=== PATIENT | male | born 1940 | race Caucasian/White ===

== ENCOUNTER 2016-08-27 11:32 | Inpatient (IN) | payer OTHER, MEDICARE ==
[2016-08-27 11:44] VITALS: BMI 27.3
[2016-08-27] MEDS ORDERED: FUROSEMIDE 40 MG/4 ML INJECTABLE VIAL ONE (11:45)
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
[2016-08-27 12:15] LABS: URINE APPEARANCE CLEAR; URINE BILIRUBIN NEGATIVE (NEGATIVE); URINE BLOOD NEGATIVE (NEGATIVE); URINE COLOR YELLOW; URINE GLUCOSE (UA) 3+ (NEGATIVE); URINE KETONE NEGATIVE (NEGATIVE); URINE LEUK ESTERASE NEGATIVE (NEGATIVE); URINE NITRITE NEGATIVE (NEGATIVE); URINE UROBILINOGEN NEGATIVE E.U./dl (0.2-1.0)
[2016-08-27 12:18] LABS: ARTERIAL BLD GAS O2 SATURATION 92.7 % (90-98.9); ARTERIAL BLOOD GAS BASE EXCESS 5.8 meq/l (-2-2); ARTERIAL BLOOD GAS HCO3 36.4 meq/L (22-26); ARTERIAL BLOOD GAS PO2 80.5 mmHg (70-100)
[2016-08-27 12:19] LABS: ALLENS TEST POSITIVE; ART PUNCT SITE LEFT RADIAL; LPM/O2% 30%; PT. ON O2? y
[2016-08-27 12:20] LABS: URINE PROTEIN 1+ (NEGATIVE)
[2016-08-27 12:20] LABS: TYPE OF O2 BIPAP
[2016-08-27 12:21] LABS: MECH. VENT. Y
[2016-08-27 12:25] LABS: BASOPHIL 0.2 % (0-2.0); MCH 33.7 pg (25.7-33.7); MCHC 33.4 g/dl (32.0-35.9); MEAN CELL VOLUME 100.6 fl (80-96); MEAN PLT VOLUME 8.6 fl (7.5-11.1); NEUTROPHILS 89.9 % (42.8-82.8); PLATELET COUNT 314 K/MM3 (134-434); RDW 13.5 % (11.9-15.9); WHITE BLOOD COUNT 11.6 K/mm3 (4.0-10.0)
[2016-08-27 12:25] LABS: URINE MUCUS RARE; URINE RBC 1 /hpf (0-3); URINE WBC 4 /hpf (3-5)
[2016-08-27 12:34] LABS: ALBUMIN 3.7 g/dl (3.4-5.0); ANION GAP 3 (8-16); CALCIUM 8.8 mg/dL (8.5-10.1); CO2 37 mmol/L (21-32); CREATININE 0.8 mg/dL (0.7-1.3); GLUCOSE,RANDOM 226 mg/dL (74-106); SGPT/ALT 43 U/L (12-78)
[2016-08-27] MEDS ORDERED: ETOMIDATE 40 MG/20 ML VIAL IVPUSH ONE (12:36)
[2016-08-27] MEDS ORDERED: ROCURONIUM BROMIDE 50 MG/5 ML VIAL IVPUSH ONE (12:36)
[2016-08-27 12:38] LABS: ALK PHOS 87 U/L (45-117); BILIRUBIN,TOTAL 0.5 mg/dL (0.2-1.0); TOT PROT 7.5 g/dl (6.4-8.2); TROPONIN I 0.06 ng/ml (0.00-0.05)
[2016-08-27 12:40] LABS: SGOT/AST 78 U/L (15-37)
[2016-08-27] MEDS ORDERED: RAPID SEQUENCE INTUBATION KIT NR ONE (12:42)
[2016-08-27] MEDS ORDERED: PROPOFOL 100 ML ONE (12:47)
[2016-08-27] MEDS ORDERED: BENZOIN/ALOE VERA/STORAX/TOLU 58 ML BOTTLE ONE (12:56)
[2016-08-27] MEDS ORDERED: AZITHROMYCIN IVPB 500 MG in DEXTROSE 5%-WATER - 250 ML IVPB ONE (13:05)
[2016-08-27] MEDS ORDERED: CEFTRIAXONE 1 GM in DEXTROSE 5%-WATER - 50 ML IVPB ONE (13:05)
[2016-08-27] MEDS ORDERED: SODIUM CHLORIDE 1,000 ML IV STA (13:11)
--- NOTE | 2016-08-27 13:12 | CONSULT ---
Consult Consult Specialty:: PULM/CCM Referred by:: ER Reason for Consultation:: Acute respiratory failure - History of Present Illness Chief Complaint: AMS History of Present Illness: 76 M, (?) CHF, ALS, diabetes, and GERD. Admitted via the ER due to SOB and AMS. Given 80 mg lasix and SL NTG by EMS. ABG revealed acute hypercapneic respiratory failure. He was endotracheally intubated without complications in the ER. No travel history. No history of any sick contacts. CXR: bilateral focal interstitial infiltrates/blunted left CP angle. - History Source History Provided By: Medical Record Limitations to Obtaining History: Clinical Condition - Alcohol/Substance Use Hx Alcohol Use: No - Smoking History Smoking history: Smoker current status UNK Have you smoked in the past 12 months: No Aproximately how many cigarettes per day: 0 If you are a former smoker, when did you quit?: 25YRS AGO Home Medications - Allergies Allergies/Adverse Reactions: Allergies Allergy/AdvReac Type Severity Reaction Status Date / Time No Known Allergies Allergy Verified 08/27/16 11:44 - Home Medications Home Medications: Ambulatory Orders Lisinopril [Prinivil -] 40 mg PO DAILY 02/04/13 Metformin HCl [Riomet] 500 mg PO BID 02/04/13 Ranitidine [Zantac -] 300 mg PO HS 02/04/13 Review of Systems Unable to obtain ROS, reason: not able to provide Physical Exam Vital Sings: Vital Signs Temperature Pulse Rate 112 H 08/27/16 11:32 Respiratory Rate 34 H 08/27/16 11:32 Blood Pressure 135/70 08/27/16 11:32 O2 Sat by Pulse Oximetry (%) 94 L 08/27/16 12:31 Constitutional: Yes: Moderate Distress, Obese Eyes: Yes: Conjunctiva Clear, EOM Intact HENT: Yes: Atraumatic, Normocephalic Neck: Yes: Supple, Trachea Midline Cardiovascular: Yes: S1, S2. No: JVD, Gallop, Rub Respiratory: Yes: Intubated, Mechanically Ventilated, Rhonchi. No: Rales, Stridor, Wheezes ...Inspection: Yes: WNL, Surgical Scar, Trachea Midline. No: Flail Chest ...Clubbing: No Gastrointestinal: Yes: Normal Bowel Sounds, Soft, Abdomen, Obese Renal/: Yes: WNL Breast(s): Yes: WNL Musculoskeletal: Yes: WNL Extremities: Yes: Cool Edema: Yes Peripheral Pulses WNL: Yes Integumentary: Yes: Venous Stasis Changes Neurological: Yes: Lethargy Labs: CBC, BMP 08/27/16 11:55 08/27/16 11:55 ABG Results ABG pH 7.20 (7.35-7.45) L* 08/27/16 12:15 ABG pCO2 at Pt Temp 96.0 mmHg (35-45) H* 08/27/16 12:15 ABG pO2 at Pt Temp 80.5 mmHg (70-100) 08/27/16 12:15 ABG HCO3 36.4 meq/L (22-26) H 08/27/16 12:15 ABG O2 Sat (Measured) 92.7 % (90-98.9) 08/27/16 12:15 ABG O2 Content 14.7 % vol (15-22) L 08/27/16 12:15 ABG Base Excess 5.8 meq/l (-2-2) H 08/27/16 12:15 Imaging - Results Chest X-ray: Report Reviewed, Image Reviewed (Bilateral focal infiltrates) Problem List - Problems (1) Head injury Code(s): S09.90XA - UNSPECIFIED INJURY OF HEAD, INITIAL ENCOUNTER Qualifiers: Encounter type: initial encounter Qualified Code(s): S09.90XA - Unspecified injury of head, initial encounter (2) Laceration Code(s): T14.8 - OTHER INJURY OF UNSPECIFIED BODY REGION (3) Acute respiratory failure Code(s): J96.00 - ACUTE RESPIRATORY FAILURE, UNSP W HYPOXIA OR HYPERCAPNIA (4) Pneumonia Code(s): J18.9 - PNEUMONIA, UNSPECIFIED ORGANISM (5) Acute respiratory failure with hypercapnia Code(s): J96.02 - ACUTE RESPIRATORY FAILURE WITH HYPERCAPNIA (6) ALS (amyotrophic lateral sclerosis) Code(s): G12.21 - AMYOTROPHIC LATERAL SCLEROSIS (7) Sepsis Code(s): A41.9 - SEPSIS, UNSPECIFIED ORGANISM Assessment/Plan PLAN: IVF ABX Check urine Check sputum Lactic acid Do not suspect over CHF ARF Electrolyte imbalance Strict I&O ICU monitoring Dr Donald CCTime 35"
[2016-08-27] MEDS: PROPOFOL 100 ML IVPB SCH (13:28)
[2016-08-27] MEDS ORDERED: DEXTROSE 5%-NORMAL SALINE 1,000 ML IV SCH (13:30)
[2016-08-27] MEDS ORDERED: methylPREDNISolone NA SUCC 125 MG/2 ML VIAL ONE (13:33)
[2016-08-27] MEDS ORDERED: AZITHROMYCIN IVPB 250 ML IVPB ONE (13:33)
[2016-08-27] MEDS ORDERED: CEFTRIAXONE 50 ML ONE (13:34)
[2016-08-27] MEDS: methylPREDNISolone NA SUCC 40 MG/1 ML VIAL IVPB SCH (14:05)
[2016-08-27] MEDS: ARFORMOTEROL TARTRATE 15 MCG/2 ML VIAL NEB SCH ×2 (14:28→22:40)
[2016-08-27 14:45] LABS: INR 1.01 (0.82-1.09)
--- NOTE | 2016-08-27 14:55 | HP ---
Admitting History and Physical - Primary Care Physician [facility]CP[facility] - Admission Chief Complaint: trouble breathing History of Present Illness: All history taken from , patient is intubated and sedated 76 year old male with a PMHx ALS, DM2, HTN who presents with progressively worsening shortness of breath and as per EMS hypoxic at 75% RA on arrival. As per , patient ambulates independently at baseline and for the last 3 days he has been unable to walk. She states he also has had progressive bilateral lower and upper extremity swelling for the past 3-4 weeks. Yesterday she noticed he was short of breath and "didn't look well," so she decided to bring him to hospital today. She denies any recent fever/chills, nausea, vomiting, abdominal pain, chest pain, palpitations, recent sick contacts or travel. About 3 weeks ago he was started on a new medication for ALS, unknown name, and has been giving it to him subcutaneously. He also had a right chest port placed about a month ago, she does not know why. No known history of heart failure, CAD. Lasix 80 mg IVP and SL nitro given per EMS Has never been intubated before. Usually follows at the [facility], but felt more comfortable with bringing him to [facility] for further evaluation. No further history can be obtained at this time, patient was intubated in ED. History Source: Significant Other Limitations to Obtaining History: Poor Historian - Past Medical History [employer]: Yes: Other (ALS) Cardiovascular: Yes: HTN Endocrine: Yes: Diabetes Mellitus - Past Surgical History Additional Past Surgical History: Umbilical hernia repair - Smoking History Smoking history: Smoker current status UNK Have you smoked in the past 12 months: No Aproximately how many cigarettes per day: 0 If you are a former smoker, when did you quit?: 25YRS AGO - Alcohol/Substance Use Hx Alcohol Use: No Home Medications - Allergies Allergies/Adverse Reactions: Allergies Allergy/AdvReac Type Severity Reaction Status Date / Time No Known Allergies Allergy Verified 08/27/16 11:44 - Home Medications Home Medications: Ambulatory Orders Lisinopril [Prinivil -] 40 mg PO DAILY 02/04/13 Metformin HCl [Riomet] 500 mg PO BID 02/04/13 Ranitidine [Zantac -] 300 mg PO HS 02/04/13 Omeprazole 20 mg PO DAILY 08/27/16 Family Disease History - Family Disease History Family History: Unable to Obtain Review of Systems Unable to obtain ROS, reason: intubated and sedated Physical Examination Vital Signs: Vital Signs Temperature 97.9 F 08/27/16 14:32 Pulse Rate 84 08/27/16 14:32 Respiratory Rate 16 08/27/16 14:32 Blood Pressure 149/124 08/27/16 14:32 O2 Sat by Pulse Oximetry (%) 100 08/27/16 14:32 Findings/Remarks: intubated, sedated HENT: Yes: WNL, Atraumatic, Normocephalic Neck: Yes: WNL, Supple, Trachea Midline Cardiovascular: Yes: WNL, Tachycardia, Murmur Respiratory: Yes: Intubated, Mechanically Ventilated Gastrointestinal: Yes: Soft, Abdomen, Obese (midline vertical scar) Extremities: Yes: Cool Edema: Yes Edema: LUE: 2+, RUE: 2+, LLE: 3+, RLE: 3+ Peripheral Pulses WNL: Yes Neurological: Yes: Other (sedated and intubated) Labs: Laboratory Tests 08/27/16 08/27/16 08/27/16 11:50 11:55 11:55 WBC 11.6 H RBC 3.63 L Hgb 12.2 Hct 36.6 MCV 100.6 H MCHC 33.4 RDW 13.5 Plt Count 314 D MPV 8.6 D Neutrophils % 89.9 H D Lymphocytes % 3.0 L D Monocytes % 6.9 Eosinophils % 0.0 D Basophils % 0.2 INR Cancelled D-Dimer Cancelled Puncture Site ABG pH ABG pCO2 at Pt Temp ABG pO2 at Pt Temp ABG HCO3 ABG O2 Sat (Measured) ABG O2 Content ABG Base Excess Farhat Test O2 Delivery Device Oxygen Flow Rate Mechanical Rate Sodium Potassium Chloride Carbon Dioxide Anion Gap BUN Creatinine Creat Clearance w eGFR POC Glucometer Random Glucose Lactic Acid Calcium Magnesium Total Bilirubin AST ALT Alkaline Phosphatase Creatine Kinase Creatine Kinase Index CK-MB (CK-2) CK-MB (CK-2) Rel Index Troponin I B-Natriuretic Peptide Total Protein Albumin Urine Color Yellow Urine Appearance Clear Urine pH 5.0 D Ur Specific [place] 1.012 Urine Protein 1+ H Urine Glucose (UA) 3+ H Urine Ketones Negative Urine Blood Negative Urine Nitrite Negative Urine Bilirubin Negative Urine Urobilinogen Negative Ur Leukocyte Esterase Negative Urine RBC 1 Urine WBC 4 Urine Mucus Rare 08/27/16 08/27/16 08/27/16 11:55 11:55 12:15 WBC RBC Hgb Hct MCV MCHC RDW Plt Count MPV Neutrophils % Lymphocytes % Monocytes % Eosinophils % Basophils % INR D-Dimer Puncture Site Left radial ABG pH 7.20 L* ABG pCO2 at Pt Temp 96.0 H* ABG pO2 at Pt Temp 80.5 ABG HCO3 36.4 H ABG O2 Sat (Measured) 92.7 ABG O2 Content 14.7 L ABG Base Excess 5.8 H Farhat Test Positive O2 Delivery Device Bipap Oxygen Flow Rate 30% Mechanical Rate Y Sodium 125 L D Potassium 5.5 H D Chloride 85 L D Carbon Dioxide 37 H D Anion Gap 3 L BUN 15 Creatinine 0.8 Creat Clearance w eGFR > 60 POC Glucometer Random Glucose 226 H D Lactic Acid Calcium 8.8 Magnesium 2.0 Total Bilirubin 0.5 AST 78 H D ALT 43 Alkaline Phosphatase 87 Creatine Kinase 339 H Creatine Kinase Index 4.7 CK-MB (CK-2) 15.97 H CK-MB (CK-2) Rel Index Cancelled Troponin I 0.06 H B-Natriuretic Peptide 697.91 H Total Protein 7.5 Albumin 3.7 Urine Color Urine Appearance Urine pH Ur Specific [place] Urine Protein Urine Glucose (UA) Urine Ketones Urine Blood Urine Nitrite Urine Bilirubin Urine Urobilinogen Ur Leukocyte Esterase Urine RBC Urine WBC Urine Mucus 08/27/16 08/27/16 08/27/16 13:43 14:20 14:42 WBC RBC Hgb Hct MCV MCHC RDW Plt Count MPV Neutrophils % Lymphocytes % Monocytes % Eosinophils % Basophils % INR 1.01 D-Dimer Puncture Site ABG pH ABG pCO2 at Pt Temp ABG pO2 at Pt Temp ABG HCO3 ABG O2 Sat (Measured) ABG O2 Content ABG Base Excess Farhat Test O2 Delivery Device Oxygen Flow Rate Mechanical Rate Sodium Potassium Chloride Carbon Dioxide Anion Gap BUN Creatinine Creat Clearance w eGFR POC Glucometer 225.20610 Random Glucose Lactic Acid 1.104 Calcium Magnesium Total Bilirubin AST ALT Alkaline Phosphatase Creatine Kinase Creatine Kinase Index CK-MB (CK-2) CK-MB (CK-2) Rel Index Troponin I B-Natriuretic Peptide Total Protein Albumin Urine Color Urine Appearance Urine pH Ur Specific [place] Urine Protein Urine Glucose (UA) Urine Ketones Urine Blood Urine Nitrite Urine Bilirubin Urine Urobilinogen Ur Leukocyte Esterase Urine RBC Urine WBC Urine Mucus Imaging - Results Chest X-ray: Report Reviewed, Image Reviewed EKG: Pending Problem List - Problems (1) Acute respiratory failure with hypercapnia Code(s): J96.02 - ACUTE RESPIRATORY FAILURE WITH HYPERCAPNIA (2) ALS (amyotrophic lateral sclerosis) Code(s): G12.21 - AMYOTROPHIC LATERAL SCLEROSIS Assessment/Plan 76 year old male with a PMHx of ALS who presents with weakness, inability to walk and progressively worsening shortness of breath. 1) Acute hypercapneic respiratory failure-patient intubated in ED, admit to ICU -DDx includes, ALS progression vs. pneumonia vs. CHF (unclear if has known history of CHF) -unclear which medication started for ALS, will try to contact PCP, to bring in prescription -repeat ABG -panculture, lactic acid -initiate IV abx to cover CAP-rocephin/azithromycin -vent settings per ICU -repeat labs in AM -2dechocardiogram -i/os and daily weights 2) HTN -controlled -hold home meds for now 3) DM2 -hold metformin -bs checks 3) DVT ppx -heparin subq
[2016-08-27 15:43] LABS: D-DIMER < 200 ng/ml (<200-235)
[2016-08-27 16:01] LABS: ARTERIAL BLD GAS O2 SATURATION 97.7 % (90-98.9); ARTERIAL BLOOD GAS HCO3 33.2 meq/L (22-26)
[2016-08-27 16:06] LABS: ART PUNCT SITE RIGHT BRACHIAL; ARTERIAL BLOOD GAS pH 7.55 (7.35-7.45); LPM/O2% 35%; MECH. VENT. YES; PT. ON O2? YES; TYPE OF O2 VENTILATOR; VENT RATE 16; VT/PRESS 550
[2016-08-27] MEDS: SODIUM CHLORIDE 1,000 ML IV SCH (20:00)
[2016-08-27] MEDS ORDERED: MUPIROCIN 2% TOPICAL OINTMENT FOR DECOLONIZATION NS SCH (22:00)
[2016-08-27] MEDS ORDERED: CHLORHEXIDINE GLUCONATE 4% CLEANSER FOR DECOLONIZATION TP SCH (22:00)
[2016-08-27 22:18] LABS: CALCIUM 9.2 mg/dL (8.5-10.1); CREATININE 0.8 mg/dL (0.7-1.3)
[2016-08-27 22:23] LABS: TROPONIN I 0.08 ng/ml (0.00-0.05)
[2016-08-27] MEDS: CHLORHEXIDINE GLUCONATE 4% CLEANSER FOR DECOLONIZATION TP SCH (22:38)
[2016-08-27] MEDS: FENTANYL INJECTION 500 MCG in DEXTROSE 5%-WATER - 90 ML IJ SCH (22:41)
[2016-08-27] MEDS: HEPARIN NA (PORCINE) 5,000 UNITS/ML 1ML VIAL SQ SCH (22:42)
[2016-08-27] MEDS ORDERED: SODIUM PHOSPHATE - 15 MM in DEXTROSE 5%-WATER - 250 ML IVPB ONE (23:30)
[2016-08-28 06:04] LABS: BASOPHIL 0.2 % (0-2.0); MEAN CELL VOLUME 96.9 fl (80-96); MEAN PLT VOLUME 8.3 fl (7.5-11.1); NEUTROPHILS 75.9 % (42.8-82.8); PLATELET COUNT 217 K/MM3 (134-434); RDW 13.8 % (11.9-15.9); WHITE BLOOD COUNT 9.3 K/mm3 (4.0-10.0)
[2016-08-28 06:31] LABS: ALBUMIN 2.9 g/dl (3.4-5.0); ANION GAP 6 (8-16); CALCIUM 8.9 mg/dL (8.5-10.1); CO2 36 mmol/L (21-32); CREATININE 0.9 mg/dL (0.7-1.3); GLUCOSE,RANDOM 115 mg/dL (74-106); MAGNESIUM 1.8 mg/dL (1.8-2.4); PHOSPHOROUS 3.8 mg/dL (2.5-4.9); SGOT/AST 45 U/L (15-37); SGPT/ALT 31 U/L (12-78)
[2016-08-28 06:32] LABS: ALK PHOS 60 U/L (45-117); BILIRUBIN,TOTAL 0.7 mg/dL (0.2-1.0); TOT PROT 5.5 g/dl (6.4-8.2)
[2016-08-28] MEDS: INSULIN SLIDING SCALE (NOVOLOG) 1 VIAL SQ SCH ×3 (07:00→17:20)
[2016-08-28 07:24] LABS: ALLENS TEST POSITIVE; ART PUNCT SITE RIGHT RADIAL; ARTERIAL BLD GAS O2 SATURATION 99.3 % (90-98.9); ARTERIAL BLOOD GAS HCO3 36.3 meq/L (22-26); LPM/O2% 30; PT. ON O2? YES
[2016-08-28 07:25] LABS: ARTERIAL BLOOD GAS pH 7.58 (7.35-7.45); MECH. VENT. YES; TYPE OF O2 VENT; VENT RATE 14; VT/PRESS 475
[2016-08-28] MEDS ORDERED: CEFTRIAXONE 50 ML IVPB SCH (10:00)
[2016-08-28] MEDS ORDERED: PANTOPRAZOLE SODIUM 40 MG in SODIUM CHLORIDE 100 ML IVPB SCH (10:00)
[2016-08-28] MEDS ORDERED: AZITHROMYCIN IVPB 250 ML IVPB SCH (10:00)
[2016-08-28] MEDS ORDERED: PT OWN MED DRAWER 7, Y5N ONE (10:11)
[2016-08-28] MEDS: HEPARIN NA (PORCINE) 5,000 UNITS/ML 1ML VIAL SQ SCH ×2 (10:16→21:21)
[2016-08-28] MEDS: PANTOPRAZOLE SODIUM 40 MG/100 ML PRE-DOCKED IVPB SCH ×2 (10:16→21:21)
[2016-08-28] MEDS: MUPIROCIN 2% TOPICAL OINTMENT FOR DECOLONIZATION NS SCH ×2 (10:16→21:21)
[2016-08-28] MEDS: methylPREDNISolone NA SUCC 40 MG/1 ML VIAL IVPB SCH (10:16)
[2016-08-28] MEDS: SODIUM CHLORIDE 1,000 ML IV SCH (10:24)
[2016-08-28] MEDS: ARFORMOTEROL TARTRATE 15 MCG/2 ML VIAL NEB SCH ×2 (10:35→21:44)
--- NOTE | 2016-08-28 12:10 | PN ---
Teaching Attending Note Name of Resident: Melvin Ortiz ATTENDING PHYSICIAN STATEMENT I saw and evaluated the patient. I reviewed the resident's note and discussed the case with the resident. I agree with the resident's findings and plan as documented. SUBJECTIVE: Patient seen and examined in the ICU. Awake on AC mode of vent. No pressors. NIF about 17. Physical Exam Intake & Output 08/25/16 08/26/16 08/27/16 08/28/16 23:59 23:59 23:59 23:59 Intake Total 400 1480 Output Total 1350 1300 Balance -950 180 Weight 180 lb 0.013 oz Last Vital Signs Temp Pulse Resp BP Pulse Ox 99.1 F 103 H 26 H 82/50 100 08/28/16 08:00 08/28/16 10:00 08/28/16 10:55 08/28/16 10:00 08/28/16 11:12 Active Medications Arformoterol Tartrate (Brovana (Restricted To Pulmonology/Resp) -) 1 amp NEB BID KENDRICK Last Admin: 08/27/16 22:40 Dose: 1 amp Chlorhexidine Gluconate (Hibiclens For Decolonization -) 1 applic TP HS KENDRICK Last Admin: 08/27/16 22:38 Dose: 1 applic Heparin Sodium (Porcine) (Heparin -) 5,000 unit SQ BID KENDRICK Last Admin: 08/28/16 10:16 Dose: 5,000 unit Propofol (Diprivan -) 100 mls @ 4.899 mls/hr IVPB TITR KENDRICK; 10 MCG/KG/MIN PRN Reason: Protocol Last Titration: 08/28/16 10: Dose: 0 mcg/kg/min Azithromycin (Zithromax 500mg Ivpb (Pre-Docked)) 250 mls @ 250 mls/hr IVPB DAILY KENDRICK Last Admin: 08/28/16 10:17 Dose: 250 mls/hr Ceftriaxone Sodium (Rocephin 1gm Ivpb (Pre-Docked)) 50 mls @ 100 mls/hr IVPB DAILY KENDRICK Last Admin: 08/28/16 10:16 Dose: 100 mls/hr Fentanyl 500 mcg/ Dextrose 100 mls @ 5 mls/hr IJ TITR KENDRICK PRN Reason: 25 MCG/HR Last Titration: 08/28/16 10:26 Dose: 0 mcg/hr Sodium Chloride (Normal Saline -) 1,000 mls @ 100 mls/hr IV ASDIR [facility] Last Admin: 08/28/16 10:24 Dose: 100 mls/hr Insulin Aspart (Novolog Vial Sliding Scale -) 1 vial SQ TIDAC [facility] PRN Reason: Protocol Last Admin: 08/28/16 10:25 Dose: Not Given Methylprednisolone Sodium Succinate (Solu-Medrol -) 40 mg IVPB DAILY [facility] Last Admin: 08/28/16 10:16 Dose: 40 mg Mupirocin (Bactroban Ointment (For Decolonization) -) 1 applic NS BID [facility] Stop: 09/02/16 09:59 Last Admin: 08/28/16 10:16 Dose: 1 applic Pantoprazole Sodium (Protonix 40mg Ivpb (Pre-Docked)) 40 mg IVPB BID [facility] Last Admin: 08/28/16 10:16 Dose: 40 mg Constitutional: Yes: Intubated, awake and alert Eyes: Yes: Conjunctiva Clear, EOM Intact HENT: Yes: Atraumatic, Normocephalic Neck: Yes: Supple, Trachea Midline Cardiovascular: Yes: S1, S2. No: JVD, Gallop, Rub Respiratory: Yes: Intubated, Mechanically Ventilated, Rhonchi. No: Rales, Stridor, Wheezes ...Inspection: Yes: WNL, Surgical Scar, Trachea Midline. No: Flail Chest ...Clubbing: No Gastrointestinal: Yes: Normal Bowel Sounds, Soft, Abdomen, Obese Renal/: Yes: WNL Breast(s): Yes: WNL Musculoskeletal: Yes: WNL Extremities: Yes: Cool Edema: Yes Peripheral Pulses WNL: Yes Integumentary: Yes: Venous Stasis Changes Neurological: Yes: Non-focal Labs: Laboratory Results - last 24 hr 08/27/16 08/27/16 08/27/16 09:40 09:40 09:40 WBC RBC Hgb Hct MCV MCHC RDW Plt Count MPV Neutrophils % Lymphocytes % Monocytes % Eosinophils % Basophils % INR D-Dimer Puncture Site ABG pH ABG pCO2 at Pt Temp ABG pO2 at Pt Temp ABG HCO3 ABG O2 Sat (Measured) ABG O2 Content ABG Base Excess Farhat Test O2 Delivery Device Oxygen Flow Rate Vent Mode Vent Rate Mechanical Rate PEEP Pressure Support Vent Sodium 130 L D Potassium 4.0 Chloride 88 L D Carbon Dioxide 36 H D Anion Gap 6 L BUN 17 Creatinine 0.8 Creat Clearance w eGFR POC Glucometer Random Glucose 128 H D Lactic Acid 1.055 Calcium 9.2 Phosphorus Magnesium Total Bilirubin AST ALT Alkaline Phosphatase Creatine Kinase 337 H Creatine Kinase Index CK-MB (CK-2) CK-MB (CK-2) Rel Index Troponin I 0.08 H B-Natriuretic Peptide Total Protein Albumin Urine Color Urine Appearance Urine pH Ur Specific [place] Urine Protein Urine Glucose (UA) Urine Ketones Urine Blood Urine Nitrite Urine Bilirubin Urine Urobilinogen Ur Leukocyte Esterase Urine RBC Urine WBC Urine Mucus Blood Type Antibody Screen 08/27/16 08/27/16 08/27/16 09:40 11:50 11:55 WBC 11.6 H RBC 3.63 L Hgb 12.2 Hct 36.6 MCV 100.6 H MCHC 33.4 RDW 13.5 Plt Count 314 D MPV 8.6 D Neutrophils % 89.9 H D Lymphocytes % 3.0 L D Monocytes % 6.9 Eosinophils % 0.0 D Basophils % 0.2 INR D-Dimer Puncture Site ABG pH ABG pCO2 at Pt Temp ABG pO2 at Pt Temp ABG HCO3 ABG O2 Sat (Measured) ABG O2 Content ABG Base Excess Farhat Test O2 Delivery Device Oxygen Flow Rate Vent Mode Vent Rate Mechanical Rate PEEP Pressure Support Vent Sodium Potassium Chloride Carbon Dioxide Anion Gap BUN Creatinine Creat Clearance w eGFR POC Glucometer Random Glucose Lactic Acid Calcium Phosphorus Magnesium Total Bilirubin AST ALT Alkaline Phosphatase Creatine Kinase Creatine Kinase Index CK-MB (CK-2) CK-MB (CK-2) Rel Index Cancelled Troponin I B-Natriuretic Peptide Total Protein Albumin Urine Color Yellow Urine Appearance Clear Urine pH 5.0 D Ur Specific [place] 1.012 Urine Protein 1+ H Urine Glucose (UA) 3+ H Urine Ketones Negative Urine Blood Negative Urine Nitrite Negative Urine Bilirubin Negative Urine Urobilinogen Negative Ur Leukocyte Esterase Negative Urine RBC 1 Urine WBC 4 Urine Mucus Rare Blood Type Antibody Screen 08/27/16 08/27/16 08/27/16 11:55 11:55 11:55 WBC RBC Hgb Hct MCV MCHC RDW Plt Count MPV Neutrophils % Lymphocytes % Monocytes % Eosinophils % Basophils % INR Cancelled D-Dimer Cancelled Puncture Site ABG pH ABG pCO2 at Pt Temp ABG pO2 at Pt Temp ABG HCO3 ABG O2 Sat (Measured) ABG O2 Content ABG Base Excess Farhat Test O2 Delivery Device Oxygen Flow Rate Vent Mode Vent Rate Mechanical Rate PEEP Pressure Support Vent Sodium 125 L Potassium 5.5 H D Chloride 85 L Carbon Dioxide 37 H Anion Gap 3 L BUN 15 Creatinine 0.8 Creat Clearance w eGFR > 60 POC Glucometer Random Glucose 226 H D Lactic Acid Calcium 8.8 Phosphorus Magnesium 2.0 Total Bilirubin 0.5 AST 78 H D ALT 43 Alkaline Phosphatase 87 Creatine Kinase 339 H Creatine Kinase Index 4.7 CK-MB (CK-2) 15.97 H CK-MB (CK-2) Rel Index Cancelled Troponin I 0.06 H B-Natriuretic Peptide 697.91 H Total Protein 7.5 Albumin 3.7 Urine Color Urine Appearance Urine pH Ur Specific [place] Urine Protein Urine Glucose (UA) Urine Ketones Urine Blood Urine Nitrite Urine Bilirubin Urine Urobilinogen Ur Leukocyte Esterase Urine RBC Urine WBC Urine Mucus Blood Type Antibody Screen 08/27/16 08/27/16 08/27/16 12:15 13:43 13:43 WBC RBC Hgb Hct MCV MCHC RDW Plt Count MPV Neutrophils % Lymphocytes % Monocytes % Eosinophils % Basophils % INR D-Dimer Puncture Site Left radial ABG pH 7.20 L* ABG pCO2 at Pt Temp 96.0 H* ABG pO2 at Pt Temp 80.5 ABG HCO3 36.4 H ABG O2 Sat (Measured) 92.7 ABG O2 Content 14.7 L ABG Base Excess 5.8 H Farhat Test Positive O2 Delivery Device Bipap Oxygen Flow Rate 30% Vent Mode Vent Rate Mechanical Rate Y PEEP Pressure Support Vent Sodium Potassium Chloride Carbon Dioxide Anion Gap BUN Creatinine Creat Clearance w eGFR POC Glucometer Random Glucose Lactic Acid 1.104 Calcium Phosphorus Magnesium Total Bilirubin AST ALT Alkaline Phosphatase Creatine Kinase Creatine Kinase Index CK-MB (CK-2) CK-MB (CK-2) Rel Index Troponin I B-Natriuretic Peptide Total Protein Albumin Urine Color Urine Appearance Urine pH Ur Specific [place] Urine Protein Urine Glucose (UA) Urine Ketones Urine Blood Urine Nitrite Urine Bilirubin Urine Urobilinogen Ur Leukocyte Esterase Urine RBC Urine WBC Urine Mucus Blood Type O NEGATIVE Antibody Screen Negative 08/27/16 08/27/16 08/27/16 14:20 14:25 14:42 WBC RBC Hgb Hct MCV MCHC RDW Plt Count MPV Neutrophils % Lymphocytes % Monocytes % Eosinophils % Basophils % INR 1.01 D-Dimer < 200 Puncture Site ABG pH ABG pCO2 at Pt Temp ABG pO2 at Pt Temp ABG HCO3 ABG O2 Sat (Measured) ABG O2 Content ABG Base Excess [place] Test O2 Delivery Device Oxygen Flow Rate Vent Mode Vent Rate Mechanical Rate PEEP Pressure Support Vent Sodium Potassium Chloride Carbon Dioxide Anion Gap BUN Creatinine Creat Clearance w eGFR POC Glucometer 225.27786 Random Glucose Lactic Acid Calcium Phosphorus Magnesium Total Bilirubin AST ALT Alkaline Phosphatase Creatine Kinase Creatine Kinase Index CK-MB (CK-2) CK-MB (CK-2) Rel Index Troponin I B-Natriuretic Peptide Total Protein Albumin Urine Color Urine Appearance Urine pH Ur Specific [place] Urine Protein Urine Glucose (UA) Urine Ketones Urine Blood Urine Nitrite Urine Bilirubin Urine Urobilinogen Ur Leukocyte Esterase Urine RBC Urine WBC Urine Mucus Blood Type O NEGATIVE Antibody Screen 08/27/16 08/27/16 08/27/16 15:58 16:42 21:58 WBC RBC Hgb Hct MCV MCHC RDW Plt Count MPV Neutrophils % Lymphocytes % Monocytes % Eosinophils % Basophils % INR D-Dimer Puncture Site Right brachial ABG pH 7.55 H D ABG pCO2 at Pt Temp 38.0 D ABG pO2 at Pt Temp 141.0 H D ABG HCO3 33.2 H ABG O2 Sat (Measured) 97.7 ABG O2 Content 15.3 ABG Base Excess 10.0 H Farhat Test Y O2 Delivery Device Ventilator Oxygen Flow Rate 35% Vent Mode A/c Vent Rate 16 Mechanical Rate Yes PEEP 5.0 Pressure Support Vent 550 Sodium Potassium Chloride Carbon Dioxide Anion Gap BUN Creatinine Creat Clearance w eGFR POC Glucometer Random Glucose Lactic Acid 2.548 H* Calcium Phosphorus 2.2 L Magnesium Total Bilirubin AST ALT Alkaline Phosphatase Creatine Kinase Creatine Kinase Index CK-MB (CK-2) CK-MB (CK-2) Rel Index Troponin I B-Natriuretic Peptide Total Protein Albumin Urine Color Urine Appearance Urine pH Ur Specific [place] Urine Protein Urine Glucose (UA) Urine Ketones Urine Blood Urine Nitrite Urine Bilirubin Urine Urobilinogen Ur Leukocyte Esterase Urine RBC Urine WBC Urine Mucus Blood Type Antibody Screen 08/28/16 08/28/16 08/28/16 05:00 05:00 05:17 WBC 9.3 RBC 3.13 L Hgb 10.0 L D Hct 30.3 L D MCV 96.9 H MCHC 33.0 RDW 13.8 Plt Count 217 D MPV 8.3 Neutrophils % 75.9 Lymphocytes % 8.5 D Monocytes % 15.4 H D Eosinophils % 0.0 Basophils % 0.2 INR D-Dimer Puncture Site ABG pH ABG pCO2 at Pt Temp ABG pO2 at Pt Temp ABG HCO3 ABG O2 Sat (Measured) ABG O2 Content ABG Base Excess [place] Test O2 Delivery Device Oxygen Flow Rate Vent Mode Vent Rate Mechanical Rate PEEP Pressure Support Vent Sodium 132 L Potassium 3.6 D Chloride 90 L Carbon Dioxide 36 H Anion Gap 6 L BUN 19 H D Creatinine 0.9 Creat Clearance w eGFR > 60 POC Glucometer 162.07434 Random Glucose 115 H D Lactic Acid Calcium 8.9 Phosphorus 3.8 D Magnesium 1.8 Total Bilirubin 0.7 D AST 45 H D ALT 31 D Alkaline Phosphatase 60 D Creatine Kinase Creatine Kinase Index CK-MB (CK-2) CK-MB (CK-2) Rel Index Troponin I B-Natriuretic Peptide Total Protein 5.5 L D Albumin 2.9 L D Urine Color Urine Appearance Urine pH Ur Specific [place] Urine Protein Urine Glucose (UA) Urine Ketones Urine Blood Urine Nitrite Urine Bilirubin Urine Urobilinogen Ur Leukocyte Esterase Urine RBC Urine WBC Urine Mucus Blood Type Antibody Screen 08/28/16 08/28/16 08/28/16 07:15 08:00 10:24 WBC RBC Hgb Hct MCV MCHC RDW Plt Count MPV Neutrophils % Lymphocytes % Monocytes % Eosinophils % Basophils % INR D-Dimer Puncture Site Right radial ABG pH 7.58 H ABG pCO2 at Pt Temp 38.4 ABG pO2 at Pt Temp 149.0 H ABG HCO3 36.3 H ABG O2 Sat (Measured) 99.3 H ABG O2 Content 14.1 L ABG Base Excess 13.0 H Farhat Test Positive O2 Delivery Device Vent Oxygen Flow Rate 30 Vent Mode A/c Vent Rate 14 Mechanical Rate Yes PEEP 5.0 Pressure Support Vent 475 Sodium Potassium Chloride Carbon Dioxide Anion Gap BUN Creatinine Creat Clearance w eGFR POC Glucometer 103.01190 Random Glucose Lactic Acid 0.892 Calcium Phosphorus Magnesium Total Bilirubin AST ALT Alkaline Phosphatase Creatine Kinase Creatine Kinase Index CK-MB (CK-2) CK-MB (CK-2) Rel Index Troponin I B-Natriuretic Peptide Total Protein Albumin Urine Color Urine Appearance Urine pH Ur Specific [place] Urine Protein Urine Glucose (UA) Urine Ketones Urine Blood Urine Nitrite Urine Bilirubin Urine Urobilinogen Ur Leukocyte Esterase Urine RBC Urine WBC Urine Mucus Blood Type Antibody Screen Imaging - Results Chest X-ray: Some mild improvement in bilateral infiltrates Problem List - Problems (1) Head injury Code(s): S09.90XA - UNSPECIFIED INJURY OF HEAD, INITIAL ENCOUNTER Qualifiers: Encounter type: initial encounter Qualified Code(s): S09.90XA - Unspecified injury of head, initial encounter (2) Laceration Code(s): T14.8 - OTHER INJURY OF UNSPECIFIED BODY REGION (3) Acute respiratory failure Code(s): J96.00 - ACUTE RESPIRATORY FAILURE, UNSP W HYPOXIA OR HYPERCAPNIA (4) Pneumonia Code(s): J18.9 - PNEUMONIA, UNSPECIFIED ORGANISM (5) Acute respiratory failure with hypercapnia Code(s): J96.02 - ACUTE RESPIRATORY FAILURE WITH HYPERCAPNIA (6) ALS (amyotrophic lateral sclerosis) Code(s): G12.21 - AMYOTROPHIC LATERAL SCLEROSIS (7) Sepsis Code(s): A41.9 - SEPSIS, UNSPECIFIED ORGANISM Assessment/Plan ABX Follow cultures Wean to extubate May need transient NIPPV Aspiration precautions BD TX Dr Donald CCTime 35" Problem List - Problems (1) Head injury Code(s): S09.90XA - UNSPECIFIED INJURY OF HEAD, INITIAL ENCOUNTER Qualifiers: Encounter type: initial encounter Qualified Code(s): S09.90XA - Unspecified injury of head, initial encounter (2) Laceration Code(s): T14.8 - OTHER INJURY OF UNSPECIFIED BODY REGION (3) Acute respiratory failure Code(s): J96.00 - ACUTE RESPIRATORY FAILURE, UNSP W HYPOXIA OR HYPERCAPNIA Qualifiers: Respiratory failure complication: hypercapnia Qualified Code(s): J96.02 - Acute respiratory failure with hypercapnia (4) Pneumonia Code(s): J18.9 - PNEUMONIA, UNSPECIFIED ORGANISM (5) Acute respiratory failure with hypercapnia Code(s): J96.02 - ACUTE RESPIRATORY FAILURE WITH HYPERCAPNIA (6) ALS (amyotrophic lateral sclerosis) Code(s): G12.21 - AMYOTROPHIC LATERAL SCLEROSIS (7) Sepsis Code(s): A41.9 - SEPSIS, UNSPECIFIED ORGANISM
--- NOTE | 2016-08-28 13:41 | PN ---
Progress Note (short form) - Note Progress Note: ID Consult dictated S/P respiratory failure Pneumonia UTI Hx neuromuscular disorder Pending sepsis work up, empiric zosyn/ stat dose vancomycin
--- NOTE | 2016-08-28 13:58 | PN ---
Physical Exam: SUBJECTIVE: Patient seen and examined at bedside. Patient is mechanically ventilated. NO sedation or pressors. Denies CP, ADLER, N/V. OBJECTIVE: Vital Signs Period Temp Pulse Resp BP Sys/Wang Pulse Ox Last 24 Hr 97.8 F-100.9 F 73-129 14-26 53-149/41-124 94-100 GENERAL: Intubated, awake and alert HEAD: Normal with no signs of trauma. EYES: PERRL, extraocular movements intact, sclera anicteric, conjunctiva clear. No ptosis. ENT: Ears normal, nares patent, NECK: Trachea midline, full range of motion, supple. LUNGS: Intubated and mechanically ventilated. Scattered Rhonchi. HEART: Regular rate and rhythm, S1, S2 without murmur, rub or gallop. ABDOMEN: Soft, nontender, nondistended, normoactive bowel sounds, no guarding, no rebound, no hepatosplenomegaly, no masses. EXTREMITIES: 1+ pulses, no edema. NEUROLOGICAL: lethargic and non-verbal PSYCH: Normal mood, normal affect. SKIN: cool, dry, normal turgor. Venous stasis changes. Laboratory Results - last 24 hr 08/27/16 08/27/16 08/27/16 14:20 14:25 14:42 WBC RBC Hgb Hct MCV MCHC RDW Plt Count MPV Neutrophils % Lymphocytes % Monocytes % Eosinophils % Basophils % INR 1.01 D-Dimer < 200 Puncture Site ABG pH ABG pCO2 at Pt Temp ABG pO2 at Pt Temp ABG HCO3 ABG O2 Sat (Measured) ABG O2 Content ABG Base Excess [place] Test O2 Delivery Device Oxygen Flow Rate Vent Mode Vent Rate Mechanical Rate PEEP Pressure Support Vent Sodium Potassium Chloride Carbon Dioxide Anion Gap BUN Creatinine Creat Clearance w eGFR POC Glucometer [phone] Random Glucose Lactic Acid Calcium Phosphorus Magnesium Total Bilirubin AST ALT Alkaline Phosphatase Total Protein Albumin Blood Type O NEGATIVE 08/27/16 08/27/16 08/27/16 15:58 16:42 21:58 WBC RBC Hgb Hct MCV MCHC RDW Plt Count MPV Neutrophils % Lymphocytes % Monocytes % Eosinophils % Basophils % INR D-Dimer Puncture Site Right brachial ABG pH 7.55 H D ABG pCO2 at Pt Temp 38.0 D ABG pO2 at Pt Temp 141.0 H D ABG HCO3 33.2 H ABG O2 Sat (Measured) 97.7 ABG O2 Content 15.3 ABG Base Excess 10.0 H Farhat Test Y O2 Delivery Device Ventilator Oxygen Flow Rate 35% Vent Mode A/c Vent Rate 16 Mechanical Rate Yes PEEP 5.0 Pressure Support Vent 550 Sodium Potassium Chloride Carbon Dioxide Anion Gap BUN Creatinine Creat Clearance w eGFR POC Glucometer Random Glucose Lactic Acid 2.548 H* Calcium Phosphorus 2.2 L Magnesium Total Bilirubin AST ALT Alkaline Phosphatase Total Protein Albumin Blood Type 08/28/16 08/28/16 08/28/16 05:00 05:00 05:17 WBC 9.3 RBC 3.13 L Hgb 10.0 L D Hct 30.3 L D MCV 96.9 H MCHC 33.0 RDW 13.8 Plt Count 217 D MPV 8.3 Neutrophils % 75.9 Lymphocytes % 8.5 D Monocytes % 15.4 H D Eosinophils % 0.0 Basophils % 0.2 INR D-Dimer Puncture Site ABG pH ABG pCO2 at Pt Temp ABG pO2 at Pt Temp ABG HCO3 ABG O2 Sat (Measured) ABG O2 Content ABG Base Excess [place] Test O2 Delivery Device Oxygen Flow Rate Vent Mode Vent Rate Mechanical Rate PEEP Pressure Support Vent Sodium 132 L Potassium 3.6 D Chloride 90 L Carbon Dioxide 36 H Anion Gap 6 L BUN 19 H D Creatinine 0.9 Creat Clearance w eGFR > 60 POC Glucometer 162.83917 Random Glucose 115 H D Lactic Acid Calcium 8.9 Phosphorus 3.8 D Magnesium 1.8 Total Bilirubin 0.7 D AST 45 H D ALT 31 D Alkaline Phosphatase 60 D Total Protein 5.5 L D Albumin 2.9 L D Blood Type 08/28/16 08/28/16 08/28/16 07:15 08:00 10:24 WBC RBC Hgb Hct MCV MCHC RDW Plt Count MPV Neutrophils % Lymphocytes % Monocytes % Eosinophils % Basophils % INR D-Dimer Puncture Site Right radial ABG pH 7.58 H ABG pCO2 at Pt Temp 38.4 ABG pO2 at Pt Temp 149.0 H ABG HCO3 36.3 H ABG O2 Sat (Measured) 99.3 H ABG O2 Content 14.1 L ABG Base Excess 13.0 H Far[place] Test Positive O2 Delivery Device Vent Oxygen Flow Rate 30 Vent Mode A/c Vent Rate 14 Mechanical Rate Yes PEEP 5.0 Pressure Support Vent 475 Sodium Potassium Chloride Carbon Dioxide Anion Gap BUN Creatinine Creat Clearance w eGFR POC Glucometer 103.99271 Random Glucose Lactic Acid 0.892 Calcium Phosphorus Magnesium Total Bilirubin AST ALT Alkaline Phosphatase Total Protein Albumin Blood Type Active Medications Generic Name Dose Route Start Last Admin Trade Name Freq PRN Reason Stop Dose Admin Arformoterol Tartrate 1 amp 08/27/16 13:45 08/28/16 10:35 Brovana (Restricted To Pulmonology/Resp) - NEB 1 amp BID KENDRICK Administration Chlorhexidine Gluconate 1 applic 08/27/16 22:00 08/27/16 22:38 Hibiclens For Decolonization - TP 1 applic HS KENDRICK Administration Heparin Sodium (Porcine) 5,000 unit 08/27/16 22:00 08/28/16 10:16 Heparin - SQ 5,000 unit BID KENDRICK Administration Propofol 100 mls @ 4.899 mls/hr 08/27/16 12:45 08/28/16 10:26 Diprivan - IVPB 0 mcg/kg/min TITR KENDRICK Titration Protocol 10 MCG/KG/MIN Azithromycin 250 mls @ 250 mls/hr 08/28/16 10:00 08/28/16 10:17 Zithromax 500mg Ivpb (Pre-Docked) IVPB 250 mls/hr DAILY KENDRICK Administration Ceftriaxone Sodium 50 mls @ 100 mls/hr 08/28/16 10:00 08/28/16 10:16 Rocephin 1gm Ivpb (Pre-Docked) IVPB 100 mls/hr DAILY KENDRICK Administration Fentanyl 500 mcg/ Dextrose 100 mls @ 5 mls/hr 08/27/16 20:45 08/28/16 10:26 IJ 0 mcg/hr TITR KENDRICK Titration 25 MCG/HR Sodium Chloride 1,000 mls @ 100 mls/hr 08/27/16 20:00 08/28/16 10:24 Normal Saline - IV 100 mls/hr ASDIR KENDRICK Administration Insulin Aspart 1 vial 08/28/16 07:00 08/28/16 10:25 Novolog Vial Sliding Scale - SQ Not Given TIDAC KENDRICK Protocol Methylprednisolone Sodium Succinate 40 mg 08/27/16 13:30 08/28/16 10:16 Solu-Medrol - IVPB 40 mg DAILY KENDRICK Administration Mupirocin 1 applic 08/28/16 10:00 12/27/16 10:16 Bactroban Ointment (For Decolonization) - NS 09/02/16 09:59 1 applic BID KENDRICK Administration Pantoprazole Sodium 40 mg 08/28/16 10:00 08/28/16 10:16 Protonix 40mg Ivpb (Pre-Docked) IVPB 40 mg BID KENDRICK Administration IMAGING: * CXR- Bilat. Infiltrates improving; Since the prior study of 08/27/2016 at 1304 hours, the right port and endotracheal tube and NG tube is been inserted. The tip is below the GE junction in the stomach. The patient is rotated to the left. There is a large heart, sclerotic knob but no sign of an acute process. Microbiology * 08/27/16 11:50 Urine - Urine Clean Catch Urine Culture - Preliminary Group D Strep Or Entero Coccus ASSESSMENT/PLAN: 76 yo M w/ SPMHx of ALS, DM, CHF admitted for sepsis secondary to CAP. Neuro: * Will consult Neurology for ALS * On cyanocolbalamin at home Pulmonary: * Wean to extubate, NIPPV PRN * Aspiration precautions. * Follow sputum cultures. * Continue with Azithromycin and Rocephin (day 2) * CXR shows improvement from admission CV: * Hemodynamically stable. ID: * Continue abx for suspected PNA * Urine Culture grew E.Coli * ID consult appreciated- stat dose of Vanco ordered F/E/N: * IVF- NS @75ml/hr * Electrolytes are WNL * NPO for now until extubation, advance as tolerated. Visit type - Emergency Visit Emergency Visit: Yes ED Registration Date: 08/27/16 Care time: The patient presented to the Emergency Department on the above date and was hospitalized for further evaluation of their emergent condition. - New Patient This patient is new to me today: Yes Date on this admission: 08/28/16 - Critical Care Critical Care patient: Yes Total Critical Care Time (in minutes): 32 Critical Care Statement: The care of this patient involved high complexity decision making to prevent further life threatening deterioration of the patient 's condition and/or to evalute & treat vital organ system(s) failure or risk of failure.
[2016-08-28] MEDS ORDERED: VANCOMYCIN 1 GRAM (PRE-DOCKED) 250 ML IVPB ONE (14:00)
[2016-08-28] MEDS: PROPOFOL 100 ML IVPB SCH (14:44)
[2016-08-28] MEDS: PIPERACILLIN/TAZOB 3.375 GM 50 ML IVPB SCH ×2 (15:12→18:57)
--- NOTE | 2016-08-28 15:15 | CONS ---
DATE OF CONSULTATION: DATE OF DICTATION: 08/28/2016 The patient is a 76-year-old male who was evaluated for pneumonia and urinary tract infection. He has a history of neuromuscular disorder, possibly ALS. His reports that over the past 2 to 3 days, he has had increasing generalized weakness and edema associated with the inability to ambulate. He had also become increasingly short of breath with cough. She called EMS with worsening dyspnea. He was found to have an O2 saturation of 75%. The patient was admitted to the hospital where he developed hypercapnic respiratory failure. He required intubation. In the intensive care unit, he was successfully extubated. The patient continues to have cough productive of whitish sputum. He denies any pleuritic-type chest pain or hemoptysis. Has not noticed any recent febrile illness. He has had fever in the hospital. The patient denies any ill contacts. No recent travel or pet exposure. He is up-to-date with respect to influenza and pneumococcal vaccines. Positive history of tobacco use. No documented history of alcohol abuse. PAST MEDICAL HISTORY: Positive for neuromuscular disease, congestive heart failure, diabetes mellitus, gastroesophageal reflux, peptic ulcer. ALLERGIES: No known allergies. MEDICATIONS: Solu-Medrol, Zithromax, ceftriaxone, heparin, propofol, fentanyl. SOCIAL HISTORY: Resides at home with his . Positive history of tobacco use. PAST SURGICAL HISTORY: Status post port insertion for IVIg treatments for his neuromuscular disorder. SYSTEMS REVIEW: Neurologic: As per HPI. Cardiac: Negative for chest pain or palpitations. Respiratory: As per HPI. Gastrointestinal: Negative vomiting or diarrhea. Genitourinary: Negative for urinary tract infection. LABORATORY DATA: White count 9.3, hematocrit 30.3, platelet count 217. BUN 6, creatinine 0.9. Urinalysis: White cells 4. Urine culture growing enterococcus. PHYSICAL EXAMINATION: General: On physical examination, he is awake, on BiPAP. He is slightly short of breath at rest. Vital signs: Temperature 100.9; blood pressure 82/50; pulse 129 and regular; respirations 20 per minute. Eyes: Sclerae are anicteric. Mouth: BiPAP mask in place. Heart: Heart sounds S1, S2. A 2 over 6 pansystolic murmur. Lungs: Diminished breath sounds bilaterally. Abdomen: Soft and no tenderness elicited. No mass, rebound or rigidity. Extremities: Positive for edema of the upper and lower extremities bilaterally. There is venous stasis dermatitis and slight erythema of the lower extremities bilaterally. IMPRESSION: 1. Status post hypercapnic respiratory failure. 2. Possible pneumonia. 3. Urinary tract infection. 4. History of neuromuscular disorder. I await sepsis workup. Empiric antibiotic coverage with Zosyn plus a stat dose of vancomycin for coverage of community-acquired pathogens as well as suspected enterococcus in the urine. Continuous respiratory support. Case discussed with the patient's present at the time of the examination. Thank you for the kind referral. DOREEN HERNANDEZ M.D. [id number]
--- NOTE | 2016-08-28 15:20 | CONSULT ---
Consult Consult Specialty:: NEUROLOGY Reason for Consultation:: weakness - History Source History Provided By: Patient, Family Member, Medical Record - Past Medical History SURGICAL SPECIALIST: Yes: Other (ALS) Cardio/Vascular: Yes: HTN Endocrine: Yes: Diabetes Mellitus - Alcohol/Substance Use Hx Alcohol Use: No - Smoking History Smoking history: Smoker current status UNK Have you smoked in the past 12 months: No Aproximately how many cigarettes per day: 0 If you are a former smoker, when did you quit?: 25YRS AGO - Social History Usual Living Arrangement: With Spouse Home Medications - Allergies Allergies/Adverse Reactions: Allergies Allergy/AdvReac Type Severity Reaction Status Date / Time No Known Allergies Allergy Verified 08/27/16 11:44 - Home Medications Home Medications: Ambulatory Orders Lisinopril [Prinivil -] 40 mg PO DAILY 02/04/13 Metformin HCl [Riomet] 500 mg PO BID 02/04/13 Ranitidine [Zantac -] 300 mg PO HS 02/04/13 Omeprazole 20 mg PO DAILY 08/27/16 Physical Exam-Neuro Vital Signs: Vital Signs Temperature 99.1 F 08/28/16 08:00 Pulse Rate 129 H 08/28/16 12:26 Respiratory Rate 26 H 08/28/16 10:55 Blood Pressure 82/50 08/28/16 10:00 O2 Sat by Pulse Oximetry (%) 97 08/28/16 14:42 Constitutional: Yes: Moderate Distress Neck: Yes: Trachea Midline, Decreased ROM Cardiovascular: Yes: Regular Rate and Rhythm, S1, S2 Respiratory: Yes: CTA Bilaterally, Accessory Muscle Use, On BiPap Gastrointestinal: Yes: Normal Bowel Sounds, Soft Musculoskeletal: Yes: Muscle Weakness Edema: Yes Edema: LUE: 2+, RUE: 2+, LLE: 2+, RLE: 2+ Psychiatric: Yes: Alert, Oriented Labs: CBC, BMP 08/28/16 05:00 08/28/16 05:00 INR, PTT INR 1.01 (0.82-1.09) 08/27/16 14:20 - Neuro Exam Level Of Consciousness: Yes: Oriented to Person, Oriented to Place, Oriented to Time Eyes: Yes: PERRLA Speech: Slurred Coordination: Normal: Finger to Nose Motor Strength: 2/5: Right Arm, 3/5: Left Leg, Right Leg, 4/5: Left Arm Gait: Deferred Problem List - Problems (1) ALS (amyotrophic lateral sclerosis) Code(s): G12.21 - AMYOTROPHIC LATERAL SCLEROSIS (2) Acute respiratory failure with hypercapnia Code(s): J96.02 - ACUTE RESPIRATORY FAILURE WITH HYPERCAPNIA Assessment/Plan 76 year old male with a PMHx ALS, DM2, HTN was admitted for acute respiratory failure and worsening of his weakness. He had progressive worsening shortness of breath for the last three days. As per , patient ambulates independently at baseline and for the last 3 days he has been unable to walk. She states he also has had progressive bilateral lower and upper extremity swelling for the past 3-4 weeks. Yesterday she noticed he was short of breath and "didn't look well," so she decided to bring him to hospital . She denies any recent fever/chills, nausea, vomiting, abdominal pain, chest pain, palpitations, recent sick contacts or travel. About 3 weeks ago he was started on a new medication for ALS, unknown name, and has been giving it to him subcutaneously. He also had a right chest port placed about a month ago, she does not know why. Impression: acute respiratory failure and cardiac insufficiency. ALS Plan: - patient is extubated today, treat the respiratory failure and cardiac insufficiency per medical team - if he is not on Riluzole for his ALS he needs to be started on . - DVT prophylaxis. lovenox sq. - PT/OT/ST - social media senior associate consult- ALS patient. - support system. - ALS support group [facility]. Thank you for this consult. Will follow. Critical Care Time spent in ICU 40 min.
[2016-08-28] MEDS: FENTANYL INJECTION 500 MCG in DEXTROSE 5%-WATER - 90 ML IJ SCH (21:21)
[2016-08-28] MEDS: CHLORHEXIDINE GLUCONATE 4% CLEANSER FOR DECOLONIZATION TP SCH (21:21)
--- NOTE | 2016-08-28 23:47 | PN ---
Progress Note, Physician Chief Complaint: respiratory distress History of Present Illness: patient extubated successfully this morning and placed on bipap. patient states he feels much better, breathing comfortably. - Current Medication List Current Medications: Active Medications Arformoterol Tartrate (Brovana (Restricted To Pulmonology/Resp) -) 1 amp NEB BID [facility] Last Admin: 08/28/16 21:44 Dose: 1 amp Chlorhexidine Gluconate (Hibiclens For Decolonization -) 1 applic TP HS [facility] Last Admin: 08/28/16 21:21 Dose: 1 applic Heparin Sodium (Porcine) (Heparin -) 5,000 unit SQ BID [facility] Last Admin: 08/28/16 21:21 Dose: 5,000 unit Propofol (Diprivan -) 100 mls @ 4.899 mls/hr IVPB TITR [facility]; 10 MCG/KG/MIN PRN Reason: Protocol Last Admin: 08/28/16 14:44 Dose: Not Given Fentanyl 500 mcg/ Dextrose 100 mls @ 5 mls/hr IJ TITR [facility] PRN Reason: 25 MCG/HR Last Admin: 08/28/16 21:21 Dose: Not Given Sodium Chloride (Normal Saline -) 1,000 mls @ 100 mls/hr IV ASDIR [facility] Last Admin: 08/28/16 10:24 Dose: 100 mls/hr Piperacillin Sod/Tazobactam Sod (Zosyn 3.375gm Ivpb (Pre-Docked)) 50 mls @ 100 mls/hr IVPB Q8H-IV [facility] Last Admin: 08/28/16 18:57 Dose: 100 mls/hr Insulin Aspart (Novolog Vial Sliding Scale -) 1 vial SQ TIDAC [facility] PRN Reason: Protocol Last Admin: 08/28/16 17:20 Dose: 2 units Methylprednisolone Sodium Succinate (Solu-Medrol -) 40 mg IVPB DAILY [facility] Last Admin: 08/28/16 10:16 Dose: 40 mg Mupirocin (Bactroban Ointment (For Decolonization) -) 1 applic NS BID [facility] Stop: 09/02/16 09:59 Last Admin: 08/28/16 21:21 Dose: 1 applic Pantoprazole Sodium (Protonix 40mg Ivpb (Pre-Docked)) 40 mg IVPB BID [facility] Last Admin: 08/28/16 21:21 Dose: 40 mg - Objective Vital Signs: Vital Signs Temperature 98.7 F 08/28/16 20:00 Pulse Rate 85 08/28/16 22:00 Respiratory Rate 20 08/28/16 22:00 Blood Pressure 96/59 08/28/16 22:00 O2 Sat by Pulse Oximetry (%) 100 08/28/16 22:00 Constitutional: Yes: Well Nourished, No Distress Cardiovascular: Yes: WNL, Regular Rate and Rhythm Respiratory: Yes: Rhonchi, Other (comfortable on bipap, dec bs at bases) Gastrointestinal: Yes: WNL, Normal Bowel Sounds, Soft Extremities: Yes: Other (bilateral le edema impoved) Labs: CBC, BMP 08/28/16 05:00 08/28/16 05:00 INR, PTT INR 1.01 (0.82-1.09) 08/27/16 14:20 Problem List - Problems (1) Acute respiratory failure with hypercapnia Assessment/Plan: -successfully extubated on bipap currently -monitor NIF/VC -continue with iv abx, placed on zosyn empirically and given one dose vanco -follow up cultures -c/w iv steroids -electrolytes corrected, c/w NS -GI/DVT ppx -ISS steroid dysglycemia Code(s): J96.02 - ACUTE RESPIRATORY FAILURE WITH HYPERCAPNIA (2) ALS (amyotrophic lateral sclerosis) Assessment/Plan: -neurology consult appreciated Code(s): G12.21 - AMYOTROPHIC LATERAL SCLEROSIS (3) UTI (urinary tract infection) Assessment/Plan: follow urine cx sens received one dose vanco, on zosyn id eval Code(s): N39.0 - URINARY TRACT INFECTION, SITE NOT SPECIFIED (4) Sepsis Code(s): A41.9 - SEPSIS, UNSPECIFIED ORGANISM
[2016-08-29] MEDS: PIPERACILLIN/TAZOB 3.375 GM 50 ML IVPB SCH ×3 (02:15→17:35)
[2016-08-29 05:02] LABS: ARTERIAL BLD GAS O2 SATURATION 92.3 % (90-98.9); ARTERIAL BLOOD GAS BASE EXCESS 8.2 meq/l (-2-2)
[2016-08-29 05:03] LABS: ALLENS TEST POSITIVE; ART PUNCT SITE RIGHT RADIAL; LPM/O2% 75%; PT. ON O2? YES; TYPE OF O2 BIPAP
[2016-08-29 05:04] LABS: ARTERIAL BLOOD GAS HCO3 35.6 meq/L (22-26); ARTERIAL BLOOD GAS pH 7.34 (7.35-7.45); VENT RATE 18; VT/PRESS 17/7
[2016-08-29] MEDS: INSULIN SLIDING SCALE (NOVOLOG) 1 VIAL SQ SCH ×3 (06:26→17:22)
[2016-08-29 07:11] LABS: BASOPHIL 0.6 % (0-2.0); MCH 31.1 pg (25.7-33.7); MEAN CELL VOLUME 100.3 fl (80-96); MEAN PLT VOLUME 8.3 fl (7.5-11.1); NEUTROPHILS 79.7 % (42.8-82.8); RDW 13.9 % (11.9-15.9); WHITE BLOOD COUNT 16.3 K/mm3 (4.0-10.0)
[2016-08-29 07:34] LABS: ANION GAP 6 (8-16); CALCIUM 8.8 mg/dL (8.5-10.1); CO2 38 mmol/L (21-32); CREATININE 0.7 mg/dL (0.7-1.3); GLUCOSE,RANDOM 95 mg/dL (74-106); MAGNESIUM 1.9 mg/dL (1.8-2.4); SGPT/ALT 36 U/L (12-78)
[2016-08-29 07:36] LABS: ALK PHOS 66 U/L (45-117); BILIRUBIN,TOTAL 0.8 mg/dL (0.2-1.0); PHOSPHOROUS 4.8 mg/dL (2.5-4.9); SGOT/AST 40 U/L (15-37); TOT PROT 5.8 g/dl (6.4-8.2)
[2016-08-29 08:16] LABS: PLATELET COUNT 272 K/MM3 (134-434)
--- NOTE | 2016-08-29 10:26 | PN ---
Progress Note, Physician History of Present Illness: Awake but lethargic Not acutely dyspneic on bipap Afebrile with elevated WBC on steroids Blood c/s no growth Urine c/s enterococcus - Current Medication List Current Medications: Active Medications Arformoterol Tartrate (Brovana (Restricted To Pulmonology/Resp) -) 1 amp NEB BID [facility] Last Admin: 08/28/16 21:44 Dose: 1 amp Chlorhexidine Gluconate (Hibiclens For Decolonization -) 1 applic TP HS [facility] Last Admin: 08/28/16 21:21 Dose: 1 applic Heparin Sodium (Porcine) (Heparin -) 5,000 unit SQ BID [facility] Last Admin: 08/28/16 21:21 Dose: 5,000 unit Propofol (Diprivan -) 100 mls @ 4.899 mls/hr IVPB TITR [facility]; 10 MCG/KG/MIN PRN Reason: Protocol Last Admin: 08/28/16 14:44 Dose: Not Given Fentanyl 500 mcg/ Dextrose 100 mls @ 5 mls/hr IJ TITR [facility] PRN Reason: 25 MCG/HR Last Admin: 08/28/16 21:21 Dose: Not Given Sodium Chloride (Normal Saline -) 1,000 mls @ 100 mls/hr IV ASDIR [facility] Last Admin: 08/29/16 00:00 Dose: 100 mls/hr Piperacillin Sod/Tazobactam Sod (Zosyn 3.375gm Ivpb (Pre-Docked)) 50 mls @ 100 mls/hr IVPB Q8H-IV [facility] Last Admin: 08/29/16 02:15 Dose: 100 mls/hr Insulin Aspart (Novolog Vial Sliding Scale -) 1 vial SQ TIDAC [facility] PRN Reason: Protocol Last Admin: 08/29/16 06:26 Dose: Not Given Methylprednisolone Sodium Succinate (Solu-Medrol -) 40 mg IVPB DAILY [facility] Last Admin: 08/28/16 10:16 Dose: 40 mg Mupirocin (Bactroban Ointment (For Decolonization) -) 1 applic NS BID [facility] Stop: 09/02/16 09:59 Last Admin: 08/28/16 21:21 Dose: 1 applic Pantoprazole Sodium (Protonix 40mg Ivpb (Pre-Docked)) 40 mg IVPB BID [facility] Last Admin: 08/28/16 21:21 Dose: 40 mg - Objective Vital Signs: Vital Signs Temperature 98.5 F 08/29/16 06:00 Pulse Rate 93 H 08/29/16 10:13 Respiratory Rate 20 08/29/16 08:00 Blood Pressure 125/56 08/29/16 08:00 O2 Sat by Pulse Oximetry (%) 99 08/29/16 10:13 Constitutional: Yes: No Distress Eyes: Yes: Conjunctiva Clear Cardiovascular: Yes: Regular Rate and Rhythm, S1, S2 Respiratory: Yes: Diminished Gastrointestinal: Yes: Normal Bowel Sounds, Soft. No: Tenderness Genitourinary: Yes: Powell Present Edema: Yes Labs: CBC, BMP 08/29/16 05:27 08/29/16 05:27 INR, PTT INR 1.01 (0.82-1.09) 08/27/16 14:20 Assessment/Plan S/P respiratory failure Probable pneumonia Enterococcal UTI Hx neuromuscular disorder Await final c/s Continue empiric zosyn Respiratory support
[2016-08-29] MEDS: ARFORMOTEROL TARTRATE 15 MCG/2 ML VIAL NEB SCH ×2 (10:30→22:00)
[2016-08-29] MEDS ORDERED: FUROSEMIDE 40 MG/4 ML INJECTABLE VIAL IVPB ONE (10:37)
--- NOTE | 2016-08-29 11:24 | PN ---
Physical Exam: SUBJECTIVE: Patient seen and examined at bedside. No overnight events. No new complaints. Patient currently on Bipap. Breathing is somewhat labored. States he feels better than yesterday. OBJECTIVE: Vital Signs Period Temp Pulse Resp BP Sys/Wang Pulse Ox Last 24 Hr 98.3 F-99.2 F 77-129 13-31 90-178/46-95 94-100 GENERAL: The patient is awake, alert, on Bipap. Mild distress. HEAD: Normal with no signs of trauma. EYES: PERRL, extraocular movements intact, sclera anicteric, conjunctiva clear. No ptosis. ENT: Ears normal, nares patent NECK: Trachea midline, full range of motion, supple.NOJVD LUNGS: On BiPap, scattered rhonci bilat. HEART: Regular rate and rhythm, S1, S2 without murmur, rub or gallop. ABDOMEN: Soft, nontender, nondistended, normoactive bowel sounds, no guarding, no rebound, no hepatosplenomegaly, no masses. EXTREMITIES: 1+ pulses, no edema. NEUROLOGICAL: lethargic and non-verbal PSYCH: Normal mood, normal affect. SKIN: cool, dry, normal turgor. Venous stasis changes. Laboratory Results - last 24 hr 08/28/16 08/29/16 08/29/16 17:17 05:00 05:27 WBC RBC Hgb Hct MCV MCHC RDW Plt Count MPV Neutrophils % Lymphocytes % Monocytes % Eosinophils % Basophils % Platelet Comment Puncture Site Right radial ABG pH 7.34 L D ABG pCO2 at Pt Temp 68.2 H* D ABG pO2 at Pt Temp 74.0 D ABG HCO3 35.6 H ABG O2 Sat (Measured) 92.3 ABG O2 Content 14.2 L ABG Base Excess 8.2 H Farhat Test Positive O2 Delivery Device Bipap Oxygen Flow Rate 75% Vent Mode S/t Vent Rate 18 PEEP 0.0 Pressure Support Vent 17/7 Sodium 141 Potassium 3.6 Chloride 97 L Carbon Dioxide 38 H Anion Gap 6 L BUN 16 Creatinine 0.7 D Creat Clearance w eGFR > 60 POC Glucometer [phone] Random Glucose 95 Calcium 8.8 Phosphorus 4.8 D Magnesium 1.9 Total Bilirubin 0.8 AST 40 H ALT 36 Alkaline Phosphatase 66 Total Protein 5.8 L Albumin 3.0 L 08/29/16 05:27 WBC 16.3 H D RBC 3.25 L Hgb 10.1 L Hct 32.6 L MCV 100.3 H MCHC 31.0 L RDW 13.9 Plt Count 272 D MPV 8.3 Neutrophils % 79.7 Lymphocytes % 7.1 L Monocytes % 12.6 H Eosinophils % 0.0 Basophils % 0.6 Platelet Comment No clumping noted Puncture Site ABG pH ABG pCO2 at Pt Temp ABG pO2 at Pt Temp ABG HCO3 ABG O2 Sat (Measured) ABG O2 Content ABG Base Excess Farhat Test O2 Delivery Device Oxygen Flow Rate Vent Mode Vent Rate PEEP Pressure Support Vent Sodium Potassium Chloride Carbon Dioxide Anion Gap BUN Creatinine Creat Clearance w eGFR POC Glucometer Random Glucose Calcium Phosphorus Magnesium Total Bilirubin AST ALT Alkaline Phosphatase Total Protein Albumin Active Medications Generic Name Dose Route Start Last Admin Trade Name Freq PRN Reason Stop Dose Admin Arformoterol Tartrate 1 amp 08/27/16 13:45 08/28/16 21:44 Brovana (Restricted To Pulmonology/Resp) - NEB 1 amp BID [facility] Administration Chlorhexidine Gluconate 1 applic 08/27/16 22:00 08/28/16 21:21 Hibiclens For Decolonization - TP 1 applic HS [facility] Administration Furosemide 20 mg 08/29/16 10:37 Lasix Injection - IVPB 08/29/16 10:38 ONCE ONE Heparin Sodium (Porcine) 5,000 unit 08/27/16 22:00 08/28/16 21:21 Heparin - SQ 5,000 unit BID [facility] Administration Sodium Chloride 1,000 mls @ 100 mls/hr 08/27/16 20:00 08/29/16 00:00 Normal Saline - IV 100 mls/hr ASDIR [facility] Administration Piperacillin Sod/Tazobactam Sod 50 mls @ 100 mls/hr 08/28/16 14:00 08/29/16 02: 15 Zosyn 3.375gm Ivpb (Pre-Docked) IVPB 100 mls/hr Q8H-IV [facility] Administration Insulin Aspart 1 vial 08/28/16 07:00 08/29/16 06:26 Novolog Vial Sliding Scale - SQ Not Given TIDAC [facility] Protocol Methylprednisolone Sodium Succinate 40 mg 08/27/16 13:30 08/28/16 10:16 Solu-Medrol - IVPB 40 mg DAILY [facility] Administration Mupirocin 1 applic 08/28/16 10:00 08/28/16 21:21 Bactroban Ointment (For Decolonization) - NS 09/02/16 09:59 1 applic BID [facility] Administration Pantoprazole Sodium 40 mg 08/28/16 10:00 08/28/16 21:21 Protonix 40mg Ivpb (Pre-Docked) IVPB 40 mg BID [facility] Administration ASSESSMENT/PLAN: 76 yo M w/ SPMHx of ALS, DM, CHF admitted for sepsis secondary to CAP. Neuro: * Seen by Neurology recommend to be seen as outpatient for ALS * Spoke with and daughter both said he was on Rilutek but stopped due to [facility] not paying for it. * On cyanocolbalamin at home Pulmonary: * Attempted to place on 50% Venti mask but was not comfortable or satting well. * Continue BiPap for now. * Aspiration precautions. * Follow sputum cultures. * Continue with Azithromycin and Rocephin (day 3) * CXR shows improvement from admission CV: * Hemodynamically stable. ID: * Continue abx for suspected PNA * Urine Culture grew E.Coli * ID consult appreciated- stat dose of Vanco ordered F/E/N: * IVF- held and stat dose of 20 IV lasix given * Electrolytes are WNL * NPO for now until off biPap, advance as tolerated. Visit type - Emergency Visit Emergency Visit: Yes ED Registration Date: 08/27/16 Care time: The patient presented to the Emergency Department on the above date and was hospitalized for further evaluation of their emergent condition. - New Patient This patient is new to me today: No - Critical Care Critical Care patient: Yes Total Critical Care Time (in minutes): 32 Critical Care Statement: The care of this patient involved high complexity decision making to prevent further life threatening deterioration of the patient 's condition and/or to evalute & treat vital organ system(s) failure or risk of failure.
[2016-08-29] MEDS: methylPREDNISolone NA SUCC 40 MG/1 ML VIAL IVPB SCH (11:33)
[2016-08-29] MEDS: PANTOPRAZOLE SODIUM 40 MG/100 ML PRE-DOCKED IVPB SCH ×2 (11:33→21:04)
[2016-08-29] MEDS: HEPARIN NA (PORCINE) 5,000 UNITS/ML 1ML VIAL SQ SCH ×2 (11:34→21:04)
[2016-08-29] MEDS: MUPIROCIN 2% TOPICAL OINTMENT FOR DECOLONIZATION NS SCH ×2 (11:34→21:05)
--- NOTE | 2016-08-29 12:34 | PN ---
Teaching Attending Note Name of Resident: Melvin Ortiz ATTENDING PHYSICIAN STATEMENT I saw and evaluated the patient. I reviewed the resident's note and discussed the case with the resident. I agree with the resident's findings and plan as documented. SUBJECTIVE: Pt seen and examined in the ICU. Extubated yesterday without incident but requiring BiPAP support. Tried ventimask but pt reported worsening respiratory effort so placed back on BiPAP with relief. OBJECTIVE: Last Vital Signs Temp Pulse Resp BP Pulse Ox 98.1 F 92 H 24 120/63 100 08/29/16 12:00 08/29/16 12:00 08/29/16 12:00 08/29/16 12:00 08/29/16 12:05 Intake & Output 08/26/16 08/27/16 08/28/16 08/29/16 23:59 23:59 23:59 23:59 Intake Total 400 3066 1150 Output Total 1350 3200 700 Balance -950 -134 450 Weight 180 lb 0.013 oz 183 lb 10.321 oz 182 lb 8 oz Gen: tachypneic on BiPAP Heart: RRR Lung: distant breath sounds, scattered rhonchi Abd: soft, nontender Ext: no edema CBC, BMP 08/29/16 05:27 08/29/16 05:27 CXR: increasing congestion, effusion Active Medications Arformoterol Tartrate (Brovana (Restricted To Pulmonology/Resp) -) 1 amp NEB BID [facility] Last Admin: 08/29/16 10:30 Dose: 1 amp Chlorhexidine Gluconate (Hibiclens For Decolonization -) 1 applic TP HS [facility] Last Admin: 08/28/16 21:21 Dose: 1 applic Heparin Sodium (Porcine) (Heparin -) 5,000 unit SQ BID [facility] Last Admin: 08/29/16 11:34 Dose: 5,000 unit Sodium Chloride (Normal Saline -) 1,000 mls @ 100 mls/hr IV ASDIR [facility] Last Admin: 08/29/16 00:00 Dose: 100 mls/hr Piperacillin Sod/Tazobactam Sod (Zosyn 3.375gm Ivpb (Pre-Docked)) 50 mls @ 100 mls/hr IVPB Q8H-IV [facility] Last Admin: 08/29/16 11:33 Dose: 100 mls/hr Insulin Aspart (Novolog Vial Sliding Scale -) 1 vial SQ TIDAC [facility] PRN Reason: Protocol Last Admin: 08/29/16 06:26 Dose: Not Given Methylprednisolone Sodium Succinate (Solu-Medrol -) 40 mg IVPB DAILY [facility] Last Admin: 08/29/16 11:33 Dose: 40 mg Mupirocin (Bactroban Ointment (For Decolonization) -) 1 applic NS BID [facility] Stop: 09/02/16 09:59 Last Admin: 08/29/16 11:34 Dose: 1 applic Pantoprazole Sodium (Protonix 40mg Ivpb (Pre-Docked)) 40 mg IVPB BID [facility] Last Admin: 08/29/16 11:33 Dose: 40 mg ASSESSMENT AND PLAN: 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 Presumed Pneumonia UTI Sepsis ALS HTN DM - continue on BiPAP - continue antibiotics - f/u cultures - d/c IVF - dose of lasix today - O2 to keep SpO2 >90% - NPO while dependent on BiPAP - on empiric medrol - inhaled bronchodilators - aspiration precautions - DVT/GI prophylaxis
--- NOTE | 2016-08-29 16:54 | EKG ---
Test Reason : Blood Pressure : / mmHG Vent. Rate : 106 BPM Atrial Rate : 106 BPM P-R Int : 186 ms QRS Dur : 110 ms QT Int : 368 ms P-R-T Axes : 068 -29 072 degrees QTc Int : 488 ms [address]US [address]YCARDIA JUNCTIONAL ST DEPRESSION, PROBABLY NORMAL BORDERLINE ECG NO PREVIOUS ECGS AVAILABLE Confirmed by MARK VALLE, LOW ([id number]) on 08/29/2016 4:54:00 PM Referred By: Overread By: LOW FLORES MD
[2016-08-29] MEDS: SODIUM CHLORIDE 1,000 ML IV SCH ×3 (17:00→20:00)
--- NOTE | 2016-08-29 18:31 | PN ---
Progress Note, Physician History of Present Illness: No new complaints - Current Medication List Current Medications: Active Medications Arformoterol Tartrate (Brovana (Restricted To Pulmonology/Resp) -) 1 amp NEB BID [facility] Last Admin: 08/29/16 10:30 Dose: 1 amp Chlorhexidine Gluconate (Hibiclens For Decolonization -) 1 applic TP HS [facility] Last Admin: 08/28/16 21:21 Dose: 1 applic Heparin Sodium (Porcine) (Heparin -) 5,000 unit SQ BID [facility] Last Admin: 08/29/16 11:34 Dose: 5,000 unit Sodium Chloride (Normal Saline -) 1,000 mls @ 100 mls/hr IV ASDIR [facility] Last Admin: 08/29/16 17:00 Dose: 100 mls/hr Piperacillin Sod/Tazobactam Sod (Zosyn 3.375gm Ivpb (Pre-Docked)) 50 mls @ 100 mls/hr IVPB Q8H-IV [facility] Last Admin: 08/29/16 17:35 Dose: 100 mls/hr Insulin Aspart (Novolog Vial Sliding Scale -) 1 vial SQ TIDAC [facility] PRN Reason: Protocol Last Admin: 08/29/16 17:22 Dose: Not Given Methylprednisolone Sodium Succinate (Solu-Medrol -) 40 mg IVPB DAILY [facility] Last Admin: 08/29/16 11:33 Dose: 40 mg Mupirocin (Bactroban Ointment (For Decolonization) -) 1 applic NS BID [facility] Stop: 09/02/16 09:59 Last Admin: 08/29/16 11:34 Dose: 1 applic Pantoprazole Sodium (Protonix 40mg Ivpb (Pre-Docked)) 40 mg IVPB BID [facility] Last Admin: 08/29/16 11:33 Dose: 40 mg - Objective Vital Signs: Vital Signs Temperature 98.9 F 08/29/16 18:00 Pulse Rate 98 H 08/29/16 18:00 Respiratory Rate 23 08/29/16 18:00 Blood Pressure 133/74 08/29/16 18:00 O2 Sat by Pulse Oximetry (%) 100 08/29/16 17:20 Constitutional: Yes: No Distress Neck: Yes: Supple Cardiovascular: Yes: WNL, Regular Rate and Rhythm Respiratory: Yes: Rhonchi Gastrointestinal: Yes: WNL, Normal Bowel Sounds, Soft, Abdomen, Obese Labs: CBC, BMP 08/29/16 05:27 08/29/16 05:27 INR, PTT INR 1.01 (0.82-1.09) 08/27/16 14:20 Problem List - Problems (1) ALS (amyotrophic lateral sclerosis) Code(s): G12.21 - AMYOTROPHIC LATERAL SCLEROSIS (2) Acute respiratory failure Code(s): J96.00 - ACUTE RESPIRATORY FAILURE, UNSP W HYPOXIA OR HYPERCAPNIA Qualifiers: Respiratory failure complication: hypercapnia Qualified Code(s): J96.02 - Acute respiratory failure with hypercapnia (3) Sepsis Code(s): A41.9 - SEPSIS, UNSPECIFIED ORGANISM (4) Transaminitis Code(s): R74.0 - NONSPEC ELEV OF LEVELS OF TRANSAMNS & LACTIC ACID DEHYDRGNSE
[2016-08-29] MEDS: CHLORHEXIDINE GLUCONATE 4% CLEANSER FOR DECOLONIZATION TP SCH (21:05)
[2016-08-30] MEDS: PIPERACILLIN/TAZOB 3.375 GM 50 ML IVPB SCH ×3 (01:11→18:16)
[2016-08-30] MEDS: INSULIN SLIDING SCALE (NOVOLOG) 1 VIAL SQ SCH ×3 (06:18→16:33)
[2016-08-30 06:30] LABS: BASOPHIL 0.1 % (0-2.0); EOSINOPHIL 0.5 % (0-4.5); MCH 32.9 pg (25.7-33.7); MCHC 32.6 g/dl (32.0-35.9); MEAN PLT VOLUME 7.8 fl (7.5-11.1); NEUTROPHILS 80.6 % (42.8-82.8); PLATELET COUNT 272 K/MM3 (134-434); RDW 13.5 % (11.9-15.9); WHITE BLOOD COUNT 8.4 K/mm3 (4.0-10.0)
[2016-08-30 06:50] LABS: CALCIUM 8.8 mg/dL (8.5-10.1); CREATININE 0.7 mg/dL (0.7-1.3); MAGNESIUM 2.1 mg/dL (1.8-2.4); PHOSPHOROUS 4.1 mg/dL (2.5-4.9)
[2016-08-30 07:18] LABS: ALLENS TEST POSITIVE; ART PUNCT SITE LEFT RADIAL; ARTERIAL BLD GAS O2 SATURATION 98.8 % (90-98.9); ARTERIAL BLOOD GAS BASE EXCESS 8.6 meq/l (-2-2); ARTERIAL BLOOD GAS HCO3 36.7 meq/L (22-26); PT. ON O2? YES
[2016-08-30 07:19] LABS: LPM/O2% 50%; MECH. VENT. BIPAP; TYPE OF O2 BIPAP; VENT RATE 18; VT/PRESS IPAP 16/EPAP 7
[2016-08-30] MEDS: PANTOPRAZOLE SODIUM 40 MG/100 ML PRE-DOCKED IVPB SCH ×2 (09:47→21:16)
[2016-08-30] MEDS: methylPREDNISolone NA SUCC 40 MG/1 ML VIAL IVPB SCH (09:47)
[2016-08-30] MEDS: ARFORMOTEROL TARTRATE 15 MCG/2 ML VIAL NEB SCH ×2 (09:47→22:22)
[2016-08-30] MEDS: HEPARIN NA (PORCINE) 5,000 UNITS/ML 1ML VIAL SQ SCH ×2 (09:48→21:17)
[2016-08-30] MEDS: MUPIROCIN 2% TOPICAL OINTMENT FOR DECOLONIZATION NS SCH ×2 (09:48→21:17)
--- NOTE | 2016-08-30 12:20 | PN ---
Teaching Attending Note Name of Resident: Melvin Ortiz ATTENDING PHYSICIAN STATEMENT I saw and evaluated the patient. I reviewed the resident's note and discussed the case with the resident. I agree with the resident's findings and plan as documented. SUBJECTIVE: Patient seen and examined in the ICU. Remains extubated, but NIPPV dependent. Awake and alert. Intake & Output 08/27/16 08/28/16 08/29/16 08/30/16 23:59 23:59 23:59 23:59 Intake Total 400 3066 2400 1150 Output Total 1350 3200 3650 550 Balance -950 -134 -1250 600 Weight 180 lb 0.013 oz 183 lb 10.321 oz 182 lb 8 oz 179 lb 9.6 oz Last Vital Signs Temp Pulse Resp BP Pulse Ox 98.6 F 92 H 18 124/55 98 08/30/16 12:00 08/30/16 12:00 08/30/16 12:00 08/30/16 12:00 08/30/16 12:08 Active Medications Arformoterol Tartrate (Brovana (Restricted To Pulmonology/Resp) -) 1 amp NEB BID [facility] Last Admin: 08/30/16 09:47 Dose: 1 amp Chlorhexidine Gluconate (Hibiclens For Decolonization -) 1 applic TP HS [facility] Last Admin: 08/29/16 21:05 Dose: 1 applic Heparin Sodium (Porcine) (Heparin -) 5,000 unit SQ BID [facility] Last Admin: 08/30/16 09:48 Dose: 5,000 unit Sodium Chloride (Normal Saline -) 1,000 mls @ 100 mls/hr IV ASDIR [facility] Last Admin: 08/29/16 20:00 Dose: 100 mls/hr Piperacillin Sod/Tazobactam Sod (Zosyn 3.375gm Ivpb (Pre-Docked)) 50 mls @ 100 mls/hr IVPB Q8H-IV [facility] Last Admin: 08/30/16 09:48 Dose: 100 mls/hr Insulin Aspart (Novolog Vial Sliding Scale -) 1 vial SQ TIDAC [facility] PRN Reason: Protocol Last Admin: 08/30/16 06:18 Dose: Not Given Methylprednisolone Sodium Succinate (Solu-Medrol -) 40 mg IVPB DAILY [facility] Last Admin: 08/30/16 09:47 Dose: 40 mg Mupirocin (Bactroban Ointment (For Decolonization) -) 1 applic NS BID [facility] Stop: 09/02/16 09:59 Last Admin: 08/30/16 09:48 Dose: 1 applic Pantoprazole Sodium (Protonix 40mg Ivpb (Pre-Docked)) 40 mg IVPB BID [facility] Last Admin: 08/30/16 09:47 Dose: 40 mg Gen: Awake and mildly tachypneic on BiPAP Heart: RRR Lung: distant breath sounds, scattered rhonchi Abd: soft, nontender Ext: no edema Laboratory Results - last 24 hr 08/29/16 08/29/16 08/30/16 06:05 17:18 05:20 WBC RBC Hgb Hct MCV MCHC RDW Plt Count MPV Neutrophils % Lymphocytes % Monocytes % Eosinophils % Basophils % Puncture Site ABG pH ABG pCO2 at Pt Temp ABG pO2 at Pt Temp ABG HCO3 ABG O2 Sat (Measured) ABG O2 Content ABG Base Excess Farhat Test O2 Delivery Device Oxygen Flow Rate Vent Mode Vent Rate Mechanical Rate PEEP Pressure Support Vent Sodium 142 Potassium 3.9 Chloride 98 Carbon Dioxide 38 H Anion Gap 6 L BUN 19 H Creatinine 0.7 POC Glucometer 120.60503 133.51579 Random Glucose 85 Calcium 8.8 Phosphorus 4.1 Magnesium 2.1 08/30/16 08/30/16 08/30/16 05:20 05:53 07:10 WBC 8.4 D RBC 3.41 L Hgb 11.3 L D Hct 34.5 L MCV 101.0 H MCHC 32.6 RDW 13.5 Plt Count 272 MPV 7.8 Neutrophils % 80.6 Lymphocytes % 7.4 L Monocytes % 11.4 H Eosinophils % 0.5 D Basophils % 0.1 Puncture Site Left radial ABG pH 7.30 L ABG pCO2 at Pt Temp 76.8 H* ABG pO2 at Pt Temp 160.0 H* D ABG HCO3 36.7 H ABG O2 Sat (Measured) 98.8 ABG O2 Content 14.4 L ABG Base Excess 8.6 H Farhat Test Positive O2 Delivery Device Bipap Oxygen Flow Rate 50% Vent Mode S/t Vent Rate 18 Mechanical Rate Bipap PEEP 0.0 Pressure Support Vent Ipap 16/epap 7 Sodium Potassium Chloride Carbon Dioxide Anion Gap BUN Creatinine POC Glucometer 100.27790 Random Glucose Calcium Phosphorus Magnesium ASSESSMENT AND PLAN: 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 Presumed Pneumonia UTI Sepsis ALS HTN DM - continue on BiPAP -> will likely need a Trach -> Will D/W /patient - ABX - daily assessment for lasix - O2 to keep SpO2 >90% - NPO while dependent on BiPAP - Medrol - inhaled bronchodilators - aspiration precautions - DVT/GI prophylaxis Dr Donald CCTime 35" Problem List - Problems (1) Head injury Code(s): S09.90XA - UNSPECIFIED INJURY OF HEAD, INITIAL ENCOUNTER Qualifiers: Encounter type: initial encounter Qualified Code(s): S09.90XA - Unspecified injury of head, initial encounter (2) Laceration Code(s): T14.8 - OTHER INJURY OF UNSPECIFIED BODY REGION (3) Acute respiratory failure Code(s): J96.00 - ACUTE RESPIRATORY FAILURE, UNSP W HYPOXIA OR HYPERCAPNIA Qualifiers: Respiratory failure complication: hypercapnia Qualified Code(s): J96.02 - Acute respiratory failure with hypercapnia (4) Pneumonia Code(s): J18.9 - PNEUMONIA, UNSPECIFIED ORGANISM (5) Acute respiratory failure with hypercapnia Code(s): J96.02 - ACUTE RESPIRATORY FAILURE WITH HYPERCAPNIA (6) ALS (amyotrophic lateral sclerosis) Code(s): G12.21 - AMYOTROPHIC LATERAL SCLEROSIS (7) Sepsis Code(s): A41.9 - SEPSIS, UNSPECIFIED ORGANISM
--- NOTE | 2016-08-30 13:05 | PN ---
Progress Note, Physician History of Present Illness: Awake, alert Slightly tachypneic on bipap Afebrile WBC improved BC no growth Urine c/s Enterococcus - Current Medication List Current Medications: Active Medications Arformoterol Tartrate (Brovana (Restricted To Pulmonology/Resp) -) 1 amp NEB BID [facility] Last Admin: 08/30/16 09:47 Dose: 1 amp Chlorhexidine Gluconate (Hibiclens For Decolonization -) 1 applic TP HS [facility] Last Admin: 08/29/16 21:05 Dose: 1 applic Heparin Sodium (Porcine) (Heparin -) 5,000 unit SQ BID [facility] Last Admin: 08/30/16 09:48 Dose: 5,000 unit Sodium Chloride (Normal Saline -) 1,000 mls @ 100 mls/hr IV ASDIR [facility] Last Admin: 08/29/16 20:00 Dose: 100 mls/hr Piperacillin Sod/Tazobactam Sod (Zosyn 3.375gm Ivpb (Pre-Docked)) 50 mls @ 100 mls/hr IVPB Q8H-IV [facility] Last Admin: 08/30/16 09:48 Dose: 100 mls/hr Insulin Aspart (Novolog Vial Sliding Scale -) 1 vial SQ TIDAC [facility] PRN Reason: Protocol Last Admin: 08/30/16 11:30 Dose: Not Given Methylprednisolone Sodium Succinate (Solu-Medrol -) 40 mg IVPB DAILY [facility] Last Admin: 08/30/16 09:47 Dose: 40 mg Mupirocin (Bactroban Ointment (For Decolonization) -) 1 applic NS BID [facility] Stop: 09/02/16 09:59 Last Admin: 08/30/16 09:48 Dose: 1 applic Pantoprazole Sodium (Protonix 40mg Ivpb (Pre-Docked)) 40 mg IVPB BID [facility] Last Admin: 08/30/16 09:47 Dose: 40 mg - Objective Vital Signs: Vital Signs Temperature 98.6 F 08/30/16 12:00 Pulse Rate 92 H 08/30/16 12:00 Respiratory Rate 18 08/30/16 12:00 Blood Pressure 124/55 08/30/16 12:00 O2 Sat by Pulse Oximetry (%) 98 08/30/16 12:08 Constitutional: Yes: No Distress Eyes: Yes: Conjunctiva Clear Cardiovascular: Yes: Regular Rate and Rhythm, S1, S2 Respiratory: Yes: CTA Bilaterally Gastrointestinal: Yes: Normal Bowel Sounds, Soft. No: Tenderness Edema: Yes Labs: CBC, BMP 08/30/16 05:20 08/30/16 05:20 INR, PTT INR 1.01 (0.82-1.09) 08/27/16 14:20 Assessment/Plan S/P respiratory failure Probable pneumonia Enterococcal UTI Hx neuromuscular disorder Continue empiric zosyn Respiratory support
--- NOTE | 2016-08-30 13:43 | PN ---
Physical Exam: SUBJECTIVE: Patient seen and examined at bedside. No overnight events. No new complaints. Breathing remains about the same. We discussed the possible need to trach. to be placed as BiPaP is not a chronic solution. OBJECTIVE: Vital Signs Period Temp Pulse Resp BP Sys/Wang Pulse Ox Last 24 Hr 98.1 F-99.6 F 85-114 18-30 107-140/48-79 95-100 GENERAL: The patient is awake, alert, and fully oriented, in no acute distress. HEAD: Normal with no signs of trauma. EYES: PERRL, extraocular movements intact, sclera anicteric, conjunctiva clear. No ptosis. ENT: Ears normal, nares patent, oropharynx clear without exudates, moist mucous membranes. NECK: Trachea midline, full range of motion, supple. LUNGS: Breath sounds equal, clear to auscultation bilaterally, no wheezes, no crackles, no accessory muscle use. HEART: Regular rate and rhythm, S1, S2 without murmur, rub or gallop. ABDOMEN: Soft, nontender, nondistended, normoactive bowel sounds, no guarding, no rebound, no hepatosplenomegaly, no masses. EXTREMITIES: 2+ pulses, warm, well-perfused, no edema. NEUROLOGICAL: Cranial nerves II through XII grossly intact. Normal speech, gait not observed. PSYCH: Normal mood, normal affect. SKIN: Warm, dry, normal turgor, no rashes or lesions noted Laboratory Results - last 24 hr 08/29/16 08/29/16 08/30/16 06:05 17:18 05:20 WBC RBC Hgb Hct MCV MCHC RDW Plt Count MPV Neutrophils % Lymphocytes % Monocytes % Eosinophils % Basophils % Puncture Site ABG pH ABG pCO2 at Pt Temp ABG pO2 at Pt Temp ABG HCO3 ABG O2 Sat (Measured) ABG O2 Content ABG Base Excess Farhat Test O2 Delivery Device Oxygen Flow Rate Vent Mode Vent Rate Mechanical Rate PEEP Pressure Support Vent Sodium 142 Potassium 3.9 Chloride 98 Carbon Dioxide 38 H Anion Gap 6 L BUN 19 H Creatinine 0.7 POC Glucometer 120.84028 133.76503 Random Glucose 85 Calcium 8.8 Phosphorus 4.1 Magnesium 2.1 08/30/16 08/30/16 08/30/16 05:20 05:53 07:10 WBC 8.4 D RBC 3.41 L Hgb 11.3 L D Hct 34.5 L MCV 101.0 H MCHC 32.6 RDW 13.5 Plt Count 272 MPV 7.8 Neutrophils % 80.6 Lymphocytes % 7.4 L Monocytes % 11.4 H Eosinophils % 0.5 D Basophils % 0.1 Puncture Site Left radial ABG pH 7.30 L ABG pCO2 at Pt Temp 76.8 H* ABG pO2 at Pt Temp 160.0 H* D ABG HCO3 36.7 H ABG O2 Sat (Measured) 98.8 ABG O2 Content 14.4 L ABG Base Excess 8.6 H Farhat Test Positive O2 Delivery Device Bipap Oxygen Flow Rate 50% Vent Mode S/t Vent Rate 18 Mechanical Rate Bipap PEEP 0.0 Pressure Support Vent Ipap 16/epap 7 Sodium Potassium Chloride Carbon Dioxide Anion Gap BUN Creatinine POC Glucometer 100.22025 Random Glucose Calcium Phosphorus Magnesium 08/30/16 12:32 WBC RBC Hgb Hct MCV MCHC RDW Plt Count MPV Neutrophils % Lymphocytes % Monocytes % Eosinophils % Basophils % Puncture Site ABG pH ABG pCO2 at Pt Temp ABG pO2 at Pt Temp ABG HCO3 ABG O2 Sat (Measured) ABG O2 Content ABG Base Excess Farhat Test O2 Delivery Device Oxygen Flow Rate Vent Mode Vent Rate Mechanical Rate PEEP Pressure Support Vent Sodium Potassium Chloride Carbon Dioxide Anion Gap BUN Creatinine POC Glucometer 139.15404 Random Glucose Calcium Phosphorus Magnesium Active Medications Generic Name Dose Route Start Last Admin Trade Name Freq PRN Reason Stop Dose Admin Arformoterol Tartrate 1 amp 08/27/16 13:45 08/30/16 09:47 Brovana (Restricted To Pulmonology/Resp) - NEB 1 amp BID [facility] Administration Chlorhexidine Gluconate 1 applic 08/27/16 22:00 08/29/16 21:05 Hibiclens For Decolonization - TP 1 applic HS [facility] Administration Heparin Sodium (Porcine) 5,000 unit 08/27/16 22:00 08/30/16 09:48 Heparin - SQ 5,000 unit BID [facility] Administration Sodium Chloride 1,000 mls @ 100 mls/hr 08/27/16 20:00 08/29/16 20:00 Normal Saline - IV 100 mls/hr ASDIR [facility] Administration Piperacillin Sod/Tazobactam Sod 50 mls @ 100 mls/hr 08/28/16 14:00 08/30/16 09: 48 Zosyn 3.375gm Ivpb (Pre-Docked) IVPB 100 mls/hr Q8H-IV [facility] Administration Insulin Aspart 1 vial 08/28/16 07:00 08/30/16 11:30 Novolog Vial Sliding Scale - SQ Not Given TIDAC [facility] Protocol Methylprednisolone Sodium Succinate 40 mg 08/27/16 13:30 08/30/16 09:47 Solu-Medrol - IVPB 40 mg DAILY [facility] Administration Mupirocin 1 applic 08/28/16 10:00 08/30/16 09:48 Bactroban Ointment (For Decolonization) - NS 09/02/16 09:59 1 applic BID [facility] Administration Pantoprazole Sodium 40 mg 08/28/16 10:00 08/30/16 09:47 Protonix 40mg Ivpb (Pre-Docked) IVPB 40 mg BID [facility] Administration ASSESSMENT/PLAN: 76 yo M w/ SPMHx of ALS, DM, CHF admitted for sepsis secondary to CAP. Neuro: * Seen by Neurology recommend to be seen as outpatient for ALS * Spoke with and daughter both said he was on Rilutek but stopped due to [facility] not [facility]. * I called Dr. Swift [facility] but as of yet have not received call back. * On cyanocolbalamin at home Pulmonary: * Attempted to place on 50% Venti mask but was not comfortable or satting well. * Continue BiPap for now. * Aspiration precautions. * Follow sputum cultures. * Continue with Azithromycin and Rocephin (day 4) * CXR shows improvement from admission CV: * Hemodynamically stable. ID: * Continue abx for suspected PNA * Urine Culture grew E.Coli * Continue Abx for now. F/E/N: * IVF- held at this time. * Electrolytes are WNL * NPO for now until off BiPap, advance as tolerated. Visit type - Emergency Visit Emergency Visit: Yes ED Registration Date: 08/27/16 Care time: The patient presented to the Emergency Department on the above date and was hospitalized for further evaluation of their emergent condition. - New Patient This patient is new to me today: No - Critical Care Critical Care patient: Yes Total Critical Care Time (in minutes): 32 Critical Care Statement: The care of this patient involved high complexity decision making to prevent further life threatening deterioration of the patient 's condition and/or to evalute & treat vital organ system(s) failure or risk of failure.
[2016-08-30] MEDS ORDERED: [UNRECOGNIZED DRUG - OTHER] IV ONE ×2 (15:45→16:15)
[2016-08-30] MEDS ORDERED: SODIUM CHLORIDE IV ONE ×2 (15:45→16:15)
[2016-08-30] MEDS ORDERED: MULTIVIT IV ONE ×2 (15:45→16:15)
[2016-08-30] MEDS ORDERED: THIAMINE HCL IV ONE ×2 (15:45→16:15)
[2016-08-30] MEDS ORDERED: ROCURONIUM BROMIDE 50 MG/5 ML VIAL IV ONE (16:42)
--- NOTE | 2016-08-30 19:18 | PN ---
Progress Note, Physician Chief Complaint: respiratory failure, weakness - Current Medication List Current Medications: Active Medications Arformoterol Tartrate (Brovana (Restricted To Pulmonology/Resp) -) 1 amp NEB BID [facility] Last Admin: 08/30/16 09:47 Dose: 1 amp Chlorhexidine Gluconate (Hibiclens For Decolonization -) 1 applic TP HS [facility] Last Admin: 08/29/16 21:05 Dose: 1 applic Heparin Sodium (Porcine) (Heparin -) 5,000 unit SQ BID [facility] Last Admin: 08/30/16 09:48 Dose: 5,000 unit Piperacillin Sod/Tazobactam Sod (Zosyn 3.375gm Ivpb (Pre-Docked)) 50 mls @ 100 mls/hr IVPB Q8H-IV [facility] Last Admin: 08/30/16 18:16 Dose: 100 mls/hr Multivitamins/Minerals 10 ml/Thiamine HCl 100 mg/ Folic Acid 1 mg/ Sodium Chloride 1,011.2 mls @ 100 mls/hr IV ONCE ONE Stop: 08/31/16 02:21 Last Admin: 08/30/16 17:13 Dose: 100 mls/hr Insulin Aspart (Novolog Vial Sliding Scale -) 1 vial SQ TIDAC [facility] PRN Reason: Protocol Last Admin: 08/30/16 16:33 Dose: Not Given Methylprednisolone Sodium Succinate (Solu-Medrol -) 40 mg IVPB DAILY [facility] Last Admin: 08/30/16 09:47 Dose: 40 mg Mupirocin (Bactroban Ointment (For Decolonization) -) 1 applic NS BID [facility] Stop: 09/02/16 09:59 Last Admin: 08/30/16 09:48 Dose: 1 applic Pantoprazole Sodium (Protonix 40mg Ivpb (Pre-Docked)) 40 mg IVPB BID [facility] Last Admin: 08/30/16 09:47 Dose: 40 mg Rocuronium [place] (Zemuron -) 100 mg IV ONCE ONE Stop: 08/31/16 08:01 - Objective Vital Signs: Vital Signs Temperature 99.2 F 08/30/16 18:00 Pulse Rate 91 H 08/30/16 18:00 Respiratory Rate 18 08/30/16 18:00 Blood Pressure 111/58 08/30/16 18:00 O2 Sat by Pulse Oximetry (%) 100 08/30/16 18:48 Constitutional: Yes: Moderate Distress Eyes: Yes: Conjunctiva Clear, EOM Intact HENT: Yes: Atraumatic Neck: Yes: Supple, Trachea Midline, Decreased ROM Cardiovascular: Yes: Regular Rate and Rhythm, S1, S2 Respiratory: Yes: CTA Bilaterally, Accessory Muscle Use, Hyperresonant, On BiPap Gastrointestinal: Yes: Normal Bowel Sounds, Soft Genitourinary: Yes: WNL Breast(s): Yes: WNL Musculoskeletal: Yes: Muscle Weakness (generalized weakness. 2/5 RUE, 2/5 LUE. 2 /5 RLE. 2/5 lle) Edema: Yes Edema: LUE: 2+, RUE: 2+, LLE: 2+, RLE: 2+ Peripheral Pulses: Left Radial: 1+, Right Radial: 1+ Labs: CBC, BMP 08/30/16 05:20 08/30/16 05:20 INR, PTT INR 1.01 (0.82-1.09) 08/27/16 14:20 - ....Imaging X-ray: Report Reviewed, Image Reviewed Problem List - Problems (1) ALS (amyotrophic lateral sclerosis) Code(s): G12.21 - AMYOTROPHIC LATERAL SCLEROSIS (2) Acute respiratory failure with hypercapnia Code(s): J96.02 - ACUTE RESPIRATORY FAILURE WITH HYPERCAPNIA Assessment/Plan 76 year old male with a PMHx ALS, DM2, HTN was admitted for acute respiratory failure and worsening of his weakness. He had progressive worsening shortness of breath for the last three days. As per , patient ambulates independently at baseline and for the last 3 days he has been unable to walk. She states he also has had progressive bilateral lower and upper extremity swelling for the past 3-4 weeks. Yesterday she noticed he was short of breath and "didn't look well," so she decided to bring him to hospital . She denies any recent fever/chills, nausea, vomiting, abdominal pain, chest pain, palpitations, recent sick contacts or travel. About 3 weeks ago he was started on a new medication for ALS, unknown name, and has been giving it to him subcutaneously. He also had a right chest port placed about a month ago, she does not know why. Impression: acute respiratory failure and cardiac insufficiency. ALS Plan: - treat the respiratory failure and cardiac insufficiency per medical team - continues Riluzole - DVT prophylaxis. lovenox sq. - PT/OT/ST - social media community manager consult- ALS patient. - support system. - ALS support group Thank you for this consult. Will follow. Critical Care Time spent in ICU 30 min.
--- NOTE | 2016-08-30 20:17 | PN ---
Progress Note, Physician History of Present Illness: Pt extubated and tolerating BIPAP - Current Medication List Current Medications: Active Medications Arformoterol Tartrate (Brovana (Restricted To Pulmonology/Resp) -) 1 amp NEB BID [facility] Last Admin: 08/30/16 09:47 Dose: 1 amp Chlorhexidine Gluconate (Hibiclens For Decolonization -) 1 applic TP HS [facility] Last Admin: 08/29/16 21:05 Dose: 1 applic Heparin Sodium (Porcine) (Heparin -) 5,000 unit SQ BID [facility] Last Admin: 08/30/16 09:48 Dose: 5,000 unit Piperacillin Sod/Tazobactam Sod (Zosyn 3.375gm Ivpb (Pre-Docked)) 50 mls @ 100 mls/hr IVPB Q8H-IV [facility] Last Admin: 08/30/16 18:16 Dose: 100 mls/hr Multivitamins/Minerals 10 ml/Thiamine HCl 100 mg/ Folic Acid 1 mg/ Sodium Chloride 1,011.2 mls @ 100 mls/hr IV ONCE ONE Stop: 08/31/16 02:21 Last Admin: 08/30/16 17:13 Dose: 100 mls/hr Insulin Aspart (Novolog Vial Sliding Scale -) 1 vial SQ TIDAC [facility] PRN Reason: Protocol Last Admin: 08/30/16 16:33 Dose: Not Given Methylprednisolone Sodium Succinate (Solu-Medrol -) 40 mg IVPB DAILY [facility] Last Admin: 08/30/16 09:47 Dose: 40 mg Mupirocin (Bactroban Ointment (For Decolonization) -) 1 applic NS BID [facility] Stop: 09/02/16 09:59 Last Admin: 08/30/16 09:48 Dose: 1 applic Pantoprazole Sodium (Protonix 40mg Ivpb (Pre-Docked)) 40 mg IVPB BID [facility] Last Admin: 08/30/16 09:47 Dose: 40 mg Rocuronium [place] (Zemuron -) 100 mg IV ONCE ONE Stop: 08/31/16 08:01 - Objective Vital Signs: Vital Signs Temperature 99.2 F 08/30/16 18:00 Pulse Rate 91 H 08/30/16 18:00 Respiratory Rate 18 08/30/16 18:00 Blood Pressure 111/58 08/30/16 18:00 O2 Sat by Pulse Oximetry (%) 100 08/30/16 18:48 Cardiovascular: Yes: WNL, Regular Rate and Rhythm Respiratory: Yes: WNL, Regular, CTA Bilaterally Gastrointestinal: Yes: WNL, Normal Bowel Sounds, Soft Labs: CBC, BMP 08/30/16 05:20 08/30/16 05:20 INR, PTT INR 1.01 (0.82-1.09) 08/27/16 14:20 Problem List - Problems (1) Acute respiratory failure Assessment/Plan: Cont BIPAP Repeat CXR still shows lt infiltrate Cont IV solumedrol Cont IV zosyn and given dose of IV vanco Code(s): J96.00 - ACUTE RESPIRATORY FAILURE, UNSP W HYPOXIA OR HYPERCAPNIA Qualifiers: Respiratory failure complication: hypercapnia Qualified Code(s): J96.02 - Acute respiratory failure with hypercapnia (2) ALS (amyotrophic lateral sclerosis) Assessment/Plan: As per neuro May need trach May need STR placement Code(s): G12.21 - AMYOTROPHIC LATERAL SCLEROSIS (3) UTI (urinary tract infection) Assessment/Plan: Grp D strept vs enterococcus Pt given dose of IV vanco Code(s): N39.0 - URINARY TRACT INFECTION, SITE NOT SPECIFIED Assessment/Plan 1. Diabetes Pt on sliding scal w/ humalog Elevation of glucose also due to steroids 2. HTN BP stable
[2016-08-30] MEDS: CHLORHEXIDINE GLUCONATE 4% CLEANSER FOR DECOLONIZATION TP SCH (21:16)
[2016-08-31] MEDS: PIPERACILLIN/TAZOB 3.375 GM 50 ML IVPB SCH ×3 (01:05→17:18)
[2016-08-31] MEDS ORDERED: ACETAMINOPHEN 1000 MG/100 ML VIAL (NON FORMULARY) IVPB PRN (02:24)
[2016-08-31 05:48] LABS: MCH 32.4 pg (25.7-33.7); MCHC 32.3 g/dl (32.0-35.9); MEAN CELL VOLUME 100.3 fl (80-96); NEUTROPHILS 82.6 % (42.8-82.8); PLATELET COUNT 250 K/MM3 (134-434); RDW 13.6 % (11.9-15.9); WHITE BLOOD COUNT 8.8 K/mm3 (4.0-10.0)
[2016-08-31] MEDS: INSULIN SLIDING SCALE (NOVOLOG) 1 VIAL SQ SCH ×3 (06:08→17:00)
[2016-08-31 06:18] LABS: ALBUMIN 2.7 g/dl (3.4-5.0); ALK PHOS 59 U/L (45-117); ANION GAP 4 (8-16); BILIRUBIN,TOTAL 1.1 mg/dL (0.2-1.0); CO2 38 mmol/L (21-32); CREATININE 0.6 mg/dL (0.7-1.3); GLUCOSE,RANDOM 88 mg/dL (74-106); SGOT/AST 37 U/L (15-37); SGPT/ALT 50 U/L (12-78); TOT PROT 5.5 g/dl (6.4-8.2)
[2016-08-31] MEDS ORDERED: ROCURONIUM BROMIDE 50 MG/5 ML VIAL IV ONE (08:00)
[2016-08-31] MEDS ORDERED: LIDOCAINE HCL 1%, 10 MG/ML (20ML VIAL) ONE (08:52)
[2016-08-31] MEDS ORDERED: LIDOCAINE HCL 2% (20ML MULTI-DOSE VIAL) NR ONE (08:52)
[2016-08-31] MEDS ORDERED: PROPOFOL 20 ML ONE (08:59)
[2016-08-31] MEDS ORDERED: MIDAZOLAM HCL 2 MG/2 ML SINGLE DOSE VIAL ONE (08:59)
[2016-08-31] MEDS: PANTOPRAZOLE SODIUM 40 MG/100 ML PRE-DOCKED IVPB SCH ×2 (09:04→21:41)
[2016-08-31] MEDS: methylPREDNISolone NA SUCC 40 MG/1 ML VIAL IVPB SCH (09:04)
[2016-08-31] MEDS ORDERED: PROPOFOL 100 ML ONE (09:26)
[2016-08-31] MEDS ORDERED: LIDOCAINE HCL 1%, 10 MG/ML (20ML VIAL) IJ ONE (09:40)
[2016-08-31] MEDS: HEPARIN NA (PORCINE) 5,000 UNITS/ML 1ML VIAL SQ SCH ×2 (10:00→21:40)
[2016-08-31] MEDS: MUPIROCIN 2% TOPICAL OINTMENT FOR DECOLONIZATION NS SCH ×2 (10:00→21:40)
--- NOTE | 2016-08-31 10:20 | PN ---
Progress Note, Physician History of Present Illness: S/P tracheostomy Awake, but lethargic Low grade temp noted WBC normal - Current Medication List Current Medications: Active Medications Acetaminophen (Ofirmev Injection -) 1,000 mg IVPB Q6H PRN PRN Reason: FEVER OR PAIN Stop: 08/31/16 20:25 Arformoterol Tartrate (Brovana (Restricted To Pulmonology/Resp) -) 1 amp NEB BID [facility] Last Admin: 08/30/16 22:22 Dose: 1 amp Chlorhexidine Gluconate (Hibiclens For Decolonization -) 1 applic TP HS [facility] Last Admin: 08/30/16 21:16 Dose: 1 applic Heparin Sodium (Porcine) (Heparin -) 5,000 unit SQ BID [facility] Last Admin: 08/30/16 21:17 Dose: 5,000 unit Piperacillin Sod/Tazobactam Sod (Zosyn 3.375gm Ivpb (Pre-Docked)) 50 mls @ 100 mls/hr IVPB Q8H-IV [facility] Last Admin: 08/31/16 09:04 Dose: 100 mls/hr Insulin Aspart (Novolog Vial Sliding Scale -) 1 vial SQ TIDAC [facility] PRN Reason: Protocol Last Admin: 08/31/16 06:08 Dose: Not Given Methylprednisolone Sodium Succinate (Solu-Medrol -) 40 mg IVPB DAILY [facility] Last Admin: 08/31/16 09:04 Dose: 40 mg Mupirocin (Bactroban Ointment (For Decolonization) -) 1 applic NS BID [facility] Stop: 09/02/16 09:59 Last Admin: 08/30/16 21:17 Dose: 1 applic Pantoprazole Sodium (Protonix 40mg Ivpb (Pre-Docked)) 40 mg IVPB BID [facility] Last Admin: 08/31/16 09:04 Dose: 40 mg - Objective Vital Signs: Vital Signs Temperature 99.6 F 08/31/16 08:00 Pulse Rate 94 H 08/31/16 08:00 Respiratory Rate 25 H 08/31/16 08:00 Blood Pressure 130/80 08/31/16 08:00 O2 Sat by Pulse Oximetry (%) 100 08/31/16 06:20 Constitutional: Yes: No Distress HENT: Yes: Other (+ tracheostomy) Cardiovascular: Yes: Regular Rate and Rhythm, S1, S2 Respiratory: Yes: Diminished Gastrointestinal: Yes: Normal Bowel Sounds, Soft. No: Tenderness Edema: Yes Labs: CBC, BMP 08/31/16 05:30 08/31/16 05:30 INR, PTT INR 1.01 (0.82-1.09) 08/27/16 14:20 Assessment/Plan S/P respiratory failure Probable pneumonia Enterococcal UTI Hx neuromuscular disorder Continue empiric zosyn Respiratory support
--- NOTE | 2016-08-31 11:20 | PN ---
Teaching Attending Note Name of Resident: Melvin Ortiz ATTENDING PHYSICIAN STATEMENT I saw and evaluated the patient. I reviewed the resident's note and discussed the case with the resident. I agree with the resident's findings and plan as documented. SUBJECTIVE: Patient seen and examined in the ICU. Remains extubated, but NIPPV dependent. For Trach. Awake and alert. Intake & Output 08/28/16 08/29/16 08/30/16 08/31/16 23:59 23:59 23:59 23:59 Intake Total 3066 2400 2600 1350 Output Total 3200 3650 1050 250 Balance -134 -1250 1550 1100 Weight 183 lb 10.321 oz 182 lb 8 oz 179 lb 9.6 oz 182 lb 8 oz Last Vital Signs Temp Pulse Resp BP Pulse Ox 99.9 F H 76 24 142/79 100 08/31/16 10:52 08/31/16 10:52 08/31/16 10:52 08/31/16 10:52 08/31/16 06:20 Active Medications Acetaminophen (Ofirmev Injection -) 1,000 mg IVPB Q6H PRN PRN Reason: FEVER OR PAIN Stop: 08/31/16 20:25 Arformoterol Tartrate (Brovana (Restricted To Pulmonology/Resp) -) 1 amp NEB BID [facility] Last Admin: 08/30/16 22:22 Dose: 1 amp Chlorhexidine Gluconate (Hibiclens For Decolonization -) 1 applic TP HS KENDRICK Last Admin: 08/30/16 21:16 Dose: 1 applic Heparin Sodium (Porcine) (Heparin -) 5,000 unit SQ BID K[facility] Last Admin: 08/30/16 21:17 Dose: 5,000 unit Piperacillin Sod/Tazobactam Sod (Zosyn 3.375gm Ivpb (Pre-Docked)) 50 mls @ 100 mls/hr IVPB Q8H-IV [facility] Last Admin: 08/31/16 09:04 Dose: 100 mls/hr Insulin Aspart (Novolog Vial Sliding Scale -) 1 vial SQ TIDAC [facility] PRN Reason: Protocol Last Admin: 08/31/16 06:08 Dose: Not Given Methylprednisolone Sodium Succinate (Solu-Medrol -) 40 mg IVPB DAILY K[facility] Last Admin: 08/31/16 09:04 Dose: 40 mg Mupirocin (Bactroban Ointment (For Decolonization) -) 1 applic NS BID [facility] Stop: 09/02/16 09:59 Last Admin: 08/30/16 21:17 Dose: 1 applic Pantoprazole Sodium (Protonix 40mg Ivpb (Pre-Docked)) 40 mg IVPB BID [facility] Last Admin: 08/31/16 09:04 Dose: 40 mg Gen: Awake and mildly tachypneic on BiPAP Heart: RRR Lung: distant breath sounds, scattered rhonchi Abd: soft, nontender Ext: no edema Laboratory Results - last 24 hr 08/30/16 08/30/16 08/31/16 12:32 16:28 05:30 WBC 8.8 RBC 3.05 L Hgb 9.9 L D Hct 30.6 L MCV 100.3 H MCHC 32.3 RDW 13.6 Plt Count 250 MPV 8.0 Neutrophils % 82.6 Lymphocytes % 6.5 L Monocytes % 10.9 H Eosinophils % 0.0 D Basophils % 0.0 Sodium Potassium Chloride Carbon Dioxide Anion Gap BUN Creatinine Creat Clearance w eGFR POC Glucometer 139.84311 138.16799 Random Glucose Calcium Total Bilirubin AST ALT Alkaline Phosphatase Total Protein Albumin 08/31/16 05:30 WBC RBC Hgb Hct MCV MCHC RDW Plt Count MPV Neutrophils % Lymphocytes % Monocytes % Eosinophils % Basophils % Sodium 146 H Potassium 3.9 Chloride 104 Carbon Dioxide 38 H Anion Gap 4 L BUN 22 H Creatinine 0.6 L Creat Clearance w eGFR > 60 POC Glucometer Random Glucose 88 Calcium 9.0 Total Bilirubin 1.1 H D AST 37 ALT 50 D Alkaline Phosphatase 59 Total Protein 5.5 L Albumin 2.7 L Problem List - Problems (1) Head injury Code(s): S09.90XA - UNSPECIFIED INJURY OF HEAD, INITIAL ENCOUNTER Qualifiers: Encounter type: initial encounter Qualified Code(s): S09.90XA - Unspecified injury of head, initial encounter (2) Laceration Code(s): T14.8 - OTHER INJURY OF UNSPECIFIED BODY REGION (3) Acute respiratory failure Code(s): J96.00 - ACUTE RESPIRATORY FAILURE, UNSP W HYPOXIA OR HYPERCAPNIA Qualifiers: Respiratory failure complication: hypercapnia Qualified Code(s): J96.02 - Acute respiratory failure with hypercapnia (4) Pneumonia Code(s): J18.9 - PNEUMONIA, UNSPECIFIED ORGANISM (5) Acute respiratory failure with hypercapnia Code(s): J96.02 - ACUTE RESPIRATORY FAILURE WITH HYPERCAPNIA (6) ALS (amyotrophic lateral sclerosis) Code(s): G12.21 - AMYOTROPHIC LATERAL SCLEROSIS (7) Sepsis Code(s): A41.9 - SEPSIS, UNSPECIFIED ORGANISM ASSESSMENT AND PLAN: 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 Presumed Pneumonia UTI Sepsis ALS HTN DM - For Trach - ABX - daily assessment for lasix - O2 to keep SpO2 >90% - Medrol - inhaled bronchodilators - aspiration precautions - DVT/GI prophylaxis Dr Donald CCTime 35" Problem List - Problems (1) Head injury Code(s): S09.90XA - UNSPECIFIED INJURY OF HEAD, INITIAL ENCOUNTER Qualifiers: Encounter type: initial encounter Qualified Code(s): S09.90XA - Unspecified injury of head, initial encounter (2) Laceration Code(s): T14.8 - OTHER INJURY OF UNSPECIFIED BODY REGION (3) Acute respiratory failure Code(s): J96.00 - ACUTE RESPIRATORY FAILURE, UNSP W HYPOXIA OR HYPERCAPNIA Qualifiers: Respiratory failure complication: hypercapnia Qualified Code(s): J96.02 - Acute respiratory failure with hypercapnia (4) Pneumonia Code(s): J18.9 - PNEUMONIA, UNSPECIFIED ORGANISM (5) Acute respiratory failure with hypercapnia Code(s): J96.02 - ACUTE RESPIRATORY FAILURE WITH HYPERCAPNIA (6) ALS (amyotrophic lateral sclerosis) Code(s): G12.21 - AMYOTROPHIC LATERAL SCLEROSIS (7) Sepsis Code(s): A41.9 - SEPSIS, UNSPECIFIED ORGANISM
--- NOTE | 2016-08-31 11:31 | PROC ---
Procedure Note Procedure: Procedure Under informed consent a bilateral FOB was performed at the bedside. The patient was first endotracheally intubated with the Glidescope with a size 8.0 ETT. Subsequently the bronchoscope was inserted via the ETT. The caleb was visualized and appeared sharp. The left mainstem bronchus was entered and the airways were inspected. Copious secretions were noted and suctioned. The bronchscope was withdrawn to the caleb and the right mainstem was entered and the airways were inspected. Again noted were copious secretions which were suctioned. The Bronchoscope was then withdrawn into the distal ETT and remained in position to guide the placement of a Percutaneous Trach by CTS. The bronchoscope was withdrawn from the patient and was inserted via the Trach to confirm excellent placement without evidence of active bleeding. Dr Donald
--- NOTE | 2016-08-31 11:39 | OP ---
- Note: Patient Name: Kevon Steve MR#: [id number] Procedure Date: 08/31/2016 Preoperative Diagnosis: Respiratory failure. Postoperative Diagnosis: same. Procedure: 1. Percutaneous tracheostomy with #8 Shiley; 2. Bronchoscopy (performed by Dr. Donald). Indication: Respiratory failure; Surgeon(s): Brad Ramos MD Cosurgeon: manjinder Machine Ii Cutter Surgeon: Dano Donald MD. Anesthesia: General endotracheal; Findings: Abundant secretions. Specimens Sent: 1. na; Complications: none Drains / Tubes / Catheters: na Hardware / Implants: na Blood / Fluid Losses: minimal Post-Operative Condition: Stable. Indications: This patient is a 76 year-old male with ALS and respiratory failure referred for tracheostomy. An informed consent was obtained by Dr. Donald and the ICU team. All questions were addressed and his family agreed. Details of Procedure: The procedure was done at the bedside. We began with bronchoscopy to clear the airway for the procedure. This was done by Dr. Donald. After this, the neck was prepared and draped in standard fashion. We then made a transverse incision below the cricoid cartilage. We withdrew the endotracheal airway until we were close to the vocal cords. We inserted the needle from the percutaneous bronchoscopy kit under direct bronchoscopic vision identifying approximately the 2nd to 3rd ring. We then passed a wire under vision. We then dilated up and inserted the tracheostomy. We put the cuff up and connected the ventilator. We placed the bronchoscope through the tracheostomy and then above. There was no significant bleeding and placement was good.
[2016-08-31] MEDS: ARFORMOTEROL TARTRATE 15 MCG/2 ML VIAL NEB SCH ×2 (11:43→21:32)
[2016-08-31] MEDS ORDERED: morphine CARPU-JECT 2 MG/1 ML DISP.SYRIN IVPUSH ONE (11:46)
--- NOTE | 2016-08-31 11:56 | PN ---
Physical Exam: SUBJECTIVE: Patient seen and examined at bedside. No overnight events. No new complaints. Patient s/p tracheostomy today. Tolerated procedure well. Currently comfortable on vent. Denies CP, ADLER, SOB, palpitations, N/V. OBJECTIVE: Vital Signs Period Temp Pulse Resp BP Sys/Wang Pulse Ox Last 24 Hr 98.6 F-100 F 76-94 13-25 109-142/55-80 98-100 GENERAL: The patient is awake, alert, HEAD: Normal with no signs of trauma. EYES: PERRL, extraocular movements intact, sclera anicteric, conjunctiva clear. No ptosis. ENT: Ears normal, nares patent NECK: Tracheostomy in place. Trachea midline, full range of motion, supple.NO JVD LUNGS: On Vent., scattered rhonci bilat. HEART: Regular rate and rhythm, S1, S2 without murmur, rub or gallop. ABDOMEN: Soft, nontender, nondistended, normoactive bowel sounds, no guarding, no rebound, no hepatosplenomegaly, no masses. EXTREMITIES: 1+ pulses, no edema. NEUROLOGICAL: awake and alert PSYCH: Normal mood, normal affect. SKIN: cool, dry, normal turgor. Venous stasis changes. Laboratory Results - last 24 hr 08/30/16 08/30/16 08/31/16 12:32 16:28 05:30 WBC 8.8 RBC 3.05 L Hgb 9.9 L D Hct 30.6 L MCV 100.3 H MCHC 32.3 RDW 13.6 Plt Count 250 MPV 8.0 Neutrophils % 82.6 Lymphocytes % 6.5 L Monocytes % 10.9 H Eosinophils % 0.0 D Basophils % 0.0 Sodium Potassium Chloride Carbon Dioxide Anion Gap BUN Creatinine Creat Clearance w eGFR POC Glucometer 139.05218 138.94706 Random Glucose Calcium Total Bilirubin AST ALT Alkaline Phosphatase Total Protein Albumin 08/31/16 05:30 WBC RBC Hgb Hct MCV MCHC RDW Plt Count MPV Neutrophils % Lymphocytes % Monocytes % Eosinophils % Basophils % Sodium 146 H Potassium 3.9 Chloride 104 Carbon Dioxide 38 H Anion Gap 4 L BUN 22 H Creatinine 0.6 L Creat Clearance w eGFR > 60 POC Glucometer Random Glucose 88 Calcium 9.0 Total Bilirubin 1.1 H D AST 37 ALT 50 D Alkaline Phosphatase 59 Total Protein 5.5 L Albumin 2.7 L Active Medications Generic Name Dose Route Start Last Admin Trade Name Freq PRN Reason Stop Dose Admin Acetaminophen 1,000 mg 08/31/16 02:24 Ofirmev Injection - IVPB 08/31/16 20:25 Q6H PRN FEVER OR PAIN Arformoterol Tartrate 1 amp 08/27/16 13:45 08/31/16 11:43 Brovana (Restricted To Pulmonology/Resp) - NEB 1 amp BID KENDRICK Administration Chlorhexidine Gluconate 1 applic 08/27/16 22:00 08/30/16 21:16 Hibiclens For Decolonization - TP 1 applic HS KENDRICK Administration Heparin Sodium (Porcine) 5,000 unit 08/27/16 22:00 08/30/16 21:17 Heparin - SQ 5,000 unit BID KENDRICK Administration Piperacillin Sod/Tazobactam Sod 50 mls @ 100 mls/hr 08/28/16 14:00 08/31/16 09: 04 Zosyn 3.375gm Ivpb (Pre-Docked) IVPB 100 mls/hr Q8H-IV KENDRICK Administration Insulin Aspart 1 vial 08/28/16 07:00 08/31/16 06:08 Novolog Vial Sliding Scale - SQ Not Given TIDAC [facility] Protocol Methylprednisolone Sodium Succinate 40 mg 08/27/16 13:30 08/31/16 09:04 Solu-Medrol - IVPB 40 mg DAILY KENDRICK Administration Mupirocin 1 applic 08/28/16 10:00 08/30/16 21:17 Bactroban Ointment (For Decolonization) - NS 09/02/16 09:59 1 applic BID KENDRICK Administration Pantoprazole Sodium 40 mg 08/28/16 10:00 08/31/16 09:04 Protonix 40mg Ivpb (Pre-Docked) IVPB 40 mg BID KENDRICK Administration ASSESSMENT/PLAN: 76 yo M w/ SPMHx of ALS, DM, CHF admitted for sepsis secondary to CAP. Neuro: * Seen by Neurology recommend to be seen as outpatient for ALS * Spoke with and daughter both said he was on Rilutek but stopped due to [facility] not paying for it. * On cyanocolbalamin at home Pulmonary: * Tracheostomy placed today * On vent. O2 sat WNL * Aspiration precautions. * Follow sputum cultures. * Continue with Azithromycin and Rocephin (day 3) * CXR shows improvement from admission CV: * Hemodynamically stable. ID: * Continue abx for suspected PNA * Urine Culture grew E.Coli * ID consult appreciated- stat dose of Vanco ordered F/E/N: * IVF- on hold for fluid retention. * Electrolytes are WNL * NPO will get speech and swallow to evaluate Visit type - Emergency Visit Emergency Visit: Yes ED Registration Date: 08/27/16 Care time: The patient presented to the Emergency Department on the above date and was hospitalized for further evaluation of their emergent condition. - New Patient This patient is new to me today: No - Critical Care Critical Care patient: Yes Total Critical Care Time (in minutes): 32 Critical Care Statement: The care of this patient involved high complexity decision making to prevent further life threatening deterioration of the patient 's condition and/or to evalute & treat vital organ system(s) failure or risk of failure.
[2016-08-31] MEDS: CHLORHEXIDINE GLUCONATE 4% CLEANSER FOR DECOLONIZATION TP SCH (21:41)
--- NOTE | 2016-08-31 21:48 | PN ---
Progress Note, Physician History of Present Illness: No new complaints - Current Medication List Current Medications: Active Medications Arformoterol Tartrate (Brovana (Restricted To Pulmonology/Resp) -) 1 amp NEB BID [facility] Last Admin: 08/31/16 21:32 Dose: 1 amp Chlorhexidine Gluconate (Hibiclens For Decolonization -) 1 applic TP HS [facility] Last Admin: 08/31/16 21:41 Dose: 1 applic Heparin Sodium (Porcine) (Heparin -) 5,000 unit SQ BID [facility] Last Admin: 08/31/16 21:40 Dose: 5,000 unit Piperacillin Sod/Tazobactam Sod (Zosyn 3.375gm Ivpb (Pre-Docked)) 50 mls @ 100 mls/hr IVPB Q8H-IV [facility] Last Admin: 08/31/16 17:18 Dose: 100 mls/hr Insulin Aspart (Novolog Vial Sliding Scale -) 1 vial SQ TIDAC [facility] PRN Reason: Protocol Last Admin: 08/31/16 17:00 Dose: 1 units Methylprednisolone Sodium Succinate (Solu-Medrol -) 40 mg IVPB DAILY [facility] Last Admin: 08/31/16 09:04 Dose: 40 mg Mupirocin (Bactroban Ointment (For Decolonization) -) 1 applic NS BID [facility] Stop: 09/02/16 09:59 Last Admin: 08/31/16 21:40 Dose: 1 applic Pantoprazole Sodium (Protonix 40mg Ivpb (Pre-Docked)) 40 mg IVPB BID [facility] Last Admin: 08/31/16 21:41 Dose: 40 mg - Objective Vital Signs: Vital Signs Temperature 100.0 F H 08/31/16 18:00 Pulse Rate 67 08/31/16 18:00 Respiratory Rate 16 08/31/16 21:30 Blood Pressure 134/59 08/31/16 18:00 O2 Sat by Pulse Oximetry (%) 100 08/31/16 08:00 Cardiovascular: Yes: WNL, Regular Rate and Rhythm Respiratory: Yes: Rhonchi Gastrointestinal: Yes: WNL, Normal Bowel Sounds, Soft Labs: CBC, BMP 08/31/16 05:30 08/31/16 05:30 INR, PTT INR 1.01 (0.82-1.09) 08/27/16 14:20 Problem List - Problems (1) Acute respiratory failure Code(s): J96.00 - ACUTE RESPIRATORY FAILURE, UNSP W HYPOXIA OR HYPERCAPNIA Qualifiers: Respiratory failure complication: hypercapnia Qualified Code(s): J96.02 - Acute respiratory failure with hypercapnia (2) ALS (amyotrophic lateral sclerosis) Code(s): G12.21 - AMYOTROPHIC LATERAL SCLEROSIS (3) UTI (urinary tract infection) Code(s): N39.0 - URINARY TRACT INFECTION, SITE NOT SPECIFIED
[2016-09-01] MEDS ORDERED: PIPERACILLIN/TAZOB 3.375 GM 50 ML IVPB ONE (00:57)
[2016-09-01] MEDS: PIPERACILLIN/TAZOB 3.375 GM 50 ML IVPB SCH ×3 (02:00→17:13)
[2016-09-01 05:55] LABS: BASOPHIL 0.2 % (0-2.0); EOSINOPHIL 0.1 % (0-4.5); MCH 32.8 pg (25.7-33.7); MEAN CELL VOLUME 99.6 fl (80-96); MEAN PLT VOLUME 7.9 fl (7.5-11.1); NEUTROPHILS 80.6 % (42.8-82.8); PLATELET COUNT 217 K/MM3 (134-434); RDW 13.4 % (11.9-15.9); WHITE BLOOD COUNT 8.2 K/mm3 (4.0-10.0)
[2016-09-01 06:19] LABS: CALCIUM 8.7 mg/dL (8.5-10.1); CREATININE 0.6 mg/dL (0.7-1.3)
--- NOTE | 2016-09-01 07:24 | PN ---
Progress Note, Physician Chief Complaint: ID Trached yesterday Alert NAD Zosyn day 4 - Current Medication List Current Medications: Active Medications Arformoterol Tartrate (Brovana (Restricted To Pulmonology/Resp) -) 1 amp NEB BID [facility] Last Admin: 08/31/16 21:32 Dose: 1 amp Chlorhexidine Gluconate (Hibiclens For Decolonization -) 1 applic TP HS [facility] Last Admin: 08/31/16 21:41 Dose: 1 applic Heparin Sodium (Porcine) (Heparin -) 5,000 unit SQ BID [facility] Last Admin: 08/31/16 21:40 Dose: 5,000 unit Piperacillin Sod/Tazobactam Sod (Zosyn 3.375gm Ivpb (Pre-Docked)) 50 mls @ 100 mls/hr IVPB Q8H-IV [facility] Last Admin: 08/31/16 17:18 Dose: 100 mls/hr Insulin Aspart (Novolog Vial Sliding Scale -) 1 vial SQ TIDAC [facility] PRN Reason: Protocol Last Admin: 08/31/16 17:00 Dose: 1 units Methylprednisolone Sodium Succinate (Solu-Medrol -) 40 mg IVPB DAILY [facility] Last Admin: 08/31/16 09:04 Dose: 40 mg Mupirocin (Bactroban Ointment (For Decolonization) -) 1 applic NS BID [facility] Stop: 09/02/16 09:59 Last Admin: 08/31/16 21:40 Dose: 1 applic Pantoprazole Sodium (Protonix 40mg Ivpb (Pre-Docked)) 40 mg IVPB BID [facility] Last Admin: 08/31/16 21:41 Dose: 40 mg - Objective Vital Signs: Vital Signs Temperature 99.7 F H 09/01/16 04:00 Pulse Rate 71 09/01/16 04:00 Respiratory Rate 17 09/01/16 06:00 Blood Pressure 146/73 09/01/16 04:00 O2 Sat by Pulse Oximetry (%) 100 08/31/16 08:00 Neck: Yes: Other (Tracehostomy) Cardiovascular: Yes: S1, S2 Respiratory: Yes: WNL, Regular, CTA Bilaterally, Diminished. No: Rhonchi Gastrointestinal: Yes: WNL, Soft. No: Tenderness Edema: No Labs: CBC, BMP 09/01/16 05:15 09/01/16 05:15 INR, PTT INR 1.01 (0.82-1.09) 08/27/16 14:20 Assessment/Plan Microbiology 08/27/16 13:30 Blood - Peripheral Venous Blood Culture - Preliminary NO GROWTH OBTAINED AFTER 96 HOURS, INCUBATION TO CONTINUE FOR 1 DAYS. 08/27/16 13:30 Blood - Peripheral Venous Blood Culture - Preliminary NO GROWTH OBTAINED AFTER 96 HOURS, INCUBATION TO CONTINUE FOR 1 DAYS. 08/27/16 11:50 Urine - Urine Clean Catch Urine Culture - Preliminary Group D Strep Or Entero Coccus Laboratory Tests 08/30/16 09/01/16 09/01/16 07:10 05:15 05:15 WBC 8.2 Hgb 10.2 L Hct 31.0 L Plt Count 217 ABG pH 7.30 L ABG pCO2 at Pt Temp 76.8 H* ABG pO2 at Pt Temp 160.0 H* D BUN 22 H Creatinine 0.6 L Assessment Respiratory failure Pneumonia/ Fever ALS Post tracheostomy Plan Continue Zosyn as ordered Order sputum c/s Jay Jay VALLE
[2016-09-01] MEDS: INSULIN SLIDING SCALE (NOVOLOG) 1 VIAL SQ SCH ×3 (07:52→17:22)
--- NOTE | 2016-09-01 08:36 | PN ---
Progress Note (short form) - Note Progress Note: Patient seen and examined in the ICU. Trached yesterday. Awake and alert. AC Mode of vent, 40% FiO2. No pressors Intake & Output 08/29/16 08/30/16 08/31/16 09/01/16 23:59 23:59 23:59 23:59 Intake Total 2400 2600 1800 100 Output Total 3650 1050 450 250 Balance -1250 1550 1350 -150 Weight 182 lb 8 oz 179 lb 9.6 oz 182 lb 8 oz 176 lb Last Vital Signs Temp Pulse Resp BP Pulse Ox 99.5 F 72 12 133/67 98 09/01/16 08:00 09/01/16 08:00 09/01/16 08:00 09/01/16 08:00 09/01/16 07:38 Active Medications Arformoterol Tartrate (Brovana (Restricted To Pulmonology/Resp) -) 1 amp NEB BID [facility] Last Admin: 08/31/16 21:32 Dose: 1 amp Chlorhexidine Gluconate (Hibiclens For Decolonization -) 1 applic TP HS [facility] Last Admin: 08/31/16 21:41 Dose: 1 applic Heparin Sodium (Porcine) (Heparin -) 5,000 unit SQ BID [facility] Last Admin: 08/31/16 21:40 Dose: 5,000 unit Piperacillin Sod/Tazobactam Sod (Zosyn 3.375gm Ivpb (Pre-Docked)) 50 mls @ 100 mls/hr IVPB Q8H-IV [facility] Last Admin: 09/01/16 02:00 Dose: 100 mls/hr Insulin Aspart (Novolog Vial Sliding Scale -) 1 vial SQ TIDAC [facility] PRN Reason: Protocol Last Admin: 09/01/16 07:52 Dose: Not Given Methylprednisolone Sodium Succinate (Solu-Medrol -) 40 mg IVPB DAILY [facility] Last Admin: 08/31/16 09:04 Dose: 40 mg Mupirocin (Bactroban Ointment (For Decolonization) -) 1 applic NS BID [facility] Stop: 09/02/16 09:59 Last Admin: 08/31/16 21:40 Dose: 1 applic Pantoprazole Sodium (Protonix 40mg Ivpb (Pre-Docked)) 40 mg IVPB BID [facility] Last Admin: 08/31/16 21:41 Dose: 40 mg Gen: Awake and alert, Trached Heart: RRR Lung: scattered rhonchi Abd: soft, nontender Ext: no edema Laboratory Results - last 24 hr 08/31/16 08/31/16 08/31/16 05:23 12:40 16:52 WBC RBC Hgb Hct MCV MCHC RDW Plt Count MPV Neutrophils % Lymphocytes % Monocytes % Eosinophils % Basophils % Sodium Potassium Chloride Carbon Dioxide Anion Gap BUN Creatinine POC Glucometer 107.92622 151.38432 151.67463 Random Glucose Calcium 09/01/16 09/01/16 05:15 05:15 WBC 8.2 RBC 3.11 L Hgb 10.2 L Hct 31.0 L MCV 99.6 H MCHC 33.0 RDW 13.4 Plt Count 217 MPV 7.9 Neutrophils % 80.6 Lymphocytes % 8.7 D Monocytes % 10.4 H Eosinophils % 0.1 D Basophils % 0.2 D Sodium 147 H Potassium 3.3 L Chloride 104 Carbon Dioxide 33 H Anion Gap 10 BUN 22 H Creatinine 0.6 L POC Glucometer Random Glucose 94 Calcium 8.7 Problem List - Problems (1) Head injury Code(s): S09.90XA - UNSPECIFIED INJURY OF HEAD, INITIAL ENCOUNTER Qualifiers: Encounter type: initial encounter Qualified Code(s): S09.90XA - Unspecified injury of head, initial encounter (2) Laceration Code(s): T14.8 - OTHER INJURY OF UNSPECIFIED BODY REGION (3) Acute respiratory failure Code(s): J96.00 - ACUTE RESPIRATORY FAILURE, UNSP W HYPOXIA OR HYPERCAPNIA Qualifiers: Respiratory failure complication: hypercapnia Qualified Code(s): J96.02 - Acute respiratory failure with hypercapnia (4) Pneumonia Code(s): J18.9 - PNEUMONIA, UNSPECIFIED ORGANISM (5) Acute respiratory failure with hypercapnia Code(s): J96.02 - ACUTE RESPIRATORY FAILURE WITH HYPERCAPNIA (6) ALS (amyotrophic lateral sclerosis) Code(s): G12.21 - AMYOTROPHIC LATERAL SCLEROSIS (7) Sepsis Code(s): A41.9 - SEPSIS, UNSPECIFIED ORGANISM ASSESSMENT AND PLAN: 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 Presumed Pneumonia UTI Sepsis ALS HTN DM - NGT insertion - ABX per ID - daily assessment for lasix - O2 to keep SpO2 >90% - D/C Medrol - inhaled bronchodilators - aspiration precautions - DVT/GI prophylaxis - Will need PEG Dr Donald CCTime 35" Problem List - Problems (1) Head injury Code(s): S09.90XA - UNSPECIFIED INJURY OF HEAD, INITIAL ENCOUNTER Qualifiers: Encounter type: initial encounter Qualified Code(s): S09.90XA - Unspecified injury of head, initial encounter (2) Laceration Code(s): T14.8 - OTHER INJURY OF UNSPECIFIED BODY REGION (3) Acute respiratory failure Code(s): J96.00 - ACUTE RESPIRATORY FAILURE, UNSP W HYPOXIA OR HYPERCAPNIA Qualifiers: Respiratory failure complication: hypercapnia Qualified Code(s): J96.02 - Acute respiratory failure with hypercapnia (4) Pneumonia Code(s): J18.9 - PNEUMONIA, UNSPECIFIED ORGANISM (5) Acute respiratory failure with hypercapnia Code(s): J96.02 - ACUTE RESPIRATORY FAILURE WITH HYPERCAPNIA (6) ALS (amyotrophic lateral sclerosis) Code(s): G12.21 - AMYOTROPHIC LATERAL SCLEROSIS (7) Sepsis Code(s): A41.9 - SEPSIS, UNSPECIFIED ORGANISM
[2016-09-01] MEDS: methylPREDNISolone NA SUCC 40 MG/1 ML VIAL IVPB SCH (09:29)
[2016-09-01] MEDS: HEPARIN NA (PORCINE) 5,000 UNITS/ML 1ML VIAL SQ SCH ×2 (09:29→21:01)
[2016-09-01] MEDS: MUPIROCIN 2% TOPICAL OINTMENT FOR DECOLONIZATION NS SCH ×2 (09:30→22:43)
[2016-09-01] MEDS ORDERED: POTASSIUM CHLORIDE 40 MEQ/30 ML UNIT DOSE CUP PO ONE (09:30)
[2016-09-01] MEDS: PANTOPRAZOLE SODIUM 40 MG/100 ML PRE-DOCKED IVPB SCH ×2 (10:19→21:01)
[2016-09-01] MEDS: ARFORMOTEROL TARTRATE 15 MCG/2 ML VIAL NEB SCH ×2 (11:00→22:11)
[2016-09-01] MEDS ORDERED: ACETAMINOPHEN 325 MG TABLET (FP) ONE (12:44)
[2016-09-01] MEDS: ACETAMINOPHEN 650 MG/20.3 ML ORAL SOLUTION (CUPS) PO PRN ×2 (13:00→18:30)
--- NOTE | 2016-09-01 13:57 | EKG ---
Test Reason : Blood Pressure : / mmHG Vent. Rate : 070 BPM Atrial Rate : 090 BPM P-R Int : 126 ms QRS Dur : 116 ms QT Int : 386 ms P-R-T Axes : 042 -25 078 degrees QTc Int : 416 ms SINUS RHYTHM WITH MARKED SINUS ARRHYTHMIA LEFT VENTRICULAR HYPERTROPHY WITH QRS WIDENING AND REPOLARIZATION ABNORMALITY ABNORMAL ECG Confirmed by MD FREDERICK, ABHISHEK ([id number]) on 09/01/2016 1:56:51 PM Referred By: MARLINE ALBA Overread By: ABHISHEK MACK MD
--- NOTE | 2016-09-01 14:46 | CONSULT ---
Consult Consult Specialty:: GASTROENTEROLOGY Referred by:: RESIDENT Reason for Consultation:: PEG PLACEMENT - History of Present Illness History of Present Illness: 76 YEAR OLD MALE S/P DIAGNOSIS OF ALS JUST TRACHED AND NOW NEEDS PEG TUBE FOR MEDS AND NUTRITION. - History Source History Provided By: Patient, Medical Record Limitations to Obtaining History: Clinical Condition - Past Medical History [employer]: Yes: Other (ALS) Cardio/Vascular: Yes: HTN Pulmonary: No: Asthma, Bronchitis, Cancer, COPD, O2 Dependent, Pneumonia, Previously Intubated, Pulmonary Embolus, Pulmonary Fibrosis, Sleep Apnea, Other Gastrointestinal: Yes: GERD Hepatobiliary: No: Cirrhosis, Cholelithiasis, Cholecystitis, Choledocholithiasis , Hepatitis A, Hepatitis B, Hepatitis C, Other Heme/Onc: No: Anemia, B12 Deficiency, Bleeding Disorder, Cancer, Current Chemotherapy, Current Radiation Therapy, Hemochromatosis, Hypercoaguable State, Myeloproliferative Synd, Sickle Cell Disease, Sickle Cell Trait, Thrombocytopenia, Other Infectious Disease: No: AIDS, C-Diff, Herpes Zoster, HIV, MRSA, STD's, Tuberculosis, VREF, Other Psych: No: Addictions, Anxiety, Bipolar, Depression, Panic, Psychosis, Schizophrenia, Other Musculoskeletal: No: Bursitis, Chronic low back pain, Hemiparesis, Hemiplegia, Osteoarthritis, Paraplegia, Other Endocrine: Yes: Diabetes Mellitus - Past Surgical History Past Surgical History: Yes: Colonoscopy - Alcohol/Substance Use Hx Alcohol Use: No - Smoking History Smoking history: Smoker current status UNK Have you smoked in the past 12 months: No Aproximately how many cigarettes per day: 0 If you are a former smoker, when did you quit?: 25YRS AGO - Social History Usual Living Arrangement: With Spouse Home Medications - Allergies Allergies/Adverse Reactions: Allergies Allergy/AdvReac Type Severity Reaction Status Date / Time No Known Allergies Allergy Verified 08/27/16 11:44 - Home Medications Home Medications: Ambulatory Orders Lisinopril [Prinivil -] 40 mg PO DAILY 02/04/13 Metformin HCl [Riomet] 500 mg PO BID 02/04/13 Ranitidine [Zantac -] 300 mg PO HS 02/04/13 Omeprazole 20 mg PO DAILY 08/27/16 Review of Systems Unable to obtain ROS, reason: TRACH Physical Exam-GI Vital Signs: Vital Signs Temperature 100.3 F H 12/31/16 14:00 Pulse Rate 75 09/01/16 14:00 Respiratory Rate 12 09/01/16 14:00 Blood Pressure 135/65 09/01/16 14:00 O2 Sat by Pulse Oximetry (%) 99 09/01/16 14:00 Constitutional: Yes: No Distress Eyes: Yes: Conjunctiva Clear Neck: Yes: Other ([place] TRACH) Cardiovascular: Yes: WNL Respiratory: Yes: Mechanically Ventilated Gastrointestinal Inspection: Yes: WNL ...Auscultate: Yes: Normoactive Bowel Sounds ...Palpate: Yes: Soft Extremities: Yes: WNL Labs: CBC, BMP 09/01/16 05:15 09/01/16 05:15 INR, PTT INR 1.01 (0.82-1.09) 08/27/16 14:20 Laboratory Tests 09/01/16 09/01/16 05:15 05:15 WBC 8.2 RBC 3.11 L Hgb 10.2 L Hct 31.0 L MCV 99.6 H MCHC 33.0 RDW 13.4 Plt Count 217 MPV 7.9 Neutrophils % 80.6 Lymphocytes % 8.7 D Monocytes % 10.4 H Eosinophils % 0.1 D Basophils % 0.2 D Sodium 147 H Potassium 3.3 L Chloride 104 Carbon Dioxide 33 H Anion Gap 10 BUN 22 H Creatinine 0.6 L Problem List - Problems (1) ALS (amyotrophic lateral sclerosis) Assessment/Plan: PATIENT IS GOOD CANDIDATE FOR PEG. I THINK THAT EVENTUALLY HE MAY BE ABLE TO EAT SOME ON HIS OWN BUT A PEG IS NEEDED THE DISEASE WILL MOST LIKELY PROGRESS. THE PEG WILL ALSO ALLOW FOR EASY ADMINISTRATION OF MEDS AND WILL ENSURE ADEQUATE CALORIE AND PROTEIN ADMINISTRATION. GIVEN HOLIDAY THE PEG IS SCHEDULED FOR Saturday. THE PROCEDURE, RISKS AND METHOD OF SEDATION WERE DISCUSSED WEITH THE PATIENT AND HER AGREES WITH PLACEMENT. I WILL SPEAK WITH THE FAMILY BY PHONE. ICU TIME 45 MINUTES Code(s): G12.21 - AMYOTROPHIC LATERAL SCLEROSIS (2) Acute respiratory failure with hypercapnia Code(s): J96.02 - ACUTE RESPIRATORY FAILURE WITH HYPERCAPNIA
[2016-09-01] MEDS: NYSTATIN POWDER 100,000 UNITS/GM - 15 GM TOPICAL POWDER TP SCH ×2 (17:13→22:44)
--- NOTE | 2016-09-01 19:38 | PN ---
Progress Note, Physician History of Present Illness: No new complaints - Current Medication List Current Medications: Active Medications Acetaminophen (Tylenol Oral Solution -) 650 mg PO Q6H PRN PRN Reason: FEVER OR PAIN Last Admin: 09/01/16 18:30 Dose: 650 mg Arformoterol Tartrate (Brovana (Restricted To Pulmonology/Resp) -) 1 amp NEB BID [facility] Last Admin: 09/01/16 11:00 Dose: 1 amp Chlorhexidine Gluconate (Hibiclens For Decolonization -) 1 applic TP HS [facility] Last Admin: 08/31/16 21:41 Dose: 1 applic Heparin Sodium (Porcine) (Heparin -) 5,000 unit SQ BID [facility] Last Admin: 09/01/16 09:29 Dose: 5,000 unit Piperacillin Sod/Tazobactam Sod (Zosyn 3.375gm Ivpb (Pre-Docked)) 50 mls @ 100 mls/hr IVPB Q8H-IV [facility] Last Admin: 09/01/16 17:13 Dose: 100 mls/hr Insulin Aspart (Novolog Vial Sliding Scale -) 1 vial SQ TIDAC [facility] PRN Reason: Protocol Last Admin: 09/01/16 17:22 Dose: 1 units Methylprednisolone Sodium Succinate (Solu-Medrol -) 40 mg IVPB DAILY [facility] Last Admin: 09/01/16 09:29 Dose: 40 mg Mupirocin (Bactroban Ointment (For Decolonization) -) 1 applic NS BID [facility] Stop: 09/02/16 09:59 Last Admin: 09/01/16 09:30 Dose: 1 applic Nystatin (Nystop Powder -) 1 applic TP BID [facility] Last Admin: 09/01/16 17:13 Dose: 1 applic Pantoprazole Sodium (Protonix 40mg Ivpb (Pre-Docked)) 40 mg IVPB BID [facility] Last Admin: 09/01/16 10:19 Dose: 40 mg - Objective Vital Signs: Vital Signs Temperature 100.9 F H 09/01/16 18:00 Pulse Rate 83 09/01/16 18:00 Respiratory Rate 12 09/01/16 18:51 Blood Pressure 113/52 09/01/16 18:00 O2 Sat by Pulse Oximetry (%) 99 09/01/16 15:40 Cardiovascular: Yes: WNL, Regular Rate and Rhythm Respiratory: Yes: WNL, Regular, CTA Bilaterally Gastrointestinal: Yes: Normal Bowel Sounds, Abdomen, Obese Labs: CBC, BMP 09/01/16 05:15 09/01/16 05:15 INR, PTT INR 1.01 (0.82-1.09) 08/27/16 14:20 Problem List - Problems (1) Acute respiratory failure Code(s): J96.00 - ACUTE RESPIRATORY FAILURE, UNSP W HYPOXIA OR HYPERCAPNIA Qualifiers: Respiratory failure complication: hypercapnia Qualified Code(s): J96.02 - Acute respiratory failure with hypercapnia (2) ALS (amyotrophic lateral sclerosis) Code(s): G12.21 - AMYOTROPHIC LATERAL SCLEROSIS (3) UTI (urinary tract infection) Code(s): N39.0 - URINARY TRACT INFECTION, SITE NOT SPECIFIED
[2016-09-01] MEDS: CHLORHEXIDINE GLUCONATE 4% CLEANSER FOR DECOLONIZATION TP SCH (22:44)
[2016-09-02] MEDS: PIPERACILLIN/TAZOB 3.375 GM 50 ML IVPB SCH ×3 (01:51→17:07)
[2016-09-02] MEDS: ACETAMINOPHEN 650 MG/20.3 ML ORAL SOLUTION (CUPS) PO PRN ×2 (01:57→14:46)
[2016-09-02 06:03] LABS: MCH 32.8 pg (25.7-33.7); MCHC 32.7 g/dl (32.0-35.9); MEAN CELL VOLUME 100.3 fl (80-96); MEAN PLT VOLUME 8.1 fl (7.5-11.1); PLATELET COUNT 205 K/MM3 (134-434); RDW 13.7 % (11.9-15.9); WHITE BLOOD COUNT 8.6 K/mm3 (4.0-10.0)
[2016-09-02] MEDS: INSULIN SLIDING SCALE (NOVOLOG) 1 VIAL SQ SCH ×3 (06:38→16:17)
[2016-09-02 06:39] LABS: ALBUMIN 2.7 g/dl (3.4-5.0); ANION GAP 8 (8-16); CALCIUM 8.3 mg/dL (8.5-10.1); CO2 33 mmol/L (21-32); GLUCOSE,RANDOM 145 mg/dL (74-106); MAGNESIUM 2.1 mg/dL (1.8-2.4)
[2016-09-02 06:45] LABS: ALK PHOS 72 U/L (45-117); BILIRUBIN,TOTAL 1.3 mg/dL (0.2-1.0); CREATININE 0.7 mg/dL (0.7-1.3); PHOSPHOROUS 2.4 mg/dL (2.5-4.9); SGOT/AST 201 U/L (15-37); SGPT/ALT 236 U/L (12-78); TOT PROT 5.4 g/dl (6.4-8.2)
--- NOTE | 2016-09-02 07:40 | PN ---
Progress Note, Physician Chief Complaint: ID Post tracheostomy Sable on the vent Zosyn day 5 therapy Persistant low grade fevers noted - Current Medication List Current Medications: Active Medications Acetaminophen (Tylenol Oral Solution -) 650 mg PO Q6H PRN PRN Reason: FEVER OR PAIN Last Admin: 09/02/16 01:57 Dose: 650 mg Arformoterol Tartrate (Brovana (Restricted To Pulmonology/Resp) -) 1 amp NEB BID [facility] Last Admin: 09/01/16 22:11 Dose: 1 amp Chlorhexidine Gluconate (Hibiclens For Decolonization -) 1 applic TP HS [facility] Last Admin: 09/01/16 22:44 Dose: 1 applic Heparin Sodium (Porcine) (Heparin -) 5,000 unit SQ BID [facility] Last Admin: 09/01/16 21:01 Dose: 5,000 unit Piperacillin Sod/Tazobactam Sod (Zosyn 3.375gm Ivpb (Pre-Docked)) 50 mls @ 100 mls/hr IVPB Q8H-IV [facility] Last Admin: 09/02/16 01:51 Dose: 100 mls/hr Insulin Aspart (Novolog Vial Sliding Scale -) 1 vial SQ TIDAC [facility] PRN Reason: Protocol Last Admin: 09/02/16 06:38 Dose: 1 units Methylprednisolone Sodium Succinate (Solu-Medrol -) 40 mg IVPB DAILY [facility] Last Admin: 09/01/16 09:29 Dose: 40 mg Mupirocin (Bactroban Ointment (For Decolonization) -) 1 applic NS BID [facility] Stop: 09/02/16 09:59 Last Admin: 09/01/16 22:43 Dose: 1 applic Nystatin (Nystop Powder -) 1 applic TP BID [facility] Last Admin: 09/01/16 22:44 Dose: 1 applic Pantoprazole Sodium (Protonix 40mg Ivpb (Pre-Docked)) 40 mg IVPB BID [facility] Last Admin: 09/01/16 21:01 Dose: 40 mg - Objective Vital Signs: Vital Signs Temperature 99.5 F 09/02/16 06:00 Pulse Rate 71 09/02/16 06:00 Respiratory Rate 12 09/02/16 07:27 Blood Pressure 122/79 09/02/16 06:00 O2 Sat by Pulse Oximetry (%) 100 09/02/16 07:27 Constitutional: Yes: Well Nourished, No Distress Neck: Yes: Other (trach) Cardiovascular: Yes: Regular Rate and Rhythm, S1, S2. No: Murmur Respiratory: Yes: WNL, Regular, CTA Bilaterally, Rhonchi Gastrointestinal: Yes: WNL, Normal Bowel Sounds, Soft. No: Tenderness Edema: No Labs: CBC, BMP 09/02/16 05:15 09/02/16 05:15 INR, PTT INR 1.01 (0.82-1.09) 08/27/16 14:20 Assessment/Plan Microbiology 09/01/16 10:15 Sputum - Endotrachea Suction/Ventilator Gram Stain - Final 08/27/16 13:30 Blood - Peripheral Venous Blood Culture - Final NO GROWTH AFTER 5 DAYS INCUBATION 08/27/16 13:30 Blood - Peripheral Venous Blood Culture - Final NO GROWTH AFTER 5 DAYS INCUBATION 08/27/16 11:50 Urine - Urine Clean Catch Urine Culture - Preliminary Group D Strep Or Entero Coccus Laboratory Tests 09/02/16 09/02/16 05:15 05:15 WBC 8.6 Hgb 10.3 L Plt Count 205 Total Bilirubin 1.3 H AST 201 H D ALT 236 H D Assessment Respiratory failure ALS Post tracheotomy Left atalectasis ? infiltrate Enterococcal UTI Plan Advise if low grade fevers persist would stop Zosyn and observe A sputum culture was ordered waiting for result Jay Jay VALLE
--- NOTE | 2016-09-02 07:54 | PN ---
Progress Note (short form) - Note Progress Note: Patient seen and examined in the ICU. 24: stable post trach low grade temp mild new transaminitis, slight rise in T-bili alk phos normal AC Mode of vent, 40% FiO2. No pressors Vital Signs Temp 99.5 F 09/02/16 06:00 Pulse 71 09/02/16 06:00 Resp 12 09/02/16 07:42 BP 122/79 09/02/16 06:00 Pulse Ox 100 09/02/16 07:27 Intake & Output 09/01/16 09/01/16 09/02/16 11:59 23:59 11:59 Intake Total 250 684 330 Output Total 250 Balance 0 684 330 Weight 79.832 kg 80.059 kg Intake: IVPB 250 100 50 Oral 0 Tube Feeding 474 180 Tube Irrigant 110 100 Output: Gastric Drainage 250 Other: Voiding Method Incontinent Incontinent Incontinent # Unmeasured Voids Powell 2 1 1 Bowel Movement No Yes: 1 Yes # Bowel Movements 1 Weight Measurement Method Built in Bed[facility] Active Medications Acetaminophen (Tylenol Oral Solution -) 650 mg PO Q6H PRN PRN Reason: FEVER OR PAIN Last Admin: 09/02/16 01:57 Dose: 650 mg Arformoterol Tartrate (Brovana (Restricted To Pulmonology/Resp) -) 1 amp NEB BID [facility] Last Admin: 09/01/16 22:11 Dose: 1 amp Chlorhexidine Gluconate (Hibiclens For Decolonization -) 1 applic TP HS [facility] Last Admin: 09/01/16 22:44 Dose: 1 applic Heparin Sodium (Porcine) (Heparin -) 5,000 unit SQ BID [facility] Last Admin: 09/01/16 21:01 Dose: 5,000 unit Piperacillin Sod/Tazobactam Sod (Zosyn 3.375gm Ivpb (Pre-Docked)) 50 mls @ 100 mls/hr IVPB Q8H-IV [facility] Last Admin: 09/02/16 01:51 Dose: 100 mls/hr Insulin Aspart (Novolog Vial Sliding Scale -) 1 vial SQ TIDAC [facility] PRN Reason: Protocol Last Admin: 09/02/16 06:38 Dose: 1 units Methylprednisolone Sodium Succinate (Solu-Medrol -) 20 mg IVPB DAILY [facility] Mupirocin (Bactroban Ointment (For Decolonization) -) 1 applic NS BID [facility] Stop: 09/02/16 09:59 Last Admin: 09/01/16 22:43 Dose: 1 applic Nystatin (Nystop Powder -) 1 applic TP BID [facility] Last Admin: 09/01/16 22:44 Dose: 1 applic Pantoprazole Sodium (Protonix 40mg Ivpb (Pre-Docked)) 40 mg IVPB BID [facility] Last Admin: 09/01/16 21:01 Dose: 40 mg Gen: Awake and alert, Trached, CDI Heart: RRR Lung: scattered rhonchi, no distress, no wheezes Abd: soft, nontender Ext: no edema Neuro: bulbar and distal weakness Laboratory Results - last 24 hr 09/01/16 09/01/16 09/01/16 05:44 10:58 16:44 WBC RBC Hgb Hct MCV MCHC RDW Plt Count MPV Sodium Potassium Chloride Carbon Dioxide Anion Gap BUN Creatinine Creat Clearance w eGFR POC Glucometer 114.90142 133.04614 190.87887 Random Glucose Calcium Phosphorus Magnesium Total Bilirubin AST ALT Alkaline Phosphatase Total Protein Albumin 09/01/16 09/02/16 09/02/16 22:40 05:15 05:15 WBC 8.6 RBC 3.15 L Hgb 10.3 L Hct 31.6 L MCV 100.3 H MCHC 32.7 RDW 13.7 Plt Count 205 MPV 8.1 Sodium 149 H Potassium 3.3 L Chloride 108 H Carbon Dioxide 33 H Anion Gap 8 BUN 22 H Creatinine 0.7 Creat Clearance w eGFR > 60 POC Glucometer 151.95792 Random Glucose 145 H D Calcium 8.3 L Phosphorus 2.4 L D Magnesium 2.1 Total Bilirubin 1.3 H AST 201 H D ALT 236 H D Alkaline Phosphatase 72 D Total Protein 5.4 L Albumin 2.7 L 09/02/16 05:50 WBC RBC Hgb Hct MCV MCHC RDW Plt Count MPV Sodium Potassium Chloride Carbon Dioxide Anion Gap BUN Creatinine Creat Clearance w eGFR POC Glucometer 162.11211 Random Glucose Calcium Phosphorus Magnesium Total Bilirubin AST ALT Alkaline Phosphatase Total Protein Albumin Problem List - Problems (1) Head injury Code(s): S09.90XA - UNSPECIFIED INJURY OF HEAD, INITIAL ENCOUNTER Qualifiers: Encounter type: initial encounter Qualified Code(s): S09.90XA - Unspecified injury of head, initial encounter (2) Laceration Code(s): T14.8 - OTHER INJURY OF UNSPECIFIED BODY REGION (3) Acute respiratory failure Code(s): J96.00 - ACUTE RESPIRATORY FAILURE, UNSP W HYPOXIA OR HYPERCAPNIA Qualifiers: Respiratory failure complication: hypercapnia Qualified Code(s): J96.02 - Acute respiratory failure with hypercapnia (4) Pneumonia Code(s): J18.9 - PNEUMONIA, UNSPECIFIED ORGANISM (5) Acute respiratory failure with hypercapnia Code(s): J96.02 - ACUTE RESPIRATORY FAILURE WITH HYPERCAPNIA (6) ALS (amyotrophic lateral sclerosis) Code(s): G12.21 - AMYOTROPHIC LATERAL SCLEROSIS (7) Sepsis Code(s): A41.9 - SEPSIS, UNSPECIFIED ORGANISM ASSESSMENT AND PLAN: 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 Presumed Pneumonia UTI Sepsis ALS HTN DM - new mild transaminitis, will get abd US if cont to rise, no clear insult - NGT insertion - ABX per ID - daily assessment for lasix - O2 to keep SpO2 >90% - taper steroids to off - inhaled bronchodilators - aspiration precautions - DVT/GI prophylaxis - Will need PEG, GI saw and agrees -vent floor when avail Sriram Mosley ACNP CCTime 35"
[2016-09-02] MEDS: NYSTATIN POWDER 100,000 UNITS/GM - 15 GM TOPICAL POWDER TP SCH ×2 (09:09→22:00)
[2016-09-02] MEDS: HEPARIN NA (PORCINE) 5,000 UNITS/ML 1ML VIAL SQ SCH ×2 (09:09→21:23)
[2016-09-02] MEDS: methylPREDNISolone NA SUCC 40 MG/1 ML VIAL IVPB SCH (09:09)
[2016-09-02] MEDS: PANTOPRAZOLE SODIUM 40 MG/100 ML PRE-DOCKED IVPB SCH (09:32)
[2016-09-02] MEDS: ARFORMOTEROL TARTRATE 15 MCG/2 ML VIAL NEB SCH ×2 (09:47→22:20)
[2016-09-02] MEDS: KCL 10 MEQ IVPB 100 ML IVPB SCH ×2 (10:08→10:58)
[2016-09-02] MEDS ORDERED: HEMOQUE TEST 1 EACH EACH ONE (11:10)
--- NOTE | 2016-09-02 12:13 | PN ---
GI Progress Note Subjective: GASTROENTEROLOGY NO COMPLIANTS BUT HAS DEVEOPLED DIARRHEA, HAS DEVELOPED ELEVATED TRANSAMINASES WITH BILIRUBIN OF 1.3, HE HAS NO ABDOMINAL PAIN NAUSEAS OR VOMITING, HE WAS STARTED NGT FEEDS YESTERDAY - Objective Vital Signs: Vital Signs Temperature 99.4 F 09/02/16 10:00 Pulse Rate 72 09/02/16 10:00 Respiratory Rate 18 09/02/16 11:38 Blood Pressure 125/61 09/02/16 10:00 O2 Sat by Pulse Oximetry (%) 100 09/02/16 11:07 Constitutional: No Distress HENT: Yes: Other (TRACH) Neck: Yes: Other (TRACH INTUBATED) Cardiovascular: Yes: Regular Rate and Rhythm Respiratory: Yes: WNL Gastrointestinal Inspection: Yes: WNL ...Auscultate: Yes: Hyperactive Bowel Sounds ...Palpate: Yes: Soft Extremities: Yes: WNL Labs: CBC, BMP 09/02/16 05:15 09/02/16 05:15 INR, PTT INR 1.01 (0.82-1.09) 08/27/16 14:20 Problem List - Problems (1) Diarrhea Assessment/Plan: MULTIFACTORIAL, NOT SURE IF HE NEEDS PROTONIX AND PROTONIX BID. WILL D/C AND START ZANTAC VIA NGT SEND STOOL C DIFF POSSIBLE RESULT OF NEW FEEDING WILL GIVE THREE CANS FOR TODAY AND SEE IF DIARRHEA AFFECTED, IF CONTINUES CHANGE TO ELEMENTAL DIET Code(s): R19.7 - DIARRHEA, UNSPECIFIED (2) Transaminitis Assessment/Plan: FOLLOW NUMBERS, ? ETIOLOGY, IF CONTINUE US IN AM Code(s): R74.0 - NONSPEC ELEV OF LEVELS OF TRANSAMNS & LACTIC ACID DEHYDRGNSE (3) ALS (amyotrophic lateral sclerosis) Assessment/Plan: PATIENT IS GOOD CANDIDATE FOR PEG. I THINK THAT EVENTUALLY HE MAY BE ABLE TO EAT SOME ON HIS OWN BUT A PEG IS NEEDED THE DISEASE WILL MOST LIKELY PROGRESS. THE PEG WILL ALSO ALLOW FOR EASY ADMINISTRATION OF MEDS AND WILL ENSURE ADEQUATE CALORIE AND PROTEIN ADMINISTRATION. GIVEN HOLIDAY WEEKEND THE PEG IS SCHEDULED FOR Saturday. THE PROCEDURE, RISKS AND METHOD OF SEDATION WERE DISCUSSED WEITH THE PATIENT AND HER AGREES WITH PLACEMENT. I WILL SPEAK WITH THE FAMILY BY PHONE. ICU TIME 45 MINUTES Code(s): G12.21 - AMYOTROPHIC LATERAL SCLEROSIS (4) Acute respiratory failure with hypercapnia Code(s): J96.02 - ACUTE RESPIRATORY FAILURE WITH HYPERCAPNIA
[2016-09-02] MEDS: RANITIDINE HCL 150 MG/10 ML UNIT-DOSE CUP NGT SCH ×2 (12:19→21:23)
--- NOTE | 2016-09-02 13:17 | EKG ---
Test Reason : Blood Pressure : / mmHG Vent. Rate : 088 BPM Atrial Rate : 098 BPM P-R Int : 120 ms QRS Dur : 102 ms QT Int : 366 ms P-R-T Axes : 033 -28 101 degrees QTc Int : 442 ms SINUS RHYTHM WITH PREMATURE ATRIAL COMPLEXES LEFT VENTRICULAR HYPERTROPHY WITH REPOLARIZATION ABNORMALITY CANNOT RULE OUT SEPTAL INFARCT , AGE UNDETERMINED ABNORMAL ECG Confirmed by MD FREDERICK, ABHISHEK ([id number]) on 09/02/2016 1:17:11 PM Referred By: Overread By: ABHISHEK MACK MD
[2016-09-02] MEDS: CHLORHEXIDINE GLUCONATE 4% CLEANSER FOR DECOLONIZATION TP SCH (22:00)
--- NOTE | 2016-09-03 01:31 | PN ---
Progress Note, Physician History of Present Illness: No new complaints - Current Medication List Current Medications: Active Medications Acetaminophen (Tylenol Oral Solution -) 650 mg PO Q6H PRN PRN Reason: FEVER OR PAIN Last Admin: 09/02/16 14:46 Dose: 650 mg Arformoterol Tartrate (Brovana (Restricted To Pulmonology/Resp) -) 1 amp NEB BID [facility] Last Admin: 09/02/16 22:20 Dose: 1 amp Chlorhexidine Gluconate (Hibiclens For Decolonization -) 1 applic TP HS [facility] Last Admin: 09/01/16 22:44 Dose: 1 applic Heparin Sodium (Porcine) (Heparin -) 5,000 unit SQ BID [facility] Last Admin: 09/02/16 21:23 Dose: 5,000 unit Piperacillin Sod/Tazobactam Sod (Zosyn 3.375gm Ivpb (Pre-Docked)) 50 mls @ 100 mls/hr IVPB Q8H-IV [facility] Last Admin: 09/02/16 17:07 Dose: 100 mls/hr Insulin Aspart (Novolog Vial Sliding Scale -) 1 vial SQ TIDAC [facility] PRN Reason: Protocol Last Admin: 09/02/16 16:17 Dose: 1 units Methylprednisolone Sodium Succinate (Solu-Medrol -) 20 mg IVPB DAILY [facility] Last Admin: 09/02/16 09:09 Dose: 20 mg Nystatin (Nystop Powder -) 1 applic TP BID [facility] Last Admin: 09/02/16 09:09 Dose: 1 applic Ranitidine HCl (Zantac Oral Solution -) 150 mg NGT BID [facility] Last Admin: 09/02/16 21:23 Dose: 150 mg - Objective Vital Signs: Vital Signs Temperature 99.6 F 09/02/16 19:41 Pulse Rate 74 09/03/16 00:00 Respiratory Rate 15 09/03/16 00:00 Blood Pressure 138/69 09/03/16 00:00 O2 Sat by Pulse Oximetry (%) 100 09/02/16 23:59 Constitutional: Yes: No Distress Neck: Yes: Other ((+) Tracheostomy) Cardiovascular: Yes: WNL, Regular Rate and Rhythm Respiratory: Yes: WNL, Regular, CTA Bilaterally Gastrointestinal: Yes: WNL, Normal Bowel Sounds, Soft Labs: CBC, BMP 09/02/16 05:15 09/02/16 05:15 INR, PTT INR 1.01 (0.82-1.09) 08/27/16 14:20 Problem List - Problems (1) Acute respiratory failure Assessment/Plan: S/P tracheostomy Pt is now off antibxs Monitor temp curve and reculture is spikes a temp Taper IV steroids Cont nebulizers Code(s): J96.00 - ACUTE RESPIRATORY FAILURE, UNSP W HYPOXIA OR HYPERCAPNIA Qualifiers: Respiratory failure complication: hypercapnia Qualified Code(s): J96.02 - Acute respiratory failure with hypercapnia (2) ALS (amyotrophic lateral sclerosis) Assessment/Plan: Pt for PEG placement in am Code(s): G12.21 - AMYOTROPHIC LATERAL SCLEROSIS (3) UTI (urinary tract infection) Assessment/Plan: Resolved Pt is off antibxs Code(s): N39.0 - URINARY TRACT INFECTION, SITE NOT SPECIFIED Assessment/Plan 1. Diabetes Pt on sliding scal w/ humalog Elevation of glucose also due to steroids 2. HTN BP stable 3. Elevated LFT's labs are trending down
[2016-09-03] MEDS: PIPERACILLIN/TAZOB 3.375 GM 50 ML IVPB SCH (02:18)
[2016-09-03 05:38] LABS: BASOPHIL 0.4 % (0-2.0); EOSINOPHIL 0.6 % (0-4.5); MEAN CELL VOLUME 99.8 fl (80-96); MEAN PLT VOLUME 8.1 fl (7.5-11.1); NEUTROPHILS 86.7 % (42.8-82.8); PLATELET COUNT 194 K/MM3 (134-434); RDW 13.9 % (11.9-15.9); WHITE BLOOD COUNT 8.8 K/mm3 (4.0-10.0)
[2016-09-03 06:27] LABS: ALBUMIN 2.6 g/dl (3.4-5.0); ALK PHOS 67 U/L (45-117); ANION GAP 7 (8-16); BILIRUBIN,TOTAL 0.7 mg/dL (0.2-1.0); CALCIUM 8.3 mg/dL (8.5-10.1); CO2 31 mmol/L (21-32); CREATININE 0.6 mg/dL (0.7-1.3); GLUCOSE,RANDOM 113 mg/dL (74-106); SGOT/AST 83 U/L (15-37); SGPT/ALT 190 U/L (12-78); TOT PROT 5.3 g/dl (6.4-8.2)
[2016-09-03] MEDS: INSULIN SLIDING SCALE (NOVOLOG) 1 VIAL SQ SCH ×3 (06:42→18:20)
--- NOTE | 2016-09-03 08:37 | PN ---
Progress Note, Physician Chief Complaint: Remains stable in ICU Low grade temp on and off 100 - Current Medication List Current Medications: Active Medications Acetaminophen (Tylenol Oral Solution -) 650 mg PO Q6H PRN PRN Reason: FEVER OR PAIN Last Admin: 09/02/16 14:46 Dose: 650 mg Arformoterol Tartrate (Brovana (Restricted To Pulmonology/Resp) -) 1 amp NEB BID [facility] Last Admin: 09/02/16 22:20 Dose: 1 amp Chlorhexidine Gluconate (Hibiclens For Decolonization -) 1 applic TP HS [facility] Last Admin: 09/02/16 22:00 Dose: 1 applic Heparin Sodium (Porcine) (Heparin -) 5,000 unit SQ BID [facility] Last Admin: 09/02/16 21:23 Dose: 5,000 unit Piperacillin Sod/Tazobactam Sod (Zosyn 3.375gm Ivpb (Pre-Docked)) 50 mls @ 100 mls/hr IVPB Q8H-IV [facility] Last Admin: 09/03/16 02:18 Dose: 100 mls/hr Insulin Aspart (Novolog Vial Sliding Scale -) 1 vial SQ TIDAC [facility] PRN Reason: Protocol Last Admin: 09/03/16 06:42 Dose: Not Given Methylprednisolone Sodium Succinate (Solu-Medrol -) 20 mg IVPB DAILY [facility] Last Admin: 09/02/16 09:09 Dose: 20 mg Nystatin (Nystop Powder -) 1 applic TP BID [facility] Last Admin: 09/02/16 22:00 Dose: 1 applic Ranitidine HCl (Zantac Oral Solution -) 150 mg NGT BID [facility] Last Admin: 09/02/16 21:23 Dose: 150 mg - Objective Vital Signs: Vital Signs Temperature 99.1 F 09/03/16 06:00 Pulse Rate 70 09/03/16 06:00 Respiratory Rate 13 09/03/16 07:42 Blood Pressure 131/67 09/03/16 06:00 O2 Sat by Pulse Oximetry (%) 100 09/02/16 23:59 Neck: Yes: Other (trachesotomy) Cardiovascular: Yes: S1, S2 Respiratory: Yes: WNL, Regular, CTA Bilaterally Gastrointestinal: Yes: WNL, Normal Bowel Sounds, Soft. No: Tenderness Edema: No Labs: CBC, BMP 09/03/16 05:10 09/03/16 05:10 INR, PTT INR 1.01 (0.82-1.09) 08/27/16 14:20 Assessment/Plan Laboratory Tests 09/03/16 09/03/16 05:10 05:10 WBC 8.8 Hgb 10.4 L Hct 31.6 L Plt Count 194 ALT 190 H Alkaline Phosphatase 67 Assessment Low grade fevers likely from atalectasis of left lung Respiratory failure Post tracheostomy ALS Mild tramsaminase elevation ? antibiotic related Plan Stop antibiotic and observe Reculture over 101 Jay Jay VALLE
--- NOTE | 2016-09-03 09:40 | PN ---
Progress Note (short form) - Note Progress Note: PULMONARY/CCM Pt seen and examined in the ICU. Vented on volume assist control with 50% FiO2. Denies shortness of breath or chest pain. Placed on CPAP/PS 06/06. Last Vital Signs Temp Pulse Resp BP Pulse Ox 99.1 F 76 16 110/56 100 09/03/16 06:00 09/03/16 08:00 09/03/16 08:00 09/03/16 08:00 09/02/16 23:59 Intake & Output 08/31/16 09/01/16 09/02/16 09/03/16 23:59 23:59 23:59 23:59 Intake Total 6277 552 6422 437 Output Total 450 250 400 50 Balance 8486 764 2600 387 Weight 182 lb 8 oz 176 lb 176 lb 8 oz 177 lb 8 oz Gen: vented, awake Heart: RRR Lung: decreased breath sounds at the bases Abd: softly distended, nontender Ext: no edema CBC, BMP 09/03/16 05:10 09/03/16 05:10 Hepatic Panel Total Bilirubin 0.7 mg/dL (0.2-1.0) D 09/03/16 05:10 AST 83 U/L (15-37) H D 09/03/16 05:10 ALT 190 U/L (12-78) H 09/03/16 05:10 Alkaline Phosphatase 67 U/L (45-117) 09/03/16 05:10 Albumin 2.6 g/dl (3.4-5.0) L 09/03/16 05:10 Active Medications Acetaminophen (Tylenol Oral Solution -) 650 mg PO Q6H PRN PRN Reason: FEVER OR PAIN Last Admin: 09/02/16 14:46 Dose: 650 mg Arformoterol Tartrate (Brovana (Restricted To Pulmonology/Resp) -) 1 amp NEB BID KENDRICK Last Admin: 09/02/16 22:20 Dose: 1 amp Chlorhexidine Gluconate (Hibiclens For Decolonization -) 1 applic TP HS KENDRICK Last Admin: 09/02/16 22:00 Dose: 1 applic Heparin Sodium (Porcine) (Heparin -) 5,000 unit SQ BID KENDRICK Last Admin: 09/02/16 21:23 Dose: 5,000 unit Insulin Aspart (Novolog Vial Sliding Scale -) 1 vial SQ TIDAC [facility] PRN Reason: Protocol Last Admin: 09/03/16 06:42 Dose: Not Given Methylprednisolone Sodium Succinate (Solu-Medrol -) 20 mg IVPB DAILY [facility] Last Admin: 09/02/16 09:09 Dose: 20 mg Nystatin (Nystop Powder -) 1 applic TP BID [facility] Last Admin: 09/02/16 22:00 Dose: 1 applic Ranitidine HCl (Zantac Oral Solution -) 150 mg NGT BID [facility] Last Admin: 09/02/16 21:23 Dose: 150 mg A/P 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 s/p Tracheostomy Presumed Pneumonia UTI Sepsis ALS HTN DM Hypernatremia Elevated LFTs - completed antibiotics - increase free water - O2 to keep SpO2 >90% - chest PT, pulmonary toilet - inhaled bronchodilators mucolytics - taper off medrol - resume enteral feeds, trend LFTs - will need PEG placement - spontaneous breathing trials as tolerated - DVT/GI prophylaxis
[2016-09-03] MEDS: methylPREDNISolone NA SUCC 40 MG/1 ML VIAL IVPB SCH (09:44)
[2016-09-03] MEDS: NYSTATIN POWDER 100,000 UNITS/GM - 15 GM TOPICAL POWDER TP SCH ×2 (09:44→21:54)
[2016-09-03] MEDS: RANITIDINE HCL 150 MG/10 ML UNIT-DOSE CUP NGT SCH ×2 (09:44→21:54)
[2016-09-03] MEDS: HEPARIN NA (PORCINE) 5,000 UNITS/ML 1ML VIAL SQ SCH ×2 (09:45→21:54)
[2016-09-03] MEDS ORDERED: ACETYLCYSTEINE 20% 200MG/ML 4 ML VIAL *FOR ORAL / INH USE ONLY NEB SCH (10:00)
[2016-09-03] MEDS: ALBUTEROL SO4 0.083% IH SOL 2.5 MG/3 ML VIAL.NEB. NEB SCH ×3 (11:10→17:00)
--- NOTE | 2016-09-03 16:47 | CONSULT ---
Admitting History and Physical - Primary Care Physician PCP: Ijeoma Carreno - Admission History of Present Illness: ALS. New tracheotomy. On ventilator. Pending PEG insertion tomorrow. Ptr was tolerating a regular diet and thin liquids per his before admission and was verbal, with a hoarse voice. No h/o PNA or coughing on po intake premorbid to admisson. History Source: Patient, Family Member Limitations to Obtaining History: No Limitations (vent. non verbal) - Past Medical History CLOTH TEARER: Yes: Other (ALS) Cardiovascular: Yes: HTN Pulmonary: No: Asthma, Bronchitis, Cancer, COPD, O2 Dependent, Pneumonia, Previously Intubated, Pulmonary Embolus, Pulmonary Fibrosis, Sleep Apnea, Other Gastrointestinal: Yes: GERD Hepatobiliary: No: Cirrhosis, Cholelithiasis, Cholecystitis, Choledocholithiasis , Hepatitis A, Hepatitis B, Hepatitis C, Other Heme/Onc: No: Anemia, B12 Deficiency, Bleeding Disorder, Cancer, Current Chemotherapy, Current Radiation Therapy, Hemochromatosis, Hypercoaguable State, Myeloproliferative Synd, Sickle Cell Disease, Sickle Cell Trait, Thrombocytopenia, Other Infectious Disease: No: AIDS, C-Diff, Herpes Zoster, HIV, MRSA, STD's, Tuberculosis, VREF, Other Psych: No: Addictions, Anxiety, Bipolar, Depression, Panic, Psychosis, Schizophrenia, Other Musculoskeletal: No: Bursitis, Chronic low back pain, Hemiparesis, Hemiplegia, Osteoarthritis, Paraplegia, Other Endocrine: Yes: Diabetes Mellitus - Past Surgical History Past Surgical History: Yes: Colonoscopy Additional Past Surgical History: Umbilical hernia repair - Smoking History Smoking history: Smoker current status UNK Have you smoked in the past 12 months: No Aproximately how many cigarettes per day: 0 If you are a former smoker, when did you quit?: 25YRS AGO - Alcohol/Substance Use Hx Alcohol Use: No History - Admission Reason For Visit: ACUTE RESPIRATORY FAILURE - General Mental Status: Alert and Oriented, Awake and Alert, Able to Follow Commands Attention: Intact Ability to Follow Directions: Excellent - Hearing Hearing: Normal Speech Evaluation - Communication Primary Language: [id number] Communication: Yes: Within Normal Limits Oral Expression Ability: Yes: Non-Verbal, Non-Vocal (vent) - Speech Production Intelligibility: Yes: Moderately Impaired (speaks rapidly. non vocal) - Memory/Perception prison Memory: Yes: WNL Short Term Memory: Yes: WNL - Swallow Evaluation/Bedside Assessment Current Nutritional Intake: NG Tube, Other (pending PEG insertion) Dentition: Yes: Missing Teeth Facial Symmetry at Rest: Symmetrical Facial Symmetry on Retraction: Symmetrical Facial Movement: Controlled Against Resistance Opening: Normal Against Resistance Closing: Normal Pucker Lips: Normal Smile: Normal Lingual Movement: Normal Lingual Speed of Movement: Normal Lingual Movement Strgth Against Opposition: Normal Lingual Movement Characteristics: Normal Laryngeal Movement: Able to Palpate Recommendations - Speech Evaluation, Impression/Plan Impression: Pt with ALS, now with tracheostomy, on ventilator, pending PEG. Articulation seems fairly good. I suspect he will be able to verbalize with a PMV. Also, I hope he can continue to eat by mouth, possibly with a modified diet , with PEG to supplement. - Dysphagia Impressions/Plan Dysphagia Impressions: Ongoing Evaluation *Silent aspiration: cannot be R/O at bedside Recommendations: Modified Barium Swallow, Passy Homer Valve
--- NOTE | 2016-09-03 16:54 | PN ---
GI Progress Note Subjective: GASTROENTEROLOGY SPOKE WITH RONNIE MCGHEE AND I AGREE WITH HER PLAN FOR EGD PEG TUBE NO OTHER NEW COMPLIANTS, DIARRHEA AND INCREASE LIVER FUNCTION TESTS HAVE IMPROVED PLACED ON ELEMENTAL FEEDING TODAY - Objective Vital Signs: Vital Signs Temperature 97.2 F L 09/03/16 10:00 Pulse Rate 67 09/03/16 14:00 Respiratory Rate 26 H 09/03/16 14:05 Blood Pressure 106/78 09/03/16 14:00 O2 Sat by Pulse Oximetry (%) 98 09/03/16 10:25 Constitutional: Calm Eyes: Yes: Conjunctiva Clear HENT: Yes: Normocephalic Neck: Yes: Supple Cardiovascular: Yes: Regular Rate and Rhythm Respiratory: Yes: Regular Gastrointestinal Inspection: Yes: WNL ...Auscultate: Yes: Normoactive Bowel Sounds ...Palpate: Yes: Soft Extremities: Yes: WNL Labs: CBC, BMP 09/03/16 05:10 09/03/16 05:10 INR, PTT INR 1.01 (0.82-1.09) 08/27/16 14:20 Laboratory Tests 08/27/16 09/02/16 09/02/16 14:20 05:15 05:15 WBC 8.6 RBC 3.15 L Hgb 10.3 L Hct 31.6 L MCV 100.3 H MCHC 32.7 RDW 13.7 Plt Count 205 MPV 8.1 Neutrophils % Lymphocytes % Monocytes % Eosinophils % Basophils % INR 1.01 Sodium 149 H Potassium 3.3 L Chloride 108 H Carbon Dioxide 33 H Anion Gap 8 BUN 22 H Creatinine 0.7 Creat Clearance w eGFR > 60 Random Glucose 145 H D Calcium 8.3 L Phosphorus 2.4 L D Magnesium 2.1 Total Bilirubin 1.3 H AST 201 H D ALT 236 H D 09/03/16 09/03/16 05:10 05:10 WBC 8.8 RBC 3.17 L Hgb 10.4 L Hct 31.6 L MCV 99.8 H MCHC 33.0 RDW 13.9 Plt Count 194 MPV 8.1 Neutrophils % 86.7 H Lymphocytes % 6.3 L D Monocytes % 6.0 Eosinophils % 0.6 D Basophils % 0.4 INR Sodium 148 H Potassium 3.5 Chloride 110 H Carbon Dioxide 31 Anion Gap 7 L BUN 19 H Creatinine 0.6 L Creat Clearance w eGFR > 60 Random Glucose 113 H D Calcium 8.3 L Phosphorus Magnesium Total Bilirubin 0.7 D AST 83 H D ALT 190 H Problem List - Problems (1) Dysphagia Assessment/Plan: RISKS AND BENEFITS OF PEG TUBE EXPLAINED TO HIM AND HIS , HOLD FEEDS AT 6 AM , GET INR TODAY CAN USE PEG TUBE NOW FOR MEDS, SUPPLEMENTAL NUTRITION SPEECH PATH WILL RWETRUN TO WORK ON THE PATIENT SATURDAY Code(s): R13.10 - DYSPHAGIA, UNSPECIFIED (2) ALS (amyotrophic lateral sclerosis) Assessment/Plan: PATIENT IS GOOD CANDIDATE FOR PEG. I THINK THAT EVENTUALLY HE MAY BE ABLE TO EAT SOME ON HIS OWN BUT A PEG IS NEEDED THE DISEASE WILL MOST LIKELY PROGRESS. THE PEG WILL ALSO ALLOW FOR EASY ADMINISTRATION OF MEDS AND WILL ENSURE ADEQUATE CALORIE AND PROTEIN ADMINISTRATION. GIVEN HOLIDAY WEEKEND THE PEG IS SCHEDULED FOR Saturday. THE PROCEDURE, RISKS AND METHOD OF SEDATION WERE DISCUSSED WEITH THE PATIENT AND HER AGREES WITH PLACEMENT. I WILL SPEAK WITH THE FAMILY BY PHONE. ICU TIME 45 MINUTES Code(s): G12.21 - AMYOTROPHIC LATERAL SCLEROSIS (3) Diarrhea Assessment/Plan: MULTIFACTORIAL, ZANTAC VIA NGT STOOL C DIFF NEG POSSIBLE RESULT OF NEW FEEDING CHANGED TO ELEMENTAL DIET Code(s): R19.7 - DIARRHEA, UNSPECIFIED (4) Transaminitis Assessment/Plan: FOLLOW NUMBERS, ? ETIOLOGY MEDS VS MILD HYPOTENSION DURING PROCEDURE LFT'S IMPROVING Code(s): R74.0 - NONSPEC ELEV OF LEVELS OF TRANSAMNS & LACTIC ACID DEHYDRGNSE (5) Acute respiratory failure with hypercapnia Assessment/Plan: ICU TIME 45 MINUTES Code(s): J96.02 - ACUTE RESPIRATORY FAILURE WITH HYPERCAPNIA
[2016-09-03] MEDS: ACETYLCYSTEINE 20% 200MG/ML 4 ML VIAL *FOR ORAL / INH USE ONLY NEB SCH (17:00)
[2016-09-03 19:54] LABS: INR 1.09 (0.82-1.09)
[2016-09-03] MEDS ORDERED: HEPARIN NA (PORCINE) 5,000 UNITS/ML 1ML VIAL ONE (20:43)
[2016-09-03] MEDS ORDERED: ALBUTEROL SO4 0.083% IH SOL 2.5 MG/3 ML VIAL.NEB. NEB ONE (20:57)
[2016-09-04] MEDS: ALBUTEROL SO4 0.083% IH SOL 2.5 MG/3 ML VIAL.NEB. NEB SCH ×5 (00:05→23:19)
[2016-09-04] MEDS: ACETYLCYSTEINE 20% 200MG/ML 4 ML VIAL *FOR ORAL / INH USE ONLY NEB SCH ×5 (00:05→23:19)
[2016-09-04 05:42] LABS: BASOPHIL 0.2 % (0-2.0); EOSINOPHIL 0.5 % (0-4.5); MCH 32.9 pg (25.7-33.7); MCHC 32.8 g/dl (32.0-35.9); MEAN CELL VOLUME 100.4 fl (80-96); MEAN PLT VOLUME 8.6 fl (7.5-11.1); NEUTROPHILS 83.7 % (42.8-82.8); PLATELET COUNT 203 K/MM3 (134-434); RDW 13.7 % (11.9-15.9); WHITE BLOOD COUNT 8.9 K/mm3 (4.0-10.0)
[2016-09-04 06:01] LABS: ALBUMIN 2.7 g/dl (3.4-5.0)
[2016-09-04 06:07] LABS: ALK PHOS 67 U/L (45-117); ANION GAP 3 (8-16); BILIRUBIN,TOTAL 0.5 mg/dL (0.2-1.0); CALCIUM 8.2 mg/dL (8.5-10.1); CO2 31 mmol/L (21-32); CREATININE 0.5 mg/dL (0.7-1.3); GLUCOSE,RANDOM 123 mg/dL (74-106); MAGNESIUM 2.2 mg/dL (1.8-2.4); PHOSPHOROUS 2.8 mg/dL (2.5-4.9); SGOT/AST 39 U/L (15-37); SGPT/ALT 140 U/L (12-78); TOT PROT 5.4 g/dl (6.4-8.2)
[2016-09-04] MEDS: INSULIN SLIDING SCALE (NOVOLOG) 1 VIAL SQ SCH ×3 (06:23→18:46)
--- NOTE | 2016-09-04 08:53 | PN ---
Progress Note (short form) - Note Progress Note: awake and alert no complaints Vital Signs Period Temp Pulse Resp BP Sys/Wang Pulse Ox Last 24 Hr 97.2 F-99.6 F 67-88 08-27 95-130/48-89 98-100 trach cor-rrr lungs decreased bs on left abd soft,nt ext no edema CBC, BMP 09/04/16 05:00 09/04/16 05:00 Microbiology 09/01/16 10:15 Sputum - Endotrachea Suction/Ventilator Gram Stain - Final 09/01/16 10:15 Sputum - Endotrachea Suction/Ventilator Sputum Culture - Final NORMAL RESPIRATORY BUCKY 09/02/16 12:15 Stool Clostridium difficile Antigen (CESILIA) - Final 09/02/16 12:15 Stool Clostridium difficile Toxin Assay - Final 08/27/16 13:30 Blood - Peripheral Venous Blood Culture - Final NO GROWTH AFTER 5 DAYS INCUBATION 08/27/16 13:30 Blood - Peripheral Venous Blood Culture - Final NO GROWTH AFTER 5 DAYS INCUBATION 08/27/16 11:50 Urine - Urine Clean Catch Urine Culture - Preliminary Group D Strep Or Entero Coccus 08/27/16 13:43 Urine For Antigen Detection Legionella Antigen - Final 08/27/16 13:43 Urine For Antigen Detection Streptococcus pneumoniae Antigen (M - Final cxray persistent left lung atelectasis a/p respiratory failure pneumonia- s/p zosyn 7 days- observe off antibiotics ALS persistent left lung atelectasis- needs chest PT
[2016-09-04] MEDS: HEPARIN NA (PORCINE) 5,000 UNITS/ML 1ML VIAL SQ SCH ×2 (09:50→21:02)
[2016-09-04] MEDS: methylPREDNISolone NA SUCC 40 MG/1 ML VIAL IVPB SCH (10:01)
[2016-09-04] MEDS: RANITIDINE HCL 150 MG/10 ML UNIT-DOSE CUP NGT SCH ×2 (10:01→21:02)
[2016-09-04] MEDS: NYSTATIN POWDER 100,000 UNITS/GM - 15 GM TOPICAL POWDER TP SCH ×2 (10:01→21:03)
--- NOTE | 2016-09-04 10:32 | CONSULT ---
Passy-Doniphan Valve Eval - Assessment Prior to PMV Placement Patient and/or family educated re PMV: Yes Mental Status: Awake, Alert, Attempting to Communicate O2 Sat by Pulse Oximetry (%): 100 (Pt has been tolerating cpap) Secretions: Moderate Amount Patient on Ventilator: Yes Suctioned: Yes Inner Cannula Removed: No Cuff Status: Inflated Passy-Homer Valve in Place - Speech Characteristics Able to Phonate with PMV in place: Yes Voice Loudness: Moderately Soft/Quiet, Limited Variation Voice Phonatory-based Quality: Harsh, Dysphonia Speech Pattern: Impaired Speech Clarity: < 25% Nasal Resonance: Normal Articulation: Precise Voice, Other Observations: Progressively Weak Voice, Inadequate Breath Support - Assessment with PMV in Place Change in Mental Status with PMV in Place: No Able to Manage Secretions: No Pt's subjective response to PMV: Yes: Difficulty Breathing, Restlessness, Anxiety Length of time with PMV in place: 1 min Additional comments: Cuff deflated with extensive suctioning performed via trach and oropharyngeal region. Moderate secretions. Pt able to expectorate some secretions from posterior oral cavity. Following suctioning, cuff deflated, desatted to 80's during 3 trials. Occasional voicing,harsh, no altered pitch. Articulation intact. Pt has been tolerating CPAP. 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 - Recommendations Recommendations: Other (PMV CONTRAINDICATED.)
--- NOTE | 2016-09-04 10:48 | PN ---
Progress Note, SYSTEMS ARCHITECTURE ANALYST - Note Progress Note: Refer to full PMV report. Cuff deflated with extensive suctioning performed via trach and oropharyngeal region. Moderate secretions. Pt able to expectorate some secretions from posterior oral cavity. Following suctioning, cuff deflated, desatted to 80's during 3 trials. Occasional voicing,harsh, no altered pitch.Cuff reinflated with quick return to 100 o2 saturation. Articulation intact. Pt has been tolerating CPAP. 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 Poor ventilator weaning potential. PMV CONTRAINDICATED AT THIS TIME. MBS contraindicated as well.
--- NOTE | 2016-09-04 11:12 | PN ---
Physical Exam: SUBJECTIVE: Patient seen and examined at bedside. No overnight events. No new complaints. POD#4 s/p tracheostomy. Patient is doing well. Breathing is improved. Denies CP, ADLER, SOB, palpitations, abdominal pain, N/V. OBJECTIVE: Vital Signs Period Temp Pulse Resp BP Sys/Wang Pulse Ox Last 24 Hr 98.1 F-99.6 F 67-88 12-26 95-130/48-89 100-100 GENERAL: The patient is awake, alert, HEAD: Normal with no signs of trauma. EYES: PERRL, extraocular movements intact, sclera anicteric, conjunctiva clear. No ptosis. ENT: Ears normal, nares patent NECK: Tracheostomy in place. Trachea midline, full range of motion, supple.NO JVD LUNGS: On Vent., scattered rhonci bilat. HEART: Regular rate and rhythm, S1, S2 without murmur, rub or gallop. ABDOMEN: Soft, nontender, nondistended, normoactive bowel sounds, no guarding, no rebound, no hepatosplenomegaly, no masses. EXTREMITIES: 1+ pulses, no edema. NEUROLOGICAL: awake and alert PSYCH: Normal mood, normal affect. SKIN: cool, dry, normal turgor. Venous stasis changes. Laboratory Results - last 24 hr 09/03/16 09/03/16 09/03/16 12:18 17:27 18:30 WBC RBC Hgb Hct MCV MCHC RDW Plt Count MPV Neutrophils % Lymphocytes % Monocytes % Eosinophils % Basophils % INR 1.09 Sodium Potassium Chloride Carbon Dioxide Anion Gap BUN Creatinine Creat Clearance w eGFR POC Glucometer [phone] Random Glucose Calcium Phosphorus Magnesium Total Bilirubin AST ALT Alkaline Phosphatase Total Protein Albumin 09/04/16 09/04/16 09/04/16 05:00 05:00 05:12 WBC 8.9 RBC 3.16 L Hgb 10.4 L Hct 31.7 L MCV 100.4 H MCHC 32.8 RDW 13.7 Plt Count 203 MPV 8.6 Neutrophils % 83.7 H Lymphocytes % 7.4 L Monocytes % 8.2 Eosinophils % 0.5 Basophils % 0.2 INR Sodium 142 Potassium 3.6 Chloride 108 H Carbon Dioxide 31 Anion Gap 3 L BUN 18 Creatinine 0.5 L Creat Clearance w eGFR > 60 POC Glucometer 144.42313 Random Glucose 123 H Calcium 8.2 L Phosphorus 2.8 Magnesium 2.2 Total Bilirubin 0.5 D AST 39 H D ALT 140 H D Alkaline Phosphatase 67 Total Protein 5.4 L Albumin 2.7 L 09/04/16 10:02 WBC RBC Hgb Hct MCV MCHC RDW Plt Count MPV Neutrophils % Lymphocytes % Monocytes % Eosinophils % Basophils % INR Sodium Potassium Chloride Carbon Dioxide Anion Gap BUN Creatinine Creat Clearance w eGFR POC Glucometer 142.46562 Random Glucose Calcium Phosphorus Magnesium Total Bilirubin AST ALT Alkaline Phosphatase Total Protein Albumin Active Medications Generic Name Dose Route Start Last Admin Trade Name Freq PRN Reason Stop Dose Admin Acetaminophen 650 mg 09/03/16 20:07 Tylenol Oral Solution - PO Q6H PRN FEVER OR PAIN Acetylcysteine 200 mg 09/03/16 18:00 09/04/16 05:55 Mucomyst 20 Oral / Inh Use Only* NEB 200 mg QIDR KENDRICK Administration Albuterol Sulfate 1 amp 09/04/16 00:00 09/04/16 05:55 Ventolin 0.083% Nebulizer Soln - NEB 1 amp QIDR KENDRICK Administration Heparin Sodium (Porcine) 5,000 unit 09/03/16 22:00 09/04/16 09:50 Heparin - SQ Not Given BID [facility] Insulin Aspart 1 vial 09/04/16 07:00 09/04/16 10:06 Novolog Vial Sliding Scale - SQ Not Given TIDAC [facility] Protocol Methylprednisolone Sodium Succinate 20 mg 09/04/16 10:00 09/04/16 10:01 Solu-Medrol - IVPB 20 mg DAILY KENDRICK Administration Nystatin 1 applic 09/03/16 22:00 09/04/16 10:01 Nystop Powder - TP 1 applic BID KENDRICK Administration Ranitidine HCl 150 mg 09/03/16 22:00 09/04/16 10:01 Zantac Oral Solution - NGT 150 mg BID KENDRICK Administration ASSESSMENT/PLAN: 76 yo M w/ SPMHx of ALS, DM, CHF admitted for sepsis secondary to CAP. Neuro: * Seen by Neurology recommend to be seen as outpatient for ALS * resume Rilutek ARON Pulmonary: * Tracheostomy placed today * On vent. O2 sat WNL * Aspiration precautions. * CXR shows improvement from admission CV: * Hemodynamically stable. ID: * completed 7 day course of Zosyn willl observe off ABx. * Urine Culture grew E.Coli GI: * going for PEG with Dr. Orona today. * resume feeds after procedure. F/E/N: * IVF- on hold for fluid retention. * Electrolytes are WNL * NG tube feeds- going for peg today. Visit type - Emergency Visit Emergency Visit: Yes ED Registration Date: 08/27/16 Care time: The patient presented to the Emergency Department on the above date and was hospitalized for further evaluation of their emergent condition. - New Patient This patient is new to me today: Yes Date on this admission: 09/04/16 - Critical Care Critical Care patient: Yes Total Critical Care Time (in minutes): 32 Critical Care Statement: The care of this patient involved high complexity decision making to prevent further life threatening deterioration of the patient 's condition and/or to evalute & treat vital organ system(s) failure or risk of failure.
--- NOTE | 2016-09-04 11:13 | PN ---
Teaching Attending Note Name of Resident: Melvin Ortiz ATTENDING PHYSICIAN STATEMENT I saw and evaluated the patient. I reviewed the resident's note and discussed the case with the resident. I agree with the resident's findings and plan as documented. SUBJECTIVE: Pt seen and examined in the ICU. Vented, awake. Denies shortness of breath. Did not tolerate cuff deflation. No fevers recorded. OBJECTIVE: Last Vital Signs Temp Pulse Resp BP Pulse Ox 99.5 F 74 13 110/54 100 09/04/16 06:00 09/04/16 08:00 09/04/16 08:00 09/04/16 08:00 09/04/16 10:45 Intake & Output 09/01/16 09/02/16 09/03/16 09/04/16 23:59 23:59 23:59 23:59 Intake Total 934 1904 1748 387 Output Total 250 400 400 50 Balance 684 1504 1348 337 Weight 176 lb 176 lb 8 oz 177 lb 8 oz 179 lb 9.6 oz Gen: vented, awake Heart: RRR Lung: decreased breath sounds at the bases Abd: soft, nontender Ext: no edema CBC, BMP 09/04/16 05:00 09/04/16 05:00 Hepatic Panel Total Bilirubin 0.5 mg/dL (0.2-1.0) D 09/04/16 05:00 AST 39 U/L (15-37) H D 09/04/16 05:00 ALT 140 U/L (12-78) H D 09/04/16 05:00 Alkaline Phosphatase 67 U/L (45-117) 09/04/16 05:00 Albumin 2.7 g/dl (3.4-5.0) L 09/04/16 05:00 CXR: LLL atelectasis/infiltrate Active Medications Acetaminophen (Tylenol Oral Solution -) 650 mg PO Q6H PRN PRN Reason: FEVER OR PAIN Acetylcysteine (Mucomyst 20 Oral / Inh Use Only*) 200 mg NEB QIDR [facility] Last Admin: 09/04/16 05:55 Dose: 200 mg Albuterol Sulfate (Ventolin 0.083% Nebulizer Soln -) 1 amp NEB QIDR KENDRICK Last Admin: 09/04/16 05:55 Dose: 1 amp Heparin Sodium (Porcine) (Heparin -) 5,000 unit SQ BID [facility] Last Admin: 09/04/16 09:50 Dose: Not Given Insulin Aspart (Novolog Vial Sliding Scale -) 1 vial SQ TIDAC [facility] PRN Reason: Protocol Last Admin: 09/04/16 10:06 Dose: Not Given Methylprednisolone Sodium Succinate (Solu-Medrol -) 20 mg IVPB DAILY [facility] Last Admin: 09/04/16 10:01 Dose: 20 mg Nystatin (Nystop Powder -) 1 applic TP BID [facility] Last Admin: 09/04/16 10:01 Dose: 1 applic Ranitidine HCl (Zantac Oral Solution -) 150 mg NGT BID [facility] Last Admin: 09/04/16 10:01 Dose: 150 mg ASSESSMENT AND PLAN: 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 s/p Tracheostomy Presumed Pneumonia UTI Sepsis ALS HTN DM Hypernatremia resolving Elevated LFTs - completed antibiotics - O2 to keep SpO2 >90% - chest PT, pulmonary toilet - inhaled bronchodilators mucolytics - taper off medrol - enteral feeds, trend LFTs - for PEG placement - spontaneous breathing trials as tolerated - DVT/GI prophylaxis - can monitor on vent floor
--- NOTE | 2016-09-04 15:09 | PN ---
Progress Note, Physician History of Present Illness: smiling alert, non verbal (ALS) on vent with head nodding as a yes or no response. - Current Medication List Current Medications: Active Medications Acetaminophen (Tylenol Oral Solution -) 650 mg PO Q6H PRN PRN Reason: FEVER OR PAIN Acetylcysteine (Mucomyst 20 Oral / Inh Use Only*) 200 mg NEB QIDR [facility] Last Admin: 09/04/16 10:45 Dose: 200 mg Albuterol Sulfate (Ventolin 0.083% Nebulizer Soln -) 1 amp NEB QIDR [facility] Last Admin: 09/04/16 10:45 Dose: 1 amp Heparin Sodium (Porcine) (Heparin -) 5,000 unit SQ BID [facility] Last Admin: 09/04/16 09:50 Dose: Not Given Insulin Aspart (Novolog Vial Sliding Scale -) 1 vial SQ TIDAC [facility] PRN Reason: Protocol Last Admin: 09/04/16 10:06 Dose: Not Given Methylprednisolone Sodium Succinate (Solu-Medrol -) 20 mg IVPB DAILY [facility] Last Admin: 09/04/16 10:01 Dose: 20 mg Nystatin (Nystop Powder -) 1 applic TP BID [facility] Last Admin: 09/04/16 10:01 Dose: 1 applic Ranitidine HCl (Zantac Oral Solution -) 150 mg NGT BID [facility] Last Admin: 09/04/16 10:01 Dose: 150 mg - Objective Vital Signs: Vital Signs Temperature 99.8 F H 09/04/16 10:00 Pulse Rate 107 H 09/04/16 12:00 Respiratory Rate 14 09/04/16 14:02 Blood Pressure 117/61 09/04/16 12:00 O2 Sat by Pulse Oximetry (%) 100 09/04/16 11:35 Constitutional: Yes: Well Nourished, No Distress HENT: Yes: Atraumatic Neck: Yes: Supple Respiratory: Yes: Regular Neurological: Yes: Alert, Oriented, Weakness (lower motor neruon weakness with atrophy and no movement of the extremities with ALS) Labs: CBC, BMP 09/04/16 05:00 09/04/16 05:00 INR, PTT INR 1.09 (0.82-1.09) 09/03/16 18:30 Assessment/Plan ALS patient with slow steady recovery from respiratory failure and aspiration pneumonia P Support medical care and manage of acute medical illnesses per the ICU team and prevention of bedrest complications in place. No neurological intervention need at this time.
[2016-09-04] MEDS ORDERED: ceFAZolin SODIUM 1 GM VIAL ONE (16:19)
[2016-09-04] MEDS ORDERED: SODIUM CHLORIDE 250 ML IV STA (17:14)
--- NOTE | 2016-09-04 17:16 | PN ---
Progress Note (short form) - Note Progress Note: GASTROENTEROLOGY SEE ENDO NOTE FOLLOW POST PEG ORDERS WRITTEN CAN USE PEG FOR MEDS NOW AND FEEDS IN 4 HOURS MARCO SINGH MD Problem List - Problems (1) Dysphagia Code(s): R13.10 - DYSPHAGIA, UNSPECIFIED (2) ALS (amyotrophic lateral sclerosis) Code(s): G12.21 - AMYOTROPHIC LATERAL SCLEROSIS (3) Diarrhea Code(s): R19.7 - DIARRHEA, UNSPECIFIED (4) Transaminitis Code(s): R74.0 - NONSPEC ELEV OF LEVELS OF TRANSAMNS & LACTIC ACID DEHYDRGNSE (5) Acute respiratory failure with hypercapnia Code(s): J96.02 - ACUTE RESPIRATORY FAILURE WITH HYPERCAPNIA
--- NOTE | 2016-09-04 19:57 | PN ---
Progress Note, Physician History of Present Illness: Pt had PEG placed today w/out complications - Current Medication List Current Medications: Active Medications Acetaminophen (Tylenol Oral Solution -) 650 mg PO Q6H PRN PRN Reason: FEVER OR PAIN Acetylcysteine (Mucomyst 20 Oral / Inh Use Only*) 200 mg NEB QIDR [facility] Last Admin: 09/04/16 16:50 Dose: 200 mg Albuterol Sulfate (Ventolin 0.083% Nebulizer Soln -) 1 amp NEB QIDR [facility] Last Admin: 09/04/16 16:50 Dose: 1 amp Bacitracin (Bacitracin -) 1 applic TP BID [facility] Stop: 09/09/16 10:01 Heparin Sodium (Porcine) (Heparin -) 5,000 unit SQ BID [facility] Last Admin: 09/04/16 09:50 Dose: Not Given Insulin Aspart (Novolog Vial Sliding Scale -) 1 vial SQ TIDAC [facility] PRN Reason: Protocol Last Admin: 09/04/16 18:46 Dose: 1 unit Methylprednisolone Sodium Succinate (Solu-Medrol -) 20 mg IVPB DAILY [facility] Last Admin: 09/04/16 10:01 Dose: 20 mg Riluzole 50 Mg Tab - (Patient Own Med) 1 each PEG BID [facility] Nystatin (Nystop Powder -) 1 applic TP BID [facility] Last Admin: 09/04/16 10:01 Dose: 1 applic Ranitidine HCl (Zantac Oral Solution -) 150 mg NGT BID [facility] Last Admin: 09/04/16 10:01 Dose: 150 mg - Objective Vital Signs: Vital Signs Temperature 98.9 F 09/04/16 19:30 Pulse Rate 102 H 09/04/16 19:30 Respiratory Rate 14 09/04/16 19:30 Blood Pressure 113/66 09/04/16 19:30 O2 Sat by Pulse Oximetry (%) 70 L 09/04/16 17:10 Neck: Yes: Other ((+) trsachestomy) Cardiovascular: Yes: WNL, Regular Rate and Rhythm Respiratory: Yes: Other (Diminshed BS) Gastrointestinal: Yes: WNL, Normal Bowel Sounds, Soft, Abdomen, Obese Labs: CBC, BMP 09/04/16 05:00 09/04/16 05:00 INR, PTT INR 1.09 (0.82-1.09) 09/03/16 18:30 Problem List - Problems (1) Acute respiratory failure Assessment/Plan: S/P tracheostomy Aspiration pneumonia Pt is now off antibxs Monitor temp curve and reculture is spikes a temp Taper IV steroids Cont nebulizers Code(s): J96.00 - ACUTE RESPIRATORY FAILURE, UNSP W HYPOXIA OR HYPERCAPNIA Qualifiers: Respiratory failure complication: hypercapnia Qualified Code(s): J96.02 - Acute respiratory failure with hypercapnia (2) ALS (amyotrophic lateral sclerosis) Assessment/Plan: S/P PEG placement Restart rilutek Code(s): G12.21 - AMYOTROPHIC LATERAL SCLEROSIS (3) UTI (urinary tract infection) Assessment/Plan: Resolved Pt is off antibxs Code(s): N39.0 - URINARY TRACT INFECTION, SITE NOT SPECIFIED
[2016-09-04] MEDS: RILUZOLE 50 MG PEG SCH (21:04)
[2016-09-05] MEDS: BACITRACIN 30 GM TUBE TOPICAL OINTMENT TP SCH ×4 (06:18→22:46)
[2016-09-05] MEDS: INSULIN SLIDING SCALE (NOVOLOG) 1 VIAL SQ SCH ×3 (06:19→17:14)
[2016-09-05] MEDS: ACETYLCYSTEINE 20% 200MG/ML 4 ML VIAL *FOR ORAL / INH USE ONLY NEB SCH ×3 (06:40→17:55)
[2016-09-05] MEDS: ALBUTEROL SO4 0.083% IH SOL 2.5 MG/3 ML VIAL.NEB. NEB SCH ×3 (06:40→17:55)
[2016-09-05] MEDS: HEPARIN NA (PORCINE) 5,000 UNITS/ML 1ML VIAL SQ SCH ×2 (09:34→22:46)
[2016-09-05] MEDS: methylPREDNISolone NA SUCC 40 MG/1 ML VIAL IVPB SCH (09:51)
[2016-09-05] MEDS: NYSTATIN POWDER 100,000 UNITS/GM - 15 GM TOPICAL POWDER TP SCH ×2 (10:30→22:47)
[2016-09-05 11:11] LABS: BASOPHIL 0.1 % (0-2.0); EOSINOPHIL 0.1 % (0-4.5); MCH 33.6 pg (25.7-33.7); MCHC 32.8 g/dl (32.0-35.9); MEAN CELL VOLUME 102.3 fl (80-96); MEAN PLT VOLUME 8.2 fl (7.5-11.1); PLATELET COUNT 236 K/MM3 (134-434); RDW 13.7 % (11.9-15.9); WHITE BLOOD COUNT 15.8 K/mm3 (4.0-10.0)
--- NOTE | 2016-09-05 11:26 | PN ---
Progress Note, UNDERWRITING SUPPORT MANAGER - Note Progress Note: Pt now on 5s. Reviewed results of PMV assessment with staff. 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 Consider [facility] for rehabilitation. Pt would benefit from an augmentative communication w/u regarding obtaining a computer to be used with eye gaze switch for communication and environmental control (eg call hernández, etc.) Speech pathologist at [facility] for augmentative communication to preserve ability to communicate as disease progresses.
[2016-09-05 11:48] LABS: ALBUMIN 2.7 g/dl (3.4-5.0); ALK PHOS 85 U/L (45-117); ANION GAP 10 (8-16); BILIRUBIN,TOTAL 0.5 mg/dL (0.2-1.0); CALCIUM 8.4 mg/dL (8.5-10.1); CO2 29 mmol/L (21-32); CREATININE 0.7 mg/dL (0.7-1.3); GLUCOSE,RANDOM 233 mg/dL (74-106); SGOT/AST 44 U/L (15-37); SGPT/ALT 119 U/L (12-78); TOT PROT 5.7 g/dl (6.4-8.2)
[2016-09-05] MEDS: RANITIDINE HCL 150 MG/10 ML UNIT-DOSE CUP NGT SCH ×2 (11:57→22:47)
[2016-09-05] MEDS: RILUZOLE 50 MG PEG SCH ×3 (12:26→22:47)
--- NOTE | 2016-09-05 13:02 | PN ---
GI Progress Note Subjective: GASTROENTEROLOGY PEG IS WORKING FINE PATIENT HAS NO PAIN - Objective Vital Signs: Vital Signs Temperature 98.4 F 09/05/16 10:00 Pulse Rate 88 09/05/16 11:20 Respiratory Rate 35 H 09/05/16 10:33 Blood Pressure 121/61 09/05/16 10:00 O2 Sat by Pulse Oximetry (%) 96 09/05/16 11:20 Constitutional: No Distress Eyes: Yes: Conjunctiva Clear HENT: Yes: Normocephalic Cardiovascular: Yes: WNL Respiratory: Yes: WNL Gastrointestinal Inspection: Yes: WNL, Other (DRESSING REMOVED FROM ABDOMEN, PEG SITE CLEAN BUT SOME DRIED BLOOD.) ...Auscultate: Yes: Normoactive Bowel Sounds ...Palpate: Yes: Soft Extremities: Yes: WNL Edema: Yes Edema: LUE: 1+, RUE: 1+, LLE: 1+, RLE: 1+ Labs: CBC, BMP 09/05/16 10:30 09/05/16 10:30 INR, PTT INR 1.09 (0.82-1.09) 09/03/16 18:30 Problem List - Problems (1) Dysphagia Assessment/Plan: S/P PEG PLACEMENT. SPOKE WITH NURSE : TO KEEP DRESSING OFF PEG SITE, TO USE 50/ 50 MIX WATER AND HYDROGEN PEROXIDE 2 TO 3 TIMES A DAY, FOLLOW REMINDER OF PEG ORDERS WRITTEN YESTERDAY Code(s): R13.10 - DYSPHAGIA, UNSPECIFIED (2) ALS (amyotrophic lateral sclerosis) Assessment/Plan: TO MEET WITH SPEECH PATHOLOGIST TODAY . Code(s): G12.21 - AMYOTROPHIC LATERAL SCLEROSIS (3) Diarrhea Assessment/Plan: ELEMENTAL DIET Code(s): R19.7 - DIARRHEA, UNSPECIFIED (4) Transaminitis Assessment/Plan: FOLLOW NUMBERS, ? ETIOLOGY MEDS VS MILD HYPOTENSION DURING PROCEDURE LFT'S IMPROVING Code(s): R74.0 - NONSPEC ELEV OF LEVELS OF TRANSAMNS & LACTIC ACID DEHYDRGNSE (5) Acute respiratory failure with hypercapnia Code(s): J96.02 - ACUTE RESPIRATORY FAILURE WITH HYPERCAPNIA
--- NOTE | 2016-09-05 14:21 | PN ---
Progress Note, Physician History of Present Illness: PULMONARY ALERT ON VENT SUPPORT AC ODE ,-RESP DISTRESS - Current Medication List Current Medications: Active Medications Acetaminophen (Tylenol Oral Solution -) 650 mg PO Q6H PRN PRN Reason: FEVER OR PAIN Acetylcysteine (Mucomyst 20 Oral / Inh Use Only*) 200 mg NEB QIDR [facility] Last Admin: 09/05/16 11:50 Dose: 200 mg Albuterol Sulfate (Ventolin 0.083% Nebulizer Soln -) 1 amp NEB QIDR [facility] Last Admin: 09/05/16 11:50 Dose: 1 amp Bacitracin (Bacitracin -) 1 applic TP BID [facility] Stop: 09/09/16 10:01 Last Admin: 09/05/16 12:25 Dose: Not Given Heparin Sodium (Porcine) (Heparin -) 5,000 unit SQ BID [facility] Last Admin: 09/05/16 09:34 Dose: 5,000 unit Insulin Aspart (Novolog Vial Sliding Scale -) 1 vial SQ TIDAC [facility] PRN Reason: Protocol Last Admin: 09/05/16 12:00 Dose: 2 unit Methylprednisolone Sodium Succinate (Solu-Medrol -) 20 mg IVPB DAILY [facility] Last Admin: 09/05/16 09:51 Dose: 20 mg Riluzole 50 Mg Tab - (Patient Own Med) 1 each PEG BID [facility] Last Admin: 09/05/16 12:26 Dose: Not Given Nystatin (Nystop Powder -) 1 applic TP BID [facility] Last Admin: 09/05/16 10:30 Dose: 1 applic Ranitidine HCl (Zantac Oral Solution -) 150 mg NGT BID [facility] Last Admin: 09/05/16 11:57 Dose: 150 mg - Objective Vital Signs: Vital Signs Temperature 98.4 F 09/05/16 10:00 Pulse Rate 88 09/05/16 11:20 Respiratory Rate 18 09/05/16 13:55 Blood Pressure 121/61 09/05/16 10:00 O2 Sat by Pulse Oximetry (%) 96 09/05/16 11:20 Constitutional: Yes: Well Nourished, Calm Eyes: Yes: WNL HENT: Yes: WNL Neck: Yes: Supple (TRACH) Cardiovascular: Yes: Regular Rate and Rhythm, S1, S2 Respiratory: Yes: On BiPap (SCATTERED POWER RHONCHI) Gastrointestinal: Yes: Normal Bowel Sounds, Soft Extremities: Yes: WNL Edema: No Labs: CBC, BMP 09/05/16 10:30 09/05/16 10:30 INR, PTT INR 1.09 (0.82-1.09) 09/03/16 18:30 - ....Imaging Chest X-ray: Report Reviewed, Image Reviewed (IMPROVED AERATION LEFT) Problem List - Problems (1) ALS (amyotrophic lateral sclerosis) Code(s): G12.21 - AMYOTROPHIC LATERAL SCLEROSIS (2) Acute respiratory failure with hypercapnia Code(s): J96.02 - ACUTE RESPIRATORY FAILURE WITH HYPERCAPNIA (3) Dysphagia Code(s): R13.10 - DYSPHAGIA, UNSPECIFIED (4) Pneumonia Code(s): J18.9 - PNEUMONIA, UNSPECIFIED ORGANISM (5) Sepsis Code(s): A41.9 - SEPSIS, UNSPECIFIED ORGANISM (6) Transaminitis Code(s): R74.0 - NONSPEC ELEV OF LEVELS OF TRANSAMNS & LACTIC ACID DEHYDRGNSE Assessment/Plan ASSESSMENT AND PLAN: 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 s/p Tracheostomy Presumed Pneumonia UTI Sepsis ALS HTN DM Hypernatremia resolving Elevated LFTs improving - O2 to keep SpO2 >90% - chest PT, pulmonary toilet - inhaled bronchodilators mucolytics - taper medrol - enteral feeds, trend LFTs - spontaneous breathing trials as tolerated - DVT/GI prophylaxis DR JOHNS
[2016-09-05] MEDS ORDERED: PT OWN MED DRAWER 7, Y5N ONE ×2 (14:52→18:34)
[2016-09-05] MEDS: ACETAMINOPHEN 650 MG/20.3 ML ORAL SOLUTION (CUPS) PO PRN (17:05)
[2016-09-05] MEDS ORDERED: INSULIN (NOVOLOG) ASPART 100 UNITS/ML 10ML VIAL ONE (18:34)
--- NOTE | 2016-09-05 22:05 | PN ---
Progress Note, Physician History of Present Illness: No new changes - Current Medication List Current Medications: Active Medications Acetaminophen (Tylenol Oral Solution -) 650 mg PO Q6H PRN PRN Reason: FEVER OR PAIN Last Admin: 09/05/16 17:05 Dose: 650 mg Acetylcysteine (Mucomyst 20 Oral / Inh Use Only*) 200 mg NEB QIDR [facility] Last Admin: 09/05/16 17:55 Dose: 200 mg Albuterol Sulfate (Ventolin 0.083% Nebulizer Soln -) 1 amp NEB QIDR [facility] Last Admin: 09/05/16 17:55 Dose: 1 amp Bacitracin (Bacitracin -) 1 applic TP BID [facility] Stop: 09/09/16 10:01 Last Admin: 09/05/16 18:32 Dose: 1 applic Heparin Sodium (Porcine) (Heparin -) 5,000 unit SQ BID [facility] Last Admin: 09/05/16 09:34 Dose: 5,000 unit Insulin Aspart (Novolog Vial Sliding Scale -) 1 vial SQ TIDAC [facility] PRN Reason: Protocol Last Admin: 09/05/16 17:14 Dose: Not Given Methylprednisolone Sodium Succinate (Solu-Medrol -) 20 mg IVPB DAILY [facility] Last Admin: 09/05/16 09:51 Dose: 20 mg Riluzole 50 Mg Tab - (Patient Own Med) 1 each PEG BID [facility] Last Admin: 09/05/16 17:06 Dose: 1 each Nystatin (Nystop Powder -) 1 applic TP BID [facility] Last Admin: 09/05/16 10:30 Dose: 1 applic Ranitidine HCl (Zantac Oral Solution -) 150 mg NGT BID [facility] Last Admin: 09/05/16 11:57 Dose: 150 mg - Objective Vital Signs: Vital Signs Temperature 100 F H 09/05/16 17:00 Pulse Rate 101 H 09/05/16 17:00 Respiratory Rate 14 09/05/16 21:09 Blood Pressure 114/68 09/05/16 17:00 O2 Sat by Pulse Oximetry (%) 96 09/05/16 11:20 Constitutional: Yes: No Distress HENT: Yes: Other ((+) tracheostomy) Neck: Yes: Supple Cardiovascular: Yes: WNL, Regular Rate and Rhythm Respiratory: Yes: WNL, Regular, CTA Bilaterally Gastrointestinal: Yes: WNL, Normal Bowel Sounds, Soft, Other ((+) PEG) Labs: CBC, BMP 09/05/16 10:30 09/05/16 10:30 INR, PTT INR 1.09 (0.82-1.09) 09/03/16 18:30 Problem List - Problems (1) ALS (amyotrophic lateral sclerosis) Assessment/Plan: S/P PEG placement As per sisal operator will change to continuous feeds PT eval DC planning ?STR Code(s): G12.21 - AMYOTROPHIC LATERAL SCLEROSIS (2) Acute respiratory failure Assessment/Plan: S/P tracheostomy Aspiration pneumonia Pt is now off antibxs Monitor temp curve and reculture is spikes a temp Taper IV steroids Cont nebulizers(Mucomyst/ventolin) Code(s): J96.00 - ACUTE RESPIRATORY FAILURE, UNSP W HYPOXIA OR HYPERCAPNIA Qualifiers: Respiratory failure complication: hypercapnia Qualified Code(s): J96.02 - Acute respiratory failure with hypercapnia (3) UTI (urinary tract infection) Assessment/Plan: Resolved Pt is off antibxs Code(s): N39.0 - URINARY TRACT INFECTION, SITE NOT SPECIFIED Assessment/Plan 1. Diabetes Pt on sliding scal w/ humalog Elevation of glucose also due to steroids 2. HTN BP stable 3. Elevated LFT's labs are trending down
[2016-09-06] MEDS: ALBUTEROL SO4 0.083% IH SOL 2.5 MG/3 ML VIAL.NEB. NEB SCH ×5 (00:20→23:17)
[2016-09-06] MEDS: ACETYLCYSTEINE 20% 200MG/ML 4 ML VIAL *FOR ORAL / INH USE ONLY NEB SCH ×5 (00:20→23:17)
[2016-09-06] MEDS: ACETAMINOPHEN 650 MG/20.3 ML ORAL SOLUTION (CUPS) PO PRN ×2 (04:55→14:28)
[2016-09-06] MEDS: INSULIN SLIDING SCALE (NOVOLOG) 1 VIAL SQ SCH ×3 (07:00→17:07)
[2016-09-06] MEDS ORDERED: INSULIN (NOVOLOG) ASPART 100 UNITS/ML 10ML VIAL ONE (07:07)
[2016-09-06 08:23] LABS: BASOPHIL 0.2 % (0-2.0); EOSINOPHIL 0.2 % (0-4.5); MCH 33.5 pg (25.7-33.7); MCHC 32.9 g/dl (32.0-35.9); MEAN CELL VOLUME 101.8 fl (80-96); MEAN PLT VOLUME 8.4 fl (7.5-11.1); NEUTROPHILS 91.7 % (42.8-82.8); PLATELET COUNT 213 K/MM3 (134-434); RDW 13.6 % (11.9-15.9); WHITE BLOOD COUNT 10.4 K/mm3 (4.0-10.0)
[2016-09-06 08:52] LABS: ALBUMIN 2.4 g/dl (3.4-5.0); ANION GAP 8 (8-16); CO2 31 mmol/L (21-32); GLUCOSE,RANDOM 176 mg/dL (74-106); SGOT/AST 22 U/L (15-37); SGPT/ALT 83 U/L (12-78)
[2016-09-06 08:54] LABS: ALK PHOS 74 U/L (45-117); BILIRUBIN,TOTAL 0.4 mg/dL (0.2-1.0); CALCIUM 8.3 mg/dL (8.5-10.1); CREATININE 0.6 mg/dL (0.7-1.3); TOT PROT 5.3 g/dl (6.4-8.2)
[2016-09-06] MEDS: methylPREDNISolone NA SUCC 40 MG/1 ML VIAL IVPB SCH (09:49)
[2016-09-06] MEDS: HEPARIN NA (PORCINE) 5,000 UNITS/ML 1ML VIAL SQ SCH ×2 (09:50→21:46)
[2016-09-06] MEDS: RANITIDINE HCL 150 MG/10 ML UNIT-DOSE CUP NGT SCH ×2 (09:50→21:51)
[2016-09-06] MEDS: RILUZOLE 50 MG PEG SCH ×2 (09:54→21:56)
--- NOTE | 2016-09-06 10:51 | PN ---
Progress Note, LPN RN HOSPICE - Note Progress Note: Pt now on 5s. Reviewed results of PMV assessment with staff. 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 Consider [facility] for rehabilitation. Pt would benefit from an augmentative communication w/u regarding obtaining a computer to be used with eye gaze switch for communication and environmental control (eg call hernández, etc.) Speech pathologist at [facility] for augmentative communication to preserve ability to communicate as disease progresses. Discussed case with [facility]. Family would like pt to stay locally. would provide augmentative communication computer training using eye gaze if judged to be acute. If d/c is not possible, speech pathology should initiate E-Almonte board training to improve communication and reduce risk of locked-in syndrome. In meantime, staff and family should remind pt to speak slowly, one word at a time, exaggerate articulation, and spell words that can not be understood.
[2016-09-06] MEDS: NYSTATIN POWDER 100,000 UNITS/GM - 15 GM TOPICAL POWDER TP SCH ×2 (11:20→21:46)
[2016-09-06] MEDS: BACITRACIN 30 GM TUBE TOPICAL OINTMENT TP SCH ×2 (11:21→21:46)
--- NOTE | 2016-09-06 11:34 | PATH ---
Surgical Pathology Report Patient Name: JOE FRAZIER [facility]. Rec. #: [id number] /Age/Gender: 1940 (Age: 76) / M Account: [id number] Location: [address] [place] [address] Taken: 09/04/2016 Received: 09/05/2016 Reported: 09/06/2016 Physicians: Bonifacio Orona M.D. Specimen(s) Received A: BX STOMACH B: BX GE JUNCTION Clinical History Dysphagia, ALS Erosive gastritis, hiatal hernia, irregular Z line Final Diagnosis A. STOMACH, ANTRUM, BIOPSY: MILD CHRONIC GASTRITIS. IMMUNOSTAIN FOR H. PYLORI IS NEGATIVE. B. GE JUNCTION, BIOPSY: SQUAMOUS AND GASTRIC MUCOSA WITH CHRONIC INFLAMMATION AND PAPILLOMATOSIS SUGGESTIVE OF REFLUX ESOPHAGITIS. NO INTESTINAL METAPLASIA IDENTIFIED (NO NAYAK'S IDENTIFIED). Electronically Signed Larry Denis M.D. Gross Description A. Received in formalin, labeled "biopsy stomach" is a christensen, irregular portion of soft tissue measuring 0.3 cm. in greatest dimension. The specimen is submitted in toto in one cassette. B. Received in formalin, labeled "GE junction" are 2 christensen, irregular portions of soft tissue averaging 0.3 cm. in greatest dimension. The specimens are submitted in toto in one cassette. 09/05/201609/05/2016
--- NOTE | 2016-09-06 12:26 | PN ---
Progress Note (short form) - Note Progress Note: Awake and alert on AC mode. NAD Did not tolerate having cuff deflated. Intake & Output 09/03/16 09/04/16 09/05/16 09/06/16 23:59 23:59 23:59 23:59 Intake Total 1748 1224 1361 800 Output Total 400 150 300 Balance 1348 1074 1061 800 Weight 177 lb 8 oz 179 lb 9.6 oz 178 lb 6 oz Last Vital Signs Temp Pulse Resp BP Pulse Ox 98.3 F 83 19 135/69 98 09/06/16 11:00 09/06/16 11:00 09/06/16 11:00 09/06/16 11:00 09/06/16 10:32 Active Medications Acetaminophen (Tylenol Oral Solution -) 650 mg PO Q6H PRN PRN Reason: FEVER OR PAIN Last Admin: 09/06/16 04:55 Dose: 650 mg Acetylcysteine (Mucomyst 20 Oral / Inh Use Only*) 200 mg NEB QIDR [facility] Last Admin: 09/06/16 06:12 Dose: 200 mg Albuterol Sulfate (Ventolin 0.083% Nebulizer Soln -) 1 amp NEB QIDR [facility] Last Admin: 09/06/16 06:12 Dose: 1 amp Bacitracin (Bacitracin -) 1 applic TP BID [facility] Stop: 09/09/16 10:01 Last Admin: 09/06/16 11:21 Dose: 1 applic Heparin Sodium (Porcine) (Heparin -) 5,000 unit SQ BID [facility] Last Admin: 09/06/16 09:50 Dose: 5,000 unit Insulin Aspart (Novolog Vial Sliding Scale -) 1 vial SQ TIDAC [facility] PRN Reason: Protocol Last Admin: 09/06/16 11:23 Dose: 2 unit Methylprednisolone Sodium Succinate (Solu-Medrol -) 20 mg IVPB DAILY [facility] Last Admin: 09/06/16 09:49 Dose: 20 mg Riluzole 50 Mg Tab - (Patient Own Med) 1 each PEG BID [facility] Last Admin: 09/06/16 09:54 Dose: 1 each Nystatin (Nystop Powder -) 1 applic TP BID [facility] Last Admin: 09/06/16 11:20 Dose: 1 applic Ranitidine HCl (Zantac Oral Solution -) 150 mg NGT BID [facility] Last Admin: 01/05/17 09:50 Dose: 150 mg Gen: Awake and alert, Trached Heart: RRR Lung: scattered rhonchi Abd: soft, nontender Ext: no edema Laboratory Results - last 24 hr 09/05/16 09/06/16 09/06/16 17:13 06:30 07:00 WBC RBC Hgb Hct MCV MCHC RDW Plt Count MPV Neutrophils % Lymphocytes % Monocytes % Eosinophils % Basophils % Sodium 146 H Potassium 4.0 Chloride 107 Carbon Dioxide 31 Anion Gap 8 BUN 20 H Creatinine 0.6 L Creat Clearance w eGFR > 60 POC Glucometer 174 192 Random Glucose 176 H D Calcium 8.3 L Total Bilirubin 0.4 AST 22 D ALT 83 H D Alkaline Phosphatase 74 Total Protein 5.3 L Albumin 2.4 L 09/06/16 09/06/16 07:00 11:17 WBC 10.4 H D RBC 2.84 L Hgb 9.5 L D Hct 29.0 L MCV 101.8 H MCHC 32.9 RDW 13.6 Plt Count 213 MPV 8.4 Neutrophils % 91.7 H Lymphocytes % 3.6 L Monocytes % 4.3 Eosinophils % 0.2 D Basophils % 0.2 Sodium Potassium Chloride Carbon Dioxide Anion Gap BUN Creatinine Creat Clearance w eGFR POC Glucometer 205 Random Glucose Calcium Total Bilirubin AST ALT Alkaline Phosphatase Total Protein Albumin Problem List - Problems (1) Head injury Code(s): S09.90XA - UNSPECIFIED INJURY OF HEAD, INITIAL ENCOUNTER Qualifiers: Encounter type: initial encounter Qualified Code(s): S09.90XA - Unspecified injury of head, initial encounter (2) Laceration Code(s): T14.8 - OTHER INJURY OF UNSPECIFIED BODY REGION (3) Acute respiratory failure Code(s): J96.00 - ACUTE RESPIRATORY FAILURE, UNSP W HYPOXIA OR HYPERCAPNIA Qualifiers: Respiratory failure complication: hypercapnia Qualified Code(s): J96.02 - Acute respiratory failure with hypercapnia (4) Pneumonia Code(s): J18.9 - PNEUMONIA, UNSPECIFIED ORGANISM (5) Acute respiratory failure with hypercapnia Code(s): J96.02 - ACUTE RESPIRATORY FAILURE WITH HYPERCAPNIA (6) ALS (amyotrophic lateral sclerosis) Code(s): G12.21 - AMYOTROPHIC LATERAL SCLEROSIS (7) Sepsis Code(s): A41.9 - SEPSIS, UNSPECIFIED ORGANISM ASSESSMENT AND PLAN: 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 Presumed Pneumonia UTI Sepsis ALS HTN DM - Off ABX - O2 to keep SpO2 >90% - D/C Medrol - inhaled bronchodilators - aspiration precautions - DVT/GI prophylaxis - D/C planning Dr Donald Problem List - Problems (1) Head injury Code(s): S09.90XA - UNSPECIFIED INJURY OF HEAD, INITIAL ENCOUNTER Qualifiers: Encounter type: initial encounter Qualified Code(s): S09.90XA - Unspecified injury of head, initial encounter (2) Laceration Code(s): T14.8 - OTHER INJURY OF UNSPECIFIED BODY REGION (3) Acute respiratory failure Code(s): J96.00 - ACUTE RESPIRATORY FAILURE, UNSP W HYPOXIA OR HYPERCAPNIA Qualifiers: Respiratory failure complication: hypercapnia Qualified Code(s): J96.02 - Acute respiratory failure with hypercapnia (4) Pneumonia Code(s): J18.9 - PNEUMONIA, UNSPECIFIED ORGANISM (5) Acute respiratory failure with hypercapnia Code(s): J96.02 - ACUTE RESPIRATORY FAILURE WITH HYPERCAPNIA (6) ALS (amyotrophic lateral sclerosis) Code(s): G12.21 - AMYOTROPHIC LATERAL SCLEROSIS (7) Sepsis Code(s): A41.9 - SEPSIS, UNSPECIFIED ORGANISM
--- NOTE | 2016-09-06 16:59 | PN ---
Progress Note, Physician History of Present Illness: Temp noted Awake on ventilator No acute distress Breathing non-labored WBC 10K - Current Medication List Current Medications: Active Medications Acetaminophen (Tylenol Oral Solution -) 650 mg PO Q6H PRN PRN Reason: FEVER OR PAIN Last Admin: 09/06/16 14:28 Dose: 650 mg Acetylcysteine (Mucomyst 20 Oral / Inh Use Only*) 200 mg NEB QIDR [facility] Last Admin: 09/06/16 12:50 Dose: 200 mg Albuterol Sulfate (Ventolin 0.083% Nebulizer Soln -) 1 amp NEB QIDR [facility] Last Admin: 09/06/16 12:50 Dose: 1 amp Bacitracin (Bacitracin -) 1 applic TP BID [facility] Stop: 09/09/16 10:01 Last Admin: 09/06/16 11:21 Dose: 1 applic Heparin Sodium (Porcine) (Heparin -) 5,000 unit SQ BID [facility] Last Admin: 09/06/16 09:50 Dose: 5,000 unit Insulin Aspart (Novolog Vial Sliding Scale -) 1 vial SQ TIDAC [facility] PRN Reason: Protocol Last Admin: 09/06/16 11:23 Dose: 2 unit Riluzole 50 Mg Tab - (Patient Own Med) 1 each PEG BID [facility] Last Admin: 09/06/16 09:54 Dose: 1 each Nystatin (Nystop Powder -) 1 applic TP BID [facility] Last Admin: 09/06/16 11:20 Dose: 1 applic Ranitidine HCl (Zantac Oral Solution -) 150 mg NGT BID [facility] Last Admin: 09/06/16 09:50 Dose: 150 mg - Objective Vital Signs: Vital Signs Temperature 100.9 F H 09/06/16 14:20 Pulse Rate 86 09/06/16 14:20 Respiratory Rate 22 09/06/16 14:41 Blood Pressure 100/57 09/06/16 14:20 O2 Sat by Pulse Oximetry (%) 98 09/06/16 10:32 Constitutional: Yes: No Distress Cardiovascular: Yes: Regular Rate and Rhythm, S1, S2 Respiratory: Yes: Mechanically Ventilated Gastrointestinal: Yes: Normal Bowel Sounds, Soft. No: Tenderness Edema: Yes Labs: CBC, BMP 09/06/16 07:00 09/06/16 07:00 INR, PTT INR 1.09 (0.82-1.09) 09/03/16 18:30 Assessment/Plan S/P respiratory failure/ trach Fever- possible pulmonary source Hx neuromuscular disorder Will reculture Repeat CXR Observe off antibiotics for now Respiratory support
[2016-09-06] MEDS ORDERED: PT OWN MED DRAWER 7, Y5N ONE ×2 (17:18→21:26)
--- NOTE | 2016-09-06 17:30 | PN ---
GI Progress Note Subjective: GASTROENTEROLOGY SPOKE WITH KALEN YESTERDAY AND ASKED HER TO FORMULATE BOLUS FEED SCHEDULE FOR JOE. PATIENT IS NOW ON CONTINUOUS FEEDING. PEG FUNCTIONING WELL - Objective Vital Signs: Vital Signs Temperature 100.9 F H 09/06/16 14:20 Pulse Rate 86 09/06/16 14:20 Respiratory Rate 22 09/06/16 14:41 Blood Pressure 100/57 09/06/16 14:20 O2 Sat by Pulse Oximetry (%) 98 09/06/16 10:32 Constitutional: Calm Eyes: Yes: Conjunctiva Clear HENT: Yes: Other (TRACH) Cardiovascular: Yes: WNL Respiratory: Yes: CTA Bilaterally Gastrointestinal Inspection: Yes: WNL ...Auscultate: Yes: Normoactive Bowel Sounds ...Palpate: Yes: Soft, Other (PEG SITE CLEAN AND DRY) Extremities: Yes: WNL Labs: CBC, BMP 09/06/16 07:00 09/06/16 07:00 INR, PTT INR 1.09 (0.82-1.09) 09/03/16 18:30 Problem List - Problems (1) Dysphagia Assessment/Plan: S/P PEG PLACEMENT. SPOKE WITH NURSE : TO KEEP DRESSING OFF PEG SITE, TO USE 50/ 50 MIX WATER AND HYDROGEN PEROXIDE 2 TO 3 TIMES A DAY, FOLLOW REMINDER OF PEG ORDERS WRITTEN YESTERDAY Code(s): R13.10 - DYSPHAGIA, UNSPECIFIED (2) ALS (amyotrophic lateral sclerosis) Assessment/Plan: as per Samaria Espinoza MD . Code(s): G12.21 - AMYOTROPHIC LATERAL SCLEROSIS (3) Diarrhea Assessment/Plan: diarrhea less on elemental diet, my recommendation is for bolus feeding as discussed with it auditor yesterday to formulate bolus feeding with elemental feeding. Code(s): R19.7 - DIARRHEA, UNSPECIFIED (4) Transaminitis Assessment/Plan: improving Code(s): R74.0 - NONSPEC ELEV OF LEVELS OF TRANSAMNS & LACTIC ACID DEHYDRGNSE (5) Acute respiratory failure with hypercapnia Assessment/Plan: will sign off case today Code(s): J96.02 - ACUTE RESPIRATORY FAILURE WITH HYPERCAPNIA
--- NOTE | 2016-09-06 20:43 | PN ---
Progress Note, Physician History of Present Illness: Pt spiked temp to 100.9 today - Current Medication List Current Medications: Active Medications Acetaminophen (Tylenol Oral Solution -) 650 mg PO Q6H PRN PRN Reason: FEVER OR PAIN Last Admin: 09/06/16 14:28 Dose: 650 mg Acetylcysteine (Mucomyst 20 Oral / Inh Use Only*) 200 mg NEB QIDR [facility] Last Admin: 09/06/16 18:42 Dose: 200 mg Albuterol Sulfate (Ventolin 0.083% Nebulizer Soln -) 1 amp NEB QIDR [facility] Last Admin: 09/06/16 18:43 Dose: 1 amp Bacitracin (Bacitracin -) 1 applic TP BID [facility] Stop: 09/09/16 10:01 Last Admin: 09/06/16 11:21 Dose: 1 applic Heparin Sodium (Porcine) (Heparin -) 5,000 unit SQ BID [facility] Last Admin: 09/06/16 09:50 Dose: 5,000 unit Insulin Aspart (Novolog Vial Sliding Scale -) 1 vial SQ TIDAC [facility] PRN Reason: Protocol Last Admin: 09/06/16 17:07 Dose: 3 unit Riluzole 50 Mg Tab - (Patient Own Med) 1 each PEG BID [facility] Last Admin: 09/06/16 09:54 Dose: 1 each Nystatin (Nystop Powder -) 1 applic TP BID [facility] Last Admin: 09/06/16 11:20 Dose: 1 applic Ranitidine HCl (Zantac Oral Solution -) 150 mg NGT BID [facility] Last Admin: 09/06/16 09:50 Dose: 150 mg - Objective Vital Signs: Vital Signs Temperature 99.4 F 09/06/16 17:55 Pulse Rate 84 09/06/16 17:55 Respiratory Rate 19 09/06/16 18:41 Blood Pressure 125/58 09/06/16 17:55 O2 Sat by Pulse Oximetry (%) 98 09/06/16 10:32 Constitutional: Yes: No Distress HENT: Yes: Other ((+) trach) Cardiovascular: Yes: WNL, Tachycardia Respiratory: Yes: Other (Coarse bs b/l) Gastrointestinal: Yes: WNL, Normal Bowel Sounds, Other ((+) PEG) Labs: CBC, BMP 09/06/16 07:00 09/06/16 07:00 INR, PTT INR 1.09 (0.82-1.09) 09/03/16 18:30 Problem List - Problems (1) ALS (amyotrophic lateral sclerosis) Assessment/Plan: S/P PEG placement As per GI/radio host will need to change to bolus feedings DC planning to ?STR Code(s): G12.21 - AMYOTROPHIC LATERAL SCLEROSIS (2) Acute respiratory failure Assessment/Plan: S/P tracheostomy Aspiration pneumonia Pt spiked temp and recultured Repeat cxr (09/05/16) showed atelectasis Cont nebulizers(Mucomyst/ventolin) Steroids dc'ed Code(s): J96.00 - ACUTE RESPIRATORY FAILURE, UNSP W HYPOXIA OR HYPERCAPNIA Qualifiers: Respiratory failure complication: hypercapnia Qualified Code(s): J96.02 - Acute respiratory failure with hypercapnia (3) Transaminitis Assessment/Plan: Trending down Code(s): R74.0 - NONSPEC ELEV OF LEVELS OF TRANSAMNS & LACTIC ACID DEHYDRGNSE (4) UTI (urinary tract infection) Assessment/Plan: Resolved Pt is off antibxs Code(s): N39.0 - URINARY TRACT INFECTION, SITE NOT SPECIFIED
[2016-09-07] MEDS: ACETYLCYSTEINE 20% 200MG/ML 4 ML VIAL *FOR ORAL / INH USE ONLY NEB SCH ×4 (06:40→23:28)
[2016-09-07] MEDS: ALBUTEROL SO4 0.083% IH SOL 2.5 MG/3 ML VIAL.NEB. NEB SCH ×4 (06:40→23:28)
[2016-09-07] MEDS: INSULIN SLIDING SCALE (NOVOLOG) 1 VIAL SQ SCH ×3 (06:55→16:50)
[2016-09-07 07:44] LABS: BASOPHIL 0.1 % (0-2.0); EOSINOPHIL 0.4 % (0-4.5); MCH 33.7 pg (25.7-33.7); MCHC 33.3 g/dl (32.0-35.9); MEAN CELL VOLUME 101.2 fl (80-96); MEAN PLT VOLUME 8.1 fl (7.5-11.1); NEUTROPHILS 86.3 % (42.8-82.8); PLATELET COUNT 235 K/MM3 (134-434); RDW 13.5 % (11.9-15.9); WHITE BLOOD COUNT 9.8 K/mm3 (4.0-10.0)
[2016-09-07] MEDS: HEPARIN NA (PORCINE) 5,000 UNITS/ML 1ML VIAL SQ SCH ×2 (10:41→22:10)
[2016-09-07] MEDS: BACITRACIN 30 GM TUBE TOPICAL OINTMENT TP SCH ×2 (10:41→22:09)
[2016-09-07] MEDS: RILUZOLE 50 MG PEG SCH ×2 (10:42→22:11)
[2016-09-07] MEDS: NYSTATIN POWDER 100,000 UNITS/GM - 15 GM TOPICAL POWDER TP SCH ×2 (10:42→22:09)
[2016-09-07] MEDS: RANITIDINE HCL 150 MG/10 ML UNIT-DOSE CUP NGT SCH ×2 (11:56→22:14)
[2016-09-07] MEDS ORDERED: PT OWN MED DRAWER 7, Y5N ONE (12:26)
--- NOTE | 2016-09-07 15:45 | PN ---
Progress Note, Physician History of Present Illness: pulmonary awake,nad on vent support ac mode - Current Medication List Current Medications: Active Medications Acetaminophen (Tylenol Oral Solution -) 650 mg PO Q6H PRN PRN Reason: FEVER OR PAIN Last Admin: 09/06/16 14:28 Dose: 650 mg Acetylcysteine (Mucomyst 20 Oral / Inh Use Only*) 200 mg NEB QIDR [facility] Last Admin: 09/07/16 11:41 Dose: 200 mg Albuterol Sulfate (Ventolin 0.083% Nebulizer Soln -) 1 amp NEB QIDR [facility] Last Admin: 09/07/16 11:41 Dose: 1 amp Bacitracin (Bacitracin -) 1 applic TP BID [facility] Stop: 09/09/16 10:01 Last Admin: 09/07/16 10:41 Dose: 1 applic Heparin Sodium (Porcine) (Heparin -) 5,000 unit SQ BID [facility] Last Admin: 09/07/16 10:41 Dose: 5,000 unit Insulin Aspart (Novolog Vial Sliding Scale -) 1 vial SQ TIDAC [facility] PRN Reason: Protocol Last Admin: 09/07/16 12:13 Dose: 2 unit Riluzole 50 Mg Tab - (Patient Own Med) 1 each PEG BID [facility] Last Admin: 09/07/16 10:42 Dose: 1 each Nystatin (Nystop Powder -) 1 applic TP BID [facility] Last Admin: 09/07/16 10:42 Dose: 1 applic Ranitidine HCl (Zantac Oral Solution -) 150 mg NGT BID [facility] Last Admin: 09/07/16 11:56 Dose: 150 mg - Objective Vital Signs: Vital Signs Temperature 99.0 F 09/07/16 14:26 Pulse Rate 90 09/07/16 14:30 Respiratory Rate 17 09/07/16 14:30 Blood Pressure 123/71 09/07/16 14:26 O2 Sat by Pulse Oximetry (%) 98 09/07/16 14:30 Constitutional: Yes: Well Nourished, Calm Eyes: Yes: WNL HENT: Yes: WNL Neck: Yes: Supple (trach) Cardiovascular: Yes: Regular Rate and Rhythm, S1, S2 Respiratory: Yes: Diminished Gastrointestinal: Yes: Normal Bowel Sounds, Soft Extremities: Yes: WNL Edema: No Labs: CBC, BMP 09/07/16 06:30 09/06/16 07:00 INR, PTT INR 1.09 (0.82-1.09) 09/03/16 18:30 Problem List - Problems (1) ALS (amyotrophic lateral sclerosis) Code(s): G12.21 - AMYOTROPHIC LATERAL SCLEROSIS (2) Acute respiratory failure with hypercapnia Code(s): J96.02 - ACUTE RESPIRATORY FAILURE WITH HYPERCAPNIA (3) Dysphagia Code(s): R13.10 - DYSPHAGIA, UNSPECIFIED (4) Pneumonia Code(s): J18.9 - PNEUMONIA, UNSPECIFIED ORGANISM (5) Sepsis Code(s): A41.9 - SEPSIS, UNSPECIFIED ORGANISM (6) Transaminitis Code(s): R74.0 - NONSPEC ELEV OF LEVELS OF TRANSAMNS & LACTIC ACID DEHYDRGNSE Assessment/Plan ASSESSMENT AND PLAN: 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 s/p Tracheostomy Presumed Pneumonia UTI Sepsis ALS HTN DM Hypernatremia resolving Elevated LFTs improving - O2 to keep SpO2 >90% - chest PT, pulmonary toilet - inhaled bronchodilators mucolytics - taper medrol - enteral feeds, trend LFTs - spontaneous breathing trials as tolerated - DVT/GI prophylaxis DR JOHNS
--- NOTE | 2016-09-07 19:48 | PN ---
Progress Note, Physician History of Present Illness: No new complaints - Current Medication List Current Medications: Active Medications Acetaminophen (Tylenol Oral Solution -) 650 mg PO Q6H PRN PRN Reason: FEVER OR PAIN Last Admin: 09/06/16 14:28 Dose: 650 mg Acetylcysteine (Mucomyst 20 Oral / Inh Use Only*) 200 mg NEB QIDR [facility] Last Admin: 09/07/16 17:43 Dose: 200 mg Albuterol Sulfate (Ventolin 0.083% Nebulizer Soln -) 1 amp NEB QIDR [facility] Last Admin: 09/07/16 17:44 Dose: 1 amp Bacitracin (Bacitracin -) 1 applic TP BID [facility] Stop: 09/09/16 10:01 Last Admin: 09/07/16 10:41 Dose: 1 applic Heparin Sodium (Porcine) (Heparin -) 5,000 unit SQ BID [facility] Last Admin: 09/07/16 10:41 Dose: 5,000 unit Insulin Aspart (Novolog Vial Sliding Scale -) 1 vial SQ TIDAC [facility] PRN Reason: Protocol Last Admin: 09/07/16 16:50 Dose: Not Given Riluzole 50 Mg Tab - (Patient Own Med) 1 each PEG BID [facility] Last Admin: 09/07/16 10:42 Dose: 1 each Nystatin (Nystop Powder -) 1 applic TP BID [facility] Last Admin: 09/07/16 10:42 Dose: 1 applic Ranitidine HCl (Zantac Oral Solution -) 150 mg NGT BID [facility] Last Admin: 09/07/16 11:56 Dose: 150 mg - Objective Vital Signs: Vital Signs Temperature 99.0 F 09/07/16 14:26 Pulse Rate 90 09/07/16 14:30 Respiratory Rate 21 09/07/16 18:47 Blood Pressure 123/71 09/07/16 14:26 O2 Sat by Pulse Oximetry (%) 98 09/07/16 14:30 Neck: Yes: Supple Cardiovascular: Yes: WNL, Regular Rate and Rhythm Respiratory: Yes: WNL, Regular, CTA Bilaterally Gastrointestinal: Yes: WNL, Normal Bowel Sounds, Soft Musculoskeletal: Yes: WNL Edema: No Labs: CBC, BMP 09/07/16 06:30 09/06/16 07:00 INR, PTT INR 1.09 (0.82-1.09) 09/03/16 18:30 Problem List - Problems (1) ALS (amyotrophic lateral sclerosis) Assessment/Plan: S/P PEG placement 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
[2016-09-08] MEDS: INSULIN SLIDING SCALE (NOVOLOG) 1 VIAL SQ SCH ×3 (07:19→17:18)
[2016-09-08] MEDS: ACETYLCYSTEINE 20% 200MG/ML 4 ML VIAL *FOR ORAL / INH USE ONLY NEB SCH ×3 (07:34→18:09)
[2016-09-08] MEDS: ALBUTEROL SO4 0.083% IH SOL 2.5 MG/3 ML VIAL.NEB. NEB SCH ×3 (07:34→18:10)
[2016-09-08] MEDS: HEPARIN NA (PORCINE) 5,000 UNITS/ML 1ML VIAL SQ SCH ×2 (10:32→22:36)
[2016-09-08] MEDS: RILUZOLE 50 MG PEG SCH ×2 (10:33→23:37)
[2016-09-08] MEDS: BACITRACIN 30 GM TUBE TOPICAL OINTMENT TP SCH ×2 (10:34→23:36)
[2016-09-08] MEDS: NYSTATIN POWDER 100,000 UNITS/GM - 15 GM TOPICAL POWDER TP SCH ×2 (10:34→23:36)
--- NOTE | 2016-09-08 11:50 | PN ---
Progress Note, Physician History of Present Illness: PULMONARY ALERT,ON VENT SUPPORT,AC MODE. TMAX 99.4 - Current Medication List Current Medications: Active Medications Acetaminophen (Tylenol Oral Solution -) 650 mg PO Q6H PRN PRN Reason: FEVER OR PAIN Last Admin: 09/06/16 14:28 Dose: 650 mg Acetylcysteine (Mucomyst 20 Oral / Inh Use Only*) 200 mg NEB QIDR [facility] Last Admin: 09/08/16 11:40 Dose: 200 mg Albuterol Sulfate (Ventolin 0.083% Nebulizer Soln -) 1 amp NEB QIDR [facility] Last Admin: 09/08/16 11:40 Dose: 1 amp Bacitracin (Bacitracin -) 1 applic TP BID [facility] Stop: 09/09/16 10:01 Last Admin: 09/08/16 10:34 Dose: 1 applic Heparin Sodium (Porcine) (Heparin -) 5,000 unit SQ BID [facility] Last Admin: 09/08/16 10:32 Dose: 5,000 unit Insulin Aspart (Novolog Vial Sliding Scale -) 1 vial SQ TIDAC [facility] PRN Reason: Protocol Last Admin: 09/08/16 07:19 Dose: 2 unit Riluzole 50 Mg Tab - (Patient Own Med) 1 each PEG BID [facility] Last Admin: 09/08/16 10:33 Dose: 1 each Nystatin (Nystop Powder -) 1 applic TP BID [facility] Last Admin: 09/08/16 10:34 Dose: 1 applic Ranitidine HCl (Zantac Oral Solution -) 150 mg NGT BID [facility] Last Admin: 09/07/16 22:14 Dose: 150 mg - Objective Vital Signs: Vital Signs Temperature 99.6 F 09/08/16 07:00 Pulse Rate 89 09/08/16 07:00 Respiratory Rate 13 09/08/16 11:36 Blood Pressure 132/60 09/08/16 07:00 O2 Sat by Pulse Oximetry (%) 97 09/07/16 21:00 Constitutional: Yes: Well Nourished, Calm Eyes: Yes: WNL HENT: Yes: WNL Neck: Yes: Supple (TRACH) Cardiovascular: Yes: Regular Rate and Rhythm, S1, S2 Respiratory: Yes: Diminished Gastrointestinal: Yes: Normal Bowel Sounds, Soft Extremities: Yes: WNL Edema: No Labs: CBC, BMP 09/07/16 06:30 09/06/16 07:00 INR, PTT INR 1.09 (0.82-1.09) 09/03/16 18:30 - ....Imaging Chest X-ray: Report Reviewed, Image Reviewed (INCREASED CONGESTION POWER) Problem List - Problems (1) ALS (amyotrophic lateral sclerosis) Code(s): G12.21 - AMYOTROPHIC LATERAL SCLEROSIS (2) Acute respiratory failure with hypercapnia Code(s): J96.02 - ACUTE RESPIRATORY FAILURE WITH HYPERCAPNIA (3) Dysphagia Code(s): R13.10 - DYSPHAGIA, UNSPECIFIED (4) Pneumonia Code(s): J18.9 - PNEUMONIA, UNSPECIFIED ORGANISM (5) Sepsis Code(s): A41.9 - SEPSIS, UNSPECIFIED ORGANISM (6) Transaminitis Code(s): R74.0 - NONSPEC ELEV OF LEVELS OF TRANSAMNS & LACTIC ACID DEHYDRGNSE Assessment/Plan ASSESSMENT AND PLAN: 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 s/p Tracheostomy Presumed Pneumonia UTI Sepsis ALS HTN DM Hypernatremia resolving Elevated LFTs improving - O2 to keep SpO2 >90% - chest PT, pulmonary toilet - inhaled bronchodilators mucolytics - enteral feeds, trend LFTs - spontaneous breathing trials as tolerated - DVT/GI prophylaxis DR JOHNS
[2016-09-08] MEDS: ACETAMINOPHEN 650 MG/20.3 ML ORAL SOLUTION (CUPS) PO PRN (11:59)
[2016-09-08] MEDS: RANITIDINE HCL 150 MG/10 ML UNIT-DOSE CUP NGT SCH (15:26)
--- NOTE | 2016-09-08 22:52 | PN ---
Progress Note, Physician History of Present Illness: No new complaints - Current Medication List Current Medications: Active Medications Acetaminophen (Tylenol Oral Solution -) 650 mg PO Q6H PRN PRN Reason: FEVER OR PAIN Last Admin: 09/08/16 11:59 Dose: 650 mg Acetylcysteine (Mucomyst 20 Oral / Inh Use Only*) 200 mg NEB QIDR [facility] Last Admin: 09/08/16 18:09 Dose: 200 mg Albuterol Sulfate (Ventolin 0.083% Nebulizer Soln -) 1 amp NEB QIDR [facility] Last Admin: 09/08/16 18:10 Dose: 1 amp Bacitracin (Bacitracin -) 1 applic TP BID [facility] Stop: 09/09/16 10:01 Last Admin: 09/08/16 10:34 Dose: 1 applic Heparin Sodium (Porcine) (Heparin -) 5,000 unit SQ BID [facility] Last Admin: 09/08/16 10:32 Dose: 5,000 unit Insulin Aspart (Novolog Vial Sliding Scale -) 1 vial SQ TIDAC [facility] PRN Reason: Protocol Last Admin: 09/08/16 17:18 Dose: 2 unit Riluzole 50 Mg Tab - (Patient Own Med) 1 each PEG BID [facility] Last Admin: 09/08/16 10:33 Dose: 1 each Nystatin (Nystop Powder -) 1 applic TP BID [facility] Last Admin: 09/08/16 10:34 Dose: 1 applic Ranitidine HCl (Zantac Oral Solution -) 150 mg NGT BID [facility] Last Admin: 09/08/16 15:26 Dose: 150 mg - Objective Vital Signs: Vital Signs Temperature 98.5 F 09/08/16 18:25 Pulse Rate 89 09/08/16 18:25 Respiratory Rate 22 09/08/16 18:43 Blood Pressure 113/51 09/08/16 18:25 O2 Sat by Pulse Oximetry (%) 97 09/08/16 09:00 Neck: Yes: Supple Cardiovascular: Yes: WNL, Regular Rate and Rhythm Respiratory: Yes: WNL, Regular Gastrointestinal: Yes: WNL, Normal Bowel Sounds, Soft Labs: CBC, BMP 09/07/16 06:30 09/06/16 07:00 INR, PTT INR 1.09 (0.82-1.09) 09/03/16 18:30 Problem List - Problems (1) ALS (amyotrophic lateral sclerosis) Assessment/Plan: S/P PEG placement 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 will need to change to bolus feedings DC planning to ?STR Code(s): G12.21 - AMYOTROPHIC LATERAL SCLEROSIS (2) Acute respiratory failure Assessment/Plan: S/P tracheostomy Aspiration pneumonia Pt has been failing weaning attempts As per pulmonary Code(s): J96.00 - ACUTE RESPIRATORY FAILURE, UNSP W HYPOXIA OR HYPERCAPNIA Qualifiers: Respiratory failure complication: hypercapnia Qualified Code(s): J96.02 - Acute respiratory failure with hypercapnia (3) Sepsis Assessment/Plan: Pt having low grade temp ID consult Code(s): A41.9 - SEPSIS, UNSPECIFIED ORGANISM (4) Transaminitis Code(s): R74.0 - NONSPEC ELEV OF LEVELS OF TRANSAMNS & LACTIC ACID DEHYDRGNSE
[2016-09-09] MEDS: ACETYLCYSTEINE 20% 200MG/ML 4 ML VIAL *FOR ORAL / INH USE ONLY NEB SCH ×5 (00:23→18:03)
[2016-09-09] MEDS: ALBUTEROL SO4 0.083% IH SOL 2.5 MG/3 ML VIAL.NEB. NEB SCH (00:23)
[2016-09-09] MEDS: RANITIDINE HCL 150 MG/10 ML UNIT-DOSE CUP NGT SCH ×3 (00:37→21:12)
[2016-09-09] MEDS: INSULIN SLIDING SCALE (NOVOLOG) 1 VIAL SQ SCH ×3 (06:31→17:06)
[2016-09-09] MEDS ORDERED: ALBUTEROL SO4 0.083% IH SOL 2.5 MG/3 ML VIAL.NEB. NEB ONE (06:52)
[2016-09-09] MEDS: BACITRACIN 30 GM TUBE TOPICAL OINTMENT TP SCH (10:06)
[2016-09-09] MEDS: ACETAMINOPHEN 650 MG/20.3 ML ORAL SOLUTION (CUPS) PO PRN ×2 (10:06→20:12)
[2016-09-09] MEDS: NYSTATIN POWDER 100,000 UNITS/GM - 15 GM TOPICAL POWDER TP SCH ×2 (10:06→21:11)
[2016-09-09] MEDS: RILUZOLE 50 MG PEG SCH ×2 (10:07→21:12)
[2016-09-09] MEDS: HEPARIN NA (PORCINE) 5,000 UNITS/ML 1ML VIAL SQ SCH ×2 (10:07→21:11)
--- NOTE | 2016-09-09 13:25 | PN ---
Progress Note, Physician History of Present Illness: pulmonary no distress on vent support ac mode,unable to tolerate weaning today. pt tolerated cpap yesterday for a few hrs. - Current Medication List Current Medications: Active Medications Acetaminophen (Tylenol Oral Solution -) 650 mg PO Q6H PRN PRN Reason: FEVER OR PAIN Last Admin: 09/09/16 10:06 Dose: 650 mg Acetylcysteine (Mucomyst 20 Oral / Inh Use Only*) 200 mg NEB QIDR [facility] Last Admin: 09/09/16 12:32 Dose: Not Given Heparin Sodium (Porcine) (Heparin -) 5,000 unit SQ BID [facility] Last Admin: 09/09/16 10:07 Dose: 5,000 unit Insulin Aspart (Novolog Vial Sliding Scale -) 1 vial SQ TIDAC [facility] PRN Reason: Protocol Last Admin: 09/09/16 12:23 Dose: 2 unit Riluzole 50 Mg Tab - (Patient Own Med) 1 each PEG BID [facility] Last Admin: 09/09/16 10:07 Dose: 1 each Nystatin (Nystop Powder -) 1 applic TP BID [facility] Last Admin: 09/09/16 10:06 Dose: 1 applic Ranitidine HCl (Zantac Oral Solution -) 150 mg NGT BID [facility] Last Admin: 09/09/16 12:23 Dose: 150 mg - Objective Vital Signs: Vital Signs Temperature 100.5 F H 09/09/16 10:00 Pulse Rate 93 H 09/09/16 10:00 Respiratory Rate 18 09/09/16 11:00 Blood Pressure 115/70 09/09/16 10:00 O2 Sat by Pulse Oximetry (%) 97 09/08/16 09:00 Constitutional: Yes: Well Nourished, Calm Eyes: Yes: WNL HENT: Yes: WNL Neck: Yes: Supple Cardiovascular: Yes: Regular Rate and Rhythm, S1 Respiratory: Yes: Diminished Gastrointestinal: Yes: Normal Bowel Sounds, Soft Extremities: Yes: WNL Edema: No Labs: CBC, BMP 09/07/16 06:30 09/06/16 07:00 INR, PTT INR 1.09 (0.82-1.09) 09/03/16 18:30 Problem List - Problems (1) ALS (amyotrophic lateral sclerosis) Code(s): G12.21 - AMYOTROPHIC LATERAL SCLEROSIS (2) Acute respiratory failure with hypercapnia Code(s): J96.02 - ACUTE RESPIRATORY FAILURE WITH HYPERCAPNIA (3) Dysphagia Code(s): R13.10 - DYSPHAGIA, UNSPECIFIED (4) Pneumonia Code(s): J18.9 - PNEUMONIA, UNSPECIFIED ORGANISM (5) Sepsis Code(s): A41.9 - SEPSIS, UNSPECIFIED ORGANISM (6) Transaminitis Code(s): R74.0 - NONSPEC ELEV OF LEVELS OF TRANSAMNS & LACTIC ACID DEHYDRGNSE Assessment/Plan ASSESSMENT AND PLAN: 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 s/p Tracheostomy Presumed Pneumonia UTI Sepsis ALS HTN DM Hypernatremia resolving Elevated LFTs improving - O2 to keep SpO2 >90% - chest PT, pulmonary toilet - inhaled bronchodilators mucolytics - enteral feeds, trend LFTs - spontaneous breathing trials as tolerated - DVT/GI prophylaxis - antibiotics as per id - chest x-ray today - cultures DR JOHNS
[2016-09-09] MEDS: ALBUTEROL SO4 0.083% IH SOL 2.5 MG/3 ML VIAL.NEB. NEB PRN ×2 (13:40→18:04)
--- NOTE | 2016-09-09 21:05 | PN ---
Progress Note, Physician History of Present Illness: No new complaints - Current Medication List Current Medications: Active Medications Acetaminophen (Tylenol Oral Solution -) 650 mg PO Q6H PRN PRN Reason: FEVER OR PAIN Last Admin: 09/09/16 20:12 Dose: 650 mg Acetylcysteine (Mucomyst 20 Oral / Inh Use Only*) 200 mg NEB QIDR [facility] Last Admin: 09/09/16 18:03 Dose: 200 mg Albuterol Sulfate (Ventolin 0.083% Nebulizer Soln -) 1 amp NEB Q4H PRN PRN Reason: SHORT OF BREATH/WHEEZING Last Admin: 09/09/16 18:04 Dose: 1 amp Heparin Sodium (Porcine) (Heparin -) 5,000 unit SQ BID [facility] Last Admin: 09/09/16 10:07 Dose: 5,000 unit Insulin Aspart (Novolog Vial Sliding Scale -) 1 vial SQ TIDAC [facility] PRN Reason: Protocol Last Admin: 09/09/16 17:06 Dose: 2 unit Riluzole 50 Mg Tab - (Patient Own Med) 1 each PEG BID [facility] Last Admin: 09/09/16 10:07 Dose: 1 each Nystatin (Nystop Powder -) 1 applic TP BID [facility] Last Admin: 09/09/16 10:06 Dose: 1 applic Ranitidine HCl (Zantac Oral Solution -) 150 mg NGT BID [facility] Last Admin: 09/09/16 12:23 Dose: 150 mg - Objective Vital Signs: Vital Signs Temperature 99.8 F H 09/09/16 18:30 Pulse Rate 91 H 09/09/16 18:30 Respiratory Rate 20 09/09/16 18:30 Blood Pressure 112/63 09/09/16 18:30 O2 Sat by Pulse Oximetry (%) 97 09/08/16 09:00 Neck: Yes: Supple Cardiovascular: Yes: WNL, Regular Rate and Rhythm Respiratory: Yes: WNL, Regular, CTA Bilaterally Gastrointestinal: Yes: WNL, Normal Bowel Sounds, Soft Labs: CBC, BMP 09/07/16 06:30 09/06/16 07:00 INR, PTT INR 1.09 (0.82-1.09) 09/03/16 18:30 Problem List - Problems (1) ALS (amyotrophic lateral sclerosis) Code(s): G12.21 - AMYOTROPHIC LATERAL SCLEROSIS (2) Acute respiratory failure Code(s): J96.00 - ACUTE RESPIRATORY FAILURE, UNSP W HYPOXIA OR HYPERCAPNIA Qualifiers: Respiratory failure complication: hypercapnia Qualified Code(s): J96.02 - Acute respiratory failure with hypercapnia (3) Sepsis Assessment/Plan: Pt having low grade temp ID consult Pt is off antibx Code(s): A41.9 - SEPSIS, UNSPECIFIED ORGANISM (4) Transaminitis Code(s): R74.0 - NONSPEC ELEV OF LEVELS OF TRANSAMNS & LACTIC ACID DEHYDRGNSE
[2016-09-10] MEDS: ACETYLCYSTEINE 20% 200MG/ML 4 ML VIAL *FOR ORAL / INH USE ONLY NEB SCH ×4 (06:23→18:44)
[2016-09-10] MEDS: INSULIN SLIDING SCALE (NOVOLOG) 1 VIAL SQ SCH ×3 (06:54→16:35)
[2016-09-10] MEDS ORDERED: PT OWN MED DRAWER 7, Y5N ONE ×2 (07:03→10:43)
[2016-09-10 07:28] LABS: BASOPHIL 0.4 % (0-2.0); EOSINOPHIL 0.9 % (0-4.5); MCH 34.1 pg (25.7-33.7); MCHC 34.1 g/dl (32.0-35.9); MEAN CELL VOLUME 99.8 fl (80-96); MEAN PLT VOLUME 7.9 fl (7.5-11.1); NEUTROPHILS 88.3 % (42.8-82.8); PLATELET COUNT 272 K/MM3 (134-434); RDW 13.3 % (11.9-15.9); WHITE BLOOD COUNT 9.8 K/mm3 (4.0-10.0)
[2016-09-10 07:52] LABS: ALBUMIN 2.2 g/dl (3.4-5.0); ALK PHOS 137 U/L (45-117); ANION GAP 7 (8-16); BILIRUBIN,TOTAL 0.4 mg/dL (0.2-1.0); CALCIUM 8.6 mg/dL (8.5-10.1); CO2 33 mmol/L (21-32); CREATININE 0.5 mg/dL (0.7-1.3); GLUCOSE,RANDOM 238 mg/dL (74-106); SGOT/AST 26 U/L (15-37); SGPT/ALT 71 U/L (12-78); TOT PROT 5.8 g/dl (6.4-8.2)
[2016-09-10] MEDS: HEPARIN NA (PORCINE) 5,000 UNITS/ML 1ML VIAL SQ SCH ×2 (10:46→21:22)
[2016-09-10] MEDS: RILUZOLE 50 MG PEG SCH ×2 (10:47→21:24)
[2016-09-10] MEDS: NYSTATIN POWDER 100,000 UNITS/GM - 15 GM TOPICAL POWDER TP SCH ×2 (10:47→21:24)
[2016-09-10] MEDS: ACETAMINOPHEN 650 MG/20.3 ML ORAL SOLUTION (CUPS) PO PRN (11:18)
--- NOTE | 2016-09-10 11:29 | PN ---
Progress Note, Physician History of Present Illness: Awake and alert on ventilator No acute distress + tracheal sections CXR shows complete opacification L lung field + low grade temp WBC normal BC no growth O2 sat on 70 % FiO2 96% - Current Medication List Current Medications: Active Medications Acetaminophen (Tylenol Oral Solution -) 650 mg PO Q6H PRN PRN Reason: FEVER OR PAIN Last Admin: 09/10/16 11:18 Dose: 650 mg Acetylcysteine (Mucomyst 20 Oral / Inh Use Only*) 200 mg NEB QIDR [facility] Last Admin: 09/10/16 06:23 Dose: 200 mg Albuterol Sulfate (Ventolin 0.083% Nebulizer Soln -) 1 amp NEB Q4H PRN PRN Reason: SHORT OF BREATH/WHEEZING Last Admin: 09/10/16 00:00 Dose: 1 amp Heparin Sodium (Porcine) (Heparin -) 5,000 unit SQ BID [facility] Last Admin: 09/10/16 10:46 Dose: 5,000 unit Insulin Aspart (Novolog Vial Sliding Scale -) 1 vial SQ TIDAC [facility] PRN Reason: Protocol Last Admin: 09/10/16 11:09 Dose: 2 unit Riluzole 50 Mg Tab - (Patient Own Med) 1 each PEG BID [facility] Last Admin: 09/10/16 10:47 Dose: 1 each Nystatin (Nystop Powder -) 1 applic TP BID [facility] Last Admin: 09/10/16 10:47 Dose: 1 applic Ranitidine HCl (Zantac Oral Solution -) 150 mg NGT BID [facility] Last Admin: 09/09/16 21:12 Dose: 150 mg - Objective Vital Signs: Vital Signs Temperature 99.4 F 09/10/16 06:00 Pulse Rate 93 H 09/10/16 06:00 Respiratory Rate 20 09/10/16 06:00 Blood Pressure 113/62 09/10/16 06:00 O2 Sat by Pulse Oximetry (%) 98 09/09/16 21:00 Constitutional: Yes: No Distress Eyes: Yes: Conjunctiva Clear Cardiovascular: Yes: Regular Rate and Rhythm, S1, S2 Respiratory: Yes: Rhonchi Gastrointestinal: Yes: Normal Bowel Sounds, Soft. No: Tenderness Labs: CBC, BMP 09/10/16 07:00 09/10/16 05:35 INR, PTT INR 1.09 (0.82-1.09) 09/03/16 18:30 Assessment/Plan S/P respiratory failure/ trach Fever- suspect secondary to atelectatic L lung WBC WNL BC no growth Hx neuromuscular disorder Pulmonary follow up Suctioned sputum c/s Observe off antibiotics Respiratory support
[2016-09-10] MEDS: ALBUTEROL SO4 0.083% IH SOL 2.5 MG/3 ML VIAL.NEB. NEB PRN ×3 (11:35→18:44)
[2016-09-10] MEDS: RANITIDINE HCL 150 MG/10 ML UNIT-DOSE CUP NGT SCH ×2 (14:05→21:25)
--- NOTE | 2016-09-10 14:22 | PN ---
Progress Note, Physician Chief Complaint: pulmonary alert on vent support ac mode. chest x-ray complete atelectasis left lung.+low grade temp 100 - Current Medication List Current Medications: Active Medications Acetaminophen (Tylenol Oral Solution -) 650 mg PO Q6H PRN PRN Reason: FEVER OR PAIN Last Admin: 09/10/16 11:18 Dose: 650 mg Acetylcysteine (Mucomyst 20 Oral / Inh Use Only*) 200 mg NEB QIDR [facility] Last Admin: 09/10/16 11:35 Dose: 200 mg Albuterol Sulfate (Ventolin 0.083% Nebulizer Soln -) 1 amp NEB Q4H PRN PRN Reason: SHORT OF BREATH/WHEEZING Last Admin: 09/10/16 11:35 Dose: 1 amp Heparin Sodium (Porcine) (Heparin -) 5,000 unit SQ BID [facility] Last Admin: 09/10/16 10:46 Dose: 5,000 unit Insulin Aspart (Novolog Vial Sliding Scale -) 1 vial SQ TIDAC [facility] PRN Reason: Protocol Last Admin: 09/10/16 11:09 Dose: 2 unit Riluzole 50 Mg Tab - (Patient Own Med) 1 each PEG BID [facility] Last Admin: 09/10/16 10:47 Dose: 1 each Nystatin (Nystop Powder -) 1 applic TP BID [facility] Last Admin: 09/10/16 10:47 Dose: 1 applic Ranitidine HCl (Zantac Oral Solution -) 150 mg NGT BID [facility] Last Admin: 09/10/16 14:05 Dose: 150 mg o - Objective Vital Signs: Vital Signs Temperature 100.0 F H 09/10/16 09:00 Pulse Rate 81 09/10/16 11:35 Respiratory Rate 19 09/10/16 10:34 Blood Pressure 126/77 09/10/16 09:00 O2 Sat by Pulse Oximetry (%) 97 09/10/16 11:35 Constitutional: Yes: Well Nourished, Calm Eyes: Yes: WNL HENT: Yes: WNL Neck: Yes: Supple (trach) Cardiovascular: Yes: Regular Rate and Rhythm, S1, S2 Respiratory: Yes: Diminished Gastrointestinal: Yes: Normal Bowel Sounds, Soft Extremities: Yes: WNL Edema: No Labs: CBC, BMP 09/10/16 07:00 09/10/16 05:35 INR, PTT INR 1.09 (0.82-1.09) 09/03/16 18:30 Problem List - Problems (1) ALS (amyotrophic lateral sclerosis) Code(s): G12.21 - AMYOTROPHIC LATERAL SCLEROSIS (2) Acute respiratory failure with hypercapnia Code(s): J96.02 - ACUTE RESPIRATORY FAILURE WITH HYPERCAPNIA (3) Dysphagia Code(s): R13.10 - DYSPHAGIA, UNSPECIFIED (4) Pneumonia Code(s): J18.9 - PNEUMONIA, UNSPECIFIED ORGANISM (5) Sepsis Code(s): A41.9 - SEPSIS, UNSPECIFIED ORGANISM (6) Transaminitis Code(s): R74.0 - NONSPEC ELEV OF LEVELS OF TRANSAMNS & LACTIC ACID DEHYDRGNSE Assessment/Plan ASSESSMENT AND PLAN: 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 s/p Tracheostomy Presumed Pneumonia UTI Sepsis ALS HTN DM Hypernatremia resolving Elevated LFTs improving Left lung atelectasis fever - O2 to keep SpO2 >90% - chest PT, pulmonary toilet - inhaled bronchodilators mucolytics - enteral feeds, trend LFTs - spontaneous breathing trials as tolerated - DVT/GI prophylaxis - antibiotics as per id - frequent suctioning with cudet catheter. - f/u chest x-ray DR JOHNS
--- NOTE | 2016-09-10 22:36 | PN ---
Progress Note, Physician - Current Medication List Current Medications: Active Medications Acetaminophen (Tylenol Oral Solution -) 650 mg PO Q6H PRN PRN Reason: FEVER OR PAIN Last Admin: 09/10/16 11:18 Dose: 650 mg Acetylcysteine (Mucomyst 20 Oral / Inh Use Only*) 200 mg NEB QIDR [facility] Last Admin: 09/10/16 18:44 Dose: 200 mg Albuterol Sulfate (Ventolin 0.083% Nebulizer Soln -) 1 amp NEB Q4H PRN PRN Reason: SHORT OF BREATH/WHEEZING Last Admin: 09/10/16 18:44 Dose: 1 amp Insulin Aspart (Novolog Vial Sliding Scale -) 1 vial SQ TIDAC [facility] PRN Reason: Protocol Last Admin: 09/10/16 16:35 Dose: 2 unit Riluzole 50 Mg Tab - (Patient Own Med) 1 each PEG BID [facility] Last Admin: 09/10/16 21:24 Dose: 1 each Nystatin (Nystop Powder -) 1 applic TP BID [facility] Last Admin: 09/10/16 21:24 Dose: 1 applic Ranitidine HCl (Zantac Oral Solution -) 150 mg NGT BID [facility] Last Admin: 09/10/16 21:25 Dose: 150 mg - Objective Vital Signs: Vital Signs Temperature 99.8 F H 09/10/16 18:00 Pulse Rate 85 09/10/16 18:00 Respiratory Rate 18 09/10/16 18:46 Blood Pressure 123/68 09/10/16 18:00 O2 Sat by Pulse Oximetry (%) 97 09/10/16 11:35 Labs: CBC, BMP 09/10/16 07:00 09/10/16 05:35 INR, PTT INR 1.09 (0.82-1.09) 09/03/16 18:30 Problem List - Problems (1) ALS (amyotrophic lateral sclerosis) Code(s): G12.21 - AMYOTROPHIC LATERAL SCLEROSIS (2) Acute respiratory failure Code(s): J96.00 - ACUTE RESPIRATORY FAILURE, UNSP W HYPOXIA OR HYPERCAPNIA Qualifiers: Respiratory failure complication: hypercapnia Qualified Code(s): J96.02 - Acute respiratory failure with hypercapnia (3) Sepsis Code(s): A41.9 - SEPSIS, UNSPECIFIED ORGANISM (4) Transaminitis Code(s): R74.0 - NONSPEC ELEV OF LEVELS OF TRANSAMNS & LACTIC ACID DEHYDRGNSE
[2016-09-11] MEDS: ACETYLCYSTEINE 20% 200MG/ML 4 ML VIAL *FOR ORAL / INH USE ONLY NEB SCH ×5 (00:35→23:51)
[2016-09-11] MEDS: INSULIN SLIDING SCALE (NOVOLOG) 1 VIAL SQ SCH ×3 (06:23→17:29)
[2016-09-11] MEDS ORDERED: PT OWN MED DRAWER 7, Y5N ONE (10:45)
[2016-09-11] MEDS: RANITIDINE HCL 150 MG/10 ML UNIT-DOSE CUP NGT SCH ×2 (10:49→22:20)
[2016-09-11] MEDS: NYSTATIN POWDER 100,000 UNITS/GM - 15 GM TOPICAL POWDER TP SCH ×2 (10:49→22:20)
[2016-09-11] MEDS: RILUZOLE 50 MG PEG SCH ×2 (10:49→22:20)
[2016-09-11] MEDS: ALBUTEROL SO4 0.083% IH SOL 2.5 MG/3 ML VIAL.NEB. NEB PRN ×3 (11:14→23:52)
--- NOTE | 2016-09-11 13:12 | PN ---
Progress Note (short form) - Note Progress Note: PULMONARY Low grade temps overnight. Vented on volume assist control. Denies shortness of breath or chest pain. Last Vital Signs Temp Pulse Resp BP Pulse Ox 98.7 F 84 13 117/77 97 09/11/16 10:00 09/11/16 10:00 09/11/16 10:30 09/11/16 10:00 09/10/16 21:00 Gen: vented, awake Heart: RRR Lung: decreased breath sounds on left Abd: softly distended, nontender Ext: no edema CBC, BMP 09/10/16 07:00 09/10/16 05:35 Active Medications Acetaminophen (Tylenol Oral Solution -) 650 mg PO Q6H PRN PRN Reason: FEVER OR PAIN Last Admin: 09/10/16 11:18 Dose: 650 mg Acetylcysteine (Mucomyst 20 Oral / Inh Use Only*) 200 mg NEB QIDR [facility] Last Admin: 09/11/16 11:14 Dose: 200 mg Albuterol Sulfate (Ventolin 0.083% Nebulizer Soln -) 1 amp NEB Q4H PRN PRN Reason: SHORT OF BREATH/WHEEZING Last Admin: 09/11/16 11:14 Dose: 1 amp Insulin Aspart (Novolog Vial Sliding Scale -) 1 vial SQ TIDAC [facility] PRN Reason: Protocol Last Admin: 09/11/16 12:17 Dose: 2 unit Riluzole 50 Mg Tab - (Patient Own Med) 1 each PEG BID [facility] Last Admin: 09/11/16 10:49 Dose: 1 each Nystatin (Nystop Powder -) 1 applic TP BID [facility] Last Admin: 09/11/16 10:49 Dose: 1 applic Ranitidine HCl (Zantac Oral Solution -) 150 mg NGT BID [facility] Last Admin: 09/11/16 10:49 Dose: 150 mg A/P 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 s/p Tracheostomy Presumed Pneumonia Atelectasis UTI Sepsis ALS HTN DM Hypernatremia resolved Elevated LFTs - repeat CXR - chest PT, pulmonary toilet - inhaled bronchodilators, mucolytics - if no improvement, will consider bronchoscopy - completed antibiotics - O2 to keep SpO2 >90% - enteral feeds - DVT/GI prophylaxis
--- NOTE | 2016-09-11 22:44 | PN ---
Progress Note, Physician - Current Medication List Current Medications: Active Medications Acetaminophen (Tylenol Oral Solution -) 650 mg PO Q6H PRN PRN Reason: FEVER OR PAIN Last Admin: 09/10/16 11:18 Dose: 650 mg Acetylcysteine (Mucomyst 20 Oral / Inh Use Only*) 200 mg NEB QIDR [facility] Last Admin: 09/11/16 17:45 Dose: 200 mg Albuterol Sulfate (Ventolin 0.083% Nebulizer Soln -) 1 amp NEB Q4H PRN PRN Reason: SHORT OF BREATH/WHEEZING Last Admin: 09/11/16 17:45 Dose: 1 amp Insulin Aspart (Novolog Vial Sliding Scale -) 1 vial SQ TIDAC [facility] PRN Reason: Protocol Last Admin: 09/11/16 17:29 Dose: 1 unit Riluzole 50 Mg Tab - (Patient Own Med) 1 each PEG BID [facility] Last Admin: 09/11/16 22:20 Dose: 1 each Nystatin (Nystop Powder -) 1 applic TP BID [facility] Last Admin: 09/11/16 22:20 Dose: 1 applic Ranitidine HCl (Zantac Oral Solution -) 150 mg NGT BID [facility] Last Admin: 09/11/16 22:20 Dose: 150 mg - Objective Vital Signs: Vital Signs Temperature 99.8 F H 09/11/16 18:08 Pulse Rate 92 H 09/11/16 18:08 Respiratory Rate 20 09/11/16 18:08 Blood Pressure 118/70 09/11/16 18:08 O2 Sat by Pulse Oximetry (%) 97 09/11/16 15:11 Labs: CBC, BMP 09/10/16 07:00 09/10/16 05:35 INR, PTT INR 1.09 (0.82-1.09) 09/03/16 18:30 Problem List - Problems (1) ALS (amyotrophic lateral sclerosis) Code(s): G12.21 - AMYOTROPHIC LATERAL SCLEROSIS (2) Acute respiratory failure Code(s): J96.00 - ACUTE RESPIRATORY FAILURE, UNSP W HYPOXIA OR HYPERCAPNIA Qualifiers: Respiratory failure complication: hypercapnia Qualified Code(s): J96.02 - Acute respiratory failure with hypercapnia (3) Sepsis Code(s): A41.9 - SEPSIS, UNSPECIFIED ORGANISM (4) Transaminitis Code(s): R74.0 - NONSPEC ELEV OF LEVELS OF TRANSAMNS & LACTIC ACID DEHYDRGNSE
[2016-09-12] MEDS: INSULIN SLIDING SCALE (NOVOLOG) 1 VIAL SQ SCH ×3 (06:14→18:03)
[2016-09-12] MEDS: ACETYLCYSTEINE 20% 200MG/ML 4 ML VIAL *FOR ORAL / INH USE ONLY NEB SCH ×3 (06:24→18:16)
[2016-09-12] MEDS: ALBUTEROL SO4 0.083% IH SOL 2.5 MG/3 ML VIAL.NEB. NEB PRN ×3 (06:24→18:16)
[2016-09-12] MEDS: RILUZOLE 50 MG PEG SCH ×2 (10:56→22:35)
[2016-09-12] MEDS: RANITIDINE HCL 150 MG/10 ML UNIT-DOSE CUP NGT SCH ×2 (10:56→22:35)
[2016-09-12] MEDS: NYSTATIN POWDER 100,000 UNITS/GM - 15 GM TOPICAL POWDER TP SCH ×2 (10:57→22:34)
[2016-09-12] MEDS: ACETAMINOPHEN 650 MG/20.3 ML ORAL SOLUTION (CUPS) PO PRN (13:29)
--- NOTE | 2016-09-12 14:31 | PN ---
Progress Note (short form) - Note Progress Note: PULMONARY LOW GRADE TEMPS CONTINUE APPEARS COMFORTABLE ON VENT TRACH 12/500/70%/5 AC MODE PALE/ANICTERIC SCATTERED RHONCHI B/L ANTERIOR S1S2 PEG + EDEMA B/L LOWER EXT LABS/MEDS/MICRO/NOTES/IMAGING REVIEWED 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 s/p Tracheostomy Pneumonia UTI Sepsis ALS HTN DM - F/U CXR - chest PT, pulmonary toilet - inhaled bronchodilators, mucolytics - may consider bronchoscopy if no improvement - completed antibiotics - Same vent settings for now - enteral feeds - DVT/GI prophylaxis Nuzhat CLEMENT MD
--- NOTE | 2016-09-12 20:00 | PN ---
Progress Note, Physician - Current Medication List Current Medications: Active Medications Acetaminophen (Tylenol Oral Solution -) 650 mg PO Q6H PRN PRN Reason: FEVER OR PAIN Last Admin: 09/12/16 13:29 Dose: 650 mg Acetylcysteine (Mucomyst 20 Oral / Inh Use Only*) 200 mg NEB QIDR [facility] Last Admin: 09/12/16 18:16 Dose: 200 mg Albuterol Sulfate (Ventolin 0.083% Nebulizer Soln -) 1 amp NEB Q4H PRN PRN Reason: SHORT OF BREATH/WHEEZING Last Admin: 09/12/16 18:16 Dose: 1 amp Insulin Aspart (Novolog Vial Sliding Scale -) 1 vial SQ TIDAC [facility] PRN Reason: Protocol Last Admin: 09/12/16 18:03 Dose: 3 unit Riluzole 50 Mg Tab - (Patient Own Med) 1 each PEG BID [facility] Last Admin: 09/12/16 10:56 Dose: 1 each Nystatin (Nystop Powder -) 1 applic TP BID [facility] Last Admin: 09/12/16 10:57 Dose: 1 applic Ranitidine HCl (Zantac Oral Solution -) 150 mg NGT BID [facility] Last Admin: 09/12/16 10:56 Dose: 150 mg - Objective Vital Signs: Vital Signs Temperature 98.6 F 09/12/16 18:25 Pulse Rate 82 09/12/16 18:25 Respiratory Rate 20 09/12/16 18:25 Blood Pressure 131/70 09/12/16 18:25 O2 Sat by Pulse Oximetry (%) 98 09/12/16 09:42 Constitutional: Yes: No Distress Neck: Yes: Supple Cardiovascular: Yes: Regular Rate and Rhythm Respiratory: Yes: Rhonchi Gastrointestinal: Yes: Normal Bowel Sounds Extremities: Yes: WNL Labs: CBC, BMP 09/10/16 07:00 09/10/16 05:35 INR, PTT INR 1.09 (0.82-1.09) 09/03/16 18:30 Problem List - Problems (1) ALS (amyotrophic lateral sclerosis) Code(s): G12.21 - AMYOTROPHIC LATERAL SCLEROSIS (2) Acute respiratory failure with hypercapnia Code(s): J96.02 - ACUTE RESPIRATORY FAILURE WITH HYPERCAPNIA (3) Dysphagia Code(s): R13.10 - DYSPHAGIA, UNSPECIFIED (4) Pneumonia Code(s): J18.9 - PNEUMONIA, UNSPECIFIED ORGANISM Assessment/Plan 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 s/p Tracheostomy Pneumonia UTI Sepsis ALS HTN DM plan -continue current management
[2016-09-13] MEDS: ALBUTEROL SO4 0.083% IH SOL 2.5 MG/3 ML VIAL.NEB. NEB PRN ×5 (00:05→23:20)
[2016-09-13] MEDS: ACETYLCYSTEINE 20% 200MG/ML 4 ML VIAL *FOR ORAL / INH USE ONLY NEB SCH ×5 (00:05→23:21)
[2016-09-13] MEDS ORDERED: PT OWN MED DRAWER 7, Y5N ONE (06:07)
[2016-09-13] MEDS: INSULIN SLIDING SCALE (NOVOLOG) 1 VIAL SQ SCH ×3 (07:00→17:54)
[2016-09-13] MEDS: NYSTATIN POWDER 100,000 UNITS/GM - 15 GM TOPICAL POWDER TP SCH ×2 (10:04→22:54)
[2016-09-13] MEDS: RANITIDINE HCL 150 MG/10 ML UNIT-DOSE CUP NGT SCH ×2 (10:05→22:54)
[2016-09-13] MEDS: RILUZOLE 50 MG PEG SCH ×2 (10:06→22:54)
--- NOTE | 2016-09-13 12:50 | PN ---
Progress Note (short form) - Note Progress Note: PULMONARY Vented on volume assist control. Denies shortness of breath or chest pain. No fevers recorded. Last Vital Signs Temp Pulse Resp BP Pulse Ox 98.5 F 95 H 12 134/64 98 09/13/16 10:00 09/13/16 10:00 09/13/16 10:47 09/13/16 10:00 09/13/16 00:11 Gen: vented, awake Heart: RRR Lung: decreased breath sounds on left Abd: softly distended, nontender Ext: no edema CBC, BMP 09/10/16 07:00 09/10/16 05:35 Active Medications Acetaminophen (Tylenol Oral Solution -) 650 mg PO Q6H PRN PRN Reason: FEVER OR PAIN Last Admin: 09/12/16 13:29 Dose: 650 mg Acetylcysteine (Mucomyst 20 Oral / Inh Use Only*) 200 mg NEB QIDR [facility] Last Admin: 09/13/16 06:14 Dose: 200 mg Albuterol Sulfate (Ventolin 0.083% Nebulizer Soln -) 1 amp NEB Q4H PRN PRN Reason: SHORT OF BREATH/WHEEZING Last Admin: 09/13/16 06:14 Dose: 1 amp Insulin Aspart (Novolog Vial Sliding Scale -) 1 vial SQ TIDAC [facility] PRN Reason: Protocol Last Admin: 09/13/16 07:00 Dose: 4 unit Riluzole 50 Mg Tab - (Patient Own Med) 1 each PEG BID [facility] Last Admin: 09/13/16 10:06 Dose: 1 each Nystatin (Nystop Powder -) 1 applic TP BID [facility] Last Admin: 09/13/16 10:04 Dose: 1 applic Ranitidine HCl (Zantac Oral Solution -) 150 mg NGT BID [facility] Last Admin: 09/13/16 10:05 Dose: 150 mg A/P 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 s/p Tracheostomy Presumed Pneumonia Atelectasis UTI Sepsis ALS HTN DM Hypernatremia resolved Elevated LFTs - repeat CXR in AM - chest PT, pulmonary toilet - inhaled bronchodilators, mucolytics - if no improvement, will consider bronchoscopy - completed antibiotics - O2 to keep SpO2 >90% - enteral feeds - DVT/GI prophylaxis
--- NOTE | 2016-09-13 20:08 | PN ---
Progress Note, Physician - Current Medication List Current Medications: Active Medications Acetaminophen (Tylenol Oral Solution -) 650 mg PO Q6H PRN PRN Reason: FEVER OR PAIN Last Admin: 09/12/16 13:29 Dose: 650 mg Acetylcysteine (Mucomyst 20 Oral / Inh Use Only*) 200 mg NEB QIDR [facility] Last Admin: 09/13/16 18:00 Dose: 200 mg Albuterol Sulfate (Ventolin 0.083% Nebulizer Soln -) 1 amp NEB Q4H PRN PRN Reason: SHORT OF BREATH/WHEEZING Last Admin: 09/13/16 18:00 Dose: 1 amp Insulin Aspart (Novolog Vial Sliding Scale -) 1 vial SQ TIDAC [facility] PRN Reason: Protocol Last Admin: 09/13/16 17:54 Dose: 2 unit Riluzole 50 Mg Tab - (Patient Own Med) 1 each PEG BID [facility] Last Admin: 09/13/16 10:06 Dose: 1 each Nystatin (Nystop Powder -) 1 applic TP BID [facility] Last Admin: 09/13/16 10:04 Dose: 1 applic Ranitidine HCl (Zantac Oral Solution -) 150 mg NGT BID [facility] Last Admin: 09/13/16 10:05 Dose: 150 mg - Objective Vital Signs: Vital Signs Temperature 99.2 F 09/13/16 15:31 Pulse Rate 90 09/13/16 18:10 Respiratory Rate 20 09/13/16 18:10 Blood Pressure 128/58 09/13/16 18:10 O2 Sat by Pulse Oximetry (%) 98 09/13/16 15:39 Constitutional: Yes: No Distress HENT: Yes: Other (trach collar) Neck: Yes: Supple Cardiovascular: Yes: Regular Rate and Rhythm Respiratory: Yes: CTA Bilaterally Gastrointestinal: Yes: Normal Bowel Sounds Extremities: Yes: WNL Neurological: Yes: Alert, Oriented Labs: CBC, BMP 09/10/16 07:00 09/10/16 05:35 INR, PTT INR 1.09 (0.82-1.09) 09/03/16 18:30 Problem List - Problems (1) ALS (amyotrophic lateral sclerosis) Code(s): G12.21 - AMYOTROPHIC LATERAL SCLEROSIS (2) Acute respiratory failure with hypercapnia Code(s): J96.02 - ACUTE RESPIRATORY FAILURE WITH HYPERCAPNIA (3) Dysphagia Code(s): R13.10 - DYSPHAGIA, UNSPECIFIED (4) Pneumonia Code(s): J18.9 - PNEUMONIA, UNSPECIFIED ORGANISM Assessment/Plan 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 s/p Tracheostomy Pneumonia UTI Sepsis ALS HTN DM plan -continue current management
[2016-09-13] MEDS: ACETAMINOPHEN 650 MG/20.3 ML ORAL SOLUTION (CUPS) PO PRN (22:54)
[2016-09-14] MEDS: INSULIN SLIDING SCALE (NOVOLOG) 1 VIAL SQ SCH ×3 (06:27→18:20)
[2016-09-14] MEDS: ACETYLCYSTEINE 20% 200MG/ML 4 ML VIAL *FOR ORAL / INH USE ONLY NEB SCH ×4 (06:50→23:30)
[2016-09-14] MEDS: ALBUTEROL SO4 0.083% IH SOL 2.5 MG/3 ML VIAL.NEB. NEB PRN ×2 (06:50→23:30)
[2016-09-14] MEDS: RILUZOLE 50 MG PEG SCH ×2 (10:29→23:49)
[2016-09-14] MEDS: NYSTATIN POWDER 100,000 UNITS/GM - 15 GM TOPICAL POWDER TP SCH ×2 (10:29→23:49)
[2016-09-14] MEDS: RANITIDINE HCL 150 MG/10 ML UNIT-DOSE CUP NGT SCH ×2 (10:29→23:49)
--- NOTE | 2016-09-14 13:40 | PN ---
Progress Note (short form) - Note Progress Note: PULMONARY AFEBRILE APPEARS COMFORTABLE ON VENT TRACH 12/500/60%/5 AC MODE PALE/ANICTERIC SCATTERED RHONCHI B/L ANTERIOR S1S2 PEG + EDEMA B/L LOWER EXT LABS/MEDS/MICRO/NOTES/IMAGING REVIEWED IMPROVED AERATION LEFT HEMITHORAX 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 s/p Tracheostomy Pneumonia UTI Sepsis ALS HTN DM - F/U CXR - chest PT, pulmonary toilet - inhaled bronchodilators, mucolytics - completed antibiotics - Same vent settings for now /wean as tolerated - enteral feeds - DVT/GI prophylaxis Nuzhat CLEMENT MD
[2016-09-14] MEDS ORDERED: PT OWN MED DRAWER 7, Y5N ONE (17:52)
--- NOTE | 2016-09-14 19:40 | PN ---
Progress Note, Physician - Current Medication List Current Medications: Active Medications Acetaminophen (Tylenol Oral Solution -) 650 mg PO Q6H PRN PRN Reason: FEVER OR PAIN Last Admin: 09/13/16 22:54 Dose: 650 mg Acetylcysteine (Mucomyst 20 Oral / Inh Use Only*) 200 mg NEB QIDR [facility] Last Admin: 09/14/16 18:39 Dose: Not Given Insulin Aspart (Novolog Vial Sliding Scale -) 1 vial SQ TIDAC [facility] PRN Reason: Protocol Last Admin: 09/14/16 18:20 Dose: 3 unit Riluzole 50 Mg Tab - (Patient Own Med) 1 each PEG BID [facility] Last Admin: 09/14/16 10:29 Dose: 1 each Nystatin (Nystop Powder -) 1 applic TP BID [facility] Last Admin: 09/14/16 10:29 Dose: 1 applic Ranitidine HCl (Zantac Oral Solution -) 150 mg NGT BID [facility] Last Admin: 09/14/16 10:29 Dose: 150 mg - Objective Vital Signs: Vital Signs Temperature 98.8 F 09/14/16 18:20 Pulse Rate 96 H 09/14/16 18:20 Respiratory Rate 22 09/14/16 18:37 Blood Pressure 109/79 09/14/16 18:20 O2 Sat by Pulse Oximetry (%) 97 09/14/16 10:00 Labs: CBC, BMP 09/10/16 07:00 09/10/16 05:35 INR, PTT INR 1.09 (0.82-1.09) 09/03/16 18:30 Problem List - Problems (1) ALS (amyotrophic lateral sclerosis) Code(s): G12.21 - AMYOTROPHIC LATERAL SCLEROSIS (2) Acute respiratory failure Code(s): J96.00 - ACUTE RESPIRATORY FAILURE, UNSP W HYPOXIA OR HYPERCAPNIA Qualifiers: Respiratory failure complication: hypercapnia Qualified Code(s): J96.02 - Acute respiratory failure with hypercapnia (3) Sepsis Code(s): A41.9 - SEPSIS, UNSPECIFIED ORGANISM (4) Transaminitis Code(s): R74.0 - NONSPEC ELEV OF LEVELS OF TRANSAMNS & LACTIC ACID DEHYDRGNSE
[2016-09-14] MEDS ORDERED: ALBUTEROL SO4 0.083% IH SOL 2.5 MG/3 ML VIAL.NEB. NEB ONE (23:20)
[2016-09-15] MEDS: INSULIN SLIDING SCALE (NOVOLOG) 1 VIAL SQ SCH ×3 (06:11→18:02)
[2016-09-15] MEDS: ACETYLCYSTEINE 20% 200MG/ML 4 ML VIAL *FOR ORAL / INH USE ONLY NEB SCH ×4 (06:30→23:05)
[2016-09-15] MEDS ORDERED: ALBUTEROL SO4 0.083% IH SOL 2.5 MG/3 ML VIAL.NEB. NEB ONE (10:02)
[2016-09-15] MEDS ORDERED: PT OWN MED DRAWER 7, Y5N ONE (10:20)
[2016-09-15] MEDS ORDERED: INSULIN (NOVOLOG) ASPART 100 UNITS/ML 10ML VIAL ONE (10:20)
[2016-09-15] MEDS: NYSTATIN POWDER 100,000 UNITS/GM - 15 GM TOPICAL POWDER TP SCH (10:26)
[2016-09-15] MEDS: RILUZOLE 50 MG PEG SCH ×2 (10:26→22:53)
[2016-09-15] MEDS: RANITIDINE HCL 150 MG/10 ML UNIT-DOSE CUP NGT SCH ×2 (10:26→22:51)
[2016-09-15 10:30] LABS: SGOT/AST 18 U/L (15-37); SGPT/ALT 40 U/L (12-78)
[2016-09-15 10:33] LABS: ALBUMIN 2.2 g/dl (3.4-5.0); ALK PHOS 129 U/L (45-117); ANION GAP 12 (8-16); BILIRUBIN,TOTAL 0.3 mg/dL (0.2-1.0); CALCIUM 8.6 mg/dL (8.5-10.1); CO2 32 mmol/L (21-32); CREATININE 0.5 mg/dL (0.7-1.3); GLUCOSE,RANDOM 216 mg/dL (74-106); TOT PROT 5.9 g/dl (6.4-8.2)
[2016-09-15] MEDS: ALBUTEROL SO4 0.083% IH SOL 2.5 MG/3 ML VIAL.NEB. NEB SCH ×3 (11:03→23:05)
--- NOTE | 2016-09-15 14:00 | PN ---
Progress Note (short form) - Note Progress Note: PULMONARY AFEBRILE APPEARS COMFORTABLE ON VENT TRACH 12/500/60%/5 AC MODE PALE/ANICTERIC SCATTERED RHONCHI B/L ANTERIOR DIMINISHED SOUNDS LEFT SIDED S1S2 PEG + EDEMA B/L LOWER EXT LABS/MEDS/MICRO/NOTES/IMAGING REVIEWED IMPROVED AERATION LEFT HEMITHORAX 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 s/p Tracheostomy Pneumonia UTI Sepsis ALS HTN DM - F/U CXR - chest PT, pulmonary toilet - inhaled bronchodilators, mucolytics - completed antibiotics - Same vent settings for now /wean as tolerated - enteral feeds - DVT/GI prophylaxis Nuzhat CLEMENT MD
--- NOTE | 2016-09-15 21:27 | PN ---
Progress Note, Physician History of Present Illness: No new changes - Current Medication List Current Medications: Active Medications Acetaminophen (Tylenol Oral Solution -) 650 mg PO Q6H PRN PRN Reason: FEVER OR PAIN Last Admin: 09/13/16 22:54 Dose: 650 mg Acetylcysteine (Mucomyst 20 Oral / Inh Use Only*) 200 mg NEB QIDR [facility] Last Admin: 09/15/16 17:50 Dose: 200 mg Albuterol Sulfate (Ventolin 0.083% Nebulizer Soln -) 1 amp NEB QIDR [facility] Last Admin: 09/15/16 17:50 Dose: 1 amp Insulin Aspart (Novolog Vial Sliding Scale -) 1 vial SQ TIDAC [facility] PRN Reason: Protocol Last Admin: 09/15/16 18:02 Dose: Not Given Riluzole 50 Mg Tab - (Patient Own Med) 1 each PEG BID [facility] Last Admin: 09/15/16 10:26 Dose: 1 each Nystatin (Nystop Powder -) 1 applic TP BID [facility] Last Admin: 09/15/16 10:26 Dose: 1 applic Ranitidine HCl (Zantac Oral Solution -) 150 mg NGT BID [facility] Last Admin: 09/15/16 10:26 Dose: 150 mg - Objective Vital Signs: Vital Signs Temperature 99.5 F 09/15/16 14:52 Pulse Rate 69 09/15/16 14:52 Respiratory Rate 14 09/15/16 17:49 Blood Pressure 131/71 09/15/16 14:52 O2 Sat by Pulse Oximetry (%) 93 L 09/15/16 11:44 HENT: Yes: Other ((+) trach) Cardiovascular: Yes: WNL, Regular Rate and Rhythm Respiratory: Yes: WNL, Regular, CTA Bilaterally Gastrointestinal: Yes: Other ((+) PEG) Labs: CBC, BMP 09/10/16 07:00 09/15/16 06:05 INR, PTT INR 1.09 (0.82-1.09) 09/03/16 18:30 Problem List - Problems (1) ALS (amyotrophic lateral sclerosis) Code(s): G12.21 - AMYOTROPHIC LATERAL SCLEROSIS (2) Acute respiratory failure Code(s): J96.00 - ACUTE RESPIRATORY FAILURE, UNSP W HYPOXIA OR HYPERCAPNIA Qualifiers: Respiratory failure complication: hypercapnia Qualified Code(s): J96.02 - Acute respiratory failure with hypercapnia (3) Sepsis Code(s): A41.9 - SEPSIS, UNSPECIFIED ORGANISM (4) Transaminitis Code(s): R74.0 - NONSPEC ELEV OF LEVELS OF TRANSAMNS & LACTIC ACID DEHYDRGNSE
[2016-09-16] MEDS: INSULIN SLIDING SCALE (NOVOLOG) 1 VIAL SQ SCH ×3 (06:33→17:02)
[2016-09-16] MEDS: NYSTATIN POWDER 100,000 UNITS/GM - 15 GM TOPICAL POWDER TP SCH ×3 (06:33→23:19)
[2016-09-16] MEDS: ALBUTEROL SO4 0.083% IH SOL 2.5 MG/3 ML VIAL.NEB. NEB SCH ×4 (06:45→23:20)
[2016-09-16] MEDS: ACETYLCYSTEINE 20% 200MG/ML 4 ML VIAL *FOR ORAL / INH USE ONLY NEB SCH ×4 (06:45→23:20)
[2016-09-16] MEDS ORDERED: PT OWN MED DRAWER 7, Y5N ONE ×2 (09:08→17:07)
[2016-09-16] MEDS: RANITIDINE HCL 150 MG/10 ML UNIT-DOSE CUP NGT SCH ×2 (09:22→23:19)
[2016-09-16] MEDS: RILUZOLE 50 MG PEG SCH ×2 (09:22→23:19)
[2016-09-16 09:58] LABS: BASOPHIL 0.6 % (0-2.0); EOSINOPHIL 0.9 % (0-4.5); MCH 33.4 pg (25.7-33.7); MCHC 33.5 g/dl (32.0-35.9); MEAN CELL VOLUME 99.8 fl (80-96); MEAN PLT VOLUME 8.2 fl (7.5-11.1); NEUTROPHILS 84.3 % (42.8-82.8); PLATELET COUNT 327 K/MM3 (134-434); RDW 13.2 % (11.9-15.9); WHITE BLOOD COUNT 10.3 K/mm3 (4.0-10.0)
--- NOTE | 2016-09-16 10:59 | PN ---
Progress Note (short form) - Note Progress Note: PULMONARY LOW GRADE TEMP APPEARS COMFORTABLE ON VENT TRACH 12/500/60%/5 AC MODE SPEAKING AROUND TRACH PALE/ANICTERIC SCATTERED RHONCHI B/L ANTERIOR DIMINISHED SOUNDS LEFT SIDED S1S2 PEG + EDEMA B/L LOWER EXT LABS/MEDS/MICRO/NOTES/IMAGING REVIEWED IMPROVED AERATION LEFT HEMITHORAX 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 s/p Tracheostomy Pneumonia UTI Sepsis ALS HTN DM - F/U CXR - chest PT, pulmonary toilet - inhaled bronchodilators, mucolytics - completed antibiotics - Same vent settings for now /wean as tolerated - enteral feeds - DVT/GI prophylaxis Nuzhat CLEMENT MD
[2016-09-16] MEDS: ACETAMINOPHEN 650 MG/20.3 ML ORAL SOLUTION (CUPS) PO PRN (12:24)
--- NOTE | 2016-09-16 22:28 | PN ---
Progress Note, Physician History of Present Illness: No new changes - Current Medication List Current Medications: Active Medications Acetaminophen (Tylenol Oral Solution -) 650 mg PO Q6H PRN PRN Reason: FEVER OR PAIN Last Admin: 09/16/16 12:24 Dose: 650 mg Acetylcysteine (Mucomyst 20 Oral / Inh Use Only*) 200 mg NEB QIDR [facility] Last Admin: 09/16/16 17:39 Dose: 200 mg Albuterol Sulfate (Ventolin 0.083% Nebulizer Soln -) 1 amp NEB QIDR [facility] Last Admin: 09/16/16 17:39 Dose: 1 amp Insulin Aspart (Novolog Vial Sliding Scale -) 1 vial SQ TIDAC [facility] PRN Reason: Protocol Last Admin: 09/16/16 17:02 Dose: 1 unit Riluzole 50 Mg Tab - (Patient Own Med) 1 each PEG BID [facility] Last Admin: 09/16/16 09:22 Dose: 1 each Nystatin (Nystop Powder -) 1 applic TP BID [facility] Last Admin: 09/16/16 09:22 Dose: 1 applic Ranitidine HCl (Zantac Oral Solution -) 150 mg NGT BID [facility] Last Admin: 09/16/16 09:22 Dose: 150 mg - Objective Vital Signs: Vital Signs Temperature 99.0 F 09/16/16 17:45 Pulse Rate 86 09/16/16 17:45 Respiratory Rate 14 09/16/16 17:45 Blood Pressure 121/60 09/16/16 17:45 O2 Sat by Pulse Oximetry (%) 93 L 09/16/16 10:46 Neck: Yes: Supple, Other ((+) trach) Cardiovascular: Yes: WNL, Regular Rate and Rhythm Respiratory: Yes: Other (Coarse bs b/l) Gastrointestinal: Yes: Normal Bowel Sounds, Soft, Other ((+) PEG) Labs: CBC, BMP 09/16/16 07:00 09/15/16 06:05 INR, PTT INR 1.09 (0.82-1.09) 09/03/16 18:30 Problem List - Problems (1) Acute respiratory failure Assessment/Plan: S/P tracheostomy Aspiration pneumonia Cont weaning ?DC planning Code(s): J96.00 - ACUTE RESPIRATORY FAILURE, UNSP W HYPOXIA OR HYPERCAPNIA Qualifiers: Respiratory failure complication: hypercapnia Qualified Code(s): J96.02 - Acute respiratory failure with hypercapnia (2) ALS (amyotrophic lateral sclerosis) Assessment/Plan: S/P PEG placement Code(s): G12.21 - AMYOTROPHIC LATERAL SCLEROSIS (3) Sepsis Assessment/Plan: Pt is off antibxs Code(s): A41.9 - SEPSIS, UNSPECIFIED ORGANISM (4) Transaminitis Code(s): R74.0 - NONSPEC ELEV OF LEVELS OF TRANSAMNS & LACTIC ACID DEHYDRGNSE
[2016-09-17] MEDS: ACETAMINOPHEN 650 MG/20.3 ML ORAL SOLUTION (CUPS) PO PRN ×2 (03:09→22:13)
[2016-09-17] MEDS: INSULIN SLIDING SCALE (NOVOLOG) 1 VIAL SQ SCH ×3 (06:22→16:57)
[2016-09-17] MEDS: ACETYLCYSTEINE 20% 200MG/ML 4 ML VIAL *FOR ORAL / INH USE ONLY NEB SCH ×3 (06:45→17:43)
[2016-09-17] MEDS: ALBUTEROL SO4 0.083% IH SOL 2.5 MG/3 ML VIAL.NEB. NEB SCH ×3 (06:45→17:44)
[2016-09-17] MEDS ORDERED: PT OWN MED DRAWER 7, Y5N ONE ×2 (06:54→11:18)
[2016-09-17] MEDS: NYSTATIN POWDER 100,000 UNITS/GM - 15 GM TOPICAL POWDER TP SCH ×2 (11:22→22:12)
[2016-09-17] MEDS: RILUZOLE 50 MG PEG SCH ×2 (11:22→22:12)
[2016-09-17] MEDS: RANITIDINE HCL 150 MG/10 ML UNIT-DOSE CUP NGT SCH ×2 (11:22→22:12)
--- NOTE | 2016-09-17 11:44 | PN ---
Progress Note, Physician History of Present Illness: pulmonary awake on vent support ac mode,-resp distress - Current Medication List Current Medications: Active Medications Acetaminophen (Tylenol Oral Solution -) 650 mg PO Q6H PRN PRN Reason: FEVER OR PAIN Last Admin: 09/17/16 03:09 Dose: 650 mg Acetylcysteine (Mucomyst 20 Oral / Inh Use Only*) 200 mg NEB QIDR [facility] Last Admin: 09/17/16 06:45 Dose: 200 mg Albuterol Sulfate (Ventolin 0.083% Nebulizer Soln -) 1 amp NEB QIDR [facility] Last Admin: 09/17/16 06:45 Dose: 1 amp Insulin Aspart (Novolog Vial Sliding Scale -) 1 vial SQ TIDAC [facility] PRN Reason: Protocol Last Admin: 09/17/16 11:37 Dose: 1 unit Riluzole 50 Mg Tab - (Patient Own Med) 1 each PEG BID [facility] Last Admin: 09/17/16 11:22 Dose: 1 each Nystatin (Nystop Powder -) 1 applic TP BID [facility] Last Admin: 09/17/16 11:22 Dose: 1 applic Ranitidine HCl (Zantac Oral Solution -) 150 mg NGT BID [facility] Last Admin: 09/17/16 11:22 Dose: 150 mg - Objective Vital Signs: Vital Signs Temperature 98.5 F 09/17/16 05:00 Pulse Rate 80 09/17/16 05:00 Respiratory Rate 16 09/17/16 06:25 Blood Pressure 113/60 09/17/16 05:00 O2 Sat by Pulse Oximetry (%) 95 09/16/16 21:00 Constitutional: Yes: Well Nourished, Calm Eyes: Yes: WNL HENT: Yes: WNL Neck: Yes: Supple (trach) Cardiovascular: Yes: Regular Rate and Rhythm, S1, S2 Respiratory: Yes: Diminished Gastrointestinal: Yes: Normal Bowel Sounds, Soft Extremities: Yes: WNL Edema: No Labs: CBC, BMP 09/16/16 07:00 09/15/16 06:05 INR, PTT INR 1.09 (0.82-1.09) 09/03/16 18:30 Problem List - Problems (1) ALS (amyotrophic lateral sclerosis) Code(s): G12.21 - AMYOTROPHIC LATERAL SCLEROSIS (2) Acute respiratory failure with hypercapnia Code(s): J96.02 - ACUTE RESPIRATORY FAILURE WITH HYPERCAPNIA (3) Dysphagia Code(s): R13.10 - DYSPHAGIA, UNSPECIFIED (4) Pneumonia Code(s): J18.9 - PNEUMONIA, UNSPECIFIED ORGANISM (5) Sepsis Code(s): A41.9 - SEPSIS, UNSPECIFIED ORGANISM (6) Transaminitis Code(s): R74.0 - NONSPEC ELEV OF LEVELS OF TRANSAMNS & LACTIC ACID DEHYDRGNSE Assessment/Plan ASSESSMENT AND PLAN: 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 s/p Tracheostomy Presumed Pneumonia UTI Sepsis ALS HTN DM Hypernatremia resolving Elevated LFTs improving Left lung atelectasis slightly improved - O2 to keep SpO2 >90% - chest PT, pulmonary toilet - inhaled bronchodilators mucolytics - enteral feeds, trend LFTs - spontaneous breathing trials as tolerated - DVT/GI prophylaxis - antibiotics as per id - frequent suctioning with cudet catheter. - f/u chest x-ray today - flex bronch if atelectasis persists DR JOHNS
--- NOTE | 2016-09-17 20:02 | PN ---
Progress Note, Physician - Current Medication List Current Medications: Active Medications Acetaminophen (Tylenol Oral Solution -) 650 mg PO Q6H PRN PRN Reason: FEVER OR PAIN Last Admin: 09/17/16 03:09 Dose: 650 mg Acetylcysteine (Mucomyst 20 Oral / Inh Use Only*) 200 mg NEB QIDR [facility] Last Admin: 09/17/16 17:43 Dose: 200 mg Albuterol Sulfate (Ventolin 0.083% Nebulizer Soln -) 1 amp NEB QIDR [facility] Last Admin: 09/17/16 17:44 Dose: 1 amp Insulin Aspart (Novolog Vial Sliding Scale -) 1 vial SQ TIDAC [facility] PRN Reason: Protocol Last Admin: 09/17/16 16:57 Dose: 1 unit Riluzole 50 Mg Tab - (Patient Own Med) 1 each PEG BID [facility] Last Admin: 09/17/16 11:22 Dose: 1 each Nystatin (Nystop Powder -) 1 applic TP BID [facility] Last Admin: 09/17/16 11:22 Dose: 1 applic Ranitidine HCl (Zantac Oral Solution -) 150 mg NGT BID [facility] Last Admin: 09/17/16 11:22 Dose: 150 mg - Objective Vital Signs: Vital Signs Temperature 99.8 F H 09/17/16 19:00 Pulse Rate 107 H 09/17/16 19:00 Respiratory Rate 24 09/17/16 19:00 Blood Pressure 137/74 09/17/16 19:00 O2 Sat by Pulse Oximetry (%) 100 09/17/16 09:00 Labs: CBC, BMP 09/16/16 07:00 09/15/16 06:05 INR, PTT INR 1.09 (0.82-1.09) 09/03/16 18:30 Problem List - Problems (1) Acute respiratory failure Code(s): J96.00 - ACUTE RESPIRATORY FAILURE, UNSP W HYPOXIA OR HYPERCAPNIA Qualifiers: Respiratory failure complication: hypercapnia Qualified Code(s): J96.02 - Acute respiratory failure with hypercapnia (2) ALS (amyotrophic lateral sclerosis) Code(s): G12.21 - AMYOTROPHIC LATERAL SCLEROSIS (3) Sepsis Code(s): A41.9 - SEPSIS, UNSPECIFIED ORGANISM (4) Transaminitis Code(s): R74.0 - NONSPEC ELEV OF LEVELS OF TRANSAMNS & LACTIC ACID DEHYDRGNSE
[2016-09-18] MEDS: ACETYLCYSTEINE 20% 200MG/ML 4 ML VIAL *FOR ORAL / INH USE ONLY NEB SCH ×5 (06:15→23:20)
[2016-09-18] MEDS: ALBUTEROL SO4 0.083% IH SOL 2.5 MG/3 ML VIAL.NEB. NEB SCH ×5 (06:15→23:20)
[2016-09-18] MEDS: INSULIN SLIDING SCALE (NOVOLOG) 1 VIAL SQ SCH ×3 (06:35→17:58)
[2016-09-18] MEDS: RANITIDINE HCL 150 MG/10 ML UNIT-DOSE CUP NGT SCH ×2 (10:34→22:34)
[2016-09-18] MEDS: RILUZOLE 50 MG PEG SCH ×2 (10:34→22:34)
[2016-09-18] MEDS: NYSTATIN POWDER 100,000 UNITS/GM - 15 GM TOPICAL POWDER TP SCH ×2 (10:35→22:35)
[2016-09-18] MEDS: ACETAMINOPHEN 650 MG/20.3 ML ORAL SOLUTION (CUPS) PO PRN ×2 (10:35→22:57)
--- NOTE | 2016-09-18 11:26 | PN ---
Progress Note (short form) - Note Progress Note: Awake and alert on AC mode. Overnight RT noted cuff leak and balloon was re-inflated. VT return about 300 to 325 cc. RR increased to supply minute ventilation. Saturation 100% CXR: Some improvement in RICARDO atelectasis. Intake & Output 09/15/16 09/16/16 09/17/16 09/18/16 23:59 23:59 23:59 23:59 Intake Total 1395 2010 2040 990 Output Total 950 1350 700 Balance 503 453 1608 990 Weight 182 lb 1 oz 182 lb 6 oz 181 lb 12.8 oz Last Vital Signs Temp Pulse Resp BP Pulse Ox 97.7 F 72 27 H 132/65 100 09/18/16 06:00 09/18/16 10:00 09/18/16 10:00 09/18/16 06:00 09/18/16 10:00 Active Medications Acetaminophen (Tylenol Oral Solution -) 650 mg PO Q6H PRN PRN Reason: FEVER OR PAIN Last Admin: 09/18/16 10:35 Dose: 650 mg Acetylcysteine (Mucomyst 20 Oral / Inh Use Only*) 200 mg NEB QIDR [facility] Last Admin: 09/18/16 06:15 Dose: 200 mg Albuterol Sulfate (Ventolin 0.083% Nebulizer Soln -) 1 amp NEB QIDR [facility] Last Admin: 09/18/16 06:15 Dose: 1 amp Insulin Aspart (Novolog Vial Sliding Scale -) 1 vial SQ TIDAC [facility] PRN Reason: Protocol Last Admin: 09/18/16 06:35 Dose: 2 unit Riluzole 50 Mg Tab - (Patient Own Med) 1 each PEG BID [facility] Last Admin: 09/18/16 10:34 Dose: 1 each Nystatin (Nystop Powder -) 1 applic TP BID [facility] Last Admin: 09/18/16 10:35 Dose: 1 applic Ranitidine HCl (Zantac Oral Solution -) 150 mg NGT BID [facility] Last Admin: 09/18/16 10:34 Dose: 150 mg Gen: Awake and alert, Trached Heart: RRR Lung: scattered rhonchi Abd: soft, nontender Ext: no edema Laboratory Results - last 24 hr 09/17/16 09/17/16 09/18/16 11:28 16:55 06:34 POC Glucometer 166 169 223 Problem List - Problems (1) Head injury Code(s): S09.90XA - UNSPECIFIED INJURY OF HEAD, INITIAL ENCOUNTER Qualifiers: Encounter type: initial encounter Qualified Code(s): S09.90XA - Unspecified injury of head, initial encounter (2) Laceration Code(s): T14.8 - OTHER INJURY OF UNSPECIFIED BODY REGION (3) Acute respiratory failure Code(s): J96.00 - ACUTE RESPIRATORY FAILURE, UNSP W HYPOXIA OR HYPERCAPNIA Qualifiers: Respiratory failure complication: hypercapnia Qualified Code(s): J96.02 - Acute respiratory failure with hypercapnia (4) Pneumonia Code(s): J18.9 - PNEUMONIA, UNSPECIFIED ORGANISM (5) Acute respiratory failure with hypercapnia Code(s): J96.02 - ACUTE RESPIRATORY FAILURE WITH HYPERCAPNIA (6) ALS (amyotrophic lateral sclerosis) Code(s): G12.21 - AMYOTROPHIC LATERAL SCLEROSIS (7) Sepsis Code(s): A41.9 - SEPSIS, UNSPECIFIED ORGANISM ASSESSMENT AND PLAN: 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 Presumed Pneumonia UTI Sepsis ALS HTN DM - Off ABX - O2 to keep SpO2 >90% - Monitor off systemic steroids - inhaled bronchodilators - aspiration precautions - DVT/GI prophylaxis - Check AM CXR - CTS contacted to re-assess Trach - D/C planning Dr Donald Problem List - Problems (1) Head injury Code(s): S09.90XA - UNSPECIFIED INJURY OF HEAD, INITIAL ENCOUNTER Qualifiers: Encounter type: initial encounter Qualified Code(s): S09.90XA - Unspecified injury of head, initial encounter (2) Laceration Code(s): T14.8 - OTHER INJURY OF UNSPECIFIED BODY REGION (3) Acute respiratory failure Code(s): J96.00 - ACUTE RESPIRATORY FAILURE, UNSP W HYPOXIA OR HYPERCAPNIA Qualifiers: Respiratory failure complication: hypercapnia Qualified Code(s): J96.02 - Acute respiratory failure with hypercapnia (4) Pneumonia Code(s): J18.9 - PNEUMONIA, UNSPECIFIED ORGANISM (5) Acute respiratory failure with hypercapnia Code(s): J96.02 - ACUTE RESPIRATORY FAILURE WITH HYPERCAPNIA (6) ALS (amyotrophic lateral sclerosis) Code(s): G12.21 - AMYOTROPHIC LATERAL SCLEROSIS (7) Sepsis Code(s): A41.9 - SEPSIS, UNSPECIFIED ORGANISM
[2016-09-18] MEDS ORDERED: INSULIN (NOVOLOG) ASPART 100 UNITS/ML 10ML VIAL ONE (12:19)
--- NOTE | 2016-09-18 22:35 | PN ---
Progress Note, Physician - Current Medication List Current Medications: Active Medications Acetaminophen (Tylenol Oral Solution -) 650 mg PO Q6H PRN PRN Reason: FEVER OR PAIN Last Admin: 09/18/16 10:35 Dose: 650 mg Acetylcysteine (Mucomyst 20 Oral / Inh Use Only*) 200 mg NEB QIDR [facility] Last Admin: 09/18/16 17:36 Dose: 200 mg Albuterol Sulfate (Ventolin 0.083% Nebulizer Soln -) 1 amp NEB QIDR [facility] Last Admin: 09/18/16 17:36 Dose: 1 amp Insulin Aspart (Novolog Vial Sliding Scale -) 1 vial SQ TIDAC [facility] PRN Reason: Protocol Last Admin: 09/18/16 17:58 Dose: Not Given Riluzole 50 Mg Tab - (Patient Own Med) 1 each PEG BID [facility] Last Admin: 09/18/16 10:34 Dose: 1 each Nystatin (Nystop Powder -) 1 applic TP BID [facility] Last Admin: 09/18/16 10:35 Dose: 1 applic Ranitidine HCl (Zantac Oral Solution -) 150 mg NGT BID [facility] Last Admin: 09/18/16 10:34 Dose: 150 mg - Objective Vital Signs: Vital Signs Temperature 98.3 F 09/18/16 18:57 Pulse Rate 98 H 09/18/16 18:57 Respiratory Rate 24 09/18/16 18:57 Blood Pressure 123/71 09/18/16 18:57 O2 Sat by Pulse Oximetry (%) 100 09/18/16 10:00 Neck: Yes: Other ((+) trach) Cardiovascular: Yes: WNL, Regular Rate and Rhythm Respiratory: Yes: WNL, Regular, CTA Bilaterally Gastrointestinal: Yes: Other ((+) PEG) Labs: CBC, BMP 09/16/16 07:00 09/15/16 06:05 INR, PTT INR 1.09 (0.82-1.09) 09/03/16 18:30 Problem List - Problems (1) Acute respiratory failure Assessment/Plan: S/P tracheostomy Aspiration pneumonia Cont weaning ?DC planning Code(s): J96.00 - ACUTE RESPIRATORY FAILURE, UNSP W HYPOXIA OR HYPERCAPNIA Qualifiers: Respiratory failure complication: hypercapnia Qualified Code(s): J96.02 - Acute respiratory failure with hypercapnia (2) ALS (amyotrophic lateral sclerosis) Assessment/Plan: S/P PEG placement Nutrition consult for changing to bolus feedings Code(s): G12.21 - AMYOTROPHIC LATERAL SCLEROSIS (3) Sepsis Code(s): A41.9 - SEPSIS, UNSPECIFIED ORGANISM (4) Transaminitis Code(s): R74.0 - NONSPEC ELEV OF LEVELS OF TRANSAMNS & LACTIC ACID DEHYDRGNSE
[2016-09-19] MEDS: INSULIN SLIDING SCALE (NOVOLOG) 1 VIAL SQ SCH ×3 (06:20→17:06)
[2016-09-19] MEDS: ACETYLCYSTEINE 20% 200MG/ML 4 ML VIAL *FOR ORAL / INH USE ONLY NEB SCH ×3 (06:40→17:56)
[2016-09-19] MEDS: ALBUTEROL SO4 0.083% IH SOL 2.5 MG/3 ML VIAL.NEB. NEB SCH ×3 (06:40→17:56)
[2016-09-19] MEDS: RILUZOLE 50 MG PEG SCH ×2 (10:01→23:49)
[2016-09-19] MEDS: RANITIDINE HCL 150 MG/10 ML UNIT-DOSE CUP NGT SCH ×2 (10:01→23:49)
[2016-09-19] MEDS: NYSTATIN POWDER 100,000 UNITS/GM - 15 GM TOPICAL POWDER TP SCH ×2 (10:03→23:49)
[2016-09-19] MEDS ORDERED: INSULIN (NOVOLOG) ASPART 100 UNITS/ML 10ML VIAL ONE (12:15)
--- NOTE | 2016-09-19 12:32 | PN ---
Progress Note, Physician History of Present Illness: PULMONARY ALERT,ON VENT SUPPORT AC MODE - Current Medication List Current Medications: Active Medications Acetaminophen (Tylenol Oral Solution -) 650 mg PO Q6H PRN PRN Reason: FEVER OR PAIN Last Admin: 09/18/16 22:57 Dose: 650 mg Acetylcysteine (Mucomyst 20 Oral / Inh Use Only*) 200 mg NEB QIDR [facility] Last Admin: 09/19/16 11:07 Dose: 200 mg Albuterol Sulfate (Ventolin 0.083% Nebulizer Soln -) 1 amp NEB QIDR [facility] Last Admin: 09/19/16 11:06 Dose: 1 amp Insulin Aspart (Novolog Vial Sliding Scale -) 1 vial SQ TIDAC [facility] PRN Reason: Protocol Last Admin: 09/19/16 12:22 Dose: 1 unit Riluzole 50 Mg Tab - (Patient Own Med) 1 each PEG BID [facility] Last Admin: 09/19/16 10:01 Dose: 1 each Nystatin (Nystop Powder -) 1 applic TP BID [facility] Last Admin: 09/19/16 10:03 Dose: 1 applic Ranitidine HCl (Zantac Oral Solution -) 150 mg NGT BID [facility] Last Admin: 09/19/16 10:01 Dose: 150 mg - Objective Vital Signs: Vital Signs Temperature 98.3 F 09/19/16 06:00 Pulse Rate 79 09/19/16 06:00 Respiratory Rate 24 09/19/16 10:09 Blood Pressure 129/67 09/19/16 06:00 O2 Sat by Pulse Oximetry (%) 100 09/18/16 22:00 Constitutional: Yes: Well Nourished, Calm Eyes: Yes: WNL HENT: Yes: WNL, Tonsillar Exudate Cardiovascular: Yes: Regular Rate and Rhythm, S1, S2 Respiratory: Yes: Diminished Gastrointestinal: Yes: Normal Bowel Sounds, Soft Extremities: Yes: WNL Edema: No Labs: CBC, BMP 09/16/16 07:00 09/15/16 06:05 INR, PTT INR 1.09 (0.82-1.09) 09/03/16 18:30 Problem List - Problems (1) ALS (amyotrophic lateral sclerosis) Code(s): G12.21 - AMYOTROPHIC LATERAL SCLEROSIS (2) Acute respiratory failure with hypercapnia Code(s): J96.02 - ACUTE RESPIRATORY FAILURE WITH HYPERCAPNIA (3) Dysphagia Code(s): R13.10 - DYSPHAGIA, UNSPECIFIED (4) Pneumonia Code(s): J18.9 - PNEUMONIA, UNSPECIFIED ORGANISM (5) Sepsis Code(s): A41.9 - SEPSIS, UNSPECIFIED ORGANISM (6) Transaminitis Code(s): R74.0 - NONSPEC ELEV OF LEVELS OF TRANSAMNS & LACTIC ACID DEHYDRGNSE Assessment/Plan ASSESSMENT AND PLAN: 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 s/p Tracheostomy Presumed Pneumonia UTI Sepsis ALS HTN DM Hypernatremia resolving Elevated LFTs improving Left lung atelectasis improving - O2 to keep SpO2 >90% - chest PT, pulmonary toilet - inhaled bronchodilators mucolytics - enteral feeds, trend LFTs - spontaneous breathing trials as tolerated - DVT/GI prophylaxis - antibiotics as per id - frequent suctioning with cudet catheter. - ENT f/u DR JOHNS
[2016-09-19] MEDS: ACETAMINOPHEN 650 MG/20.3 ML ORAL SOLUTION (CUPS) PO PRN ×2 (14:41→23:49)
--- NOTE | 2016-09-19 15:37 | PN ---
Progress Note (short form) - Note Progress Note: asked to fl/u for fevers intermittent for last 48 hours he is alert trach with air leak no complaints no chills no chest pain or abdominal pain no diarrhea off antibiotics since 1/2 Vital Signs Period Temp Pulse Resp BP Sys/Wang Pulse Ox Last 24 Hr 98.3 F-101.2 F 79-98 20-26 117-129/51-71 100 trach to vent cor-rrr lungs decreased bs at bases port site no erythema abd soft, +GT ext no edema no skin breakdown CBC, BMP 09/16/16 07:00 09/15/16 06:05 cxray pleural effusions, some improvement LLL atelectasis a/p fevers- hemodynamically stable repeat cultures f/u cxray in am cbc observe off antibiotics
[2016-09-19 18:24] LABS: MCH 33.8 pg (25.7-33.7); MCHC 34.5 g/dl (32.0-35.9); MEAN PLT VOLUME 8.1 fl (7.5-11.1); PLATELET COUNT 306 K/MM3 (134-434); RDW 13.6 % (11.9-15.9); WHITE BLOOD COUNT 10.3 K/mm3 (4.0-10.0)
[2016-09-19 18:43] LABS: ALBUMIN 2.2 g/dl (3.4-5.0); ALK PHOS 194 U/L (45-117); ANION GAP 7 (8-16); BILIRUBIN,TOTAL 0.4 mg/dL (0.2-1.0); CALCIUM 8.6 mg/dL (8.5-10.1); CO2 30 mmol/L (21-32); CREATININE 0.6 mg/dL (0.7-1.3); GLUCOSE,RANDOM 186 mg/dL (74-106); SGOT/AST 28 U/L (15-37); SGPT/ALT 42 U/L (12-78); TOT PROT 6.4 g/dl (6.4-8.2)
--- NOTE | 2016-09-19 21:01 | PN ---
Progress Note, Physician - Current Medication List Current Medications: Active Medications Acetaminophen (Tylenol Oral Solution -) 650 mg PO Q6H PRN PRN Reason: FEVER OR PAIN Last Admin: 09/19/16 14:41 Dose: 650 mg Acetylcysteine (Mucomyst 20 Oral / Inh Use Only*) 200 mg NEB QIDR [facility] Last Admin: 09/19/16 17:56 Dose: 200 mg Albuterol Sulfate (Ventolin 0.083% Nebulizer Soln -) 1 amp NEB QIDR [facility] Last Admin: 09/19/16 17:56 Dose: 1 amp Insulin Aspart (Novolog Vial Sliding Scale -) 1 vial SQ TIDAC [facility] PRN Reason: Protocol Last Admin: 09/19/16 17:06 Dose: 2 unit Riluzole 50 Mg Tab - (Patient Own Med) 1 each PEG BID [facility] Last Admin: 09/19/16 10:01 Dose: 1 each Nystatin (Nystop Powder -) 1 applic TP BID [facility] Last Admin: 09/19/16 10:03 Dose: 1 applic Ranitidine HCl (Zantac Oral Solution -) 150 mg NGT BID [facility] Last Admin: 09/19/16 10:01 Dose: 150 mg - Objective Vital Signs: Vital Signs Temperature 98.7 F 09/19/16 19:00 Pulse Rate 82 09/19/16 19:00 Respiratory Rate 22 09/19/16 19:00 Blood Pressure 107/60 09/19/16 19:00 O2 Sat by Pulse Oximetry (%) 96 09/19/16 09:00 Labs: CBC, BMP 09/19/16 17:30 09/19/16 17:30 INR, PTT INR 1.09 (0.82-1.09) 09/03/16 18:30 Problem List - Problems (1) Acute respiratory failure Code(s): J96.00 - ACUTE RESPIRATORY FAILURE, UNSP W HYPOXIA OR HYPERCAPNIA Qualifiers: Respiratory failure complication: hypercapnia Qualified Code(s): J96.02 - Acute respiratory failure with hypercapnia (2) ALS (amyotrophic lateral sclerosis) Code(s): G12.21 - AMYOTROPHIC LATERAL SCLEROSIS (3) Sepsis Code(s): A41.9 - SEPSIS, UNSPECIFIED ORGANISM (4) Transaminitis Code(s): R74.0 - NONSPEC ELEV OF LEVELS OF TRANSAMNS & LACTIC ACID DEHYDRGNSE
[2016-09-20] MEDS: ACETYLCYSTEINE 20% 200MG/ML 4 ML VIAL *FOR ORAL / INH USE ONLY NEB SCH ×5 (00:23→23:10)
[2016-09-20] MEDS: ALBUTEROL SO4 0.083% IH SOL 2.5 MG/3 ML VIAL.NEB. NEB SCH ×3 (00:24→12:07)
[2016-09-20 01:56] LABS: URINE APPEARANCE CLEAR; URINE BILIRUBIN NEGATIVE (NEGATIVE); URINE BLOOD NEGATIVE (NEGATIVE); URINE COLOR YELLOW; URINE GLUCOSE (UA) NEGATIVE (NEGATIVE); URINE KETONE NEGATIVE (NEGATIVE); URINE LEUK ESTERASE NEGATIVE (NEGATIVE); URINE NITRITE NEGATIVE (NEGATIVE); URINE UROBILINOGEN NEGATIVE E.U./dl (0.2-1.0)
[2016-09-20 01:58] LABS: URINE PROTEIN 1+ (NEGATIVE)
[2016-09-20 02:05] LABS: URINE MUCUS RARE; URINE RBC <1 /hpf (0-3); URINE WBC 1 /hpf (3-5)
[2016-09-20] MEDS: INSULIN SLIDING SCALE (NOVOLOG) 1 VIAL SQ SCH ×3 (06:26→18:02)
--- NOTE | 2016-09-20 09:10 | PN ---
Progress Note, Physician Chief Complaint: ID Off antibiotics Remains stable despite fevers No fevers - Current Medication List Current Medications: Active Medications Acetaminophen (Tylenol Oral Solution -) 650 mg PO Q6H PRN PRN Reason: FEVER OR PAIN Last Admin: 09/19/16 23:49 Dose: 650 mg Acetylcysteine (Mucomyst 20 Oral / Inh Use Only*) 200 mg NEB QIDR [facility] Last Admin: 09/20/16 06:20 Dose: 200 mg Albuterol Sulfate (Ventolin 0.083% Nebulizer Soln -) 1 amp NEB QIDR [facility] Last Admin: 09/20/16 06:20 Dose: 1 amp Insulin Aspart (Novolog Vial Sliding Scale -) 1 vial SQ TIDAC [facility] PRN Reason: Protocol Last Admin: 09/20/16 06:26 Dose: 2 unit Riluzole 50 Mg Tab - (Patient Own Med) 1 each PEG BID [facility] Last Admin: 09/19/16 23:49 Dose: 1 each Nystatin (Nystop Powder -) 1 applic TP BID [facility] Last Admin: 09/19/16 23:49 Dose: 1 applic Ranitidine HCl (Zantac Oral Solution -) 150 mg NGT BID [facility] Last Admin: 09/19/16 23:49 Dose: 150 mg - Objective Vital Signs: Vital Signs Temperature 99.9 F H 09/20/16 06:00 Pulse Rate 89 09/20/16 06:00 Respiratory Rate 24 09/20/16 06:56 Blood Pressure 115/58 09/20/16 06:00 O2 Sat by Pulse Oximetry (%) 99 09/19/16 22:00 Constitutional: Yes: Other (Vent dependent) Neck: Yes: Other (Tracheostomy) Cardiovascular: Yes: Regular Rate and Rhythm, S1, S2 Respiratory: Yes: WNL, Regular, CTA Bilaterally Gastrointestinal: Yes: WNL, Normal Bowel Sounds, Soft. No: Tenderness, Tenderness, Epigastrium Edema: No Labs: CBC, BMP 09/19/16 17:30 09/19/16 17:30 INR, PTT INR 1.09 (0.82-1.09) 09/03/16 18:30 Assessment/Plan Microbiology Laboratory Tests 09/19/16 09/19/16 17:30 17:30 WBC 10.3 H Hgb 9.1 L Plt Count 306 BUN 27 H D Assessment ALS with intermittent fevers Currently none and looks well may be secondary to atalectasis Left lung Plan Await cultures and no antibiotics for now Blood cultures so far negative Jay Jay VALLE
[2016-09-20] MEDS ORDERED: PT OWN MED DRAWER 7, Y5N ONE ×2 (09:36→16:37)
[2016-09-20] MEDS: ACETAMINOPHEN 650 MG/20.3 ML ORAL SOLUTION (CUPS) PO PRN (10:05)
[2016-09-20] MEDS: RANITIDINE HCL 150 MG/10 ML UNIT-DOSE CUP NGT SCH ×2 (10:06→22:45)
[2016-09-20] MEDS: RILUZOLE 50 MG PEG SCH ×2 (10:06→22:44)
[2016-09-20] MEDS: NYSTATIN POWDER 100,000 UNITS/GM - 15 GM TOPICAL POWDER TP SCH ×2 (10:26→22:43)
--- NOTE | 2016-09-20 12:56 | PN ---
Progress Note, Physician History of Present Illness: pulmonary awake on vent support ac mode,+trach air leak although getting good tidal volumes ventilating well. +temp 101.5 - Current Medication List Current Medications: Active Medications Acetaminophen (Tylenol Oral Solution -) 650 mg PO Q6H PRN PRN Reason: FEVER OR PAIN Last Admin: 09/20/16 10:05 Dose: 650 mg Acetylcysteine (Mucomyst 20 Oral / Inh Use Only*) 200 mg NEB QIDR [facility] Last Admin: 09/20/16 12:06 Dose: 200 mg Insulin Aspart (Novolog Vial Sliding Scale -) 1 vial SQ TIDAC [facility] PRN Reason: Protocol Last Admin: 09/20/16 12:25 Dose: 2 unit Riluzole 50 Mg Tab - (Patient Own Med) 1 each PEG BID [facility] Last Admin: 09/20/16 10:06 Dose: 1 each Nystatin (Nystop Powder -) 1 applic TP BID [facility] Last Admin: 09/20/16 10:26 Dose: 1 applic Ranitidine HCl (Zantac Oral Solution -) 150 mg NGT BID [facility] Last Admin: 09/20/16 10:06 Dose: 150 mg - Objective Vital Signs: Vital Signs Temperature 101.5 F H 09/20/16 09:30 Pulse Rate 90 09/20/16 09:39 Respiratory Rate 24 09/20/16 09:35 Blood Pressure 126/64 09/20/16 09:30 O2 Sat by Pulse Oximetry (%) 98 09/20/16 09:39 Constitutional: Yes: Well Nourished, Calm Eyes: Yes: WNL HENT: Yes: WNL Neck: Yes: Supple (trach) Cardiovascular: Yes: Regular Rate and Rhythm, S1, S2 Respiratory: Yes: Rhonchi (scattered solomon rhonchi) Gastrointestinal: Yes: Normal Bowel Sounds, Soft Extremities: Yes: WNL Edema: No Labs: CBC, BMP Problem List - Problems (1) ALS (amyotrophic lateral sclerosis) Code(s): G12.21 - AMYOTROPHIC LATERAL SCLEROSIS (2) Acute respiratory failure with hypercapnia Code(s): J96.02 - ACUTE RESPIRATORY FAILURE WITH HYPERCAPNIA (3) Dysphagia Code(s): R13.10 - DYSPHAGIA, UNSPECIFIED (4) Pneumonia Code(s): J18.9 - PNEUMONIA, UNSPECIFIED ORGANISM (5) Sepsis Code(s): A41.9 - SEPSIS, UNSPECIFIED ORGANISM (6) Transaminitis Code(s): R74.0 - NONSPEC ELEV OF LEVELS OF TRANSAMNS & LACTIC ACID DEHYDRGNSE Assessment/Plan ASSESSMENT AND PLAN: 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 s/p Tracheostomy Presumed Pneumonia UTI Sepsis ALS HTN DM Hypernatremia resolved Elevated LFTs improved Left lung atelectasis improving - O2 to keep SpO2 >90% - chest PT, pulmonary toilet - inhaled bronchodilators mucolytics - enteral feeds, trend LFTs - spontaneous breathing trials as tolerated - DVT/GI prophylaxis - frequent suctioning with cudet catheter. - antibiotics as per ID - thoracic f/u for trach change - chest x-ray today DR JOHNS
[2016-09-20] MEDS: CEFEPIME 2 GM in DEXTROSE 5%-WATER - 100 ML IVPB SCH (17:59)
[2016-09-20] MEDS ORDERED: CEFEPIME HCL 2 GM VIAL (RESTRICTED TO ID) IVPB SCH (18:00)
--- NOTE | 2016-09-20 18:45 | CON.ENT ---
Consult Consult Specialty:: ENT Reason for Consultation:: trach evaluation - History of Present Illness History of Present Illness: 76 yo M with hx ALS and acute respiratory failure had percutaneous tracheotomy placed by Dr. Ramos on 08-31-16 remained on ventilator, did well. then 2 da ago, poor tidal volumes noted lots of secretions suctioned by RT, then exhaled volumes fine - History Source History Provided By: Medical Record Limitations to Obtaining History: Clinical Condition - Past Medical History [employer]: Yes: Other (ALS) Cardio/Vascular: Yes: HTN Pulmonary: No: Asthma, Bronchitis, Cancer, COPD, O2 Dependent, Pneumonia, Previously Intubated, Pulmonary Embolus, Pulmonary Fibrosis, Sleep Apnea, Other Gastrointestinal: Yes: GERD Hepatobiliary: No: Cirrhosis, Cholelithiasis, Cholecystitis, Choledocholithiasis , Hepatitis A, Hepatitis B, Hepatitis C, Other Infectious Disease: No: AIDS, C-Diff, Herpes Zoster, HIV, MRSA, STD's, Tuberculosis, VREF, Other Psych: No: Addictions, Anxiety, Bipolar, Depression, Panic, Psychosis, Schizophrenia, Other Musculoskeletal: No: Bursitis, Chronic low back pain, Hemiparesis, Hemiplegia, Osteoarthritis, Paraplegia, Other Endocrine: Yes: Diabetes Mellitus - Past Surgical History Past Surgical History: Yes: Colonoscopy - Alcohol/Substance Use Hx Alcohol Use: No - Smoking History Smoking history: Smoker current status UNK Have you smoked in the past 12 months: No Aproximately how many cigarettes per day: 0 If you are a former smoker, when did you quit?: 25YRS AGO - Social History Usual Living Arrangement: With Spouse Home Medications - Allergies Allergies/Adverse Reactions: Allergies Allergy/AdvReac Type Severity Reaction Status Date / Time No Known Allergies Allergy Verified 08/27/16 11:44 - Home Medications Home Medications: Ambulatory Orders Lisinopril [Prinivil -] 40 mg PO DAILY 02/04/13 Metformin HCl [Riomet] 500 mg PO BID 02/04/13 Ranitidine [Zantac -] 300 mg PO HS 02/04/13 Omeprazole 20 mg PO DAILY 08/27/16 Physical Exam-ENT Vital Signs: Vital Signs Temperature 98.8 F 09/20/16 14:29 Pulse Rate 104 H 09/20/16 14:29 Respiratory Rate 24 09/20/16 14:29 Blood Pressure 125/68 09/20/16 14:29 O2 Sat by Pulse Oximetry (%) 98 09/20/16 10:00 Neck: Yes: Other (Shiley tracheotomy tube in place, secured with strap and nylon sutures. attached to ventilator, no air leak audible, dry, no bleeding or drainage) Imaging - Results Chest X-ray: Report Reviewed Problem List - Problems (1) Acute respiratory failure Assessment/Plan: pt on ventilator has fresh tracheotomy performed by Dr. Ramos on 08-31-16 original tube is in place, sutures remain on flange. leak was suspected two days ago but reported better now. pt appears to be adequately ventilated and in no distress Recommend: continue trach care, ventiltor and pulmonary toilet Dr. Ramos or his covering physicians should be contacted about this for further management. Thank you, Salas Marcelo MD Code(s): J96.00 - ACUTE RESPIRATORY FAILURE, UNSP W HYPOXIA OR HYPERCAPNIA Qualifiers: Respiratory failure complication: hypercapnia Qualified Code(s): J96.02 - Acute respiratory failure with hypercapnia
--- NOTE | 2016-09-20 21:17 | PN ---
Progress Note, Physician History of Present Illness: No new changes and trach working - Current Medication List Current Medications: Active Medications Acetaminophen (Tylenol Oral Solution -) 650 mg PO Q6H PRN PRN Reason: FEVER OR PAIN Last Admin: 09/20/16 10:05 Dose: 650 mg Acetylcysteine (Mucomyst 20 Oral / Inh Use Only*) 200 mg NEB QIDR [facility] Last Admin: 09/20/16 18:09 Dose: Not Given Vancomycin HCl (Vancomycin (Pre-Docked)) 250 mls @ 166.667 mls/hr IVPB DAILY [facility] Cefepime HCl 2 gm/ Dextrose 100 mls @ 200 mls/hr IVPB Q8H-IV [facility] Last Admin: 09/20/16 17:59 Dose: 200 mls/hr Insulin Aspart (Novolog Vial Sliding Scale -) 1 vial SQ TIDAC [facility] PRN Reason: Protocol Last Admin: 09/20/16 18:02 Dose: 1 unit Riluzole 50 Mg Tab - (Patient Own Med) 1 each PEG BID [facility] Last Admin: 09/20/16 10:06 Dose: 1 each Nystatin (Nystop Powder -) 1 applic TP BID [facility] Last Admin: 09/20/16 10:26 Dose: 1 applic Ranitidine HCl (Zantac Oral Solution -) 150 mg NGT BID [facility] Last Admin: 09/20/16 10:06 Dose: 150 mg - Objective Vital Signs: Vital Signs Temperature 98.8 F 09/20/16 14:29 Pulse Rate 104 H 09/20/16 14:29 Respiratory Rate 24 09/20/16 18:09 Blood Pressure 125/68 09/20/16 14:29 O2 Sat by Pulse Oximetry (%) 98 09/20/16 10:00 Neck: Yes: Supple, Other ((+) trach) Cardiovascular: Yes: WNL, Regular Rate and Rhythm Respiratory: Yes: Other (Decreased bs b/l) Gastrointestinal: Yes: WNL, Normal Bowel Sounds, Soft, Other ((+) PEG) Labs: CBC, BMP 09/19/16 17:30 09/19/16 17:30 INR, PTT INR 1.09 (0.82-1.09) 09/03/16 18:30 Problem List - Problems (1) Acute respiratory failure Assessment/Plan: S/P tracheostomy Aspiration pneumonia CXR showed lt atelectasis/lt pleural effusion Pt is spiking temp again As per ID Cont IV vanco/cefepime Follow cultures ENT consult noted for trach care Code(s): J96.00 - ACUTE RESPIRATORY FAILURE, UNSP W HYPOXIA OR HYPERCAPNIA Qualifiers: Respiratory failure complication: hypercapnia Qualified Code(s): J96.02 - Acute respiratory failure with hypercapnia (2) ALS (amyotrophic lateral sclerosis) Assessment/Plan: S/P PEG placement Code(s): G12.21 - AMYOTROPHIC LATERAL SCLEROSIS (3) Transaminitis Assessment/Plan: Monitor lft's Code(s): R74.0 - NONSPEC ELEV OF LEVELS OF TRANSAMNS & LACTIC ACID DEHYDRGNSE (4) Diabetes Assessment/Plan: Cont sliding scale w/ coverage Code(s): E11.9 - TYPE 2 DIABETES MELLITUS WITHOUT COMPLICATIONS (5) Sepsis Code(s): A41.9 - SEPSIS, UNSPECIFIED ORGANISM
[2016-09-21] MEDS ORDERED: PT OWN MED DRAWER 7, Y5N ONE ×3 (00:56→17:27)
[2016-09-21] MEDS: CEFEPIME 2 GM in DEXTROSE 5%-WATER - 100 ML IVPB SCH ×3 (01:12→17:50)
[2016-09-21] MEDS: INSULIN SLIDING SCALE (NOVOLOG) 1 VIAL SQ SCH ×3 (06:02→17:52)
[2016-09-21] MEDS: ACETYLCYSTEINE 20% 200MG/ML 4 ML VIAL *FOR ORAL / INH USE ONLY NEB SCH ×4 (06:35→23:44)
[2016-09-21] MEDS: NYSTATIN POWDER 100,000 UNITS/GM - 15 GM TOPICAL POWDER TP SCH ×2 (09:31→22:19)
[2016-09-21] MEDS: RILUZOLE 50 MG PEG SCH ×2 (09:33→22:20)
[2016-09-21] MEDS: RANITIDINE HCL 150 MG/10 ML UNIT-DOSE CUP NGT SCH ×2 (09:38→22:21)
[2016-09-21] MEDS: VANCOMYCIN 1 GRAM (PRE-DOCKED) 250 ML IVPB SCH (09:38)
[2016-09-21] MEDS: ACETAMINOPHEN 650 MG/20.3 ML ORAL SOLUTION (CUPS) PO PRN ×2 (09:40→18:56)
--- NOTE | 2016-09-21 13:07 | PN ---
Progress Note, Physician History of Present Illness: PULMONARY AWAKE,ON VENT SUPPORT ,FEBRILE TMAX 100.4. - Current Medication List Current Medications: Active Medications Acetaminophen (Tylenol Oral Solution -) 650 mg PO Q6H PRN PRN Reason: FEVER OR PAIN Last Admin: 09/21/16 09:40 Dose: 650 mg Acetylcysteine (Mucomyst 20 Oral / Inh Use Only*) 200 mg NEB QIDR [facility] Last Admin: 09/21/16 06:35 Dose: Not Given Vancomycin HCl (Vancomycin (Pre-Docked)) 250 mls @ 166.667 mls/hr IVPB DAILY [facility] Last Admin: 09/21/16 09:38 Dose: 166.667 mls/hr Cefepime HCl 2 gm/ Dextrose 100 mls @ 200 mls/hr IVPB Q8H-IV [facility] Last Admin: 09/21/16 09:32 Dose: 200 mls/hr Insulin Aspart (Novolog Vial Sliding Scale -) 1 vial SQ TIDAC [facility] PRN Reason: Protocol Last Admin: 09/21/16 11:51 Dose: 3 unit Riluzole 50 Mg Tab - (Patient Own Med) 1 each PEG BID [facility] Last Admin: 09/21/16 09:33 Dose: 1 each Nystatin (Nystop Powder -) 1 applic TP BID [facility] Last Admin: 09/21/16 09:31 Dose: 1 applic Ranitidine HCl (Zantac Oral Solution -) 150 mg NGT BID [facility] Last Admin: 09/21/16 09:38 Dose: 150 mg - Objective Vital Signs: Vital Signs Temperature 100.4 F H 09/21/16 09:28 Pulse Rate 92 H 09/21/16 10:35 Respiratory Rate 32 H 09/21/16 10:25 Blood Pressure 126/77 09/21/16 09:28 O2 Sat by Pulse Oximetry (%) 97 09/21/16 10:35 Constitutional: Yes: Well Nourished, Calm Eyes: Yes: WNL HENT: Yes: WNL Neck: Yes: Supple (TRACH) Cardiovascular: Yes: Regular Rate and Rhythm, S1, S2 Respiratory: Yes: Rhonchi (SCATTERED RHONCHI) Gastrointestinal: Yes: Normal Bowel Sounds, Soft Extremities: Yes: WNL Edema: No Labs: - ....Imaging Chest X-ray: Report Reviewed, Image Reviewed Problem List - Problems (1) ALS (amyotrophic lateral sclerosis) Code(s): G12.21 - AMYOTROPHIC LATERAL SCLEROSIS (2) Acute respiratory failure with hypercapnia Code(s): J96.02 - ACUTE RESPIRATORY FAILURE WITH HYPERCAPNIA (3) Dysphagia Code(s): R13.10 - DYSPHAGIA, UNSPECIFIED (4) Pneumonia Code(s): J18.9 - PNEUMONIA, UNSPECIFIED ORGANISM (5) Sepsis Code(s): A41.9 - SEPSIS, UNSPECIFIED ORGANISM (6) Transaminitis Code(s): R74.0 - NONSPEC ELEV OF LEVELS OF TRANSAMNS & LACTIC ACID DEHYDRGNSE Assessment/Plan ASSESSMENT AND PLAN: 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 s/p Tracheostomy Presumed Pneumonia UTI Sepsis ALS HTN DM Hypernatremia resolved Elevated LFTs improved Left lung atelectasis improving - O2 to keep SpO2 >90% - chest PT, pulmonary toilet - inhaled bronchodilators mucolytics - enteral feeds, trend LFTs - spontaneous breathing trials as tolerated - DVT/GI prophylaxis - frequent suctioning with cudet catheter. - antibiotics as per PETER JOHNS
--- NOTE | 2016-09-21 14:13 | PN ---
Progress Note (short form) - Note Progress Note: alert nad low grade fevers Vital Signs Period Temp Pulse Resp BP Sys/Wang Pulse Ox Last 24 Hr 98.8 F-100.4 F 82-104 18-32 123-138/68-80 96-97 cor-rrr lungs decreased bs at bases abd soft,nt ext no edema CBC, BMP 09/19/16 17:30 09/19/16 17:30 Microbiology 09/19/16 21:00 Urine Culture - Preliminary Urine - Urine Clean Catch Group D Strep Or Entero Coccus 09/19/16 17:00 Blood Culture - Preliminary Blood - Peripheral Venous NO GROWTH OBTAINED AFTER 24 HOURS, INCUBATION TO CONTINUE FOR 4 DAYS. 09/19/16 17:00 Blood Culture - Preliminary Blood - Peripheral Venous NO GROWTH OBTAINED AFTER 24 HOURS, INCUBATION TO CONTINUE FOR 4 DAYS. Current Medications Acetaminophen (Tylenol Oral Solution -) 650 mg PO Q6H PRN PRN Reason: FEVER OR PAIN Last Admin: 09/21/16 09:40 Dose: 650 mg Acetylcysteine (Mucomyst 20 Oral / Inh Use Only*) 200 mg NEB QIDR [facility] Last Admin: 09/21/16 06:35 Dose: Not Given Vancomycin HCl (Vancomycin (Pre-Docked)) 250 mls @ 166.667 mls/hr IVPB DAILY [facility] Last Admin: 09/21/16 09:38 Dose: 166.667 mls/hr Cefepime HCl 2 gm/ Dextrose 100 mls @ 200 mls/hr IVPB Q8H-IV [facility] Last Admin: 09/21/16 09:32 Dose: 200 mls/hr Insulin Aspart (Novolog Vial Sliding Scale -) 1 vial SQ TIDAC [facility] PRN Reason: Protocol Last Admin: 09/21/16 11:51 Dose: 3 unit Riluzole 50 Mg Tab - (Patient Own Med) 1 each PEG BID [facility] Last Admin: 09/21/16 09:33 Dose: 1 each Nystatin (Nystop Powder -) 1 applic TP BID [facility] Last Admin: 09/21/16 09:31 Dose: 1 applic Ranitidine HCl (Zantac Oral Solution -) 150 mg NGT BID [facility] Last Admin: 09/21/16 09:38 Dose: 150 mg a/p low grade fevers- ?pneumonia no evidence uti, negative ua, low colony count urine culture suspect again atelectasis encourage good chest PT on vanco/cefepime f/u cultures f/u cxray
--- NOTE | 2016-09-21 17:09 | PN ---
Physical Exam: SUBJECTIVE: Patient seen and examined. He denies any pain or discomfort. Reports that he had alot of phlegm today. States he is comfortable. He denies any pain or shortness of breath. OBJECTIVE: Vital Signs Period Temp Pulse Resp BP Sys/Wang Pulse Ox Last 24 Hr 98.8 F-100.4 F 81-103 18-32 115-138/65-80 96-97 GENERAL: The patient is awake, alert, and fully oriented, answers questions appropriately, speaks in a whisper HEAD: Normal with no signs of trauma. EYES: PERRL, extraocular movements intact, sclera anicteric, conjunctiva clear. No ptosis. ENT: moist mucous membranes, has tracheotomy NECK: has tracheotomy, on assist control vent LUNGS: Diminished breath sounds anteriorly and posteriorly HEART: Regular rate and rhythm ABDOMEN: PEG tube, receiving Glucerna feedings continuously EXTREMITIES: Left arm with non pitting edema, unable to move extremity, right arm with non pitting edema NEUROLOGICAL: Amyotrophic Lateral Sclerosis PSYCH: Normal mood, normal affect. SKIN: Warm, dry, normal turgor, no rashes or lesions noted Laboratory Results - last 24 hr 09/20/16 09/21/16 09/21/16 18:00 06:01 11:50 POC Glucometer 195 192 263 Active Medications Generic Name Dose Route Start Last Admin Trade Name Freq PRN Reason Stop Dose Admin Acetaminophen 650 mg 09/03/16 20:07 09/21/16 09:40 Tylenol Oral Solution - PO 650 mg Q6H PRN Administration FEVER OR PAIN Acetylcysteine 200 mg 09/03/16 18:00 09/21/16 11:10 Mucomyst 20 Oral / Inh Use Only* NEB 200 mg QIDR [facility] Administration Vancomycin HCl 250 mls @ 166.667 mls/hr 09/21/16 10:00 09/21/16 09:38 Vancomycin (Pre-Docked) IVPB 166.667 mls/hr DAILY [facility] Administration Cefepime HCl 2 gm/ Dextrose 100 mls @ 200 mls/hr 09/20/16 18:00 09/21/16 09:32 IVPB 200 mls/hr Q8H-IV [facility] Administration Insulin Aspart 1 vial 09/04/16 07:00 09/21/16 11:51 Novolog Vial Sliding Scale - SQ 3 unit TIDAC [facility] Administration Protocol Riluzole 50 Mg Tab - 1 each 09/04/16 22:00 09/21/16 09:33 Patient Own Med PEG 1 each BID [facility] Administration Nystatin 1 applic 09/03/16 22:00 09/21/16 09:31 Nystop Powder - TP 1 applic BID [facility] Administration Ranitidine HCl 150 mg 09/03/16 22:00 09/21/16 09:38 Zantac Oral Solution - NGT 150 mg BID [facility] Administration ASSESSMENT/PLAN: Patient is a 76 year old male with a significant past medical history of Amyotrophic Lateral Sclerosis, diabetes and hypertension who presented to the ED with progressively worsening shortness of breath. On arrival to the ED he was hypoxic at 75% on room air. As per ED notes, pt was able to ambulate at home independently but for 3 days prior to admission, he was unable to walk. Further, it was noted from the admission records that Mr. Steve has had progressive bilateral lower and upper extremity swelling for the past 3-4 weeks. He is also noted to have a right chest port that was placed before admission. ID: Acute Respiratory Failure Assessment/Plan: Unspecific cause of respiratory failure; Pneumonia vs. advancement of ALS S/p trach placement on 08/31/2016, currently on vent support., He requires frequent suctioning for increased secretions. Spo2 stable, at 98% with vent support Pulmonary following Sepsis - acute Assessment/Plan: Urine culture 09/19/2016 shows Group D strep enterococcus Blood Cultures 09/19/2016 no growth to date Lactic acidosis resolved Low grade fevers TMAX 100.4 On Vanco and Cefepime q8 IV Antibiotics per ID Neurology: Amyotrophic Lateral Sclerosis Assessment/Plan: On Riluzole 50 Mg BID for ALS Bed bound GI: Assessment/Plan: PEG tube placed on 09/04/2016 On continuous feeds of Glucerna with water flushes RD following Transaminitis - resolved Assessment/Plan: ALT/AST within normal limits, continue to monitor trend Endocrine: Diabetes Mellitus - chronic Assessment/Plan: On Novolog sliding scale monitor BGMs F.E.N. Fluids: NPO: on tube feeds with water flushes Electrolytes: BMP in a.m. Nutrition: NPO. Glucerna continuous feeds with hourly water flushes Prophylaxis: DVT: SCDs bilaterally GI: Zantac 150mg BID Disposition: Requires inpatient hospitalization. Full Code. Visit type - Emergency Visit Emergency Visit: Yes ED Registration Date: 08/27/16 Care time: The patient presented to the Emergency Department on the above date and was hospitalized for further evaluation of their emergent condition. - New Patient This patient is new to me today: Yes Date on this admission: 09/21/16 - Critical Care Critical Care patient: No - Discharge Referral Referred to [facility] No
[2016-09-22] MEDS ORDERED: PT OWN MED DRAWER 7, Y5N ONE ×5 (02:09→17:08)
[2016-09-22] MEDS: CEFEPIME 2 GM in DEXTROSE 5%-WATER - 100 ML IVPB SCH ×3 (02:31→17:30)
[2016-09-22] MEDS: ACETYLCYSTEINE 20% 200MG/ML 4 ML VIAL *FOR ORAL / INH USE ONLY NEB SCH ×3 (05:16→18:40)
[2016-09-22] MEDS: INSULIN SLIDING SCALE (NOVOLOG) 1 VIAL SQ SCH ×3 (06:21→17:31)
[2016-09-22] MEDS ORDERED: INSULIN (NOVOLOG) ASPART 100 UNITS/ML 10ML VIAL ONE ×2 (06:47→12:20)
[2016-09-22 07:49] LABS: BASOPHIL 0.3 % (0-2.0); EOSINOPHIL 0.4 % (0-4.5); MCH 33.3 pg (25.7-33.7); MCHC 33.8 g/dl (32.0-35.9); MEAN CELL VOLUME 98.5 fl (80-96); MEAN PLT VOLUME 8.2 fl (7.5-11.1); NEUTROPHILS 85.2 % (42.8-82.8); PLATELET COUNT 254 K/MM3 (134-434); RDW 13.3 % (11.9-15.9); WHITE BLOOD COUNT 9.4 K/mm3 (4.0-10.0)
--- NOTE | 2016-09-22 08:24 | PN ---
Physical Exam: SUBJECTIVE: Patient seen and examined Patient spiked temp on 09/21-Tmax 102.7. Temp this morning 99.6. Patient met in bed in NAD, no new complaints Trach to vent (on AC with 55% O2, rate 24 TV 500 Peep 5) 09/20 sputum culture pending 09/19 blood cx-prelim no growth 09/19 urine cx strep D or enterococcus 10-20,000 Started on Cefepime 09/20 and vanco on 09/21 by ID OBJECTIVE: Vital Signs Period Temp Pulse Resp BP Sys/Wang Pulse Ox Last 24 Hr 98.8 F-102.7 F 79-101 18-32 109-126/58-77 95-98 GENERAL: The patient is awake, alert, in no acute distress. HEAD: Normal with no signs of trauma. EYES: PERRL, extraocular movements intact, sclera anicteric, conjunctiva clear. ENT: Trach to vent, Ears normal, nares patent, moist mucous membranes. NECK: Trach to vent (on AC) LUNGS: scattered rhonchi that clear with cough, diminished BS bibasilar, no accessory muscle use. HEART: S1, S2 RRR ABDOMEN: Soft, nontender, nondistended, normoactive bowel sounds. PEG tube in place, site C/D/I EXTREMITIES: left arm paresis, bilateral UE edema L>R, pulses intact NEUROLOGICAL: ALS, gait not observed. PSYCH: Normal mood, normal affect. SKIN: Warm, dry, normal turgor, no rashes or lesions noted Laboratory Results - last 24 hr 09/21/16 09/21/16 09/22/16 11:50 17:51 06:20 POC Glucometer 263 127 194 Active Medications Generic Name Dose Route Start Last Admin Trade Name Freq PRN Reason Stop Dose Admin Acetaminophen 650 mg 09/03/16 20:07 09/21/16 18:56 Tylenol Oral Solution - PO 650 mg Q6H PRN Administration FEVER OR PAIN Acetylcysteine 200 mg 09/03/16 18:00 09/22/16 05:16 Mucomyst 20 Oral / Inh Use Only* NEB 200 mg QIDR [facility] Administration Vancomycin HCl 250 mls @ 166.667 mls/hr 09/21/16 10:00 09/21/16 09:38 Vancomycin (Pre-Docked) IVPB 166.667 mls/hr DAILY [facility] Administration Cefepime HCl 2 gm/ Dextrose 100 mls @ 200 mls/hr 09/20/16 18:00 09/22/16 02:31 IVPB 200 mls/hr Q8H-IV [facility] Administration Insulin Aspart 1 vial 09/04/16 07:00 09/22/16 06:21 Novolog Vial Sliding Scale - SQ 1 unit TIDAC [facility] Administration Protocol Riluzole 50 Mg Tab - 1 each 09/04/16 22:00 09/21/16 22:20 Patient Own Med PEG 1 each BID [facility] Administration Nystatin 1 applic 09/03/16 22:00 09/21/16 22:19 Nystop Powder - TP 1 applic BID [facility] Administration Ranitidine HCl 150 mg 09/03/16 22:00 09/21/16 22:21 Zantac Oral Solution - NGT 150 mg BID [facility] Administration ASSESSMENT/PLAN: 76 y/o male with a PMHx of ALS, diabetes, GERD, CHF, dysphagia and hypertension. He presented to the ED with complaints of inability to walk, progressive generalized swelling and progressively worsening shortness of breath. On arrival to the ED he was hypoxic at 75% on room air. He was admitted to ICU for acute respiratory failure and intubated, with subsequent perc trach placed on 08/31/16. He was subsequently stabilized an transferred to floor for continuation of care. 1 Fever: likely multifactoral (UTI and PNA) -Tmax 102.7 on 09/21. Currently afebrile 99.6 this morning. -cxr 09/20 shows left pleural effusion and partial left lung atelectasis -09/20 sputum culture pending -09/19 blood cx-prelim no growth -09/19 urine cx strep D or enterococcus 10-20,000 -Started on Cefepime 09/20 and vanco on 09/21 by ID -Tylenol prn -repeat cxr 09/23 -vanco trough for 09/24 -ID on case -suctioning PRN 2 Acute Respiratory Failure -S/p trach placement on 08/31/2016, trach to vent -suctioning as needed -continue with mucomyst as ordered -Pulmonary on case albuterol via neb prn started 3 Transaminitis: -LFTs 09/22 uptrending (AST 89, ALT 124, Alkphos 202) -no GI complaints -will recheck LFTs 09/23 4 Sepsis:resolved -Prelim blood Cultures 09/19/2016 negative -Lactic acidosis resolved -Will check lactic acid 09/23 5 ALS: -Continue with Riluzole 50 Mg BID for ALS 6 Dysphagia:NPO -PEG in place -continue Glucerna as ordered and meds via PEG only -Keep HOB elevated -aspiration precautions 7 DM:Glucose within acceptable limits -Continue with ISS and BGM monitoring 8 DVT PPX -Contunue with SCDs 9 GERD/GI ppx -continue with Zantac as ordered Disposition: trend LFTs, pulmonary toilet, repeat cxr and aspiration precautions Requires inpatient hospitalization. Full Code. Once stable- dc to LTC vs home Visit type - Emergency Visit Emergency Visit: No - New Patient This patient is new to me today: Yes Date on this admission: 09/24/16 - Critical Care Critical Care patient: No
[2016-09-22 08:42] LABS: ALBUMIN 1.9 g/dl (3.4-5.0); ALK PHOS 202 U/L (45-117); ANION GAP 9 (8-16); BILIRUBIN,TOTAL 0.4 mg/dL (0.2-1.0); CALCIUM 8.3 mg/dL (8.5-10.1); CO2 29 mmol/L (21-32); CREATININE 0.6 mg/dL (0.7-1.3); GLUCOSE,RANDOM 185 mg/dL (74-106); SGOT/AST 89 U/L (15-37); SGPT/ALT 124 U/L (12-78); TOT PROT 6.3 g/dl (6.4-8.2)
[2016-09-22] MEDS: RANITIDINE HCL 150 MG/10 ML UNIT-DOSE CUP NGT SCH ×2 (11:11→22:43)
[2016-09-22] MEDS: VANCOMYCIN 1 GRAM (PRE-DOCKED) 250 ML IVPB SCH (11:11)
[2016-09-22] MEDS: NYSTATIN POWDER 100,000 UNITS/GM - 15 GM TOPICAL POWDER TP SCH ×2 (11:11→22:42)
[2016-09-22] MEDS: RILUZOLE 50 MG PEG SCH ×2 (11:12→22:43)
--- NOTE | 2016-09-22 11:48 | PN ---
Progress Note, Physician History of Present Illness: pulmonary awake on vent support ac mode,t max 101.4 - Current Medication List Current Medications: Active Medications Acetaminophen (Tylenol Oral Solution -) 650 mg PO Q6H PRN PRN Reason: FEVER OR PAIN Last Admin: 09/21/16 18:56 Dose: 650 mg Acetylcysteine (Mucomyst 20 Oral / Inh Use Only*) 200 mg NEB QIDR [facility] Last Admin: 09/22/16 05:16 Dose: 200 mg Vancomycin HCl (Vancomycin (Pre-Docked)) 250 mls @ 166.667 mls/hr IVPB DAILY [facility] Last Admin: 09/22/16 11:11 Dose: 166.667 mls/hr Cefepime HCl 2 gm/ Dextrose 100 mls @ 200 mls/hr IVPB Q8H-IV [facility] Last Admin: 09/22/16 11:11 Dose: 200 mls/hr Insulin Aspart (Novolog Vial Sliding Scale -) 1 vial SQ TIDAC [facility] PRN Reason: Protocol Last Admin: 09/22/16 06:21 Dose: 1 unit Riluzole 50 Mg Tab - (Patient Own Med) 1 each PEG BID [facility] Last Admin: 09/22/16 11:12 Dose: 1 each Nystatin (Nystop Powder -) 1 applic TP BID [facility] Last Admin: 09/22/16 11:11 Dose: 1 applic Ranitidine HCl (Zantac Oral Solution -) 150 mg NGT BID [facility] Last Admin: 09/22/16 11:11 Dose: 150 mg - Objective Vital Signs: Vital Signs Temperature 99.6 F 09/22/16 06:00 Pulse Rate 79 09/22/16 06:00 Respiratory Rate 25 H 09/22/16 10:00 Blood Pressure 118/68 09/22/16 06:00 O2 Sat by Pulse Oximetry (%) 95 09/22/16 00:14 Constitutional: Yes: Well Nourished, Calm Eyes: Yes: WNL HENT: Yes: WNL Neck: Yes: WNL Cardiovascular: Yes: Regular Rate and Rhythm, S1, S2 Respiratory: Yes: Rhonchi (scattered bi rhonchi) Gastrointestinal: Yes: Normal Bowel Sounds, Distention (mild distention) Extremities: Yes: WNL Edema: No Labs: CBC, BMP 09/22/16 06:30 09/22/16 06:30 INR, PTT INR 1.09 (0.82-1.09) 09/03/16 18:30 Problem List - Problems (1) ALS (amyotrophic lateral sclerosis) Code(s): G12.21 - AMYOTROPHIC LATERAL SCLEROSIS (2) Acute respiratory failure with hypercapnia Code(s): J96.02 - ACUTE RESPIRATORY FAILURE WITH HYPERCAPNIA (3) Dysphagia Code(s): R13.10 - DYSPHAGIA, UNSPECIFIED (4) Pneumonia Code(s): J18.9 - PNEUMONIA, UNSPECIFIED ORGANISM (5) Sepsis Code(s): A41.9 - SEPSIS, UNSPECIFIED ORGANISM (6) Transaminitis Code(s): R74.0 - NONSPEC ELEV OF LEVELS OF TRANSAMNS & LACTIC ACID DEHYDRGNSE Assessment/Plan ASSESSMENT AND PLAN: 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 s/p Tracheostomy Presumed Pneumonia UTI Sepsis ALS HTN DM Hypernatremia resolved Elevated LFTs improved Left lung atelectasis improving - O2 to keep SpO2 >90% - chest PT, pulmonary toilet - inhaled bronchodilators mucolytics - enteral feeds, trend LFTs - spontaneous breathing trials as tolerated - DVT/GI prophylaxis - frequent suctioning with cudet catheter. - antibiotics as per ID - chest x-ray am DR JOHNS
[2016-09-22] MEDS: ALBUTEROL SO4 0.083% IH SOL 2.5 MG/3 ML VIAL.NEB. NEB PRN ×2 (12:00→18:39)
[2016-09-23] MEDS: ALBUTEROL SO4 0.083% IH SOL 2.5 MG/3 ML VIAL.NEB. NEB PRN ×4 (00:02→19:09)
[2016-09-23] MEDS: ACETYLCYSTEINE 20% 200MG/ML 4 ML VIAL *FOR ORAL / INH USE ONLY NEB SCH ×4 (00:02→19:08)
[2016-09-23] MEDS: CEFEPIME 2 GM in DEXTROSE 5%-WATER - 100 ML IVPB SCH ×4 (02:10→19:49)
[2016-09-23] MEDS ORDERED: INSULIN (NOVOLOG) ASPART 100 UNITS/ML 10ML VIAL ONE ×2 (06:26→06:47)
[2016-09-23] MEDS: INSULIN SLIDING SCALE (NOVOLOG) 1 VIAL SQ SCH ×4 (06:42→22:45)
[2016-09-23 07:46] LABS: BASOPHIL 0.4 % (0-2.0); EOSINOPHIL 1.8 % (0-4.5); MCH 33.7 pg (25.7-33.7); MEAN CELL VOLUME 99.1 fl (80-96); MEAN PLT VOLUME 8.1 fl (7.5-11.1); NEUTROPHILS 80.6 % (42.8-82.8); PLATELET COUNT 240 K/MM3 (134-434); RDW 13.5 % (11.9-15.9); WHITE BLOOD COUNT 7.1 K/mm3 (4.0-10.0)
[2016-09-23] MEDS: RANITIDINE HCL 150 MG/10 ML UNIT-DOSE CUP NGT SCH ×2 (08:59→22:47)
[2016-09-23] MEDS: NYSTATIN POWDER 100,000 UNITS/GM - 15 GM TOPICAL POWDER TP SCH ×2 (08:59→22:46)
[2016-09-23] MEDS: RILUZOLE 50 MG PEG SCH ×2 (09:00→22:46)
[2016-09-23 09:05] LABS: ALBUMIN 1.9 g/dl (3.4-5.0); ANION GAP 7 (8-16); CALCIUM 8.3 mg/dL (8.5-10.1); CO2 29 mmol/L (21-32); GLUCOSE,RANDOM 210 mg/dL (74-106); SGOT/AST 127 U/L (15-37); SGPT/ALT 192 U/L (12-78)
[2016-09-23 09:07] LABS: ALK PHOS 229 U/L (45-117); BILIRUBIN,TOTAL 0.3 mg/dL (0.2-1.0); CREATININE 0.6 mg/dL (0.7-1.3); TOT PROT 6.3 g/dl (6.4-8.2)
[2016-09-23] MEDS: VANCOMYCIN 1 GRAM (PRE-DOCKED) 250 ML IVPB SCH (09:25)
--- NOTE | 2016-09-23 11:27 | PN ---
Progress Note, Physician History of Present Illness: PULMONARY ALERT,ON VENT SUPPORT AC MODE - Current Medication List Current Medications: Active Medications Acetaminophen (Tylenol Oral Solution -) 650 mg PO Q6H PRN PRN Reason: FEVER OR PAIN Last Admin: 09/21/16 18:56 Dose: 650 mg Acetylcysteine (Mucomyst 20 Oral / Inh Use Only*) 200 mg NEB QIDR [facility] Last Admin: 09/23/16 06:07 Dose: 200 mg Albuterol Sulfate (Ventolin 0.083% Nebulizer Soln -) 1 amp NEB Q4H PRN PRN Reason: SHORT OF BREATH/WHEEZING Last Admin: 09/23/16 06:07 Dose: 1 amp Vancomycin HCl (Vancomycin (Pre-Docked)) 250 mls @ 166.667 mls/hr IVPB DAILY [facility] Last Admin: 09/23/16 09:25 Dose: 166.667 mls/hr Cefepime HCl 2 gm/ Dextrose 100 mls @ 200 mls/hr IVPB Q8H-IV [facility] Last Admin: 09/23/16 09:00 Dose: 200 mls/hr Insulin Aspart (Novolog Vial Sliding Scale -) 1 vial SQ TIDAC [facility] PRN Reason: Protocol Last Admin: 09/23/16 06:42 Dose: 2 unit Riluzole 50 Mg Tab - (Patient Own Med) 1 each PEG BID [facility] Last Admin: 09/23/16 09:00 Dose: 1 each Nystatin (Nystop Powder -) 1 applic TP BID [facility] Last Admin: 09/23/16 08:59 Dose: 1 applic Ranitidine HCl (Zantac Oral Solution -) 150 mg NGT BID [facility] Last Admin: 09/23/16 08:59 Dose: 150 mg - Objective Vital Signs: Vital Signs Temperature 98.6 F 09/23/16 06:00 Pulse Rate 85 09/23/16 06:00 Respiratory Rate 24 09/23/16 10:00 Blood Pressure 133/75 09/23/16 06:00 O2 Sat by Pulse Oximetry (%) 100 09/22/16 09:00 Constitutional: Yes: Well Nourished, Calm Eyes: Yes: WNL HENT: Yes: WNL Neck: Yes: Supple (TRACH) Cardiovascular: Yes: Regular Rate and Rhythm, S1, S2 Respiratory: Yes: Rhonchi (SCATTERED POWER RHONCHI) Gastrointestinal: Yes: Normal Bowel Sounds, Soft Extremities: Yes: WNL Edema: No Labs: CBC, BMP 09/23/16 07:00 09/23/16 07:00 INR, PTT INR 1.09 (0.82-1.09) 09/03/16 18:30 - ....Imaging Chest X-ray: Report Reviewed, Image Reviewed (NO CHANGE LLL ATELECTASIS,EFFUSION ) Problem List - Problems (1) ALS (amyotrophic lateral sclerosis) Code(s): G12.21 - AMYOTROPHIC LATERAL SCLEROSIS (2) Acute respiratory failure with hypercapnia Code(s): J96.02 - ACUTE RESPIRATORY FAILURE WITH HYPERCAPNIA (3) Dysphagia Code(s): R13.10 - DYSPHAGIA, UNSPECIFIED (4) Pneumonia Code(s): J18.9 - PNEUMONIA, UNSPECIFIED ORGANISM (5) Sepsis Code(s): A41.9 - SEPSIS, UNSPECIFIED ORGANISM (6) Transaminitis Code(s): R74.0 - NONSPEC ELEV OF LEVELS OF TRANSAMNS & LACTIC ACID DEHYDRGNSE Assessment/Plan ASSESSMENT AND PLAN: 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 s/p Tracheostomy Presumed Pneumonia UTI Sepsis ALS HTN DM Hypernatremia resolved Elevated LFTs improved Left lung atelectasis - O2 to keep SpO2 >90% - chest PT, pulmonary toilet - inhaled bronchodilators mucolytics - enteral feeds, trend LFTs - spontaneous breathing trials as tolerated - DVT/GI prophylaxis - frequent suctioning with cudet catheter. - antibiotics as per PETER JOHNS
--- NOTE | 2016-09-23 14:24 | PN ---
Physical Exam: SUBJECTIVE: Patient seen and examined. He states his R sided chest pain is mild and feels different than his rip pain OBJECTIVE: Vital Signs Period Temp Pulse Resp BP Sys/Wang Pulse Ox Last 24 Hr 98.2 F-98.8 F 85-90 24-28 115-133/62-77 PE Neuro: alert, awake, R arm 2/5 motor, LUE 5/5 Pulm: diminished, copious sputum + trach CV: s1 s2 rrr no mrg Abd: + peg CDI, midline abd scar healed, + bs Ext: warm, no le edema, 5/5 motor, gait not observed Laboratory Results - last 24 hr 09/22/16 09/23/16 09/23/16 17:31 06:03 07:00 WBC 7.1 RBC 2.54 L Hgb 8.6 L Hct 25.2 L MCV 99.1 H MCHC 34.0 RDW 13.5 Plt Count 240 MPV 8.1 Neutrophils % 80.6 Lymphocytes % 9.8 D Monocytes % 7.4 Eosinophils % 1.8 D Basophils % 0.4 Sodium Potassium Chloride Carbon Dioxide Anion Gap BUN Creatinine Creat Clearance w eGFR POC Glucometer 205 218 Random Glucose Lactic Acid Calcium Total Bilirubin AST ALT Alkaline Phosphatase Total Protein Albumin 09/23/16 09/23/16 09/23/16 07:00 07:00 11:00 WBC RBC Hgb Hct MCV MCHC RDW Plt Count MPV Neutrophils % Lymphocytes % Monocytes % Eosinophils % Basophils % Sodium 138 Potassium 4.3 Chloride 102 Carbon Dioxide 29 Anion Gap 7 L BUN 23 H Creatinine 0.6 L Creat Clearance w eGFR > 60 POC Glucometer 253 Random Glucose 210 H Lactic Acid 1.679 Calcium 8.3 L Total Bilirubin 0.3 D AST 127 H D ALT 192 H D Alkaline Phosphatase 229 H Total Protein 6.3 L Albumin 1.9 L Active Medications Generic Name Dose Route Start Last Admin Trade Name Freq PRN Reason Stop Dose Admin Acetaminophen 650 mg 09/03/16 20:07 09/21/16 18:56 Tylenol Oral Solution - PO 650 mg Q6H PRN Administration FEVER OR PAIN Acetylcysteine 200 mg 09/03/16 18:00 09/23/16 11:31 Mucomyst 20 Oral / Inh Use Only* NEB 200 mg QIDR KENDRICK Administration Albuterol Sulfate 1 amp 09/22/16 11:48 09/23/16 11:31 Ventolin 0.083% Nebulizer Soln - NEB 1 amp Q4H PRN Administration SHORT OF BREATH/WHEEZING Vancomycin HCl 250 mls @ 166.667 mls/hr 09/21/16 10:00 09/23/16 09:25 Vancomycin (Pre-Docked) IVPB 166.667 mls/hr DAILY KENDRICK Administration Cefepime HCl 2 gm/ Dextrose 100 mls @ 200 mls/hr 09/20/16 18:00 09/23/16 09:00 IVPB 200 mls/hr Q8H-IV KENDRICK Administration Insulin Aspart 1 vial 09/04/16 07:00 09/23/16 12:00 Novolog Vial Sliding Scale - SQ 3 unit TIDAC KENDRICK Administration Protocol Riluzole 50 Mg Tab - 1 each 09/04/16 22:00 09/23/16 09:00 Patient Own Med PEG 1 each BID KENDRICK Administration Nystatin 1 applic 09/03/16 22:00 09/23/16 08:59 Nystop Powder - TP 1 applic BID KENDRICK Administration Ranitidine HCl 150 mg 09/03/16 22:00 09/23/16 08:59 Zantac Oral Solution - NGT 150 mg BID KENDRICK Administration Microbiology 09/20/16 16:00 Gram Stain - Final Sputum - Endotrachea Suction/Ventilator Sputum Culture - Final Escherichia Coli 09/19/16 17:00 Blood Culture - Preliminary Blood - Peripheral Venous NO GROWTH OBTAINED AFTER 72 HOURS, INCUBATION TO CONTINUE FOR 2 DAYS. 09/19/16 17:00 Blood Culture - Preliminary Blood - Peripheral Venous NO GROWTH OBTAINED AFTER 72 HOURS, INCUBATION TO CONTINUE FOR 2 DAYS. 09/19/16 21:00 Urine Culture - Final Urine - Urine Clean Catch Vr Ec Faecalis Assessment: 76 year old male with a PMHx of ALS, DM II, GERD, CHF, HTN, and dysphagia admitted with hypoxia, progressive generalized weakness, and inability to ambulate. Admitted to the ICU, pt was intubated, then trached on . Plan: 1. Sepsis - Multifactoral: (VRE UTI and E coli in sputum; PNA) - Afebrile x24hr - Continue cefepime per ID (09/20-) - Continue vanco (09/21-) - Vanco trough tomorrow 2. Acute 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 s/p trach - Continue suctioning w/ cudet mucomyst - Albuterol nebs PRN - Wean to CPAP, PMV as tolerated - Pulmonary seeing 3. R sided chest pain - Improved following suctioning - EKG now - CE now 4. Transaminitis - Rising possible due to cefepime - Will trend - Will discuss with ID possible abx change 5 ALS -Continue with Riluzole 50 Mg BID 6. Nutrition - Peg placed - Glucerna daily 7. DM II - Elevated AM sugars - Increase ISS and BGM ACHS - No levemir required at this time 8. DVT PPX - Lovenox sq 9. GERD - Continue Zantac Visit type - Emergency Visit Emergency Visit: Yes ED Registration Date: 08/27/16 Care time: The patient presented to the Emergency Department on the above date and was hospitalized for further evaluation of their emergent condition. - New Patient This patient is new to me today: Yes Date on this admission: 09/23/16 - Critical Care Critical Care patient: No
[2016-09-23] MEDS: ENOXAPARIN NA (PORCINE) 40 MG/0.4 ML DISP.SYRIN SQ SCH (15:59)
[2016-09-23] MEDS: ACETAMINOPHEN 650 MG/20.3 ML ORAL SOLUTION (CUPS) PO PRN (16:03)
[2016-09-23 16:48] LABS: TROPONIN I 0.02 ng/ml (0.00-0.05)
[2016-09-23] MEDS ORDERED: PT OWN MED DRAWER 7, Y5N ONE (17:07)
[2016-09-23] MEDS ORDERED: SCOPOLAMINE HYDROBROMIDE 1 PATCH PATCH.TD72 TD ONE (18:45)
[2016-09-23] MEDS ORDERED: CEFEPIME HCL 2 GM VIAL (RESTRICTED TO ID) IVPB SCH (19:30)
--- NOTE | 2016-09-23 23:18 | EKG ---
Test Reason : Blood Pressure : / mmHG Vent. Rate : 080 BPM Atrial Rate : 080 BPM P-R Int : 122 ms QRS Dur : 110 ms QT Int : 378 ms P-R-T Axes : 038 -17 037 degrees QTc Int : 435 ms NORMAL SINUS RHYTHM WITH SINUS ARRHYTHMIA MINIMAL VOLTAGE CRITERIA FOR LVH, MAY BE NORMAL VARIANT BORDERLINE ECG WHEN COMPARED WITH ECG OF 01-SEP-2016 16:14, T WAVE VARIATION Confirmed by ADALBERTO VALLE, AMADO ([id number]) on 09/23/2016 11:18:36 PM Referred By: SANDY FISCHER Confirmed By:AMADO GLOVER MD
[2016-09-24] MEDS: CEFEPIME 2 GM in DEXTROSE 5%-WATER - 100 ML IVPB SCH ×3 (02:03→11:56)
[2016-09-24] MEDS: ACETYLCYSTEINE 20% 200MG/ML 4 ML VIAL *FOR ORAL / INH USE ONLY NEB SCH ×5 (06:11→23:56)
[2016-09-24] MEDS: INSULIN SLIDING SCALE (NOVOLOG) 1 VIAL SQ SCH ×4 (06:19→23:50)
[2016-09-24] MEDS ORDERED: INSULIN (NOVOLOG) ASPART 100 UNITS/ML 10ML VIAL ONE ×2 (06:27→12:00)
[2016-09-24 07:58] LABS: MCH 33.2 pg (25.7-33.7); MCHC 33.7 g/dl (32.0-35.9); MEAN CELL VOLUME 98.7 fl (80-96); MEAN PLT VOLUME 7.6 fl (7.5-11.1); PLATELET COUNT 269 K/MM3 (134-434); RDW 13.5 % (11.9-15.9); WHITE BLOOD COUNT 7.3 K/mm3 (4.0-10.0)
[2016-09-24 08:56] LABS: ALBUMIN 2.1 g/dl (3.4-5.0); ALK PHOS 210 U/L (45-117); ANION GAP 5 (8-16); BILIRUBIN,TOTAL 0.3 mg/dL (0.2-1.0); CALCIUM 8.9 mg/dL (8.5-10.1); CO2 29 mmol/L (21-32); CREATININE 0.5 mg/dL (0.7-1.3); GLUCOSE,RANDOM 184 mg/dL (74-106); SGOT/AST 95 U/L (15-37); SGPT/ALT 195 U/L (12-78); TOT PROT 6.6 g/dl (6.4-8.2)
--- NOTE | 2016-09-24 11:45 | PN ---
Progress Note, Physician Chief Complaint: ID Since Vancom and Cefepime his fever has been down Contacted regard elelvated LFTs - Current Medication List Current Medications: Active Medications Acetaminophen (Tylenol Oral Solution -) 650 mg PO Q6H PRN PRN Reason: FEVER OR PAIN Last Admin: 09/23/16 16:03 Dose: 650 mg Acetylcysteine (Mucomyst 20 Oral / Inh Use Only*) 200 mg NEB QIDR [facility] Last Admin: 09/24/16 06:11 Dose: 200 mg Albuterol Sulfate (Ventolin 0.083% Nebulizer Soln -) 1 amp NEB Q4H PRN PRN Reason: SHORT OF BREATH/WHEEZING Last Admin: 09/23/16 19:09 Dose: 1 amp Enoxaparin Sodium (Lovenox -) 40 mg SQ DAILY [facility] Last Admin: 09/23/16 15:59 Dose: 40 mg Vancomycin HCl (Vancomycin (Pre-Docked)) 250 mls @ 166.667 mls/hr IVPB DAILY [facility] Last Admin: 09/23/16 09:25 Dose: 166.667 mls/hr Cefepime HCl 2 gm/ Dextrose 100 mls @ 200 mls/hr IVPB Q8H-IV [facility] Last Admin: 09/24/16 02:03 Dose: 200 mls/hr Insulin Aspart (Novolog Vial Sliding Scale -) 1 vial SQ ACHS [facility] PRN Reason: Protocol Last Admin: 09/24/16 06:19 Dose: 2 units Riluzole 50 Mg Tab - (Patient Own Med) 1 each PEG BID [facility] Last Admin: 09/23/16 22:46 Dose: 1 each Nystatin (Nystop Powder -) 1 applic TP BID [facility] Last Admin: 09/23/16 22:46 Dose: 1 applic Ranitidine HCl (Zantac Oral Solution -) 150 mg NGT BID [facility] Last Admin: 09/23/16 22:47 Dose: 150 mg - Objective Vital Signs: Vital Signs Temperature 98.3 F 09/24/16 06:00 Pulse Rate 83 09/24/16 06:00 Respiratory Rate 27 H 09/24/16 09:07 Blood Pressure 148/73 09/24/16 06:00 O2 Sat by Pulse Oximetry (%) 97 09/23/16 21:00 Constitutional: Yes: No Distress Neck: Yes: Other (Trach) Cardiovascular: Yes: S1, S2 Respiratory: Yes: WNL, Regular, CTA Bilaterally, Rhonchi Gastrointestinal: Yes: WNL, Normal Bowel Sounds, Soft. No: Tenderness, Tenderness, Epigastrium Edema: No Labs: CBC, BMP 09/24/16 07:20 09/24/16 07:20 INR, PTT INR 1.09 (0.82-1.09) 09/03/16 18:30 Assessment/Plan Laboratory Tests 09/02/16 09/03/16 09/04/16 05:15 05:10 05:00 BUN Creatinine AST 201 H D ALT 190 H 140 H D Alkaline Phosphatase 09/05/16 09/06/16 09/15/16 10:30 07:00 06:05 BUN Creatinine AST ALT 119 H Alkaline Phosphatase 74 129 H 09/19/16 09/22/16 09/23/16 17:30 06:30 07:00 BUN Creatinine AST ALT 192 H D Alkaline Phosphatase 194 H D 202 H 229 H 09/24/16 07:20 BUN 22 H Creatinine 0.5 L AST 95 H D ALT 195 H Alkaline Phosphatase 210 H Assessment Fever ? 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 etiology doubt antibiotic related Plan Sonogram liver GB Stop current antibiotics Isolate contact VREF Ceftriaxone for th lung Jay Jay VALLE
[2016-09-24] MEDS: RILUZOLE 50 MG PEG SCH ×2 (11:52→23:38)
[2016-09-24] MEDS: RANITIDINE HCL 150 MG/10 ML UNIT-DOSE CUP NGT SCH ×2 (11:52→23:39)
[2016-09-24] MEDS: NYSTATIN POWDER 100,000 UNITS/GM - 15 GM TOPICAL POWDER TP SCH ×2 (11:53→23:40)
[2016-09-24] MEDS: VANCOMYCIN 1 GRAM (PRE-DOCKED) 250 ML IVPB SCH (11:55)
[2016-09-24] MEDS: CEFTRIAXONE 50 ML IVPB SCH (12:40)
[2016-09-24] MEDS: ALBUTEROL SO4 0.083% IH SOL 2.5 MG/3 ML VIAL.NEB. NEB PRN ×3 (12:45→23:56)
--- NOTE | 2016-09-24 12:47 | PN ---
Progress Note (short form) - Note Progress Note: PULMONARY Vented on volume assist control but not receiving full expiratory tidal volumes and phonating. Denies shortness of breath or chest pain. No fevers recorded. Last Vital Signs Temp Pulse Resp BP Pulse Ox 98.3 F 83 27 H 148/73 97 09/24/16 06:00 09/24/16 06:00 09/24/16 09:07 09/24/16 06:00 09/23/16 21:00 Gen: vented, awake Heart: RRR Lung: decreased breath sounds on left base Abd: softly distended, nontender Ext: no edema CBC, BMP 09/24/16 07:20 09/24/16 07:20 Active Medications Acetaminophen (Tylenol Oral Solution -) 650 mg PO Q6H PRN PRN Reason: FEVER OR PAIN Last Admin: 09/23/16 16:03 Dose: 650 mg Acetylcysteine (Mucomyst 20 Oral / Inh Use Only*) 200 mg NEB QIDR [facility] Last Admin: 09/24/16 06:11 Dose: 200 mg Albuterol Sulfate (Ventolin 0.083% Nebulizer Soln -) 1 amp NEB Q4H PRN PRN Reason: SHORT OF BREATH/WHEEZING Last Admin: 09/23/16 19:09 Dose: 1 amp Enoxaparin Sodium (Lovenox -) 40 mg SQ DAILY [facility] Last Admin: 09/23/16 15:59 Dose: 40 mg Ceftriaxone Sodium (Rocephin 1gm Ivpb (Pre-Docked)) 50 mls @ 100 mls/hr IVPB DAILY [facility] Last Admin: 09/24/16 12:40 Dose: 100 mls/hr Insulin Aspart (Novolog Vial Sliding Scale -) 1 vial SQ ACHS [facility] PRN Reason: Protocol Last Admin: 09/24/16 12:39 Dose: 4 units Riluzole 50 Mg Tab - (Patient Own Med) 1 each PEG BID [facility] Last Admin: 09/24/16 11:52 Dose: 1 each Nystatin (Nystop Powder -) 1 applic TP BID [facility] Last Admin: 09/24/16 11:53 Dose: 1 applic Ranitidine HCl (Zantac Oral Solution -) 150 mg NGT BID [facility] Last Admin: 09/24/16 11:52 Dose: 150 mg A/P 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 s/p Tracheostomy Presumed Pneumonia Atelectasis UTI Sepsis ALS HTN DM Hypernatremia resolved Elevated LFTs - chest PT, pulmonary toilet - inhaled bronchodilators, mucolytics - even though pt not getting full tidal volumes, appears comfortable - daily spontaneous breathing trials as tolerated - attempt PMV as tolerated - O2 to keep SpO2 >90% - enteral feeds - DVT/GI prophylaxis
--- NOTE | 2016-09-24 13:06 | PN ---
Physical Exam: SUBJECTIVE: Patient seen and examined. He is talking, states is hungry, he is aware of details regarding trach evaluation tomorrow. D/w son at bedside. OBJECTIVE: Vital Signs Period Temp Pulse Resp BP Sys/Wang Pulse Ox Last 24 Hr 98.1 F-99.9 F 80-87 24-28 111-148/62-73 97 PE Neuro: alert, awake, R arm grasp only 4/5, cannot move LUE Pulm: diminished anteriorly, diffuse crackles noted +trach CV: s1 s2 rrr no mrg Abd: + peg CDI, midline abd scar healed, + bs Ext: warm, no le edema, 5/5 motor CBCD WBC 7.3 K/mm3 (4.0-10.0) 09/24/16 07:20 RBC 2.74 M/mm3 (4.00-5.60) L 09/24/16 07:20 Hgb 9.1 GM/dL (11.7-16.9) L 09/24/16 07:20 Hct 27.0 % (35.4-49) L 09/24/16 07:20 MCV 98.7 fl (80-96) H 09/24/16 07:20 MCHC 33.7 g/dl (32.0-35.9) 09/24/16 07:20 RDW 13.5 % (11.9-15.9) 09/24/16 07:20 Plt Count 269 K/MM3 (134-434) 09/24/16 07:20 MPV 7.6 fl (7.5-11.1) 09/24/16 07:20 CMP Sodium 136 mmol/L (136-145) 09/24/16 07:20 Potassium 4.2 mmol/L (3.5-5.1) 09/24/16 07:20 Chloride 102 mmol/L (98-107) 09/24/16 07:20 Carbon Dioxide 29 mmol/L (21-32) 09/24/16 07:20 Anion Gap 5 (8-16) L 09/24/16 07:20 BUN 22 mg/dL (7-18) H 09/24/16 07:20 Creatinine 0.5 mg/dL (0.7-1.3) L 09/24/16 07:20 Creat Clearance w eGFR > 60 (>60) 09/24/16 07:20 Calcium 8.9 mg/dL (8.5-10.1) 09/24/16 07:20 Total Bilirubin 0.3 mg/dL (0.2-1.0) 09/24/16 07:20 AST 95 U/L (15-37) H D 09/24/16 07:20 ALT 195 U/L (12-78) H 09/24/16 07:20 Alkaline Phosphatase 210 U/L (45-117) H 09/24/16 07:20 Total Protein 6.6 g/dl (6.4-8.2) 09/24/16 07:20 Albumin 2.1 g/dl (3.4-5.0) L 09/24/16 07:20 09/23/16 09/24/16 14:45 08:55 Creatine Kinase 29 L Troponin I 0.02 D Vancomycin Trough 6.897 Active Medications Generic Name Dose Route Start Last Admin Trade Name Freq PRN Reason Stop Dose Admin Acetaminophen 650 mg 09/03/16 20:07 09/23/16 16:03 Tylenol Oral Solution - PO 650 mg Q6H PRN Administration FEVER OR PAIN Acetylcysteine 200 mg 09/03/16 18:00 09/24/16 12:45 Mucomyst 20 Oral / Inh Use Only* NEB 200 mg QIDR KENDRICK Administration Albuterol Sulfate 1 amp 09/22/16 11:48 09/24/16 12:45 Ventolin 0.083% Nebulizer Soln - NEB 1 amp Q4H PRN Administration SHORT OF BREATH/WHEEZING Enoxaparin Sodium 40 mg 09/23/16 15:00 09/23/16 15:59 Lovenox - SQ 40 mg DAILY KENDRICK Administration Ceftriaxone Sodium 50 mls @ 100 mls/hr 09/24/16 13:00 09/24/16 12:40 Rocephin 1gm Ivpb (Pre-Docked) IVPB 100 mls/hr DAILY KENDRICK Administration Insulin Aspart 1 vial 09/23/16 16:30 09/24/16 12:39 Novolog Vial Sliding Scale - SQ 4 units ACHS KENDRICK Administration Protocol Riluzole 50 Mg Tab - 1 each 09/04/16 22:00 09/24/16 11:52 Patient Own Med PEG 1 each BID KENDRICK Administration Nystatin 1 applic 09/03/16 22:00 09/24/16 11:53 Nystop Powder - TP 1 applic BID KENDIRCK Administration Ranitidine HCl 150 mg 09/03/16 22:00 09/24/16 11:52 Zantac Oral Solution - NGT 150 mg BID KENDRICK Administration Antibiotics - Cefepime (09/20-09/24) - Vanco (09/21-09/24) Assessment: 76 year old male with a PMHx of ALS, DM II, GERD, CHF, HTN, and dysphagia admitted with hypoxia, progressive generalized weakness, and inability to ambulate. Admitted to the ICU, pt was intubated, then trached on . Plan: 1. Sepsis - Multifactoral: (VRE UTI and E coli in sputum; PNA) - Stop cefepime, vanco - Start ceftriaxone for pna - ID input appreciated 2. Acute 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 s/p trach - No receiving full Tidal volumes ?leak - CT surgery to assess trach in OR and bronchoscopy tomorrow - Suctioning w/ cudet - Continue mucomyst QID - Scopolomine patch placed 09/23 - Albuterol nebs PRN - Wean to CPAP, PMV as tolerated - Appreciate pulm input 3. R sided chest pain - Resolved - EKG without ischemic changes, Trop negative 4. Transaminitis - Improved today - GB US ordered 5 ALS - Continue with Riluzole 50 Mg BID 6. Nutrition - Peg placed - Glucerna daily 7. DM II - AM sugars improved - Continue ISS and BGM ACHS 8. DVT PPX - Lovenox sq 9. GERD - Continue Zantac Visit type - Emergency Visit Emergency Visit: Yes ED Registration Date: 08/27/16 Care time: The patient presented to the Emergency Department on the above date and was hospitalized for further evaluation of their emergent condition. - New Patient This patient is new to me today: No - Critical Care Critical Care patient: No
--- NOTE | 2016-09-24 16:35 | PN ---
Progress Note (short form) - Note Progress Note: CT Surgery: Pt seen and examined and discussed loss of tidal volume with Dr. Rodriguez and RT. Seems to lose more tidal volume when sleeping. Loss of tone may be affecting this. 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 Would like to do bronchoscopy and possibly change tracheostomy to XLT distal if there is room. Will do Saturday in the afternoon if the tracheostomy arrives at hospital. Please hold feeds at 5AM and give IVF so does not get dehydrated.
[2016-09-24] MEDS: ENOXAPARIN NA (PORCINE) 40 MG/0.4 ML DISP.SYRIN SQ SCH (17:11)
[2016-09-25] MEDS: ACETYLCYSTEINE 20% 200MG/ML 4 ML VIAL *FOR ORAL / INH USE ONLY NEB SCH ×4 (06:53→23:10)
[2016-09-25] MEDS: INSULIN SLIDING SCALE (NOVOLOG) 1 VIAL SQ SCH ×4 (06:57→21:08)
[2016-09-25 08:47] LABS: ALBUMIN 2.4 g/dl (3.4-5.0); ANION GAP 9 (8-16); CALCIUM 9.1 mg/dL (8.5-10.1); CO2 28 mmol/L (21-32); CREATININE 0.6 mg/dL (0.7-1.3); GLUCOSE,RANDOM 144 mg/dL (74-106); SGOT/AST 67 U/L (15-37); SGPT/ALT 167 U/L (12-78)
[2016-09-25 08:48] LABS: ALK PHOS 179 U/L (45-117); BILIRUBIN,TOTAL 0.5 mg/dL (0.2-1.0); TOT PROT 6.9 g/dl (6.4-8.2)
[2016-09-25] MEDS: RILUZOLE 50 MG PEG SCH ×2 (10:03→21:09)
[2016-09-25] MEDS: RANITIDINE HCL 150 MG/10 ML UNIT-DOSE CUP NGT SCH ×2 (10:03→21:10)
[2016-09-25] MEDS: CEFTRIAXONE 50 ML IVPB SCH (11:04)
[2016-09-25] MEDS: NYSTATIN POWDER 100,000 UNITS/GM - 15 GM TOPICAL POWDER TP SCH ×2 (11:05→21:09)
--- NOTE | 2016-09-25 11:46 | PN ---
Progress Note (short form) - Note Progress Note: PULMONARY Denies shortness of breath or chest pain. No fevers recorded. Last Vital Signs Temp Pulse Resp BP Pulse Ox 98.9 F 72 24 132/71 99 09/25/16 05:00 09/25/16 05:00 09/25/16 10:27 09/25/16 05:00 09/24/16 21:30 Gen: vented, awake Heart: RRR Lung: decreased breath sounds on left base Abd: softly distended, nontender Ext: no edema CBC, BMP 09/24/16 07:20 09/25/16 06:30 Active Medications Acetaminophen (Tylenol Oral Solution -) 650 mg PO Q6H PRN PRN Reason: FEVER OR PAIN Last Admin: 09/23/16 16:03 Dose: 650 mg Acetylcysteine (Mucomyst 20 Oral / Inh Use Only*) 200 mg NEB QIDR [facility] Last Admin: 09/25/16 06:53 Dose: 200 mg Albuterol Sulfate (Ventolin 0.083% Nebulizer Soln -) 1 amp NEB Q4H PRN PRN Reason: SHORT OF BREATH/WHEEZING Last Admin: 09/24/16 23:56 Dose: 1 amp Enoxaparin Sodium (Lovenox -) 40 mg SQ DAILY [facility] Last Admin: 09/24/16 17:11 Dose: 40 mg Ceftriaxone Sodium (Rocephin 1gm Ivpb (Pre-Docked)) 50 mls @ 100 mls/hr IVPB DAILY [facility] Last Admin: 09/25/16 11:04 Dose: 100 mls/hr Insulin Aspart (Novolog Vial Sliding Scale -) 1 vial SQ ACHS [facility] PRN Reason: Protocol Last Admin: 09/25/16 06:57 Dose: Not Given Riluzole 50 Mg Tab - (Patient Own Med) 1 each PEG BID [facility] Last Admin: 09/25/16 10:03 Dose: Not Given Nystatin (Nystop Powder -) 1 applic TP BID [facility] Last Admin: 09/25/16 11:05 Dose: 1 applic Ranitidine HCl (Zantac Oral Solution -) 150 mg NGT BID [facility] Last Admin: 09/25/16 10:03 Dose: Not Given A/P 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 s/p Tracheostomy Presumed Pneumonia Atelectasis UTI Sepsis ALS HTN DM Hypernatremia resolved Elevated LFTs - chest PT, pulmonary toilet - inhaled bronchodilators, mucolytics - for trach change today - daily spontaneous breathing trials as tolerated - attempt PMV as tolerated - decrease O2 to keep SpO2 >90% - enteral feeds - DVT/GI prophylaxis
[2016-09-25] MEDS: ALBUTEROL SO4 0.083% IH SOL 2.5 MG/3 ML VIAL.NEB. NEB PRN ×2 (12:00→23:10)
[2016-09-25] MEDS: ENOXAPARIN NA (PORCINE) 40 MG/0.4 ML DISP.SYRIN SQ SCH (12:25)
--- NOTE | 2016-09-25 13:52 | PN ---
Physical Exam: SUBJECTIVE: Patient seen and examined. Appears comfortable, no sob, no coughing. Vent AC mode OBJECTIVE: Vital Signs Period Temp Pulse Resp BP Sys/Wang Pulse Ox Last 24 Hr 98.5 F-99.5 F 72-99 12-30 120-132/71-82 99 PE Neuro: alert, awake, R arm grasp only 4/5, cannot move LUE Pulm: diminished anteriorly, diffuse crackles noted +trach CV: s1 s2 rrr no mrg Abd: + peg CDI, midline abd scar healed, + bs Ext: warm, no le edema, 5/5 motor CMP Sodium 138 mmol/L (136-145) 09/25/16 06:30 Potassium 4.1 mmol/L (3.5-5.1) 09/25/16 06:30 Chloride 101 mmol/L (98-107) 09/25/16 06:30 Carbon Dioxide 28 mmol/L (21-32) 09/25/16 06:30 Anion Gap 9 (8-16) 09/25/16 06:30 BUN 21 mg/dL (7-18) H 09/25/16 06:30 Creatinine 0.6 mg/dL (0.7-1.3) L 09/25/16 06:30 Creat Clearance w eGFR > 60 (>60) 09/25/16 06:30 Calcium 9.1 mg/dL (8.5-10.1) 09/25/16 06:30 Total Bilirubin 0.5 mg/dL (0.2-1.0) D 09/25/16 06:30 AST 67 U/L (15-37) H D 09/25/16 06:30 ALT 167 U/L (12-78) H 09/25/16 06:30 Alkaline Phosphatase 179 U/L (45-117) H 09/25/16 06:30 Total Protein 6.9 g/dl (6.4-8.2) 09/25/16 06:30 Albumin 2.4 g/dl (3.4-5.0) L 09/25/16 06:30 Active Medications Generic Name Dose Route Start Last Admin Trade Name Freq PRN Reason Stop Dose Admin Acetaminophen 650 mg 09/03/16 20:07 09/23/16 16:03 Tylenol Oral Solution - PO 650 mg Q6H PRN Administration FEVER OR PAIN Acetylcysteine 200 mg 09/03/16 18:00 09/25/16 06:53 Mucomyst 20 Oral / Inh Use Only* NEB 200 mg QIDR KENDRICK Administration Albuterol Sulfate 1 amp 09/22/16 11:48 09/24/16 23:56 Ventolin 0.083% Nebulizer Soln - NEB 1 amp Q4H PRN Administration SHORT OF BREATH/WHEEZING Enoxaparin Sodium 40 mg 09/23/16 15:00 09/25/16 12:25 Lovenox - SQ Not Given DAILY KENDRICK Ceftriaxone Sodium 50 mls @ 100 mls/hr 09/24/16 13:00 09/25/16 11:04 Rocephin 1gm Ivpb (Pre-Docked) IVPB 100 mls/hr DAILY [facility] Administration Insulin Aspart 1 vial 09/23/16 16:30 09/25/16 12:25 Novolog Vial Sliding Scale - SQ Not Given ACHS [facility] Protocol Riluzole 50 Mg Tab - 1 each 09/04/16 22:00 09/25/16 10:03 Patient Own Med PEG Not Given BID KENDRICK Nystatin 1 applic 09/03/16 22:00 09/25/16 11:05 Nystop Powder - TP 1 applic BID KENDRICK Administration Ranitidine HCl 150 mg 09/03/16 22:00 09/25/16 10:03 Zantac Oral Solution - NGT Not Given BID [facility] Antibiotics - Cefepime (09/20-09/24) - Vanco (09/21-09/24) Assessment: 76 year old male with a PMHx of ALS, DM II, GERD, CHF, HTN, and dysphagia admitted with hypoxia, progressive generalized weakness, and inability to ambulate. Admitted to the ICU, pt was intubated, then trached on . Plan: 1. Sepsis - Multifactoral: (VRE UTI and E coli in sputum; PNA) - Ceftriaxone (day2) per ID 2. Acute 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 s/p trach - For trach eval vs change in OR and bronchoscopy today - Suctioning w/ cudet - Continue mucomyst QID - Scopolomine patch placed 09/23 - Albuterol nebs PRN - Wean to CPAP, PMV as tolerated 3. R sided chest pain - Resolved 4. Transaminitis - Down trending - US negative for acute agustin 5 ALS - Continue with Riluzole 50 Mg BID 6. Nutrition - Peg placed - Restart Glucerna following procedure 7. DM II - Continue ISS and BGM ACHS 8. DVT PPX - Lovenox sq 9. GERD - Continue Zantac Visit type - Emergency Visit Emergency Visit: Yes ED Registration Date: 08/27/16 Care time: The patient presented to the Emergency Department on the above date and was hospitalized for further evaluation of their emergent condition. - New Patient This patient is new to me today: No - Critical Care Critical Care patient: No
[2016-09-25] MEDS ORDERED: SODIUM CHLORIDE 1,000 ML IV SCH ×2 (14:00→22:55)
[2016-09-25] MEDS ORDERED: LABETALOL HCL 5 MG/1 ML (100MG/20 ML VIAL) ONE (16:46)
[2016-09-25] MEDS ORDERED: LIDOCAINE HCL 1%, 10 MG/ML (20ML VIAL) IJ ONE (16:48)
--- NOTE | 2016-09-25 17:27 | OP ---
Operative Note - Note: Operative Date: 09/25/16 Pre-Operative Diagnosis: ALS, Resp failure Operation: Bronchoscopy, tracheostomy change. Findings: Original #8 Shiley in good position but there was cuff leak. New XLT distal #8 placed and no leak after. Significant secretions in airway. Surgeon: Brad Ramos Anesthesia: Local Estimated Blood Loss (mls): 5 Operative Report Dictated: Yes
--- NOTE | 2016-09-25 17:36 | OP ---
- Note: Note: Patient Name: Kevon Steve MR#: [id number] Procedure Date: 09/25/16 Preoperative Diagnosis: Respiratory failure/cuff leak. Postoperative Diagnosis: same. Procedure: 1. Bronchoscopy; 2. Tracheostomy change to #8 XLT distal. Indication: Respiratory failure with cuff leak; Surgeon(s): Brad Ramos MD Cosurgeon: na Anesthesia: Local; Findings: Abundant secretions; cuff working; no obvious tracheomalacia; #8 XLT in good position without any leak after change. Specimens Sent: 1. na; Complications: none Drains / Tubes / Catheters: na Hardware / Implants: na Blood / Fluid Losses: minimal Post-Operative Condition: Stable. Indications: This patient is a 76 year-old male with ALS and respiratory failure referred for tracheostomy. Since late August, he was doing well until he developed a cuff-leak despite a functioning cuff. This was worse in the evening while sleeping. Because of his continued need for the ventilator, and the occasional loss of tidal volumes due to this leak, the Pulmonology team and I agreed it was prudent to attempt to change the tracheostomy. An informed consent was obtained from the patient's son. All questions were addressed and he and his family agreed. Details of Procedure: The procedure was done in the OR. We began with bronchoscopy to clear the airway for the procedure. There was plenty of secretions. With the patient in extension and the cuff maximally inflated there was no leak. Of note, there was ample distance to his caleb but no obvious tracheomalacia. I then made the decision to change to the #8 XLT distal. It was exchanged without difficulty and secured with stitches and the strap. A completion bronchoscopy showed good position. There was no cuff leak at all after changing his neck position. The patient was then transferred to the PACU in stable condition.
[2016-09-26] MEDS: INSULIN SLIDING SCALE (NOVOLOG) 1 VIAL SQ SCH ×4 (06:21→22:58)
[2016-09-26] MEDS: ACETYLCYSTEINE 20% 200MG/ML 4 ML VIAL *FOR ORAL / INH USE ONLY NEB SCH ×3 (06:35→17:30)
[2016-09-26] MEDS: ALBUTEROL SO4 0.083% IH SOL 2.5 MG/3 ML VIAL.NEB. NEB PRN ×3 (06:35→17:30)
[2016-09-26 06:58] LABS: BASOPHIL 0.4 % (0-2.0); EOSINOPHIL 1.6 % (0-4.5); MCH 33.2 pg (25.7-33.7); MCHC 33.5 g/dl (32.0-35.9); MEAN CELL VOLUME 98.9 fl (80-96); MEAN PLT VOLUME 7.7 fl (7.5-11.1); NEUTROPHILS 76.6 % (42.8-82.8); PLATELET COUNT 284 K/MM3 (134-434); RDW 13.5 % (11.9-15.9); WHITE BLOOD COUNT 9.1 K/mm3 (4.0-10.0)
[2016-09-26 07:51] LABS: ALBUMIN 2.2 g/dl (3.4-5.0); ALK PHOS 170 U/L (45-117); ANION GAP 8 (8-16); BILIRUBIN,TOTAL 0.3 mg/dL (0.2-1.0); CALCIUM 8.1 mg/dL (8.5-10.1); CO2 26 mmol/L (21-32); CREATININE 0.6 mg/dL (0.7-1.3); GLUCOSE,RANDOM 169 mg/dL (74-106); MAGNESIUM 2.2 mg/dL (1.8-2.4); PHOSPHOROUS 3.5 mg/dL (2.5-4.9); SGOT/AST 61 U/L (15-37); SGPT/ALT 142 U/L (12-78); TOT PROT 6.5 g/dl (6.4-8.2)
[2016-09-26] MEDS: RANITIDINE HCL 150 MG/10 ML UNIT-DOSE CUP NGT SCH ×2 (11:03→22:56)
[2016-09-26] MEDS: CEFTRIAXONE 50 ML IVPB SCH (11:03)
[2016-09-26] MEDS: ENOXAPARIN NA (PORCINE) 40 MG/0.4 ML DISP.SYRIN SQ SCH (11:03)
[2016-09-26] MEDS: RILUZOLE 50 MG PEG SCH ×2 (11:04→22:56)
[2016-09-26] MEDS: NYSTATIN POWDER 100,000 UNITS/GM - 15 GM TOPICAL POWDER TP SCH ×2 (11:05→22:56)
[2016-09-26] MEDS ORDERED: INSULIN (NOVOLOG) ASPART 100 UNITS/ML 10ML VIAL ONE (11:06)
--- NOTE | 2016-09-26 12:59 | PN ---
Progress Note, Physician History of Present Illness: Awake but lethargic No acute distress S/P trach change Afebrile WBC normal - Current Medication List Current Medications: Active Medications Acetaminophen (Tylenol Oral Solution -) 650 mg PO Q6H PRN PRN Reason: FEVER OR PAIN Last Admin: 09/23/16 16:03 Dose: 650 mg Acetylcysteine (Mucomyst 20 Oral / Inh Use Only*) 200 mg NEB QIDR [facility] Last Admin: 09/26/16 11:02 Dose: 200 mg Albuterol Sulfate (Ventolin 0.083% Nebulizer Soln -) 1 amp NEB Q4H PRN PRN Reason: SHORT OF BREATH/WHEEZING Last Admin: 09/26/16 11:02 Dose: 1 amp Enoxaparin Sodium (Lovenox -) 40 mg SQ DAILY [facility] Last Admin: 09/26/16 11:03 Dose: 40 mg Ceftriaxone Sodium (Rocephin 1gm Ivpb (Pre-Docked)) 50 mls @ 100 mls/hr IVPB DAILY [facility] Last Admin: 09/26/16 11:03 Dose: 100 mls/hr Sodium Chloride (Normal Saline -) 1,000 mls @ 42 mls/hr IV ASDIR [facility] Last Admin: 09/25/16 23:00 Dose: 42 mls/hr Insulin Aspart (Novolog Vial Sliding Scale -) 1 vial SQ ACHS [facility] PRN Reason: Protocol Last Admin: 09/26/16 11:07 Dose: 2 units Riluzole 50 Mg Tab - (Patient Own Med) 1 each PEG BID [facility] Last Admin: 09/26/16 11:04 Dose: 1 each Nystatin (Nystop Powder -) 1 applic TP BID [facility] Last Admin: 09/26/16 11:05 Dose: 1 applic Ranitidine HCl (Zantac Oral Solution -) 150 mg NGT BID [facility] Last Admin: 09/26/16 11:03 Dose: 150 mg - Objective Vital Signs: Vital Signs Temperature 98.6 F 09/26/16 09:26 Pulse Rate 74 09/26/16 09:48 Respiratory Rate 14 09/26/16 09:47 Blood Pressure 139/72 09/26/16 09:26 O2 Sat by Pulse Oximetry (%) 97 09/26/16 09:48 Constitutional: Yes: No Distress Eyes: Yes: Conjunctiva Clear Cardiovascular: Yes: Regular Rate and Rhythm, S1, S2 Respiratory: Yes: Mechanically Ventilated Gastrointestinal: Yes: Normal Bowel Sounds, Soft. No: Tenderness Edema: Yes Labs: CBC, BMP 09/26/16 06:30 09/26/16 06:30 INR, PTT INR 1.09 (0.82-1.09) 09/03/16 18:30 Assessment/Plan S/P respiratory failure/ trach Fever- suspect secondary to lung source WBC WNL Hx neuromuscular disorder Elevated WBC Continue empiric ceftriaxone
--- NOTE | 2016-09-26 15:25 | PN ---
Progress Note (short form) - Note Progress Note: PULMONARY LOW GRADE TEMP APPEARS COMFORTABLE ON VENT TRACH 14/500/40%/5 AC MODE PALE/ANICTERIC CLEAR B/L ANTERIOR DIMINISHED SOUNDS LEFT SIDED S1S2 PEG + EDEMA B/L LOWER EXT LABS/MEDS/MICRO/NOTES/IMAGING REVIEWED IMPROVED AERATION LEFT HEMITHORAX 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 s/p Tracheostomy Pneumonia UTI Sepsis ALS HTN DM - no further leak - chest PT, pulmonary toilet,wean as tolerated,PMV eval - inhaled bronchodilators, mucolytics - antibiotics - enteral feeds - DVT/GI prophylaxis Nuzhat CLEMENT MD
--- NOTE | 2016-09-26 18:24 | PN ---
Physical Exam: SUBJECTIVE: Patient seen and examined. He feels well about the same, no complaints. OBJECTIVE: Vital Signs Period Temp Pulse Resp BP Sys/Wang Pulse Ox Last 24 Hr 98.2 F-99.0 F 74-88 14-20 104-139/58-76 93-97 PE Neuro: alert, awake, R arm grasp only 4/5, cannot move LUE Pulm: diffuse crackles L>R noted +trach, stitches intact CV: s1 s2 rrr no mrg Abd: + peg CDI, midline abd scar healed, + bs Ext: warm, no le edema, 5/5 motor Laboratory Results - last 24 hr 09/25/16 09/26/16 09/26/16 21:05 06:18 06:30 WBC 9.1 RBC 2.63 L Hgb 8.7 L Hct 26.0 L MCV 98.9 H MCHC 33.5 RDW 13.5 Plt Count 284 MPV 7.7 Neutrophils % 76.6 Lymphocytes % 14.0 D Monocytes % 7.4 Eosinophils % 1.6 Basophils % 0.4 Sodium Potassium Chloride Carbon Dioxide Anion Gap BUN Creatinine Creat Clearance w eGFR POC Glucometer 169 189 Random Glucose Calcium Phosphorus Magnesium Total Bilirubin AST ALT Alkaline Phosphatase Total Protein Albumin 09/26/16 09/26/16 09/26/16 06:30 11:01 16:17 WBC RBC Hgb Hct MCV MCHC RDW Plt Count MPV Neutrophils % Lymphocytes % Monocytes % Eosinophils % Basophils % Sodium 139 Potassium 4.1 Chloride 105 Carbon Dioxide 26 Anion Gap 8 BUN 21 H Creatinine 0.6 L Creat Clearance w eGFR > 60 POC Glucometer 200 150 Random Glucose 169 H Calcium 8.1 L Phosphorus 3.5 D Magnesium 2.2 Total Bilirubin 0.3 D AST 61 H ALT 142 H Alkaline Phosphatase 170 H Total Protein 6.5 Albumin 2.2 L Active Medications Generic Name Dose Route Start Last Admin Trade Name Freq PRN Reason Stop Dose Admin Acetaminophen 650 mg 09/03/16 20:07 09/23/16 16:03 Tylenol Oral Solution - PO 650 mg Q6H PRN Administration FEVER OR PAIN Acetylcysteine 200 mg 09/03/16 18:00 09/26/16 11:02 Mucomyst 20 Oral / Inh Use Only* NEB 200 mg QIDR [facility] Administration Albuterol Sulfate 1 amp 09/22/16 11:48 09/26/16 11:02 Ventolin 0.083% Nebulizer Soln - NEB 1 amp Q4H PRN Administration SHORT OF BREATH/WHEEZING Enoxaparin Sodium 40 mg 09/23/16 15:00 09/26/16 11:03 Lovenox - SQ 40 mg DAILY [facility] Administration Ceftriaxone Sodium 50 mls @ 100 mls/hr 09/24/16 13:00 09/26/16 11:03 Rocephin 1gm Ivpb (Pre-Docked) IVPB 100 mls/hr DAILY [facility] Administration Insulin Aspart 1 vial 09/23/16 16:30 09/26/16 16:30 Novolog Vial Sliding Scale - SQ Not Given ACHS [facility] Protocol Riluzole 50 Mg Tab - 1 each 09/04/16 22:00 09/26/16 11:04 Patient Own Med PEG 1 each BID [facility] Administration Nystatin 1 applic 09/03/16 22:00 09/26/16 11:05 Nystop Powder - TP 1 applic BID [facility] Administration Ranitidine HCl 150 mg 09/03/16 22:00 09/26/16 11:03 Zantac Oral Solution - NGT 150 mg BID [facility] Administration Antibiotics - Cefepime (09/20-09/24) - Vanco (09/21-09/24) Assessment: 76 year old male with a PMHx of ALS, DM II, GERD, CHF, HTN, and dysphagia admitted with hypoxia, progressive generalized weakness, and inability to ambulate. Admitted to the ICU, pt was intubated, then trached on . Plan: 1. Sepsis - Multifactoral: (VRE UTI and E coli in sputum; PNA) - Ceftriaxone (day 3) per ID 2. Acute 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 s/p trach - s/p trach change with broncoscopy 09/25 - Suctioning w/ cudet - Continue mucomyst QID - Albuterol nebs PRN - CPAP wean as tolerated, orders per pulm - PMV with speech and swallow, d/w Samaria Espinoza - d/w pulm - Appreciate CT surgery consult 3. R sided chest pain - Resolved 4. Transaminitis - Down trending - US negative for acute agutsin 5 ALS - Continue with Riluzole 50 Mg BID 6. Nutrition - Peg placed, TF glucerna 7. DM II - Continue ISS and BGM ACHS 8. DVT PPX - Lovenox sq 9. GERD - Continue Zantac Visit type - Emergency Visit Emergency Visit: Yes ED Registration Date: 08/27/16 Care time: The patient presented to the Emergency Department on the above date and was hospitalized for further evaluation of their emergent condition. - New Patient This patient is new to me today: No - Critical Care Critical Care patient: No - Discharge Referral Referred to [facility] Med P.C.: No
[2016-09-27] MEDS: ACETYLCYSTEINE 20% 200MG/ML 4 ML VIAL *FOR ORAL / INH USE ONLY NEB SCH ×5 (00:05→23:36)
[2016-09-27] MEDS: ALBUTEROL SO4 0.083% IH SOL 2.5 MG/3 ML VIAL.NEB. NEB PRN ×3 (00:05→12:11)
[2016-09-27] MEDS: INSULIN SLIDING SCALE (NOVOLOG) 1 VIAL SQ SCH ×4 (06:01→22:23)
[2016-09-27 07:45] LABS: BASOPHIL 0.4 % (0-2.0); EOSINOPHIL 1.1 % (0-4.5); MCHC 33.7 g/dl (32.0-35.9); MEAN PLT VOLUME 7.7 fl (7.5-11.1); NEUTROPHILS 85.9 % (42.8-82.8); PLATELET COUNT 265 K/MM3 (134-434); RDW 13.6 % (11.9-15.9); WHITE BLOOD COUNT 12.8 K/mm3 (4.0-10.0)
--- NOTE | 2016-09-27 08:34 | PATH ---
Surgical Pathology Report Patient Name: JOE FRAZIER Med. Rec. #: [id number] /Age/Gender: 1940 (Age: 76) / M Account: [id number] Location: [address] [place] [address] Taken: 09/25/2016 Received: 09/26/2016 Reported: 09/27/2016 Physicians: Brad Ramos M.D. Specimen(s) Received OLD TRACHEOSTOMY Clinical History Acute respiratory failure Final Diagnosis FIELD CREW CHIEF, REMOVAL: FIELD CREW CHIEF CONSISTENT WITH TRACHEOSTOMY TUBE (GROSS ONLY). Electronically Signed Larry Denis M.D. Gross Description Received fresh, labeled "old tracheostomy," is an 11 cm in greatest dimension tracheostomy tube. No soft tissue is present. No sections are submitted, gross only. /09/26/201609/26/2016
[2016-09-27] MEDS: ENOXAPARIN NA (PORCINE) 40 MG/0.4 ML DISP.SYRIN SQ SCH (09:55)
[2016-09-27] MEDS: RILUZOLE 50 MG PEG SCH ×2 (09:55→22:23)
[2016-09-27] MEDS: RANITIDINE HCL 150 MG/10 ML UNIT-DOSE CUP NGT SCH ×2 (09:55→22:22)
[2016-09-27] MEDS: CEFTRIAXONE 50 ML IVPB SCH (09:56)
[2016-09-27] MEDS: NYSTATIN POWDER 100,000 UNITS/GM - 15 GM TOPICAL POWDER TP SCH ×2 (09:56→22:23)
--- NOTE | 2016-09-27 10:52 | PN ---
Progress Note, Physician History of Present Illness: Awake and alert Offers no complaints Reports less tracheal secretions Low grade fever, leukocytosis noted LFTs improving - Current Medication List Current Medications: Active Medications Acetaminophen (Tylenol Oral Solution -) 650 mg PO Q6H PRN PRN Reason: FEVER OR PAIN Last Admin: 09/23/16 16:03 Dose: 650 mg Acetylcysteine (Mucomyst 20 Oral / Inh Use Only*) 200 mg NEB QIDR [facility] Last Admin: 09/27/16 07:35 Dose: 200 mg Albuterol Sulfate (Ventolin 0.083% Nebulizer Soln -) 1 amp NEB Q4H PRN PRN Reason: SHORT OF BREATH/WHEEZING Last Admin: 09/27/16 07:35 Dose: 1 amp Enoxaparin Sodium (Lovenox -) 40 mg SQ DAILY [facility] Last Admin: 09/27/16 09:55 Dose: 40 mg Ceftriaxone Sodium (Rocephin 1gm Ivpb (Pre-Docked)) 50 mls @ 100 mls/hr IVPB DAILY [facility] Last Admin: 09/27/16 09:56 Dose: 100 mls/hr Insulin Aspart (Novolog Vial Sliding Scale -) 1 vial SQ ACHS [facility] PRN Reason: Protocol Last Admin: 09/27/16 06:01 Dose: Not Given Riluzole 50 Mg Tab - (Patient Own Med) 1 each PEG BID [facility] Last Admin: 09/27/16 09:55 Dose: 1 each Nystatin (Nystop Powder -) 1 applic TP BID [facility] Last Admin: 09/27/16 09:56 Dose: 1 applic Ranitidine HCl (Zantac Oral Solution -) 150 mg NGT BID [facility] Last Admin: 09/27/16 09:55 Dose: 150 mg - Objective Vital Signs: Vital Signs Temperature 100.3 F H 09/27/16 06:00 Pulse Rate 85 09/27/16 09:44 Respiratory Rate 27 H 09/27/16 09:42 Blood Pressure 120/68 09/27/16 06:00 O2 Sat by Pulse Oximetry (%) 92 L 09/27/16 09:44 Constitutional: Yes: No Distress Eyes: Yes: Conjunctiva Clear Cardiovascular: Yes: Regular Rate and Rhythm, S1, S2 Respiratory: Yes: Dullness Gastrointestinal: Yes: Normal Bowel Sounds, Soft. No: Tenderness Edema: Yes Labs: CBC, BMP 09/27/16 07:05 09/26/16 06:30 INR, PTT INR 1.09 (0.82-1.09) 09/03/16 18:30 Assessment/Plan S/P respiratory failure/ trach Fever- suspect secondary to lung source Hx neuromuscular disorder Elevated WBC Elevated LFTs- improved Continue empiric ceftriaxone day #4
--- NOTE | 2016-09-27 12:19 | CONSULT ---
Passy-Pettibone Valve Eval - Assessment Prior to PMV Placement Patient and/or family educated re PMV: Yes Mental Status: Awake, Alert, Attempting to Communicate Respiratory Rate: 17 O2 Sat by Pulse Oximetry (%): 93 Secretions: Small Amount Patient on Ventilator: Yes Patient on Trach Collar: No Suctioned: Yes Trach Type: Shiley Trach Size: 8.0 (xLT) Inner Cannula Removed: No Cuff Status: Inflated Passy-Homer Valve in Place - Speech Characteristics Able to Phonate with PMV in place: Yes Voice Loudness: Mildly Soft/Quiet Voice Pitch: Mildly High Voice Phonatory-based Quality: Normal Speech Clarity: < 75% Nasal Resonance: Normal Articulation: Precise Rate of Speech: Intact Voice, Other Observations: Throat Clearing - Assessment with PMV in Place Respiratory Rate: 17 O2 Sat by Pulse Oximetry (%): 93 Change in Mental Status with PMV in Place: No Able to Manage Secretions: Yes Pt's subjective response to PMV: Yes: Other (Choking on secretions with PMV in place. Additionally, c/o significant right chest pain with PMV. However, with Leak speech, voice was good, mildly reduced in volume, better tolerance of secretions and no chest pain.) Length of time with PMV in place: 4 trials, each 2-3 minutes, with consistant chokin - Recommendations Recommendations: Other (PMV contraindicated at this time. REC: Leak speech ( cuff deflated to allow air to pass through vocal cords to speak), with oxymeter and alarm, supervised, suction as needed. PEG feeding may need to be stopped while cuff if deflated due to increased aspiration risk.)
[2016-09-27] MEDS ORDERED: PT OWN MED DRAWER 7, Y5N ONE ×2 (12:25→13:07)
--- NOTE | 2016-09-27 12:27 | PN ---
Physical Exam: SUBJECTIVE: Patient seen and examined. He has no acute complaints. He was initially scared to go on CPAP however he is tolerating it well. OBJECTIVE: Vital Signs Period Temp Pulse Resp BP Sys/Wang Pulse Ox Last 24 Hr 98.5 F-100.3 F 76-89 12-27 110-120/58-68 92-99 PE Neuro: alert, awake, R arm grasp only 4/5, cannot move LUE, mouthing words Pulm: Trach, diminished L ? R anteriorly, stitches intact CV: s1 s2 rrr no mrg Abd: + peg CDI, midline abd scar healed, + bs Ext: warm, no le edema, 5/5 LE motor Laboratory Results - last 24 hr 09/27/16 07:05 WBC 12.8 H D RBC 2.50 L Hgb 8.3 L Hct 24.5 L MCV 98.0 H MCHC 33.7 RDW 13.6 Plt Count 265 MPV 7.7 Neutrophils % 85.9 H Lymphocytes % 7.0 L D Monocytes % 5.6 Eosinophils % 1.1 Basophils % 0.4 POC Glucometer Active Medications Generic Name Dose Route Start Last Admin Trade Name Freq PRN Reason Stop Dose Admin Acetaminophen 650 mg 09/03/16 20:07 09/23/16 16:03 Tylenol Oral Solution - PO 650 mg Q6H PRN Administration FEVER OR PAIN Acetylcysteine 200 mg 09/03/16 18:00 09/27/16 12:11 Mucomyst 20 Oral / Inh Use Only* NEB 200 mg QIDR [facility] Administration Albuterol Sulfate 1 amp 09/22/16 11:48 09/27/16 12:11 Ventolin 0.083% Nebulizer Soln - NEB 1 amp Q4H PRN Administration SHORT OF BREATH/WHEEZING Enoxaparin Sodium 40 mg 09/23/16 15:00 09/27/16 09:55 Lovenox - SQ 40 mg DAILY [facility] Administration Ceftriaxone Sodium 50 mls @ 100 mls/hr 09/24/16 13:00 09/27/16 09:56 Rocephin 1gm Ivpb (Pre-Docked) IVPB 100 mls/hr DAILY [facility] Administration Insulin Aspart 1 vial 09/23/16 16:30 09/27/16 06:01 Novolog Vial Sliding Scale - SQ Not Given ACHS [facility] Protocol Riluzole 50 Mg Tab - 1 each 09/04/16 22:00 09/27/16 09:55 Patient Own Med PEG 1 each BID [facility] Administration Nystatin 1 applic 09/03/16 22:00 09/27/16 09:56 Nystop Powder - TP 1 applic BID [facility] Administration Ranitidine HCl 150 mg 09/03/16 22:00 09/27/16 09:55 Zantac Oral Solution - NGT 150 mg BID [facility] Administration Antibiotics - Cefepime (09/20-09/24) - Vanco (09/21-09/24) Assessment: 76 year old male with a PMHx of ALS, DM II, GERD, CHF, HTN, and dysphagia admitted with hypoxia, progressive generalized weakness, and inability to ambulate. Admitted to the ICU, pt was intubated, then trached on . Plan: 1. Sepsis - Multifactoral: (VRE UTI and E coli in sputum; PNA) - Ceftriaxone (day 4) per ID 2. Acute 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 s/p trach change 09/25 - Tolerating CPAP since 9am - Cannot tolerate pmv, experiencing right cp, however can tolerate leak speech - Will d/w pulm re leak speech and feeds - Continue mucomyst QID - Albuterol nebs PRN 3. R sided chest pain - Resolved 4. Transaminitis - Down trending - US negative for acute agustin 5 ALS - Continue with Riluzole 50 Mg BID 6. Nutrition - Peg placed, TF glucerna 7. DM II - Continue ISS and BGM ACHS 8. DVT PPX - Lovenox sq 9. GERD - Continue Zantac Visit type - Emergency Visit Emergency Visit: Yes ED Registration Date: 08/27/16 Care time: The patient presented to the Emergency Department on the above date and was hospitalized for further evaluation of their emergent condition. - New Patient This patient is new to me today: No - Critical Care Critical Care patient: No
--- NOTE | 2016-09-27 12:28 | PN ---
Progress Note, COMMUNITY AFFAIRS DIRECTOR - Note Progress Note: See full PMV eval- Choking on secretions with PMV in place. Additionally, c/o significant right chest pain with PMV. However, with Leak speech, voice was good, mildly reduced in volume, better tolerance of secretions and no chest pain. PMV function better than with prvious trach but still contraindicated at this time. Reviewed with PSYCHIATRIC THERAPIST. REC: Leak speech (cuff deflated to allow air to pass through vocal cords to speak), with oxymeter and alarm, supervised, suction as needed. PEG feeding may need to be stopped while cuff if deflated due to increased aspiration risk. MBS?
[2016-09-27] MEDS ORDERED: INSULIN (NOVOLOG) ASPART 100 UNITS/ML 10ML VIAL ONE (13:08)
--- NOTE | 2016-09-27 13:40 | PN ---
Progress Note (short form) - Note Progress Note: PULMONARY Denies shortness of breath or chest pain. Tolerating CPAP/PS /. Did not tolerate PMV. Last Vital Signs Temp Pulse Resp BP Pulse Ox 100.3 F H 85 17 120/68 93 L 09/27/16 06:00 09/27/16 09:44 09/27/16 12:28 09/27/16 06:00 09/27/16 12:28 Gen: vented, awake Heart: RRR Lung: decreased breath sounds on left base Abd: softly distended, nontender Ext: no edema CBC, BMP 09/27/16 07:05 09/26/16 06:30 Active Medications Acetaminophen (Tylenol Oral Solution -) 650 mg PO Q6H PRN PRN Reason: FEVER OR PAIN Last Admin: 09/23/16 16:03 Dose: 650 mg Acetylcysteine (Mucomyst 20 Oral / Inh Use Only*) 200 mg NEB QIDR [facility] Last Admin: 09/27/16 12:11 Dose: 200 mg Albuterol Sulfate (Ventolin 0.083% Nebulizer Soln -) 1 amp NEB Q4H PRN PRN Reason: SHORT OF BREATH/WHEEZING Last Admin: 09/27/16 12:11 Dose: 1 amp Enoxaparin Sodium (Lovenox -) 40 mg SQ DAILY [facility] Last Admin: 09/27/16 09:55 Dose: 40 mg Ceftriaxone Sodium (Rocephin 1gm Ivpb (Pre-Docked)) 50 mls @ 100 mls/hr IVPB DAILY [facility] Last Admin: 09/27/16 09:56 Dose: 100 mls/hr Insulin Aspart (Novolog Vial Sliding Scale -) 1 vial SQ ACHS [facility] PRN Reason: Protocol Last Admin: 09/27/16 13:16 Dose: 2 units Riluzole 50 Mg Tab - (Patient Own Med) 1 each PEG BID [facility] Last Admin: 09/27/16 09:55 Dose: 1 each Nystatin (Nystop Powder -) 1 applic TP BID [facility] Last Admin: 09/27/16 09:56 Dose: 1 applic Ranitidine HCl (Zantac Oral Solution -) 150 mg NGT BID [facility] Last Admin: 09/27/16 09:55 Dose: 150 mg A/P 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 s/p Tracheostomy Presumed Pneumonia Atelectasis UTI Sepsis ALS HTN DM Hypernatremia resolved Elevated LFTs - chest PT, pulmonary toilet - inhaled bronchodilators, mucolytics - daily spontaneous breathing trials as tolerated - attempt PMV as tolerated - decrease O2 to keep SpO2 >90% - enteral feeds - DVT/GI prophylaxis
[2016-09-27] MEDS: ACETAMINOPHEN 650 MG/20.3 ML ORAL SOLUTION (CUPS) PO PRN (22:22)
[2016-09-28] MEDS: INSULIN SLIDING SCALE (NOVOLOG) 1 VIAL SQ SCH ×4 (06:04→22:43)
[2016-09-28 06:34] LABS: BASOPHIL 0.4 % (0-2.0); EOSINOPHIL 0.9 % (0-4.5); MCH 32.8 pg (25.7-33.7); MCHC 33.1 g/dl (32.0-35.9); MEAN CELL VOLUME 99.1 fl (80-96); MEAN PLT VOLUME 7.9 fl (7.5-11.1); NEUTROPHILS 86.3 % (42.8-82.8); PLATELET COUNT 324 K/MM3 (134-434); RDW 13.8 % (11.9-15.9); WHITE BLOOD COUNT 14.1 K/mm3 (4.0-10.0)
[2016-09-28 06:58] LABS: CALCIUM 8.4 mg/dL (8.5-10.1)
[2016-09-28 07:04] LABS: ALBUMIN 2.3 g/dl (3.4-5.0); ALK PHOS 161 U/L (45-117); ANION GAP 9 (8-16); BILIRUBIN,TOTAL 0.3 mg/dL (0.2-1.0); CO2 28 mmol/L (21-32); CREATININE 0.5 mg/dL (0.7-1.3); GLUCOSE,RANDOM 167 mg/dL (74-106); SGOT/AST 28 U/L (15-37); SGPT/ALT 90 U/L (12-78); TOT PROT 6.4 g/dl (6.4-8.2)
[2016-09-28] MEDS: ALBUTEROL SO4 0.083% IH SOL 2.5 MG/3 ML VIAL.NEB. NEB PRN ×4 (07:06→23:06)
[2016-09-28] MEDS: ACETYLCYSTEINE 20% 200MG/ML 4 ML VIAL *FOR ORAL / INH USE ONLY NEB SCH ×4 (07:06→23:04)
[2016-09-28] MEDS ORDERED: PT OWN MED DRAWER 7, Y5N ONE (10:17)
[2016-09-28] MEDS: ENOXAPARIN NA (PORCINE) 40 MG/0.4 ML DISP.SYRIN SQ SCH (10:46)
[2016-09-28] MEDS: RANITIDINE HCL 150 MG/10 ML UNIT-DOSE CUP NGT SCH ×2 (10:46→22:45)
[2016-09-28] MEDS: CEFTRIAXONE 50 ML IVPB SCH (10:46)
[2016-09-28] MEDS: RILUZOLE 50 MG PEG SCH ×2 (10:47→22:44)
[2016-09-28] MEDS: NYSTATIN POWDER 100,000 UNITS/GM - 15 GM TOPICAL POWDER TP SCH ×2 (10:49→22:44)
[2016-09-28 10:52] LABS: URINE APPEARANCE CLEAR; URINE BILIRUBIN NEGATIVE (NEGATIVE); URINE BLOOD NEGATIVE (NEGATIVE); URINE COLOR YELLOW; URINE GLUCOSE (UA) NEGATIVE (NEGATIVE); URINE KETONE NEGATIVE (NEGATIVE); URINE LEUK ESTERASE NEGATIVE (NEGATIVE); URINE NITRITE NEGATIVE (NEGATIVE); URINE UROBILINOGEN NEGATIVE E.U./dl (0.2-1.0)
[2016-09-28 10:54] LABS: URINE PROTEIN 1+ (NEGATIVE)
[2016-09-28 10:56] LABS: URINE MUCUS RARE; URINE RBC <1 /hpf (0-3); URINE WBC <1 /hpf (3-5)
[2016-09-28] MEDS: ACETAMINOPHEN 650 MG/20.3 ML ORAL SOLUTION (CUPS) PO PRN (12:24)
--- NOTE | 2016-09-28 13:13 | PN ---
Progress Note (short form) - Note Progress Note: PULMONARY LOW GRADE TEMP APPEARS COMFORTABLE ON VENT TOLERATING WEANING PALE/ANICTERIC DIMINISHED SOUNDS LEFT SIDED S1S2 PEG + EDEMA B/L LOWER EXT LABS/MEDS/MICRO/NOTES/IMAGING REVIEWED IMPROVED AERATION LEFT HEMITHORAX 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 s/p Tracheostomy Pneumonia/Atelectasis left lung UTI Sepsis ALS HTN DM - no further leak - chest PT, pulmonary toilet,wean as tolerated,PMV eval - inhaled bronchodilators, mucolytics - antibiotics - enteral feeds - DVT/GI prophylaxis Nuzhat CLEMENT MD
--- NOTE | 2016-09-28 14:28 | PN ---
Progress Note, FLIGHT READINESS TECHNICIAN - Note Progress Note: See full PMV eval- Choking on secretions with PMV in place. Additionally, c/o significant right chest pain with PMV. However, with Leak speech, voice was good, mildly reduced in volume, better tolerance of secretions and no chest pain. PMV function better than with prvious trach but still contraindicated at this time. Reviewed with COMPUTER NUMERICAL CONTROL GRINDER. Reviewed with primary nurse. Awaiting orders for Leak speech (cuff deflated to allow air to pass through vocal cords to speak), with oxymeter and alarm, supervised, suction as needed. PEG feeding may need to be stopped while cuff if deflated due to increased aspiration risk. MBS?
--- NOTE | 2016-09-28 15:33 | PN ---
Progress Note, Physician History of Present Illness: Recurrent temp, worsening leukocytosis Loose stool x 1 reported Repeat cultures sent Pt awake and alert Offers no focal complaint Breathing non-labored; less trach secretions No c/o abdominal pain No dysuria - Current Medication List Current Medications: Active Medications Acetaminophen (Tylenol Oral Solution -) 650 mg PO Q6H PRN PRN Reason: FEVER OR PAIN Last Admin: 09/28/16 12:24 Dose: 650 mg Acetylcysteine (Mucomyst 20 Oral / Inh Use Only*) 200 mg NEB QIDR [facility] Last Admin: 09/28/16 11:40 Dose: 200 mg Albuterol Sulfate (Ventolin 0.083% Nebulizer Soln -) 1 amp NEB Q4H PRN PRN Reason: SHORT OF BREATH/WHEEZING Last Admin: 09/28/16 11:40 Dose: 1 amp Enoxaparin Sodium (Lovenox -) 40 mg SQ DAILY [facility] Last Admin: 09/28/16 10:46 Dose: 40 mg Ceftriaxone Sodium (Rocephin 1gm Ivpb (Pre-Docked)) 50 mls @ 100 mls/hr IVPB DAILY [facility] Last Admin: 09/28/16 10:46 Dose: 100 mls/hr Insulin Aspart (Novolog Vial Sliding Scale -) 1 vial SQ ACHS [facility] PRN Reason: Protocol Last Admin: 09/28/16 12:24 Dose: 4 units Riluzole 50 Mg Tab - (Patient Own Med) 1 each PEG BID [facility] Last Admin: 09/28/16 10:47 Dose: 1 each Nystatin (Nystop Powder -) 1 applic TP BID [facility] Last Admin: 09/28/16 10:49 Dose: 1 applic Ranitidine HCl (Zantac Oral Solution -) 150 mg NGT BID [facility] Last Admin: 09/28/16 10:46 Dose: 150 mg - Objective Vital Signs: Vital Signs Temperature 99.6 F 09/28/16 14:23 Pulse Rate 99 H 09/28/16 13:03 Respiratory Rate 21 09/28/16 14:05 Blood Pressure 115/61 09/28/16 13:03 O2 Sat by Pulse Oximetry (%) 93 L 09/28/16 09:50 Constitutional: Yes: No Distress Eyes: Yes: Conjunctiva Clear Cardiovascular: Yes: Regular Rate and Rhythm, S1, S2 Respiratory: Yes: Diminished Gastrointestinal: Yes: Normal Bowel Sounds, Soft. No: Tenderness Edema: No Labs: CBC, BMP 09/28/16 05:15 09/28/16 05:15 INR, PTT INR 1.09 (0.82-1.09) 09/03/16 18:30 Assessment/Plan S/P respiratory failure/ trach Fever / leukocytosis/ loose stool possible C difficile Hx neuromuscular disorder Elevated WBC Elevated LFTs Stop ceftriaxone Check stool C diff Await c/s
--- NOTE | 2016-09-28 16:13 | PN ---
Progress Note (short form) - Note Progress Note: Subjective: The patient was seen and examined at the bedside, he reports feeling good. He states he had diarrhea yesterday. Tmax 101.9 overnight Current Medications Generic Name Dose Route Start Last Admin Trade Name Freq PRN Reason Stop Dose Admin Acetaminophen 650 mg 09/03/16 20:07 09/28/16 12:24 Tylenol Oral Solution - PO 650 mg Q6H PRN Administration FEVER OR PAIN Acetylcysteine 200 mg 09/03/16 18:00 09/28/16 11:40 Mucomyst 20 Oral / Inh Use Only* NEB 200 mg QIDR KENDRICK Administration Albuterol Sulfate 1 amp 09/22/16 11:48 09/28/16 11:40 Ventolin 0.083% Nebulizer Soln - NEB 1 amp Q4H PRN Administration SHORT OF BREATH/WHEEZING Enoxaparin Sodium 40 mg 09/23/16 15:00 09/28/16 10:46 Lovenox - SQ 40 mg DAILY KENDRICK Administration Insulin Aspart 1 vial 09/23/16 16:30 09/28/16 12:24 Novolog Vial Sliding Scale - SQ 4 units ACHS KENDRICK Administration Protocol Riluzole 50 Mg Tab - 1 each 09/04/16 22:00 09/28/16 10:47 Patient Own Med PEG 1 each BID KENDRICK Administration Nystatin 1 applic 09/03/16 22:00 09/28/16 10:49 Nystop Powder - TP 1 applic BID KENDRICK Administration Ranitidine HCl 150 mg 09/03/16 22:00 09/28/16 10:46 Zantac Oral Solution - NGT 150 mg BID KENDRICK Administration Objective: Vital Signs Period Temp Pulse Resp BP Sys/Wang Pulse Ox Last 24 Hr 98.9 F-101.9 F 86-100 16-24 109-133/56-70 93-98 Physical Exam: General: NAD, A&Ox3 Lungs: +trach in place. Rhonchi throughout Heart: RRR, S1S2 Abd: PEG tube in place. Soft, non-tender, non-distended. Hyperactive bowel sounds Ext: Warm, well-perfused. 2+ DP/PT bilaterally Neuro: CN 2-12 intact. Unable to move LUE CBCD WBC 14.1 K/mm3 (4.0-10.0) H 09/28/16 05:15 RBC 2.55 M/mm3 (4.00-5.60) L 09/28/16 05:15 Hgb 8.4 GM/dL (11.7-16.9) L 09/28/16 05:15 Hct 25.2 % (35.4-49) L 09/28/16 05:15 MCV 99.1 fl (80-96) H 09/28/16 05:15 MCHC 33.1 g/dl (32.0-35.9) 09/28/16 05:15 RDW 13.8 % (11.9-15.9) 09/28/16 05:15 Plt Count 324 K/MM3 (134-434) D 09/28/16 05:15 MPV 7.9 fl (7.5-11.1) 09/28/16 05:15 CMP Sodium 139 mmol/L (136-145) 09/28/16 05:15 Potassium 4.3 mmol/L (3.5-5.1) 09/28/16 05:15 Chloride 102 mmol/L (98-107) 09/28/16 05:15 Carbon Dioxide 28 mmol/L (21-32) 09/28/16 05:15 Anion Gap 9 (8-16) 09/28/16 05:15 BUN 17 mg/dL (7-18) 09/28/16 05:15 Creatinine 0.5 mg/dL (0.7-1.3) L 09/28/16 05:15 Creat Clearance w eGFR > 60 (>60) 09/28/16 05:15 Random Glucose 167 mg/dL (74-106) H 09/28/16 05:15 Calcium 8.4 mg/dL (8.5-10.1) L 09/28/16 05:15 Total Bilirubin 0.3 mg/dL (0.2-1.0) 09/28/16 05:15 AST 28 U/L (15-37) D 09/28/16 05:15 ALT 90 U/L (12-78) H D 09/28/16 05:15 Alkaline Phosphatase 161 U/L (45-117) H 09/28/16 05:15 Total Protein 6.4 g/dl (6.4-8.2) 09/28/16 05:15 Albumin 2.3 g/dl (3.4-5.0) L 09/28/16 05:15 CARDIAC ENZYMES Creatine Kinase 29 IU/L (39-308) L 09/23/16 14:45 Troponin I 0.02 ng/ml (0.00-0.05) D 09/23/16 14:45 Microbiology 09/19/16 17:00 Blood - Peripheral Venous Blood Culture - Final NO GROWTH AFTER 5 DAYS INCUBATION 09/19/16 17:00 Blood - Peripheral Venous Blood Culture - Final NO GROWTH AFTER 5 DAYS INCUBATION 09/20/16 16:00 Sputum - Endotrachea Suction/Ventilator Gram Stain - Final 09/20/16 16:00 Sputum - Endotrachea Suction/Ventilator Sputum Culture - Final Escherichia Coli 09/19/16 21:00 Urine - Urine Clean Catch Urine Culture - Final Vr Ec Faecalis 09/10/16 12:10 Sputum - Endotrachea Suction/Ventilator Gram Stain - Final 09/10/16 12:10 Sputum - Endotrachea Suction/Ventilator Sputum Culture - Final Escherichia Coli 09/06/16 17:00 Blood - Peripheral Venous Blood Culture - Final NO GROWTH AFTER 5 DAYS INCUBATION 09/06/16 17:00 Blood - Peripheral Venous Blood Culture - Final NO GROWTH AFTER 5 DAYS INCUBATION 08/27/16 11:50 Urine - Urine Clean Catch Urine Culture - Final Enterococcus Faecalis 09/01/16 10:15 Sputum - Endotrachea Suction/Ventilator Gram Stain - Final 09/01/16 10:15 Sputum - Endotrachea Suction/Ventilator Sputum Culture - Final NORMAL RESPIRATORY BUCKY 09/02/16 12:15 Stool Clostridium difficile Antigen (CESILIA) - Final 09/02/16 12:15 Stool Clostridium difficile Toxin Assay - Final 08/27/16 13:30 Blood - Peripheral Venous Blood Culture - Final NO GROWTH AFTER 5 DAYS INCUBATION 08/27/16 13:30 Blood - Peripheral Venous Blood Culture - Final NO GROWTH AFTER 5 DAYS INCUBATION 08/27/16 13:43 Urine For Antigen Detection Legionella Antigen - Final 08/27/16 13:43 Urine For Antigen Detection Streptococcus pneumoniae Antigen (M - Final Assessment: This is a 76 year old male with PMHx of ALS, DMII, GERD, CHF?, dysphagia, who presented to the ED with progressive generalized weakness and inability to ambulate and was found to have acute hypoxic hypercapnic respiratory failure, was intubated and then trached on 08/31/16. Plan: 1) Pulmonary: Acute on chronic hypoxic hypercapnic respiratory failure - S/p trach on 08/31/16, changed on 09/25/16 - Tolerating leak speech, will discuss with pulmonary - Tolerating CPAP - Continue Mucomyst - Continue Albuterol nebs - Appreciate pulmonary consult 2) ID: Sepsis 2/2 E.coli in sputum, VRE UTI - Tmax 101.9 overnight, worsening leukocytosis - Cultures sent - Chest X-ray 09/28 with mild increased density medially at the right lung base where an early infiltrate cannot be excluded - Will stop Ceftriaxone - F/u stool for c.diff (patient reports diarrhea) - Appreciate ID consult 3) GI: Elevated ALT, alk phos - Trending down - Liver ultrasound with no evidence of acute cholecystitis - Continue to monitor 4) Cardiology: Right sided chest pain - Occurred during leak speech trials - Has since resolved 5) Neuro: ALS - Continue Riluzole 50mg GT bid 6) Endocrine: DM - BGM ACHS - ISS ACHS 7) F/E/N: - Monitor electrolytes - Tube feeds 8) Prophylaxis: - Lovenox 40mg sq daily - PT - Continue Zantac 9) Dispo: - Requires continued inpatient care CODE STATUS: FULL CODE Visit type - Emergency Visit Emergency Visit: Yes ED Registration Date: 08/27/16 Care time: The patient presented to the Emergency Department on the above date and was hospitalized for further evaluation of their emergent condition. - New Patient This patient is new to me today: Yes Date on this admission: 09/28/16 - Critical Care Critical Care patient: No
[2016-09-28] MEDS ORDERED: INSULIN (NOVOLOG) ASPART 100 UNITS/ML 10ML VIAL ONE (22:25)
[2016-09-29] MEDS: INSULIN SLIDING SCALE (NOVOLOG) 1 VIAL SQ SCH ×4 (06:11→21:49)
[2016-09-29] MEDS: ACETYLCYSTEINE 20% 200MG/ML 4 ML VIAL *FOR ORAL / INH USE ONLY NEB SCH ×4 (06:15→23:09)
[2016-09-29] MEDS: ALBUTEROL SO4 0.083% IH SOL 2.5 MG/3 ML VIAL.NEB. NEB PRN ×4 (06:15→23:09)
[2016-09-29] MEDS ORDERED: INSULIN (NOVOLOG) ASPART 100 UNITS/ML 10ML VIAL ONE ×4 (06:55→20:28)
[2016-09-29 07:33] LABS: MCH 32.4 pg (25.7-33.7); MCHC 32.9 g/dl (32.0-35.9); MEAN CELL VOLUME 98.6 fl (80-96); MEAN PLT VOLUME 7.9 fl (7.5-11.1); PLATELET COUNT 298 K/MM3 (134-434); RDW 13.6 % (11.9-15.9); WHITE BLOOD COUNT 13.7 K/mm3 (4.0-10.0)
[2016-09-29 08:24] LABS: ALBUMIN 2.2 g/dl (3.4-5.0); ALK PHOS 171 U/L (45-117); ANION GAP 11 (8-16); BILIRUBIN,TOTAL 0.3 mg/dL (0.2-1.0); CALCIUM 8.4 mg/dL (8.5-10.1); CO2 26 mmol/L (21-32); CREATININE 0.6 mg/dL (0.7-1.3); GLUCOSE,RANDOM 155 mg/dL (74-106); SGOT/AST 25 U/L (15-37); SGPT/ALT 71 U/L (12-78); TOT PROT 6.7 g/dl (6.4-8.2)
[2016-09-29] MEDS: NYSTATIN POWDER 100,000 UNITS/GM - 15 GM TOPICAL POWDER TP SCH ×2 (10:10→21:50)
[2016-09-29] MEDS: ENOXAPARIN NA (PORCINE) 40 MG/0.4 ML DISP.SYRIN SQ SCH (10:10)
[2016-09-29] MEDS: RANITIDINE HCL 150 MG/10 ML UNIT-DOSE CUP NGT SCH ×2 (10:10→21:50)
[2016-09-29] MEDS: RILUZOLE 50 MG PEG SCH ×2 (10:11→21:50)
--- NOTE | 2016-09-29 11:50 | PN ---
Progress Note (short form) - Note Progress Note: PULMONARY LOW GRADE TEMP CONTINUES APPEARS COMFORTABLE ON VENT/SPEAKING WITH DEFLATED CUFF TOLERATING WEANING PALE/ANICTERIC DIMINISHED SOUNDS LEFT SIDED S1S2 PEG + EDEMA B/L LOWER EXT LABS/MEDS/MICRO/NOTES/IMAGING REVIEWED IMPROVED AERATION LEFT HEMITHORAX 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 s/p Tracheostomy Pneumonia/Atelectasis left lung UTI Sepsis ALS HTN DM - try PMV again - chest PT, pulmonary toilet,wean as tolerated - inhaled bronchodilators, mucolytics - observe off antibiotics - enteral feeds - DVT/GI prophylaxis Nuzhat CLEMENT MD
--- NOTE | 2016-09-29 13:11 | PN ---
Progress Note (short form) - Note Progress Note: Subjective: The patient was seen and examined at the bedside, he reports feeling good. He reports still having diarrhea C.diff ordered Tmax 100.7 Current Medications Generic Name Dose Route Start Last Admin Trade Name Freq PRN Reason Stop Dose Admin Acetaminophen 650 mg 09/03/16 20:07 09/28/16 12:24 Tylenol Oral Solution - PO 650 mg Q6H PRN Administration FEVER OR PAIN Acetylcysteine 200 mg 09/03/16 18:00 09/29/16 12:02 Mucomyst 20 Oral / Inh Use Only* NEB 200 mg QIDR KENDRICK Administration Albuterol Sulfate 1 amp 09/22/16 11:48 09/29/16 12:02 Ventolin 0.083% Nebulizer Soln - NEB 1 amp Q4H PRN Administration SHORT OF BREATH/WHEEZING Enoxaparin Sodium 40 mg 09/23/16 15:00 09/29/16 10:10 Lovenox - SQ 40 mg DAILY KENDRICK Administration Insulin Aspart 1 vial 09/23/16 16:30 09/29/16 06:11 Novolog Vial Sliding Scale - SQ 2 units ACHS KENDRICK Administration Protocol Riluzole 50 Mg Tab - 1 each 09/04/16 22:00 09/29/16 10:11 Patient Own Med PEG 1 each BID KENDRICK Administration Nystatin 1 applic 09/03/16 22:00 09/29/16 10:10 Nystop Powder - TP 1 applic BID KENDRICK Administration Ranitidine HCl 150 mg 09/03/16 22:00 09/29/16 10:10 Zantac Oral Solution - NGT 150 mg BID KENDRICK Administration Objective: Vital Signs Period Temp Pulse Resp BP Sys/Wang Pulse Ox Last 24 Hr 99.3 F-100.7 F 91-107 14-28 106-124/56-90 92-92 Physical Exam: General: NAD, A&Ox3 Lungs: +trach in place. Rhonchi throughout (improving) Heart: RRR, S1S2 Abd: PEG tube in place. Soft, non-tender, non-distended. Hyperactive bowel sounds Ext: Warm, well-perfused. 2+ DP/PT bilaterally Neuro: CN 2-12 intact. Unable to move LUE CBCD WBC 13.7 K/mm3 (4.0-10.0) H 09/29/16 06:00 RBC 2.49 M/mm3 (4.00-5.60) L 09/29/16 06:00 Hgb 8.1 GM/dL (11.7-16.9) L 09/29/16 06:00 Hct 24.6 % (35.4-49) L 09/29/16 06:00 MCV 98.6 fl (80-96) H 09/29/16 06:00 MCHC 32.9 g/dl (32.0-35.9) 09/29/16 06:00 RDW 13.6 % (11.9-15.9) 09/29/16 06:00 Plt Count 298 K/MM3 (134-434) 09/29/16 06:00 MPV 7.9 fl (7.5-11.1) 09/29/16 06:00 CMP Sodium 137 mmol/L (136-145) 09/29/16 06:00 Potassium 4.3 mmol/L (3.5-5.1) 09/29/16 06:00 Chloride 100 mmol/L (98-107) 09/29/16 06:00 Carbon Dioxide 26 mmol/L (21-32) 09/29/16 06:00 Anion Gap 11 (8-16) 09/29/16 06:00 BUN 20 mg/dL (7-18) H 09/29/16 06:00 Creatinine 0.6 mg/dL (0.7-1.3) L 09/29/16 06:00 Creat Clearance w eGFR > 60 (>60) 09/29/16 06:00 Random Glucose 155 mg/dL (74-106) H 09/29/16 06:00 Calcium 8.4 mg/dL (8.5-10.1) L 09/29/16 06:00 Total Bilirubin 0.3 mg/dL (0.2-1.0) 09/29/16 06:00 AST 25 U/L (15-37) 09/29/16 06:00 ALT 71 U/L (12-78) D 09/29/16 06:00 Alkaline Phosphatase 171 U/L (45-117) H 09/29/16 06:00 Total Protein 6.7 g/dl (6.4-8.2) 09/29/16 06:00 Albumin 2.2 g/dl (3.4-5.0) L 09/29/16 06:00 CARDIAC ENZYMES Creatine Kinase 29 IU/L (39-308) L 09/23/16 14:45 Troponin I 0.02 ng/ml (0.00-0.05) D 09/23/16 14:45 Microbiology 09/28/16 09:28 Blood - Peripheral Venous Blood Culture - Preliminary NO GROWTH OBTAINED AFTER 24 HOURS, INCUBATION TO CONTINUE FOR 4 DAYS. 09/28/16 10:27 Blood - Peripheral Venous Blood Culture - Preliminary NO GROWTH OBTAINED AFTER 24 HOURS, INCUBATION TO CONTINUE FOR 4 DAYS. 09/28/16 09:30 Urine - Urine Clean Catch Urine Culture - Final NO GROWTH OBTAINED 09/19/16 17:00 Blood - Peripheral Venous Blood Culture - Final NO GROWTH AFTER 5 DAYS INCUBATION 09/19/16 17:00 Blood - Peripheral Venous Blood Culture - Final NO GROWTH AFTER 5 DAYS INCUBATION 09/20/16 16:00 Sputum - Endotrachea Suction/Ventilator Gram Stain - Final 09/20/16 16:00 Sputum - Endotrachea Suction/Ventilator Sputum Culture - Final Escherichia Coli 09/19/16 21:00 Urine - Urine Clean Catch Urine Culture - Final Vr Ec Faecalis 09/10/16 12:10 Sputum - Endotrachea Suction/Ventilator Gram Stain - Final 09/10/16 12:10 Sputum - Endotrachea Suction/Ventilator Sputum Culture - Final Escherichia Coli 09/06/16 17:00 Blood - Peripheral Venous Blood Culture - Final NO GROWTH AFTER 5 DAYS INCUBATION 09/06/16 17:00 Blood - Peripheral Venous Blood Culture - Final NO GROWTH AFTER 5 DAYS INCUBATION 08/27/16 11:50 Urine - Urine Clean Catch Urine Culture - Final Enterococcus Faecalis 09/01/16 10:15 Sputum - Endotrachea Suction/Ventilator Gram Stain - Final 09/01/16 10:15 Sputum - Endotrachea Suction/Ventilator Sputum Culture - Final NORMAL RESPIRATORY BUCKY 09/02/16 12:15 Stool Clostridium difficile Antigen (CESILIA) - Final 09/02/16 12:15 Stool Clostridium difficile Toxin Assay - Final 08/27/16 13:30 Blood - Peripheral Venous Blood Culture - Final NO GROWTH AFTER 5 DAYS INCUBATION 08/27/16 13:30 Blood - Peripheral Venous Blood Culture - Final NO GROWTH AFTER 5 DAYS INCUBATION 08/27/16 13:43 Urine For Antigen Detection Legionella Antigen - Final 08/27/16 13:43 Urine For Antigen Detection Streptococcus pneumoniae Antigen (M - Final Assessment: This is a 76 year old male with PMHx of ALS, DMII, GERD, CHF?, dysphagia, who presented to the ED with progressive generalized weakness and inability to ambulate and was found to have acute hypoxic hypercapnic respiratory failure, was intubated and then trached on 08/31/16. Plan: 1) Pulmonary: Acute on chronic hypoxic hypercapnic respiratory failure - S/p trach on 08/31/16, changed on 09/25/16 - Tolerating leak speech, will discuss with pulmonary - Tolerating CPAP - Continue Mucomyst - Continue Albuterol nebs - Appreciate pulmonary consult 2) ID: Sepsis 2/2 E.coli in sputum, VRE UTI - Tmax 100.7, leukocytosis improving - Cultures sent, urine culture with no growth, blood culture with NGTD - Chest X-ray 09/28 with mild increased density medially at the right lung base where an early infiltrate cannot be excluded - Continue to observe off abx per ID - F/u stool for c.diff (patient still reports diarrhea) - Appreciate ID consult 3) GI: Elevated ALT, alk phos - Trending down - Liver ultrasound with no evidence of acute cholecystitis - Continue to monitor 4) Cardiology: Right sided chest pain - Occurred during leak speech trials - Has since resolved 5) Neuro: ALS - Continue Riluzole 50mg GT bid 6) Endocrine: DM - BGM ACHS - ISS ACHS 7) F/E/N: - Monitor electrolytes - Tube feeds 8) Prophylaxis: - Lovenox 40mg sq daily - PT - Continue Zantac 9) Dispo: - Requires continued inpatient care CODE STATUS: FULL CODE Visit type - Emergency Visit Emergency Visit: Yes ED Registration Date: 08/27/16 Care time: The patient presented to the Emergency Department on the above date and was hospitalized for further evaluation of their emergent condition. - New Patient This patient is new to me today: No - Critical Care Critical Care patient: No
--- NOTE | 2016-09-29 14:45 | PN ---
Progress Note (short form) - Note Progress Note: awake and alert he reports one loose bm today- nurse states it was formed stool Vital Signs Period Temp Pulse Resp BP Sys/Wang Pulse Ox Last 24 Hr 99.3 F-99.9 F 91-107 14- 106-124/56-90 92-92 trach to vent cor-rrr lungs clear abd soft,nt +GT ext no edema LE bilateral UE edema CBC, BMP 09/29/16 06:00 09/29/16 06:00 Microbiology 09/28/16 09:28 Blood Culture - Preliminary Blood - Peripheral Venous NO GROWTH OBTAINED AFTER 24 HOURS, INCUBATION TO CONTINUE FOR 4 DAYS. 09/28/16 10:27 Blood Culture - Preliminary Blood - Peripheral Venous NO GROWTH OBTAINED AFTER 24 HOURS, INCUBATION TO CONTINUE FOR 4 DAYS. 09/28/16 09:30 Urine Culture - Final Urine - Urine Clean Catch NO GROWTH OBTAINED a/p low grade temp- observe off antibiotics send cdiff if he has diarrhea
[2016-09-29] MEDS: ACETAMINOPHEN 650 MG/20.3 ML ORAL SOLUTION (CUPS) PO PRN (16:38)
[2016-09-30] MEDS: INSULIN SLIDING SCALE (NOVOLOG) 1 VIAL SQ SCH ×4 (06:00→21:40)
[2016-09-30] MEDS: ALBUTEROL SO4 0.083% IH SOL 2.5 MG/3 ML VIAL.NEB. NEB PRN ×4 (06:51→23:25)
[2016-09-30] MEDS: ACETYLCYSTEINE 20% 200MG/ML 4 ML VIAL *FOR ORAL / INH USE ONLY NEB SCH ×4 (06:51→23:25)
[2016-09-30 07:12] LABS: MCH 32.6 pg (25.7-33.7); MCHC 33.2 g/dl (32.0-35.9); MEAN CELL VOLUME 98.2 fl (80-96); MEAN PLT VOLUME 7.7 fl (7.5-11.1); PLATELET COUNT 298 K/MM3 (134-434); RDW 13.7 % (11.9-15.9); WHITE BLOOD COUNT 11.9 K/mm3 (4.0-10.0)
[2016-09-30] MEDS: NYSTATIN POWDER 100,000 UNITS/GM - 15 GM TOPICAL POWDER TP SCH ×2 (10:00→22:55)
[2016-09-30] MEDS: RANITIDINE HCL 150 MG/10 ML UNIT-DOSE CUP NGT SCH ×2 (10:00→21:45)
[2016-09-30] MEDS: ENOXAPARIN NA (PORCINE) 40 MG/0.4 ML DISP.SYRIN SQ SCH (10:00)
[2016-09-30] MEDS: RILUZOLE 50 MG PEG SCH ×2 (10:00→21:45)
[2016-09-30] MEDS ORDERED: PT OWN MED DRAWER 7, Y5N ONE (10:53)
[2016-09-30] MEDS ORDERED: INSULIN (NOVOLOG) ASPART 100 UNITS/ML 10ML VIAL ONE ×2 (11:27→20:10)
--- NOTE | 2016-09-30 13:22 | PN ---
Progress Note (short form) - Note Progress Note: PULMONARY LOW GRADE TEMP CONTINUES APPEARS COMFORTABLE ON VENT/CUFF INFLATED PALE/ANICTERIC DIMINISHED SOUNDS LEFT SIDED S1S2 PEG + EDEMA B/L LOWER EXT LABS/MEDS/MICRO/NOTES/IMAGING REVIEWED IMPROVED AERATION LEFT HEMITHORAX 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 s/p Tracheostomy Pneumonia/Atelectasis left lung UTI Sepsis ALS HTN DM - try PMV again - chest PT, pulmonary toilet,wean as tolerated - inhaled bronchodilators, mucolytics - observe off antibiotics - enteral feeds - DVT/GI prophylaxis Nuzhat CLEMENT MD
[2016-09-30 13:38] LABS: FERRITIN 743.906 ng/ml (16.4-293.9)
--- NOTE | 2016-09-30 15:11 | PN ---
[id number] bedside, he is only mouthing words today? Yesterday he was able to speak. C.diff ordered Tmax 102.5 Current Medications Generic Name Dose Route Start Last Admin Trade Name Nir PRN Reason Stop Dose Admin Acetaminophen 650 mg 09/03/16 20:07 09/29/16 16:38 Tylenol Oral Solution - PO 650 mg Q6H PRN Administration FEVER OR PAIN Acetylcysteine 200 mg 09/03/16 18:00 09/30/16 10:10 Mucomyst 20 Oral / Inh Use Only* NEB 200 mg QIDR KENDRICK Administration Enoxaparin Sodium 40 mg 09/23/16 15:00 09/30/16 10:00 Lovenox - SQ 40 mg DAILY KENDRICK Administration Insulin Aspart 1 vial 09/23/16 16:30 09/30/16 11:23 Novolog Vial Sliding Scale - SQ 2 units ACHS KENDRICK Administration Protocol Riluzole 50 Mg Tab - 1 each 09/04/16 22:00 09/30/16 10:00 Patient Own Med PEG 1 each BID KENDRICK Administration Nystatin 1 applic 09/03/16 22:00 09/30/16 10:00 Nystop Powder - TP 1 applic BID KENDRICK Administration Ranitidine HCl 150 mg 09/03/16 22:00 09/30/16 10:00 Zantac Oral Solution - NGT 150 mg BID KENDRICK Administration Objective: Vital Signs Period Temp Pulse Resp BP Sys/Wang Pulse Ox Last 24 Hr 98.2 F-102.5 F 88-108 14-28 110-135/52-82 95-98 Physical Exam: General: NAD, A&Ox3 Lungs: +trach in place. Rhonchi throughout (improving) Heart: RRR, S1S2 Abd: PEG tube in place. Soft, non-tender, non-distended. Hyperactive bowel sounds Ext: Warm, well-perfused. 2+ DP/PT bilaterally Neuro: CN 2-12 intact. Unable to move LUE CBCD WBC 11.9 K/mm3 (4.0-10.0) H 09/30/16 05:30 RBC 2.39 M/mm3 (4.00-5.60) L 09/30/16 05:30 Hgb 7.8 GM/dL (11.7-16.9) L 09/30/16 05:30 Hct 23.5 % (35.4-49) L 09/30/16 05:30 MCV 98.2 fl (80-96) H 09/30/16 05:30 MCHC 33.2 g/dl (32.0-35.9) 09/30/16 05:30 RDW 13.7 % (11.9-15.9) 09/30/16 05:30 Plt Count 298 K/MM3 (134-434) 09/30/16 05:30 MPV 7.7 fl (7.5-11.1) 09/30/16 05:30 CMP Sodium 137 mmol/L (136-145) 09/29/16 06:00 Potassium 4.3 mmol/L (3.5-5.1) 09/29/16 06:00 Chloride 100 mmol/L (98-107) 09/29/16 06:00 Carbon Dioxide 26 mmol/L (21-32) 09/29/16 06:00 Anion Gap 11 (8-16) 09/29/16 06:00 BUN 20 mg/dL (7-18) H 09/29/16 06:00 Creatinine 0.6 mg/dL (0.7-1.3) L 09/29/16 06:00 Creat Clearance w eGFR > 60 (>60) 09/29/16 06:00 Random Glucose 155 mg/dL (74-106) H 09/29/16 06:00 Calcium 8.4 mg/dL (8.5-10.1) L 09/29/16 06:00 Total Bilirubin 0.3 mg/dL (0.2-1.0) 09/29/16 06:00 AST 25 U/L (15-37) 09/29/16 06:00 ALT 71 U/L (12-78) D 09/29/16 06:00 Alkaline Phosphatase 171 U/L (45-117) H 09/29/16 06:00 Total Protein 6.7 g/dl (6.4-8.2) 09/29/16 06:00 Albumin 2.2 g/dl (3.4-5.0) L 09/29/16 06:00 CARDIAC ENZYMES Creatine Kinase 29 IU/L (39-308) L 09/23/16 14:45 Troponin I 0.02 ng/ml (0.00-0.05) D 09/23/16 14:45 Microbiology 09/28/16 09:28 Blood Culture - Preliminary Blood - Peripheral Venous NO GROWTH OBTAINED AFTER 48 HOURS, INCUBATION TO CONTINUE FOR 3 DAYS. 09/28/16 10:27 Blood Culture - Preliminary Blood - Peripheral Venous NO GROWTH OBTAINED AFTER 48 HOURS, INCUBATION TO CONTINUE FOR 3 DAYS. 09/28/16 09:30 Urine Culture - Final Urine - Urine Clean Catch NO GROWTH OBTAINED Assessment: This is a 76 year old male with PMHx of ALS, DMII, GERD, CHF?, dysphagia, who presented to the ED with progressive generalized weakness and inability to ambulate and was found to have acute hypoxic hypercapnic respiratory failure, was intubated and then trached on 08/31/16. Plan: 1) Pulmonary: Acute on chronic hypoxic hypercapnic respiratory failure - S/p trach on 08/31/16, changed on 09/25/16 - Tolerating leak speech, will discuss with pulmonary - Will try PMV tomorrow - Continue Mucomyst - Continue Albuterol nebs - Appreciate pulmonary consult 2) ID: Sepsis 2/2 E.coli in sputum, VRE UTI - Tmax 102.5, leukocytosis improving - Cultures sent, urine culture with no growth, blood culture with NGTD - Chest X-ray 09/29: improvement in the left hemithorax - Continue to observe off abx per ID - F/u stool for c.diff - Appreciate ID consult 3) GI: Elevated ALT, alk phos - Trending down - Liver ultrasound with no evidence of acute cholecystitis - Continue to monitor 4) Hematology: Anemia - Continue to monitor H/H - Consider PRBC transfusion if continues to drop - F/u anemia workup 5) Cardiology: Right sided chest pain - Occurred during leak speech trials - Has since resolved 6) Neuro: ALS - Continue Riluzole 50mg GT bid 7) Endocrine: DM - BGM ACHS - ISS ACHS 8) F/E/N: - Monitor electrolytes - Tube feeds 9) Prophylaxis: - Lovenox 40mg sq daily - PT - Continue Zantac 10) Dispo: - Requires continued inpatient care CODE STATUS: FULL CODE Visit type - Emergency Visit Emergency Visit: Yes ED Registration Date: 08/27/16 Care time: The patient presented to the Emergency Department on the above date and was hospitalized for further evaluation of their emergent condition. - New Patient This patient is new to me today: No - Critical Care Critical Care patient: No
[2016-10-01] MEDS: INSULIN SLIDING SCALE (NOVOLOG) 1 VIAL SQ SCH ×4 (06:03→21:27)
[2016-10-01 06:06] LABS: SERUM IRON 28 ug/dL (38-169); TOTAL IRON BINDING CAPACITY 188 ug/dL (250-450); UIBC 160 ug/dL (111-343)
[2016-10-01] MEDS: ACETYLCYSTEINE 20% 200MG/ML 4 ML VIAL *FOR ORAL / INH USE ONLY NEB SCH ×3 (06:42→17:15)
[2016-10-01] MEDS: ALBUTEROL SO4 0.083% IH SOL 2.5 MG/3 ML VIAL.NEB. NEB PRN ×3 (06:42→17:15)
[2016-10-01] MEDS ORDERED: LIDOCAINE HCL 1%, 10 MG/ML (20ML VIAL) ONE (08:20)
[2016-10-01] MEDS: RANITIDINE HCL 150 MG/10 ML UNIT-DOSE CUP NGT SCH ×2 (10:32→21:19)
[2016-10-01] MEDS: ENOXAPARIN NA (PORCINE) 40 MG/0.4 ML DISP.SYRIN SQ SCH (10:32)
[2016-10-01] MEDS: RILUZOLE 50 MG PEG SCH ×2 (10:33→21:19)
[2016-10-01] MEDS: NYSTATIN POWDER 100,000 UNITS/GM - 15 GM TOPICAL POWDER TP SCH ×2 (10:35→21:29)
--- NOTE | 2016-10-01 10:38 | PN ---
Progress Note (short form) - Note Progress Note: Subjective: The patient was seen and examined at the bedside, he is able to mouth words today, stating feeling good PMV trail today C.diff ordered Tmax 100 Current Medications Generic Name Dose Route Start Last Admin Trade Name Freq PRN Reason Stop Dose Admin Acetaminophen 650 mg 09/03/16 20:07 09/29/16 16:38 Tylenol Oral Solution - PO 650 mg Q6H PRN Administration FEVER OR PAIN Acetylcysteine 200 mg 09/03/16 18:00 10/01/16 06:42 Mucomyst 20 Oral / Inh Use Only* NEB 200 mg QIDR KENDRICK Administration Albuterol Sulfate 1 amp 09/30/16 15:12 10/01/16 06:42 Ventolin 0.083% Nebulizer Soln - NEB 1 amp Q4H PRN Administration SHORT OF BREATH/WHEEZING Enoxaparin Sodium 40 mg 10/01/16 10:00 Lovenox - SQ DAILY KENDRICK Insulin Aspart 1 vial 09/23/16 16:30 10/01/16 06:03 Novolog Vial Sliding Scale - SQ 2 units ACHS KENDRICK Administration Protocol Riluzole 50 Mg Tab - 1 each 09/04/16 22:00 09/30/16 21:45 Patient Own Med PEG 1 each BID KENDRICK Administration Nystatin 1 applic 09/03/16 22:00 09/30/16 22:55 Nystop Powder - TP 1 applic BID KENDRICK Administration Ranitidine HCl 150 mg 09/03/16 22:00 09/30/16 21:45 Zantac Oral Solution - NGT 150 mg BID KENDRICK Administration Objective: Vital Signs Period Temp Pulse Resp BP Sys/Wang Pulse Ox Last 24 Hr 99.0 F-100.0 F 86-108 14-21 93-118/63-70 95-96 Physical Exam: General: NAD, A&Ox3 Lungs: +trach in place. CTA anteriorly Heart: RRR, S1S2 Abd: PEG tube in place. Soft, non-tender, non-distended. Hyperactive bowel sounds Ext: Warm, well-perfused. 2+ DP/PT bilaterally Neuro: CN 2-12 intact. Unable to move LUE CBCD WBC 11.9 K/mm3 (4.0-10.0) H 09/30/16 05:30 RBC 2.39 M/mm3 (4.00-5.60) L 09/30/16 05:30 Hgb 7.8 GM/dL (11.7-16.9) L 09/30/16 05:30 Hct 23.5 % (35.4-49) L 09/30/16 05:30 MCV 98.2 fl (80-96) H 09/30/16 05:30 MCHC 33.2 g/dl (32.0-35.9) 09/30/16 05:30 RDW 13.7 % (11.9-15.9) 09/30/16 05:30 Plt Count 298 K/MM3 (134-434) 09/30/16 05:30 MPV 7.7 fl (7.5-11.1) 09/30/16 05:30 CMP Sodium 137 mmol/L (136-145) 09/29/16 06:00 Potassium 4.3 mmol/L (3.5-5.1) 09/29/16 06:00 Chloride 100 mmol/L (98-107) 09/29/16 06:00 Carbon Dioxide 26 mmol/L (21-32) 09/29/16 06:00 Anion Gap 11 (8-16) 09/29/16 06:00 BUN 20 mg/dL (7-18) H 09/29/16 06:00 Creatinine 0.6 mg/dL (0.7-1.3) L 09/29/16 06:00 Creat Clearance w eGFR > 60 (>60) 09/29/16 06:00 Random Glucose 155 mg/dL (74-106) H 09/29/16 06:00 Calcium 8.4 mg/dL (8.5-10.1) L 09/29/16 06:00 Total Bilirubin 0.3 mg/dL (0.2-1.0) 09/29/16 06:00 AST 25 U/L (15-37) 09/29/16 06:00 ALT 71 U/L (12-78) D 09/29/16 06:00 Alkaline Phosphatase 171 U/L (45-117) H 09/29/16 06:00 Total Protein 6.7 g/dl (6.4-8.2) 09/29/16 06:00 Albumin 2.2 g/dl (3.4-5.0) L 09/29/16 06:00 CARDIAC ENZYMES Creatine Kinase 29 IU/L (39-308) L 09/23/16 14:45 Troponin I 0.02 ng/ml (0.00-0.05) D 09/23/16 14:45 Microbiology 09/28/16 09:28 Blood - Peripheral Venous Blood Culture - Preliminary NO GROWTH OBTAINED AFTER 72 HOURS, INCUBATION TO CONTINUE FOR 2 DAYS. 09/28/16 10:27 Blood - Peripheral Venous Blood Culture - Preliminary NO GROWTH OBTAINED AFTER 72 HOURS, INCUBATION TO CONTINUE FOR 2 DAYS. 09/29/16 18:00 Sputum - Endotrachea Suction/Ventilator Sputum Culture - Preliminary Presumptive Ps Aeruginosa 09/28/16 09:30 Urine - Urine Clean Catch Urine Culture - Final NO GROWTH OBTAINED 09/19/16 17:00 Blood - Peripheral Venous Blood Culture - Final NO GROWTH AFTER 5 DAYS INCUBATION 09/19/16 17:00 Blood - Peripheral Venous Blood Culture - Final NO GROWTH AFTER 5 DAYS INCUBATION 09/20/16 16:00 Sputum - Endotrachea Suction/Ventilator Gram Stain - Final 09/20/16 16:00 Sputum - Endotrachea Suction/Ventilator Sputum Culture - Final Escherichia Coli 09/19/16 21:00 Urine - Urine Clean Catch Urine Culture - Final Vr Ec Faecalis 09/10/16 12:10 Sputum - Endotrachea Suction/Ventilator Gram Stain - Final 09/10/16 12:10 Sputum - Endotrachea Suction/Ventilator Sputum Culture - Final Escherichia Coli 09/06/16 17:00 Blood - Peripheral Venous Blood Culture - Final NO GROWTH AFTER 5 DAYS INCUBATION 09/06/16 17:00 Blood - Peripheral Venous Blood Culture - Final NO GROWTH AFTER 5 DAYS INCUBATION 08/27/16 11:50 Urine - Urine Clean Catch Urine Culture - Final Enterococcus Faecalis 09/01/16 10:15 Sputum - Endotrachea Suction/Ventilator Gram Stain - Final 09/01/16 10:15 Sputum - Endotrachea Suction/Ventilator Sputum Culture - Final NORMAL RESPIRATORY BUCKY 09/02/16 12:15 Stool Clostridium difficile Antigen (CESILIA) - Final 09/02/16 12:15 Stool Clostridium difficile Toxin Assay - Final 08/27/16 13:30 Blood - Peripheral Venous Blood Culture - Final NO GROWTH AFTER 5 DAYS INCUBATION 08/27/16 13:30 Blood - Peripheral Venous Blood Culture - Final NO GROWTH AFTER 5 DAYS INCUBATION 08/27/16 13:43 Urine For Antigen Detection Legionella Antigen - Final 08/27/16 13:43 Urine For Antigen Detection Streptococcus pneumoniae Antigen (M - Final Assessment: This is a 76 year old male with PMHx of ALS, DMII, GERD, CHF?, dysphagia, who presented to the ED with progressive generalized weakness and inability to ambulate and was found to have acute hypoxic hypercapnic respiratory failure, was intubated and then trached on 08/31/16. Plan: 1) Pulmonary: Acute on chronic hypoxic hypercapnic respiratory failure - S/p trach on 08/31/16, changed on 09/25/16 - Will try PMV today - Continue Mucomyst - Continue Albuterol nebs - Appreciate pulmonary consult 2) ID: Sepsis 2/2 E.coli in sputum, VRE UTI - Tmax 100, f/u CBC today - Sputum culture with presumptive ps aeruginosa. Discussed with Dr. Paulson who recommends no abx at this time - Cultures sent, urine culture with no growth, blood culture with NGTD - Chest X-ray 09/29: improvement in the left hemithorax - Continue to observe off abx per ID - F/u stool for c.diff - Appreciate ID consult 3) GI: Elevated ALT, alk phos - Trending down - Liver ultrasound with no evidence of acute cholecystitis - Continue to monitor 4) Hematology: Anemia - Continue to monitor H/H - Consider PRBC transfusion if continues to drop - Fe/TIBC low, will start iron supplements 5) Cardiology: Right sided chest pain - Occurred during leak speech trials - Has since resolved 6) Neuro: ALS - Continue Riluzole 50mg GT bid 7) Endocrine: DM - BGM ACHS - ISS ACHS 8) F/E/N: - Monitor electrolytes - Tube feeds 9) Prophylaxis: - Lovenox 40mg sq daily - PT - Continue Zantac 10) Dispo: - D/c to LT[facility] CODE STATUS: FULL CODE Visit type - Emergency Visit Emergency Visit: Yes ED Registration Date: 08/27/16 Care time: The patient presented to the Emergency Department on the above date and was hospitalized for further evaluation of their emergent condition. - New Patient This patient is new to me today: No - Critical Care Critical Care patient: No
--- NOTE | 2016-10-01 10:56 | PN ---
Progress Note, Physician History of Present Illness: Awake, alert No acute distress Low grade temp noted No diarrhea Breathing non-labored Sputum c/s Pseudomonas sp - Current Medication List Current Medications: Active Medications Acetaminophen (Tylenol Oral Solution -) 650 mg PO Q6H PRN PRN Reason: FEVER OR PAIN Last Admin: 09/29/16 16:38 Dose: 650 mg Acetylcysteine (Mucomyst 20 Oral / Inh Use Only*) 200 mg NEB QIDR [facility] Last Admin: 10/01/16 06:42 Dose: 200 mg Albuterol Sulfate (Ventolin 0.083% Nebulizer Soln -) 1 amp NEB Q4H PRN PRN Reason: SHORT OF BREATH/WHEEZING Last Admin: 10/01/16 06:42 Dose: 1 amp Enoxaparin Sodium (Lovenox -) 40 mg SQ DAILY [facility] Last Admin: 10/01/16 10:32 Dose: 40 mg Ferrous Sulfate (Feosol) 300 mg GT DAILY [facility] Insulin Aspart (Novolog Vial Sliding Scale -) 1 vial SQ ACHS [facility] PRN Reason: Protocol Last Admin: 10/01/16 06:03 Dose: 2 units Riluzole 50 Mg Tab - (Patient Own Med) 1 each PEG BID [facility] Last Admin: 10/01/16 10:33 Dose: 1 each Nystatin (Nystop Powder -) 1 applic TP BID [facility] Last Admin: 10/01/16 10:35 Dose: 1 applic Polyethylene Glycol (Miralax (For Daily Use) -) 17 gm PO DAILY [facility] Ranitidine HCl (Zantac Oral Solution -) 150 mg NGT BID [facility] Last Admin: 10/01/16 10:32 Dose: 150 mg - Objective Vital Signs: Vital Signs Temperature 99.0 F 10/01/16 06:00 Pulse Rate 86 10/01/16 10:00 Respiratory Rate 16 10/01/16 10:00 Blood Pressure 114/67 10/01/16 06:00 O2 Sat by Pulse Oximetry (%) 96 10/01/16 10:00 Constitutional: Yes: No Distress Eyes: Yes: Conjunctiva Clear Cardiovascular: Yes: Regular Rate and Rhythm, S1, S2 Respiratory: Yes: Diminished Gastrointestinal: Yes: Normal Bowel Sounds, Soft. No: Tenderness Edema: Yes Edema: LLE: 1+, RLE: 1+ Labs: CBC, BMP 09/30/16 05:30 09/29/16 06:00 INR, PTT INR 1.09 (0.82-1.09) 09/03/16 18:30 Assessment/Plan S/P respiratory failure/ trach Fever / leukocytosis improved Hx neuromuscular disorder Elevated WBC improved Elevated LFTs improved Blood, urine c/s no growth. CXR improved Sputum c/s Pseudomonas sp- likely trach colonizer Observe off antibiotics No objection to D/C
[2016-10-01 11:21] LABS: MCHC 33.6 g/dl (32.0-35.9); MEAN CELL VOLUME 98.1 fl (80-96); MEAN PLT VOLUME 7.3 fl (7.5-11.1); PLATELET COUNT 343 K/MM3 (134-434); RDW 13.8 % (11.9-15.9)
[2016-10-01] MEDS ORDERED: INSULIN (NOVOLOG) ASPART 100 UNITS/ML 10ML VIAL ONE (11:54)
--- NOTE | 2016-10-01 11:57 | PN ---
Progress Note (short form) - Note Progress Note: Awake and alert on AC mode. No acute events overnight. CXR Over the weekend : improving / some residual atelectasis Intake & Output 09/28/16 09/29/16 09/30/16 10/01/16 23:59 23:59 23:59 23:59 Intake Total 1900 2160 2140 900 Output Total 512 319 2714 Balance 1100 1510 640 900 Weight 180 lb 0.4 oz 180 lb Last Vital Signs Temp Pulse Resp BP Pulse Ox 100.4 F H 83 21 131/75 96 10/01/16 11:29 10/01/16 11:05 10/01/16 11:05 10/01/16 11:05 10/01/16 10:00 Active Medications Acetaminophen (Tylenol Oral Solution -) 650 mg PO Q6H PRN PRN Reason: FEVER OR PAIN Last Admin: 09/29/16 16:38 Dose: 650 mg Acetylcysteine (Mucomyst 20 Oral / Inh Use Only*) 200 mg NEB QIDR [facility] Last Admin: 10/01/16 11:14 Dose: 200 mg Albuterol Sulfate (Ventolin 0.083% Nebulizer Soln -) 1 amp NEB Q4H PRN PRN Reason: SHORT OF BREATH/WHEEZING Last Admin: 10/01/16 11:14 Dose: 1 amp Enoxaparin Sodium (Lovenox -) 40 mg SQ DAILY [facility] Last Admin: 10/01/16 10:32 Dose: 40 mg Ferrous Sulfate (Feosol) 300 mg GT DAILY [facility] Insulin Aspart (Novolog Vial Sliding Scale -) 1 vial SQ ACHS [facility] PRN Reason: Protocol Last Admin: 10/01/16 06:03 Dose: 2 units Riluzole 50 Mg Tab - (Patient Own Med) 1 each PEG BID [facility] Last Admin: 10/01/16 10:33 Dose: 1 each Nystatin (Nystop Powder -) 1 applic TP BID [facility] Last Admin: 10/01/16 10:35 Dose: 1 applic Polyethylene Glycol (Miralax (For Daily Use) -) 17 gm PO DAILY [facility] Ranitidine HCl (Zantac Oral Solution -) 150 mg NGT BID [facility] Last Admin: 10/01/16 10:32 Dose: 150 mg Gen: Awake and alert, Trached Heart: RRR Lung: scattered rhonchi Abd: soft, nontender Ext: no edema Problem List - Problems (1) Head injury Code(s): S09.90XA - UNSPECIFIED INJURY OF HEAD, INITIAL ENCOUNTER Qualifiers: Encounter type: initial encounter Qualified Code(s): S09.90XA - Unspecified injury of head, initial encounter (2) Laceration Code(s): T14.8 - OTHER INJURY OF UNSPECIFIED BODY REGION (3) Acute respiratory failure Code(s): J96.00 - ACUTE RESPIRATORY FAILURE, UNSP W HYPOXIA OR HYPERCAPNIA Qualifiers: Respiratory failure complication: hypercapnia Qualified Code(s): J96.02 - Acute respiratory failure with hypercapnia (4) Pneumonia Code(s): J18.9 - PNEUMONIA, UNSPECIFIED ORGANISM (5) Acute respiratory failure with hypercapnia Code(s): J96.02 - ACUTE RESPIRATORY FAILURE WITH HYPERCAPNIA (6) ALS (amyotrophic lateral sclerosis) Code(s): G12.21 - AMYOTROPHIC LATERAL SCLEROSIS (7) Sepsis Code(s): A41.9 - SEPSIS, UNSPECIFIED ORGANISM ASSESSMENT AND PLAN: 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 Presumed Pneumonia UTI Sepsis ALS HTN DM - Off ABX per ID - O2 to keep SpO2 >90% - inhaled bronchodilators - aspiration precautions - DVT/GI prophylaxis - No Pulmonary contraindication for D/C planning Dr Donald Problem List - Problems (1) Head injury Code(s): S09.90XA - UNSPECIFIED INJURY OF HEAD, INITIAL ENCOUNTER Qualifiers: Encounter type: initial encounter Qualified Code(s): S09.90XA - Unspecified injury of head, initial encounter (2) Laceration Code(s): T14.8 - OTHER INJURY OF UNSPECIFIED BODY REGION (3) Acute respiratory failure Code(s): J96.00 - ACUTE RESPIRATORY FAILURE, UNSP W HYPOXIA OR HYPERCAPNIA Qualifiers: Respiratory failure complication: hypercapnia Qualified Code(s): J96.02 - Acute respiratory failure with hypercapnia (4) Pneumonia Code(s): J18.9 - PNEUMONIA, UNSPECIFIED ORGANISM (5) Acute respiratory failure with hypercapnia Code(s): J96.02 - ACUTE RESPIRATORY FAILURE WITH HYPERCAPNIA (6) ALS (amyotrophic lateral sclerosis) Code(s): G12.21 - AMYOTROPHIC LATERAL SCLEROSIS (7) Sepsis Code(s): A41.9 - SEPSIS, UNSPECIFIED ORGANISM
--- NOTE | 2016-10-01 12:29 | DS ---
Physical Examination Vital Signs: Vital Signs Temperature 100.4 F H 10/01/16 11:29 Pulse Rate 83 10/01/16 11:05 Respiratory Rate 21 10/01/16 11:05 Blood Pressure 131/75 10/01/16 11:05 O2 Sat by Pulse Oximetry (%) 96 10/01/16 10:00 Labs: CBC, BMP 10/01/16 10:50 09/29/16 06:00 Discharge Summary Reason For Visit: ACUTE RESPIRATORY FAILURE Current Active Problems ALS (amyotrophic lateral sclerosis) (Acute) Acute respiratory failure (Acute) Acute respiratory failure with hypercapnia (Acute) Diabetes (Acute) Diarrhea (Acute) Dysphagia (Acute) Pneumonia (Acute) Sepsis (Acute) Transaminitis (Acute) UTI (urinary tract infection) (Acute) Condition: Stable - Instructions Diet, Activity, Other Instructions: Please return to the ED with new, persistent, or worsening symptoms. Please follow-up with providers as indicated. Referrals: Salas Marcelo MD [Staff Physician] - (Please follow-up with Dr. Marcelo within 1 month for further management of your tracheostomy) Heber Waters MD [Staff Physician] - 1 Week Lashay Espinoza MS, [facility] [Speech Therapist] - (Please follow-up with Samaria Espinoza for continued speech and swallow evaluation within 1 week) Jordan Donald MD [Staff Physician] - (Please follow-up with pulmonary within 1 week for further vent management) Disposition: TRANSFER ACUTE CARE/OTHER HOSP - Home Medications Comprehensive Discharge Medication List: Ambulatory Orders Acetylcysteine Po/INH 20% [Mucomyst 20 Oral / INH Use Only*] 200 mg NEB QIDR vial 10/01/16 Albuterol 0.083% Nebulizer Elena [Ventolin 0.083% Nebulizer Soln -] 1 amp NEB Q4H PRN #0 amp 10/01/16 Enoxaparin [Lovenox -] 40 mg SQ DAILY disp.syrin 10/01/16 Insulin Sliding Scale [Novolog Vial Sliding Scale -] See Protocol SQ ACHS units 10/01/16 Nystatin Powder [Nystop Powder -] 1 applic TP BID applic 10/01/16 Polyethylene Glycol 3350 [Miralax 119 gm Btl -] 17 gm PO DAILY bottle 10/01/16 Ranitidine Oral Solution [Zantac Oral Solution -] 150 mg NGT BID cup 10/01/16 - Discharge Referral Referred to [facility] No
--- NOTE | 2016-10-01 13:01 | PN ---
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 Additionally, c/o significant right chest pain with PMV. However, with Leak speech, voice was good, mildly reduced in volume, better tolerance of secretions and no chest pain. PMV function better than with previous trach but still contraindicated at this time. 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 Reviewed with primary nurse. Pending d/c to [facility]; REC: SP/SW orders for Leak speech (cuff deflated to allow air to pass through vocal cords to speak), with oxymeter and alarm, supervised, suction as needed. PEG feeding may need to be stopped while cuff if deflated due to increased aspiration risk. MBS?
--- NOTE | 2016-10-01 16:07 | DS ---
Physical Examination Vital Signs: Vital Signs Temperature 100.8 F H 10/01/16 15:47 Pulse Rate 85 10/01/16 14:37 Respiratory Rate 19 10/01/16 14:37 Blood Pressure 123/56 10/01/16 14:37 O2 Sat by Pulse Oximetry (%) 96 10/01/16 10:00 Findings/Remarks: Physical Exam: General: NAD, A&Ox3 Lungs: +trach in place. CTA anteriorly Heart: RRR, S1S2 Abd: PEG tube in place. Soft, non-tender, non-distended. Hyperactive bowel sounds Ext: Warm, well-perfused. 2+ DP/PT bilaterally Neuro: CN 2-12 intact. Unable to move LUE Labs: CBC, BMP 10/01/16 10:50 09/29/16 06:00 Discharge Summary Reason For Visit: ACUTE RESPIRATORY FAILURE Current Active Problems ALS (amyotrophic lateral sclerosis) (Acute) Acute respiratory failure (Acute) Acute respiratory failure with hypercapnia (Acute) Diabetes (Chronic) Diarrhea (Acute) Dysphagia (Acute) Pneumonia (Acute) Sepsis (Acute) Transaminitis (Acute) UTI (urinary tract infection) (Acute) Anemia (Acute) Hospital Course: This is a 76 year old male with PMHx of ALS, DMII, GERD, CHF?, dysphagia, who presented to the ED with progressive generalized weakness and inability to ambulate and was found to have acute hypoxic hypercapnic respiratory failure, was intubated and then trached on 08/31/16. Plan: 1) Pulmonary: Acute on chronic hypoxic hypercapnic respiratory failure - S/p trach on 08/31/16, changed on 09/25/16 - Will try PMV today - Continue Mucomyst - Continue Albuterol nebs - Appreciate pulmonary consult 2) ID: Sepsis 2/2 E.coli in sputum, VRE UTI - Tmax 100, f/u CBC today - Sputum culture with presumptive ps aeruginosa. Discussed with Dr. Paulson who recommends no abx at this time - Cultures sent, urine culture with no growth, blood culture with NGTD - Chest X-ray 09/29: improvement in the left hemithorax - Continue to observe off abx per ID - F/u stool for c.diff - Appreciate ID consult 3) GI: Elevated ALT, alk phos - Trending down - Liver ultrasound with no evidence of acute cholecystitis - Continue to monitor 4) Hematology: Anemia - Continue to monitor H/H - Consider PRBC transfusion if continues to drop - Fe/TIBC low, will start iron supplements 5) Cardiology: Right sided chest pain - Occurred during leak speech trials - Has since resolved 6) Neuro: ALS - Continue Riluzole 50mg GT bid 7) Endocrine: DM - BGM ACHS - ISS ACHS 8) F/E/N: - Monitor electrolytes - Tube feeds Discussed with emmanuel Fragoso for discharge to LTAC with fevers Condition: Stable - Instructions Diet, Activity, Other Instructions: Please return to the ED with new, persistent, or worsening symptoms. Please follow-up with providers as indicated. Referrals: Lashay Espinoza MS, CCC [Speech Therapist] - (Please follow-up with Samaria Espinoza for continued speech and swallow evaluation within 1 week) Jordan Donald MD [Staff Physician] - (Please follow-up with pulmonary within 1 week for further vent management) Heber Waters MD [Staff Physician] - 1 Week Salas Marcelo MD [Staff Physician] - (Please follow-up with Dr. Marcelo within 1 month for further management of your tracheostomy) Disposition: TRANSFER ACUTE CARE/OTHER HOSP - Home Medications Comprehensive Discharge Medication List: Ambulatory Orders Acetylcysteine Po/INH 20% [Mucomyst 20 Oral / INH Use Only*] 200 mg NEB QIDR vial 10/01/16 Albuterol 0.083% Nebulizer Elena [Ventolin 0.083% Nebulizer Soln -] 1 amp NEB Q4H PRN #0 amp 10/01/16 Enoxaparin [Lovenox -] 40 mg SQ DAILY disp.syrin 10/01/16 Insulin Sliding Scale [Novolog Vial Sliding Scale -] See Protocol SQ ACHS units 10/01/16 Nystatin Powder [Nystop Powder -] 1 applic TP BID applic 10/01/16 Polyethylene Glycol 3350 [Miralax 119 gm Btl -] 17 gm PO DAILY bottle 10/01/16 Ranitidine Oral Solution [Zantac Oral Solution -] 150 mg NGT BID cup 10/01/16 This patient is new to me today: No Emergency Visit: Yes ED Registration Date: 08/27/16 Care time: The patient presented to the Emergency Department on the above date and was hospitalized for further evaluation of their emergent condition. Critical Care patient: No - Discharge Referral Referred to [facility] No
[2016-10-01] MEDS: ACETAMINOPHEN 650 MG/20.3 ML ORAL SOLUTION (CUPS) PO PRN (20:36)
[2016-10-02] MEDS: ACETYLCYSTEINE 20% 200MG/ML 4 ML VIAL *FOR ORAL / INH USE ONLY NEB SCH ×2 (00:43→06:00)
[2016-10-02] MEDS: ALBUTEROL SO4 0.083% IH SOL 2.5 MG/3 ML VIAL.NEB. NEB PRN ×2 (00:43→06:00)
[2016-10-02 06:06] LABS: TRANSFERRIN 160 mg/dL (200-370)
[2016-10-02] MEDS: INSULIN SLIDING SCALE (NOVOLOG) 1 VIAL SQ SCH (06:47)
[2016-10-02] MEDS ORDERED: PT OWN MED DRAWER 7, Y5N ONE (09:15)
[2016-10-02] MEDS: ENOXAPARIN NA (PORCINE) 40 MG/0.4 ML DISP.SYRIN SQ SCH (09:40)
[2016-10-02] MEDS: RANITIDINE HCL 150 MG/10 ML UNIT-DOSE CUP NGT SCH (09:41)
[2016-10-02] MEDS: RILUZOLE 50 MG PEG SCH (09:41)
[2016-10-02] MEDS: NYSTATIN POWDER 100,000 UNITS/GM - 15 GM TOPICAL POWDER TP SCH (09:46)
[2016-10-02 09:49] VITALS: BP 119/63
[2016-10-02 09:50] VITALS: PULSE 85
[2016-10-02 09:55] VITALS: TEMP 98.8
[2016-10-02] MEDS ORDERED: POLYETHYLENE GLYCOL 3350 119 GM BTL PO SCH (10:00)
[2016-10-02] MEDS ORDERED: FERROUS SO4 300 MG/5 ML ORAL SOLN UNIT DOSE CUPS GT SCH (10:00)
== END 2016-10-02 10:36 | disposition short-term general hospital (02) | DRG 3 ==
LOC: JER 11:32 → JERBED 13:52 → JICU 18:20 → J5S 09-04 21:52
PROVIDERS: ADMIT Internal Medicine; ATTEND Nurse Practitioner Acute Care
PROC: 0BH17EZ Insertion of Endotracheal Airway into Trachea, Via Natural or Artificial Opening (ICD-10-PCS; 2016-08-27)
PROC: 5A1935Z Respiratory Ventilation, Less than 24 Consecutive Hours (ICD-10-PCS; 2016-08-27)
PROC: 5A1955Z Respiratory Ventilation, Greater than 96 Consecutive Hours (ICD-10-PCS; 2016-08-31)
PROC: 0BH17EZ Insertion of Endotracheal Airway into Trachea, Via Natural or Artificial Opening (ICD-10-PCS; 2016-08-31)
PROC: 0B113F4 Bypass Trachea to Cutaneous with Tracheostomy Device, Percutaneous Approach (ICD-10-PCS; principal; 2016-08-31 09:00)
PROC: 0DB68ZX Excision of Stomach, Via Natural or Artificial Opening Endoscopic, Diagnostic (ICD-10-PCS; 2016-09-04)
PROC: 0DH63UZ Insertion of Feeding Device into Stomach, Percutaneous Approach (ICD-10-PCS; 2016-09-04)
PROC: 3E0G76Z Introduction of Nutritional Substance into Upper GI, Via Natural or Artificial Opening (ICD-10-PCS; 2016-09-04)
PROC: 0BW18FZ Revision of Tracheostomy Device in Trachea, Via Natural or Artificial Opening Endoscopic (ICD-10-PCS; 2016-09-25 15:00)
DX: A41.9 Sepsis, unspecified organism (principal); J96.02 Acute respiratory failure with hypercapnia; J18.9 Pneumonia, unspecified organism; G12.21 Amyotrophic lateral sclerosis; N39.0 Urinary tract infection, site not specified; E87.0 Hyperosmolality and hypernatremia; E11.9 Type 2 diabetes mellitus without complications; I10 Essential (primary) hypertension; I50.9 Heart failure, unspecified; J39.8 Other specified diseases of upper respiratory tract; D64.9 Anemia, unspecified
CPT/HCPCS: 36415; 36600; 71010-TC; 76705-TC; 80048; 80053; 81003; 81015; 82272; 82550; 82553; 82607; 82728; 82746; 82803; 83540; 83550; 83605; 83735; 83880; 84100; 84466; 84484; 85025; 85027; 85379; 85610; 86850; 86900; 86901; 87040; 87070; 87086; 87186; 87205; 87324; 87449; 87899; 88300-TC; 88305-TC; 93005; 93010; 93306-TC; 94002; 94640; 94660; 94760; 97001-GP; 99285-25; C1894; G0480; J1644